=== PATIENT | female | born 1950 | race African-American/Black ===

== ENCOUNTER 2018-01-03 12:02 | Inpatient (IN) ==
[2018-01-03 12:29] LABS: Basophils % 0.3 %; Eosinophils # 0.1 K/mcL (0.0-0.6); Eosinophils % 1.7 %; Hematocrit 38.5 % (35.3-44.9); Hemoglobin 11.8 g/dL (11.5-15.4); Immature Granulocytes % 0.3 % (0-4); Lymphocytes # 0.9 K/mcL (0.6-4.6); Lymphocytes % 26.2 %; Mean Corpuscular HGB Conc 30.6 g/dL (31.6-35.5); Mean Corpuscular Hemoglobin 27.6 pg (28.0-33.3); Mean Corpuscular Volume 90.2 fL (83.0-100.0); Mean Platelet Volume 11.1 fL (9.4-12.4); Monocytes # 0.4 K/mcL (0.0-1.3); Monocytes % 10.2 %; Neutrophils # 2.1 K/mcL (1.6-8.9); Platelet Count 201 K/mcL (140-400); Red Blood Count 4.27 M/mcL (3.82-4.97); Red Cell Distribution Width 17.4 % (11.5-14.5); Segmented Neutrophils % 61.3 %
[2018-01-03 12:42] LABS: INR 1.1; Prothrombin Time 12.8 Seconds (9.4-12.1)
[2018-01-03 12:44] LABS: Activated Partial Thrombo Time 31.5 Seconds (26.0-36.0)
[2018-01-03 12:53] LABS: Troponin I < 0.03 ng/mL (< 0.04)
--- NOTE | 2018-01-03 13:02 | Emergency Department Note ---
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 She denies loss of consciousness or hitting her head. She states that she lives with her son. Over the last several weeks to months she has been having more frequent falls, she states that her legs feel very heavy and it is difficult for her to walk around. She also notes that she has felt increasing depression recently and has been unmotivated to take her medications including her 20 mg once per day of Lasix. Her son manages her insulin and checking her blood sugar because it is difficult for her to see the screen on the meter after she had emergency surgery in her right eye last year some time for acute angle-closure glaucoma. She also notes some increasing shortness of breath over the last several months , numbness in her feet, and some occasional diarrhea. 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 She denies fevers or chills, abdominal pain, nausea or vomiting, chest pain, dysuria, frequency. Patient states that she has not eaten anything today because she was trying to be seen by the doctor, EMS got a blood sugar of 168. Pain Scale: 0 - Related Data Home Medications Medication Instructions Recorded Confirmed Aspirin Enteric Coated [Aspirin EC] 81 mg PO DAILY 01/03/18 01/03/18 Atorvastatin [Lipitor] 40 mg PO HS 01/03/18 01/03/18 Brimonidine Tartrate/Timolol 1 drop OP DAILY 01/03/18 01/03/18 [Combigan 0.2%-0.5% Eye Drops] Dorzolamide [Trusopt] 1 drop OP TID 01/03/18 01/03/18 Ferrous Sulfate [Iron] 325 mg PO DAILY 01/03/18 01/03/18 Furosemide [Lasix] 20 mg PO DAILY 01/03/18 01/03/18 Gabapentin [Neurontin] 600 mg PO DAILY 01/03/18 01/03/18 Insulin ASPART [NovoLOG] 6 units SQ TIDWM 01/03/18 01/03/18 Insulin Glargine [Lantus] 18 units SQ HS 01/03/18 01/03/18 Losartan [Cozaar] 25 mg PO DAILY 01/03/18 01/03/18 Allergies Allergy/AdvReac Type Severity Reaction Status Date / Time No Known Allergies Allergy Verified 01/03/18 12:08 All systems ED: reviewed and negative except as stated. Review of Systems: As Per HPI Constitutional: Denies: fever, chills Eyes: Denies: eye pain, vision change ENT ED: Denies: ear pain, throat pain Cardiovascular: Reports: dyspnea on exertion. Denies: chest pain Respiratory: Reports: dyspnea Gastrointestinal: Reports: diarrhea (occasional). Denies: abdominal pain, nausea, vomiting, constipation Genitourinary: Denies: urgency, dysuria, frequency Musculoskeletal: Reports: back pain (chronic, lumbar) Neurological: Denies: headache, numbness Psychiatric: Reports: depression Endocrine: Denies: heat or cold intolerance Past Medical History - Past Medical History Medical history: Reports: CHF, diabetes Psychiatric history: Reports: depression - Social History Smoking Status: Never smoker Smokeless Tobacco Status: No Alcohol use: Reports: none Drug use: Reports: none Physical Exam - General Limitations: no limitations General appearance: alert, in no apparent distress - Head Head exam: atraumatic, normocephalic - ENT ENT exam: normal exam, normal oropharynx, mucous membranes moist - Neck Neck exam: Present: normal inspection, full ROM - Chest Chest inspection: Present: normal inspection, symmetric chest wall rise - Respiratory Respiratory exam: Present: normal lung sounds bilaterally. Absent: respiratory distress, wheezes - Cardiovascular Cardiovascular exam: Present: regular rate, normal rhythm - Abdominal Exam Abdominal exam: Present: soft, Non-Tender - Expanded Lower Extremity Exam Lower leg exam: Present: swelling (3-4+ pitting edema edith) - Psychiatric Psychiatric exam: Present: depressed, flat affect - Skin Skin exam: Present: warm, dry, intact Course Course Narrative: Patient has been having frequent falls over the last several weeks and also reports that she has a worsening depression which makes her not want to manage her diseases and it makes her not want to take her medications. She lives with her son who helps her manage her diabetes by checking her blood sugar and administering her insulin as she finds it difficult to read her meter. Although her son states that she can see her pill bottles and she is able to manage her own medications, it does not seem like she is doing. She states that it has been several weeks since she took her Lasix and while she reports that she is on something for depression it is not amongst the medications that she brought with her today and provided as example of what she takes. Patient will be given a dose of Lasix in this department, however it is unlikely that this will resolve her lower extremity edema she will likely need to be admitted for diuresis, and initiation of greater at-home care, and management of depression. CT head/brain will be used to r/o acute intracranial pathology, basic labs to include CBC, BMP, BNP, and CXR will be performed. Vital Signs Temperature 98.5 F 01/03/18 12:09 Pulse Rate 81 01/03/18 12:09 Respiratory Rate 16 01/03/18 12:09 Blood Pressure 177/92 01/03/18 12:09 O2 Sat by Pulse Oximetry 100 01/03/18 12:09 Temperature 98.5 F 01/03/18 12:09 Pulse Rate 79 01/03/18 13:31 Respiratory Rate 18 01/03/18 13:31 Blood Pressure 155/115 01/03/18 13:31 O2 Sat by Pulse Oximetry 99 01/03/18 13:31 Oxygen Delivery Oxygen Delivery Room Air Medical Decision Making - [facility] Narrative Medical decision making narrative: Patient's head CT was negative for any acute intracranial abnormality, chest x- ray showed cardiomegaly but otherwise no acute cardiopulmonary processes, her lab work was remarkable for an elevated BNP at 1265. EKG showed flattening of the T waves in V4 through V6 which is a change from previous EKG in 2004. Additionally patient is having trouble ambulating at home, and does not seem to be able to manage her medications well enough to be compliant with them. Patient will need to be admitted for further workup of exacerbation of CHF, and connection with home health aide. I spoke with family and the patient who expressed understanding and agreement with the plan, I gave them an opportunity for questions and all of their concerns were addressed. Spoke with the hospitalist Dr. Reed who accepted the patient. - Medical Records Medical records reviewed: Yes I reviewed the patient's medical records. - Lab Data Lab results reviewed: Yes I reviewed the patient's lab results. Result diagrams: 01/03/18 12:15 01/03/18 12:15 Lab Results 01/03/18 01/03/18 01/03/18 Range/Units 12:15 12:15 12:15 WBC 3.4 L (4.3-11.1) K/mcL RBC 4.27 (3.82-4.97) M/mcL Hgb 11.8 (11.5-15.4) g/dL Hct 38.5 (35.3-44.9) % MCV 90.2 (83.0-100.0) fL MCH 27.6 L (28.0-33.3) pg MCHC 30.6 L (31.6-35.5) g/dL RDW 17.4 H (11.5-14.5) % Plt Count 201 (140-400) K/mcL MPV 11.1 (9.4-12.4) fL Immature Gran % 0.3 (0-4) % Seg Neutrophils % 61.3 % Lymphocytes % 26.2 % Monocytes % 10.2 % Eosinophils % 1.7 % Basophils % 0.3 % Neutrophils # 2.1 (1.6-8.9) K/mcL Lymphocytes # 0.9 (0.6-4.6) K/mcL Monocytes # 0.4 (0.0-1.3) K/mcL Eosinophils # 0.1 (0.0-0.6) K/mcL Basophils # 0.0 (0.0-0.2) K/mcL PT 12.8 H (9.4-12.1) Seconds INR 1.1 APTT 31.5 (26.0-36.0) Seconds Sodium 142 (136-145) mEq/L Potassium 3.9 (3.5-5.1) mEq/L Chloride 107 (98-107) mEq/L Carbon Dioxide 23 (23-29) mEq/L BUN 26 H (8-23) mg/dL Creatinine 1.51 H (0.60-1.20) mg/dL Est GFR ( Amer) 41 L (> 60) Est GFR (Non-Af Amer) 34 L (> 60) BUN/Creatinine Ratio 17 (6-26) Glucose 170 H (70-105) mg/dL Calculated Osmolality 303 H (280-300) Calcium 9.6 (8.6-10.3) mg/dL Magnesium (1.6-2.6) mg/dL Troponin I (< 0.04) ng/mL B-Natriuretic Peptide (Less than 100) pg/mL TSH 4.289 (0.340-5.600) mcIU/mL Urine Color (Yellow) Urine Clarity (Clear) Urine pH (5.0-8.0) pH Units Ur Specific [facility] (1.010-1.025) Urine Protein (Neg-Trace) mg/dL Urine Glucose (UA) (Normal) mg/dL Urine Ketones (Negative) mg/dL Urine Blood (Negative) Urine Nitrite (Negative) Urine Bilirubin (Negative) Urine Urobilinogen (Normal) mg/dL Ur Leukocyte Esterase (Negative) Urine Microscopic RBC (0-3) per hpf Urine Microscopic WBC (0-3) per hpf Ur Squamous Epith Cells (None-Few) per lpf Urine Bacteria (None-Few) per hpf Hyaline Casts (None-Few) per lpf Ur Culture Indicated? (NO) 01/03/18 01/03/18 01/03/18 Range/Units 12:15 12:15 13:16 WBC (4.3-11.1) K/mcL RBC (3.82-4.97) M/mcL Hgb (11.5-15.4) g/dL Hct (35.3-44.9) % MCV (83.0-100.0) fL MCH (28.0-33.3) pg MCHC (31.6-35.5) g/dL RDW (11.5-14.5) % Plt Count (140-400) K/mcL MPV (9.4-12.4) fL Immature Gran % (0-4) % Seg Neutrophils % % Lymphocytes % % Monocytes % % Eosinophils % % Basophils % % Neutrophils # (1.6-8.9) K/mcL Lymphocytes # (0.6-4.6) K/mcL Monocytes # (0.0-1.3) K/mcL Eosinophils # (0.0-0.6) K/mcL Basophils # (0.0-0.2) K/mcL PT (9.4-12.1) Seconds INR APTT (26.0-36.0) Seconds Sodium (136-145) mEq/L Potassium (3.5-5.1) mEq/L Chloride (98-107) mEq/L Carbon Dioxide (23-29) mEq/L BUN (8-23) mg/dL Creatinine (0.60-1.20) mg/dL Est GFR ( Amer) (> 60) Est GFR (Non-Af Amer) (> 60) BUN/Creatinine Ratio (6-26) Glucose (70-105) mg/dL Calculated Osmolality (280-300) Calcium (8.6-10.3) mg/dL Magnesium 1.7 (1.6-2.6) mg/dL Troponin I < 0.03 (< 0.04) ng/mL B-Natriuretic Peptide 1265 H (Less than 100) pg/mL TSH (0.340-5.600) mcIU/mL Urine Color Yellow (Yellow) Urine Clarity Cloudy A (Clear) Urine pH 5.5 (5.0-8.0) pH Units Ur Specific [facility] 1.028 H (1.010-1.025) Urine Protein >=300 H (Neg-Trace) mg/dL Urine Glucose (UA) 100 H (Normal) mg/dL Urine Ketones Negative (Negative) mg/dL Urine Blood Small H (Negative) Urine Nitrite Negative (Negative) Urine Bilirubin Small H (Negative) Urine Urobilinogen Normal (Normal) mg/dL Ur Leukocyte Esterase Negative (Negative) Urine Microscopic RBC 5-15 H (0-3) per hpf Urine Microscopic WBC 5-15 H (0-3) per hpf Ur Squamous Epith Cells Many H (None-Few) per lpf Urine Bacteria Many H (None-Few) per hpf Hyaline Casts Few (None-Few) per lpf Ur Culture Indicated? NO (NO) - Radiology Data Radiology results reviewed: Yes I reviewed the patient's radiology results. Head CT 01/03/18 12:07 IMPRESSION: No acute intracranial abnormality. Sequela from remote right basal ganglia stroke. D/ / Jose Aponte / Jose Aponte Interpreting Provider: Jose Aponte Chest X-Ray 01/03/18 12:10 IMPRESSION: Questionable small bilateral pleural effusions. Marked cardiomegaly. D/ / Armani Blackmon / Armani Blackmon Interpreting Provider: Armani Blackmon - EKG Data EKG #1 EKG attestation: Yes I reviewed and interpreted this EKG. EKG results narrative: HR 80, rhythm sinus, axis normal. VT 157, QRS 83, QTC 475. Flattened t-waves in Leads V4-V6 not present in previous EKG from 08/2004. No evidence of ST elevation or depression. Attestation Statement - Attestation Attestation: I, Ross Handy DO, examined this patient [id number] and my medical decision-making was reviewed with Dr. Judy Cassidy, Resident Physician. I agree with the documented findings, disposition and treatment plan as described except to the extent set forth below. Please see my progress notes for details.
[2018-01-03] MEDS ORDERED: Furosemide 20 MG/2 ML VIAL IVP ONE (13:08)
[2018-01-03 13:12] LABS: Calcium 9.6 mg/dL (8.6-10.3); Potassium 3.9 mEq/L (3.5-5.1)
[2018-01-03 13:13] LABS: Magnesium 1.7 mg/dL (1.6-2.6)
[2018-01-03 13:37] LABS: Bilirubin,Urine Small (Negative); Blood,Urine Small (Negative); Clarity,Urine Cloudy (Clear); Color,Urine Yellow (Yellow); Glucose,Urine (UA) 100 mg/dL (Normal); Ketones,Urine Negative (Negative); Leukocyte Esterase,Urine Negative (Negative); Nitrite,Urine Negative (Negative); PH,Urine 5.5 pH Units (5.0-8.0); Protein,Urine >=300 mg/dL (Neg-Trace); Specific Gravity,Urine 1.028 (1.010-1.025); Urobilinogen,Urine Normal (Normal)
[2018-01-03 13:40] LABS: Bacteria,Urine Many per hpf (None-Few); Hyaline Casts,Urine Few per lpf (None-Few); Squamous Epithelial Cell,Urine Many per lpf (None-Few)
[2018-01-03 13:46] LABS: Thyroid Stimulating Hormone 4.289 mcIU/mL (0.340-5.600)
--- NOTE | 2018-01-03 14:09 | Emergency Department Note ---
Disposition Clinical Impression: Weakness, Shortness of breath, Fluid overload, Peripheral edema Disposition: Admitted As Inpatient Condition: Good Referrals: Renee De Los Santos [employer] [Primary Care Provider] - Forms: ED Satisfaction Letter, Work/School Release Time of Disposition: 16:19 General Adult HPI - General Chief complaint: ED General Medical Stated complaint: Legs giving out Time Seen by Provider: 01/03/18 12:03 Source: patient, family Mode of arrival: EMS Limitations: no limitations - History of Present Illness Pain Scale: 0 - Related Data Home Medications Medication Instructions Recorded Confirmed Aspirin Enteric Coated [Aspirin EC] 81 mg PO DAILY 01/03/18 01/03/18 Atorvastatin [Lipitor] 40 mg PO HS 01/03/18 01/03/18 Brimonidine Tartrate/Timolol 1 drop OP DAILY 01/03/18 01/03/18 [Combigan 0.2%-0.5% Eye Drops] Dorzolamide [Trusopt] 1 drop OP TID 01/03/18 01/03/18 Ferrous Sulfate [Iron] 325 mg PO DAILY 01/03/18 01/03/18 Furosemide [Lasix] 20 mg PO DAILY 01/03/18 01/03/18 Gabapentin [Neurontin] 600 mg PO DAILY 01/03/18 01/03/18 Insulin ASPART [NovoLOG] 6 units SQ TIDWM 01/03/18 01/03/18 Insulin Glargine [Lantus] 18 units SQ HS 01/03/18 01/03/18 Losartan [Cozaar] 25 mg PO DAILY 01/03/18 01/03/18 Allergies Allergy/AdvReac Type Severity Reaction Status Date / Time No Known Allergies Allergy Verified 01/03/18 12:08 Constitutional: Denies: fever, chills Eyes: Denies: eye pain, vision change ENT ED: Denies: ear pain, throat pain Cardiovascular: Reports: dyspnea on exertion. Denies: chest pain Respiratory: Reports: dyspnea Gastrointestinal: Reports: diarrhea (occasional). Denies: abdominal pain, nausea, vomiting, constipation Genitourinary: Denies: urgency, dysuria, frequency Musculoskeletal: Reports: back pain (chronic, lumbar) Neurological: Denies: headache, numbness Psychiatric: Reports: depression Endocrine: Denies: heat or cold intolerance Past Medical History - Past Medical History Medical history: Reports: CHF, diabetes Psychiatric history: Reports: depression - Social History Smoking Status: Never smoker Smokeless Tobacco Status: No Alcohol use: Reports: none Drug use: Reports: none Physical Exam - General Limitations: no limitations General appearance: alert, in no apparent distress Course Vital Signs Temperature 98.5 F 01/03/18 12:09 Pulse Rate 81 01/03/18 12:09 Respiratory Rate 16 01/03/18 12:09 Blood Pressure 177/92 01/03/18 12:09 O2 Sat by Pulse Oximetry 100 01/03/18 12:09 Temperature 98.5 F 01/03/18 12:09 Pulse Rate 79 01/03/18 13:31 Respiratory Rate 18 01/03/18 13:31 Blood Pressure 155/115 01/03/18 13:31 O2 Sat by Pulse Oximetry 99 01/03/18 13:31 Oxygen Delivery Oxygen Delivery Room Air Medical Decision Making - Lab Data Result diagrams: 01/03/18 12:15 01/03/18 12:15 Lab Results 01/03/18 01/03/18 01/03/18 Range/Units 12:15 12:15 12:15 WBC 3.4 L (4.3-11.1) K/mcL RBC 4.27 (3.82-4.97) M/mcL Hgb 11.8 (11.5-15.4) g/dL Hct 38.5 (35.3-44.9) % MCV 90.2 (83.0-100.0) fL MCH 27.6 L (28.0-33.3) pg MCHC 30.6 L (31.6-35.5) g/dL RDW 17.4 H (11.5-14.5) % Plt Count 201 (140-400) K/mcL MPV 11.1 (9.4-12.4) fL Immature Gran % 0.3 (0-4) % Seg Neutrophils % 61.3 % Lymphocytes % 26.2 % Monocytes % 10.2 % Eosinophils % 1.7 % Basophils % 0.3 % Neutrophils # 2.1 (1.6-8.9) K/mcL Lymphocytes # 0.9 (0.6-4.6) K/mcL Monocytes # 0.4 (0.0-1.3) K/mcL Eosinophils # 0.1 (0.0-0.6) K/mcL Basophils # 0.0 (0.0-0.2) K/mcL PT 12.8 H (9.4-12.1) Seconds INR 1.1 APTT 31.5 (26.0-36.0) Seconds Sodium 142 (136-145) mEq/L Potassium 3.9 (3.5-5.1) mEq/L Chloride 107 (98-107) mEq/L Carbon Dioxide 23 (23-29) mEq/L BUN 26 H (8-23) mg/dL Creatinine 1.51 H (0.60-1.20) mg/dL Est GFR ( Amer) 41 L (> 60) Est GFR (Non-Af Amer) 34 L (> 60) BUN/Creatinine Ratio 17 (6-26) Glucose 170 H (70-105) mg/dL Calculated Osmolality 303 H (280-300) Calcium 9.6 (8.6-10.3) mg/dL Magnesium (1.6-2.6) mg/dL Troponin I (< 0.04) ng/mL B-Natriuretic Peptide (Less than 100) pg/mL TSH 4.289 (0.340-5.600) mcIU/mL Urine Color (Yellow) Urine Clarity (Clear) Urine pH (5.0-8.0) pH Units Ur Specific [facility] (1.010-1.025) Urine Protein (Neg-Trace) mg/dL Urine Glucose (UA) (Normal) mg/dL Urine Ketones (Negative) mg/dL Urine Blood (Negative) Urine Nitrite (Negative) Urine Bilirubin (Negative) Urine Urobilinogen (Normal) mg/dL Ur Leukocyte Esterase (Negative) Urine Microscopic RBC (0-3) per hpf Urine Microscopic WBC (0-3) per hpf Ur Squamous Epith Cells (None-Few) per lpf Urine Bacteria (None-Few) per hpf Hyaline Casts (None-Few) per lpf Ur Culture Indicated? (NO) 01/03/18 01/03/18 01/03/18 Range/Units 12:15 12:15 13:16 WBC (4.3-11.1) K/mcL RBC (3.82-4.97) M/mcL Hgb (11.5-15.4) g/dL Hct (35.3-44.9) % MCV (83.0-100.0) fL MCH (28.0-33.3) pg MCHC (31.6-35.5) g/dL RDW (11.5-14.5) % Plt Count (140-400) K/mcL MPV (9.4-12.4) fL Immature Gran % (0-4) % Seg Neutrophils % % Lymphocytes % % Monocytes % % Eosinophils % % Basophils % % Neutrophils # (1.6-8.9) K/mcL Lymphocytes # (0.6-4.6) K/mcL Monocytes # (0.0-1.3) K/mcL Eosinophils # (0.0-0.6) K/mcL Basophils # (0.0-0.2) K/mcL PT (9.4-12.1) Seconds INR APTT (26.0-36.0) Seconds Sodium (136-145) mEq/L Potassium (3.5-5.1) mEq/L Chloride (98-107) mEq/L Carbon Dioxide (23-29) mEq/L BUN (8-23) mg/dL Creatinine (0.60-1.20) mg/dL Est GFR ( Amer) (> 60) Est GFR (Non-Af Amer) (> 60) BUN/Creatinine Ratio (6-26) Glucose (70-105) mg/dL Calculated Osmolality (280-300) Calcium (8.6-10.3) mg/dL Magnesium 1.7 (1.6-2.6) mg/dL Troponin I < 0.03 (< 0.04) ng/mL B-Natriuretic Peptide 1265 H (Less than 100) pg/mL TSH (0.340-5.600) mcIU/mL Urine Color Yellow (Yellow) Urine Clarity Cloudy A (Clear) Urine pH 5.5 (5.0-8.0) pH Units Ur Specific [facility] 1.028 H (1.010-1.025) Urine Protein >=300 H (Neg-Trace) mg/dL Urine Glucose (UA) 100 H (Normal) mg/dL Urine Ketones Negative (Negative) mg/dL Urine Blood Small H (Negative) Urine Nitrite Negative (Negative) Urine Bilirubin Small H (Negative) Urine Urobilinogen Normal (Normal) mg/dL Ur Leukocyte Esterase Negative (Negative) Urine Microscopic RBC 5-15 H (0-3) per hpf Urine Microscopic WBC 5-15 H (0-3) per hpf Ur Squamous Epith Cells Many H (None-Few) per lpf Urine Bacteria Many H (None-Few) per hpf Hyaline Casts Few (None-Few) per lpf Ur Culture Indicated? NO (NO) Attestation Statement - Attestation Attestation: I, Ross Handy DO, examined this patient [id number] and my medical decision-making was reviewed with Dr. Judy Cassidy, Resident Physician. I agree with the documented findings, disposition and treatment plan as described except to the extent set forth below. Please see my progress notes for details. 67-year-old female presents emergency room in the care of the family and transported by EMS for evaluation of a fall. Patient is attempting to get into or out of the vehicle here today when her legs gave out she fell straight to the ground landing on her buttock. She did not hit her head or lose consciousness. During the event she denied any chest pain shortness of breath headache vision changes nausea vomiting or diarrhea. Denies any recent fevers or chills. Denies any new medications. Denies any other injuries or falls previously to today's events. Patient has been describing worsening lower extremity swelling and weakness in her legs that she feels like makes it difficult for her to bend or flex her knees. She was to get up and stand she has difficulty getting up under her own power. She denies any numbness tingling or paresthesias. She is been having normal bowel and bladder control. She does have sensation that is noted on the perirectal area on evaluation and during her clothing of her stooling. Patient denies any surgical intervention or back or recent surgical manipulation. Vital signs are stable on presentation patient is alert she is oriented she is patient has sentences. Right eye has lost neurologic function secondary to glaucoma and that it. The nerve. The left eye is normal. Oropharynx is patent mucous membranes are moist trachea is midline no stridor no trismus. Lungs are clear heart is regular. Abdomen is soft nontender nondistended no guarding no rigidity no peritoneal symptoms. She does have pitting edema does extend up into the abdominal wall. Otherwise is not showing any acute signs of decompensation respiratory distress. Swelling extends itself across the waist into the lower cavities bilaterally. She does have a weeping wound on the right lower extremities. No visible signs of diabetic ulcers on her feet. Pulses appear to be present based on palpation but Doppler study will be completed bilaterally at the bedside by nursing staff. Patient is concerning for multiple issues including congestive heart failure, fluid overload, nutritional related issues. She also has a. Controlled diabetic. She does have a primary care provider but does not fall her medication regiment. She is noncompliant with all of her medical issues. Disposition will most likely be admission secondary to the presenting symptoms of shortness of breath weakness fluid overload and inability to take care of herself at home. We will continue to monitor his symptoms are controlled treatment course is established. CT imaging the head was added on considering the generalized weakness symptoms as well as a fall here today. She has no neck pains and no other imaging required at this time outside of chest x-ray. EKG CBC chemistry troponin and BNP urinalysis along with thyroid function. Disposition pending the evaluation. See detailed documentation of the physical exam, medical intervention, medical decision-making, and disposition in the resident physician's note. No critical care provider the patient's treatment course at this time. 1615 Patient has negative laboratory workup of this time except for significantly elevated BNP as well as a chest x-ray that got vascular congestion. This is consistent with the concern on presentation for fluid overload and Coreg congestion causing weakness. Patient does not have any echocardiogram to confirm congestive heart failure but we will monitor closely for those issues. Patient will be admitted for continuation of care. Hospitalist Dr. Reed reviewed the case and no other recommendations or concerns. Patient will be admitted for fluid overload and concern for undiagnosed congestive heart failure
[2018-01-03] MEDS ORDERED: Naloxone 0.4 MG/ML INJ IVP PRN (16:32)
[2018-01-03] MEDS ORDERED: D5% in Water 1,000 ML IVC PRN (16:40)
[2018-01-03] MEDS ORDERED: *HR* Dextrose 50 % in Water (Syg) 50 ML SYRINGE IVP PRN (16:40)
[2018-01-03] MEDS ORDERED: Dextrose Gel 15 GM/37.5 ML TUBE PO PRN ×2 (16:40)
--- NOTE | 2018-01-03 16:57 | Internal Med History&Physical ---
Date of Encounter: 01/03/18 Time of Encounter: 16:00 Internal Medicine - H&P: HPI Chief complaint: Fall, leg swelling Admitted From: Home Plans for Post Hospital Care: Home History of present illness: Ms. Luis is a 67 year old female sent to ER by EMS for fall. Past medical history is significant for diabetes, hypertension, right eye blind, breast cancer Patient has mechanical fall today, without loss of consciousness, without head hitting. Patient thought the fall is due to her bilateral leg weakness and swelling. Patient has bilateral leg swelling for about 1 year, feels bilateral leg heavy and weak. Patient needs rest even walking very short distance (from bed room to bathroom). And her legs are thick and heave b/o swelling. Patient also has belly wall swelling. Patient has sometimes shortness of breath and nausea. Denies chest pain. Denies urinary/fecal incontinence. Patient has a frequent fall because of leg weakness. In the emergency room, she was found cardiomegaly by chest x-ray. BNP 1200. Patient was suspected CHF and admitted for further management. Past Med Surg Social Fam HX - Past Medical History Medical history: CHF, diabetes Psychiatric history: depression - Past Surgical History Surgical History: breast surgery, hysterectomy - Social History Smoking Status: Never smoker Smokeless Tobacco Status: No Alcohol use: none Drug use: none - Family History Mother History Unknown: Yes Internal Medicine - H&P: Meds Aspirin Enteric Coated [Aspirin EC] 81 mg PO DAILY 01/03/18 [History] Atorvastatin [Lipitor] 40 mg PO HS 01/03/18 [History] Brimonidine Tartrate/Timolol [Combigan 0.2%-0.5% Eye Drops] 1 drop OP DAILY 02/10 [History] Dorzolamide [Trusopt] 1 drop OP TID 01/03/18 [History] Ferrous Sulfate [Iron] 325 mg PO DAILY 01/03/18 [History] Furosemide [Lasix] 20 mg PO DAILY 01/03/18 [History] Gabapentin [Neurontin] 600 mg PO DAILY 01/03/18 [History] Insulin ASPART [NovoLOG] 6 units SQ TIDWM 01/03/18 [History] Insulin Glargine [Lantus] 18 units SQ HS 01/03/18 [History] Losartan [Cozaar] 25 mg PO DAILY 01/03/18 [History] 3 Allergy/AdvReac Type Severity Reaction Status Date / Time No Known Allergies Allergy Verified 01/03/18 12:08 All Systems PM: A 10-system review of systems was performed and is negative for pertinent findings except as documented above in the HPI. - Constitutional Vitals: Temp Pulse Resp BP Pulse Ox 98.5 F 79 18 155/115 99 01/03/18 12:09 01/03/18 13:31 01/03/18 13:31 01/03/18 13:31 01/03/18 13:31 General appearance: Present: A&O X 3, no acute distress, answers questions appropriately Exam: in NAD - Head Head exam: Present: atraumatic, normocephalic - Eye Eye exam: Present: PERRL, conjuntiva pink, sclera anicteric Pupils: Present: PERRL - Neck Neck exam general surgery: Present: supple, trachea midline. Absent: lymphadenopathy - Respiratory Respiratory exam: Present: CTAB, rales (Fine crackles b/l on lung base). Absent : accessory muscle use, rhonchi, wheezes - Cardiovascular Cardiovascular exam: Present: RRR, +S1, +S2. Absent: diastolic murmur, gallop, rubs, systolic murmur - GI/Abdominal GI/Abdominal exam: Present: normal bowel sounds, soft, no peritoneal signs. Absent: distended, tenderness - Extremities Exam Extremities exam: Present: pedal edema (Moderate to severe b/l leg pitting edema ), warm, radial pulses palpable and symmetrical. Absent: calf tenderness, cyanotic - Neurological Exam Neurological exam: Present: CN II-XII intact, oriented X3, no focal deficits. Absent: pronater drift, facial droop, speech deficit - Skin Skin exam: Present: dry, intact Internal Med - H&P Results - Labs CBC & Chem 7: 01/03/18 12:15 01/03/18 12:15 - Assessment and plan (1) Diabetes mellitus Current Visit: Yes Status: Acute Assessment and plan: Continue basal and sliding scale insulin coverage. Check Hg A1C Qualifiers: Diabetes mellitus type: type 2 Diabetes mellitus long term care social worker insulin use: with residential use Diabetes mellitus complication status: with kidney complications Diabetes mellitus complication detail: with chronic kidney disease Chronic kidney disease stage: stage 3 (moderate) Qualified Code(s): E11.22 - Type 2 diabetes mellitus with diabetic chronic kidney disease; N18.3 - Chronic kidney disease, stage 3 (moderate); Z79.4 - correction (current) use of insulin (2) CKD (chronic kidney disease) Current Visit: Yes Status: Acute Assessment and plan: Cr is at about baseline. Qualifiers: Chronic kidney disease stage: stage 3 (moderate) Qualified Code(s): N18.3 - Chronic kidney disease, stage 3 (moderate) (3) HTN (hypertension) Current Visit: Yes Status: Acute Assessment and plan: Continue home medications Qualifiers: Hypertension type: essential hypertension Qualified Code(s): I10 - Essential (primary) hypertension (4) DVT prophylaxis Current Visit: Yes Status: Acute Assessment and plan: Heparin subcutaneously (5) Peripheral edema Current Visit: Yes Status: Acute Assessment and plan: Most likely due to CHF. Patient also has elevated BNP and chest x-ray shows cardiomegaly. - We will obtain echocardiogram - Place patient on Lasix IV 20 mg daily - Strict I and O - Fluid restriction diet (6) Weakness Current Visit: Yes Status: Acute Assessment and plan: Pt c/o b/l leg weak, probably due to leg swelling. Also need to rule out PVD, vitamin B12 deficiency of folic acid deficiency or adrenal insufficiency. - Check [place], vit B12, Folate, and AM cortisol level. - TSH wnl in ER (7) Fall Current Visit: Yes Status: Acute Assessment and plan: Mechanical fall due to leg weakness. Will consult PT OT for evaluation Qualifiers: Encounter type: initial encounter Qualified Code(s): W19.XXXA - Unspecified fall, initial encounter - Time Spent With Patient Total time spent is greater than 50% in coordination of care (as documented) at patient's floor/unit and/or counseling patient:
[2018-01-03] MEDS: *HR* Heparin 5,000 UNIT/ML VIAL SQ SCH (20:34)
[2018-01-03] MEDS: Insulin DETEMIR 100 UNIT/ML X5UNITS SQ SCH (20:34)
[2018-01-03] MEDS: Dorzolamide OPTH 10 ML BOTTLE BOTH EYES SCH (20:36)
[2018-01-03] MEDS: Insulin LISPRO 300 UNITS/3 ML VIAL SQ SCH (21:57)
[2018-01-04] MEDS ORDERED: traMADol 50 MG TABLET PO PRN (02:35)
[2018-01-04 04:41] LABS: Basophils % 0.7 %; Eosinophils # 0.1 K/mcL (0.0-0.6); Eosinophils % 3.1 %; Hematocrit 36.4 % (35.3-44.9); Hemoglobin 11.4 g/dL (11.5-15.4); Immature Granulocytes % 0.3 % (0-4); Lymphocytes # 0.9 K/mcL (0.6-4.6); Lymphocytes % 31.5 %; Mean Corpuscular HGB Conc 31.3 g/dL (31.6-35.5); Mean Corpuscular Hemoglobin 27.5 pg (28.0-33.3); Mean Corpuscular Volume 87.7 fL (83.0-100.0); Mean Platelet Volume 11.5 fL (9.4-12.4); Monocytes # 0.3 K/mcL (0.0-1.3); Monocytes % 10.8 %; Neutrophils # 1.6 K/mcL (1.6-8.9); Platelet Count 201 K/mcL (140-400); Red Blood Count 4.15 M/mcL (3.82-4.97); Red Cell Distribution Width 17.5 % (11.5-14.5); Segmented Neutrophils % 53.6 %
[2018-01-04 05:05] LABS: Calcium 9.5 mg/dL (8.6-10.3); Magnesium 1.8 mg/dL (1.6-2.6); Potassium 3.7 mEq/L (3.5-5.1)
[2018-01-04 05:22] LABS: Folate 7.2 ng/mL (3.0-16.0)
[2018-01-04 05:31] LABS: Vitamin B12 > 1500 pg/mL (250-1100)
[2018-01-04] MEDS: *HR* Heparin 5,000 UNIT/ML VIAL SQ SCH ×2 (05:36→17:27)
[2018-01-04] MEDS ORDERED: Perflutren Lipid Microsphere 1.3 ML in 0.9 % Sodium Chloride 8.7 ML IVP ONE (07:56)
[2018-01-04] MEDS ORDERED: Furosemide 20 MG/2 ML VIAL IVP SCH (09:00)
[2018-01-04 09:02] LABS: Estimated Average Glucose 166 mg/dl; Hemoglobin A1C 7.4 %
[2018-01-04] MEDS: Aspirin Enteric Coated 81 MG Tablet PO SCH (10:33)
[2018-01-04] MEDS: Gabapentin 300 MG CAPSULE PO SCH (10:33)
[2018-01-04] MEDS: Dorzolamide OPTH 10 ML BOTTLE BOTH EYES SCH ×3 (10:33→21:10)
[2018-01-04] MEDS: TIMOLOL OP SCH (10:34)
[2018-01-04] MEDS: BRIMONIDINE TARTRATE OP SCH (10:34)
[2018-01-04] MEDS: Insulin LISPRO 300 UNITS/3 ML VIAL SQ SCH ×4 (11:31→21:10)
--- NOTE | 2018-01-04 13:05 | Internal Med Progress Note ---
Hospitalist Progress Note - Encounter Date of Encounter: 01/04/18 Time of Encounter: 09:00 - Subjective Interval History: pt feels better. State has good urine output on lasix. Echo shows EF 25%. - Exam Vitals: Temp Pulse Resp BP Pulse Ox 97.4 F L 74 16 170/93 96 01/04/18 12:32 01/04/18 12:32 01/04/18 12:32 01/04/18 12:32 01/04/18 12:32 Exam: Pt is AAO x 3, in NAD HEENT: NC/AT, PERRL Lungs: CTA b/l Heart: S1S2, RRR Abd: Soft, NT, abd swelling Ext: B/L pitting edema Neuro: No focal deficit - Assessment and Plan (1) Diabetes mellitus Current Visit: Yes Status: Acute Assessment and Plan: Continue basal and sliding scale insulin coverage. Hg A1C 7.4 (2) CKD (chronic kidney disease) Current Visit: Yes Status: Acute Assessment and Plan: Cr is at about baseline. (3) HTN (hypertension) Current Visit: Yes Status: Acute Assessment and Plan: Continue home medications (4) DVT prophylaxis Current Visit: Yes Status: Acute Assessment and Plan: Heparin subcutaneously (5) Peripheral edema Current Visit: Yes Status: Acute Assessment and Plan: Echo shows systolic CHF. Patient also has elevated BNP and chest x-ray shows cardiomegaly. - Place patient on Lasix IV 40 mg daily - Strict I and O - Fluid restriction diet (6) Weakness Current Visit: Yes Status: Acute Assessment and Plan: Most like due to systolic CHF. Cont diuretics. (7) Fall Current Visit: Yes Status: Acute Assessment and Plan: Mechanical fall due to leg weakness. Will consult PT OT for evaluation (8) Systolic CHF Current Visit: Yes Status: Acute Assessment and Plan: Echo shows LVEF 25%. Consider systolic CHF. - Newly diagnosed, consult cardio. - Cont lasix iv. - Add BB, pt is on ARB. DVT Prophylaxis: Heparin SC - Time Spent with Patient Total time spent is greater than 50% in coordination of care (as documented) at patient's floor/unit and/or counseling patient: 25 - 35 minutes Plan of Care Discussed with: patient Internal Medicine: Result - Labs CBC & Chem 7: 01/04/18 03:15 01/04/18 03:15 Labs: Short CBC 01/04/18 Range/Units 03:15 WBC 3.0 L (4.3-11.1) K/mcL Hgb 11.4 L (11.5-15.4) g/dL Hct 36.4 (35.3-44.9) % Plt Count 201 (140-400) K/mcL Neutrophils # 1.6 (1.6-8.9) K/mcL BMP 01/04/18 03:15 Sodium 141 Potassium 3.7 Chloride 109 H Carbon Dioxide 22 L BUN 26 H Creatinine 1.51 H Glucose 142 H Calcium 9.5 - ABG Interpretation ABG results: PT/INR, D-dimer PT 12.8 Seconds (9.4-12.1) H 01/03/18 12:15 - Impressions Impressions Echocardiogram 01/04/18 07:00 Impressions: LVEF 25%. Severe global LV systolic dysfunction. LV diastolic dysfunction with elevated filling pressures. There is no LV thrombus. Definity echo contrast was used. Normal RV size with mild reduction in function. Mild mitral regurgitation. Mild-moderate tricuspid regurgitation. Mild pulmonic regurgitation. Moderate-severe pulmonary hypertension. There is a small to moderate pericardial effusion present along the inferior wall. There is no echocardiographic evidence of tamponade. Consult Discharge Plan - Plan Referrals: Renee De Los Santos, BILLING ANALYST [Primary Care Provider] - (1) Diabetes mellitus Qualifiers: Diabetes mellitus type: type 2 Diabetes mellitus alf insulin use: with terminal manager use Diabetes mellitus complication status: with kidney complications Diabetes mellitus complication detail: with chronic kidney disease Chronic kidney disease stage: stage 3 (moderate) Qualified Code(s): E11.22 - Type 2 diabetes mellitus with diabetic chronic kidney disease; N18.3 - Chronic kidney disease, stage 3 (moderate); Z79.4 - USP (current) use of insulin (2) CKD (chronic kidney disease) Qualifiers: Chronic kidney disease stage: stage 3 (moderate) Qualified Code(s): N18.3 - Chronic kidney disease, stage 3 (moderate) (3) HTN (hypertension) Qualifiers: Hypertension type: essential hypertension Qualified Code(s): I10 - Essential (primary) hypertension (7) Fall Qualifiers: Encounter type: initial encounter Qualified Code(s): W19.XXXA - Unspecified fall, initial encounter (8) Systolic CHF Qualifiers: Heart failure chronicity: chronic Qualified Code(s): I50.22 - Chronic systolic (congestive) heart failure
[2018-01-04] MEDS: Metoprolol XL (24 HR) Succ 25 MG TAB.ER.24H PO SCH (15:05)
--- NOTE | 2018-01-04 15:07 | Cardiology Consult Note ---
Date of Encounter: 01/04/18 Time of Encounter: 15:00 Assessment and Plan (1) Fall Current Visit: Yes Status: Acute Per cardiology: -ADmitted after fall at home. -Son reports multiple falls. Qualifiers: Encounter type: initial encounter Qualified Code(s): W19.XXXA - Unspecified fall, initial encounter (2) Systolic CHF Current Visit: Yes Status: Acute Per cardiology: -TTE with LVEF 25%, global hypokinesis, LV diastolic dysfunction with elevated filling pressures, normal RV size with mild reduction in function, mild MR, mild -mod TR, mild [place], moderate-severe PH, small-moderate pericardial effusion with no evidence of tamponade. -Chest x-ray with bilateral pleural effusions. -BNP 1265 -Volume overloaded on exam. -On IV lasix, currently net positive 700ml per I/os, however patient and son report improvement in symptoms. -Denies previous cardiac testing. -On BB, ARB, lasix. -Of note, patient has history of non-compliance with medical therapy previously and until recently, did not see any providers. -Agree with IV diuresis. -Consider ischemic evaluation once more euvolemic. -Strict i/os, fluid restriction, daily weights. -Recommend tranfer to higher level of care, 2N or 2NE. Qualifiers: Heart failure chronicity: acute Qualified Code(s): I50.21 - Acute systolic (congestive) heart failure Discussion w patient/family: The assessment and plan as outlined above was discussed with the patient and/or family members who expressed understanding and agreement. All questions were answered. Thank you for involving us in the care of your patient. Please call with any questions. Discussed and reviewed with . History of Present Illness Consult date: 01/04/18 Requesting physician: Tyrese Adan Consult reason: new systolic CHF Chief complaint: fall History of present illness: Ms. Luis is a 67 year old female with a relevant past medical history of DM, HTN, diabetic retinopathy, HLD, CKD, iron deficiency anemia who presented to [facility] with complaints of fall. Son is at bedside and states that he was helping patient to car, when her legs "gave out" and she fell. Son states patient has been falling frequently. Patient denies chest pain. States shortness of breath is about baseline. Reports worsening edema over the past couple of months. Past Med Surg Social Fam HX - Past Medical History Attestation: Yes The following information was validated with the patient. Source: patient, old records reviewed Medical history: CHF, coronary artery disease, diabetes Psychiatric history: depression - Past Surgical History Surgical History: breast surgery, hysterectomy - Social History Smoking Status: Never smoker Smokeless Tobacco Status: No Alcohol use: none Drug use: none - Family History Mother History Unknown: Yes Medications and Allergies Aspirin Enteric Coated [Aspirin EC] 81 mg PO DAILY 01/03/18 [History] Atorvastatin [Lipitor] 40 mg PO HS 01/03/18 [History] Brimonidine Tartrate/Timolol [Combigan 0.2%-0.5% Eye Drops] 1 drop OP DAILY 02/10 [History] Dorzolamide [Trusopt] 1 drop OP TID 01/03/18 [History] Ferrous Sulfate [Iron] 325 mg PO DAILY 01/03/18 [History] Furosemide [Lasix] 20 mg PO DAILY 01/03/18 [History] Gabapentin [Neurontin] 600 mg PO DAILY 01/03/18 [History] Insulin ASPART [NovoLOG] 6 units SQ TIDWM 01/03/18 [History] Insulin Glargine [Lantus] 18 units SQ HS 01/03/18 [History] Losartan [Cozaar] 25 mg PO DAILY 01/03/18 [History] 3 Allergy/AdvReac Type Severity Reaction Status Date / Time No Known Allergies Allergy Verified 01/03/18 12:08 All Systems Review: The remainder of the systems were reviewed and are negative - Constitutional Constitutional: frequent falls - Cardiovascular Cardiovascular: as per HPI, leg edema Physical Examination Vital Signs, Last 4 Hours Temp Pulse Resp BP Pulse Ox 01/04/18 12:32 97.4 F L 74 16 170/93 96 General: Conversant, No Apparent Distress HEENT: Atraumatic, Normocephaly, Mucus Membranes Moist Neck: No JVD, Normal carotid pulses Cardiac: Reg Rate and Rhythm, Normal S1 and S2, No Murmur Lungs: Normal Breath Sounds, No Wheeze, Rales, Rhonchi Neuro: Alert and responsive, No focal deficits noted Abdomen: Soft, Non-Tender Skin: No rashes noted on visualized skin Musculoskeletal: No Chest Wall Tenderness Extremities: No Clubbing, No Cyanosis, Normal Pulses, Other (2+ bilateral lower extremity pitting edema noted. ) Results 01/04/18 03:15 01/04/18 03:15 Lab Results Impressions Echocardiogram 01/04/18 07:00 Impressions: LVEF 25%. Severe global LV systolic dysfunction. LV diastolic dysfunction with elevated filling pressures. There is no LV thrombus. Definity echo contrast was used. Normal RV size with mild reduction in function. Mild mitral regurgitation. Mild-moderate tricuspid regurgitation. Mild pulmonic regurgitation. Moderate-severe pulmonary hypertension. There is a small to moderate pericardial effusion present along the inferior wall. There is no echocardiographic evidence of tamponade. Active Medications Acetaminophen (Tylenol) 650 mg PO Q6HR PRN PRN Reason: Mild Pain/Fever Stop: 07/05/18 16:33 Aspirin (Aspirin Ec) 81 mg PO DAILY LILIAN Stop: 07/06/18 09:01 Last Admin: 01/04/18 10:33 Dose: 81 mg Atorvastatin Calcium (Lipitor) 40 mg PO HS LILIAN Stop: 07/05/18 21:01 Last Admin: 01/03/18 20:34 Dose: 40 mg Dextrose/Water (Dextrose 50% (Syg)) 25 ml IVP AD PRN PRN Reason: Hypoglycemia Stop: 07/05/18 16:41 Dorzolamide HCl (Trusopt) 1 drop BOTH EYES TID LILIAN Stop: 07/05/18 21:01 Last Admin: 01/04/18 10:33 Dose: 1 drop Ferrous Sulfate (Ferrous Sulfate) 325 mg PO DAILY LILIAN Stop: 07/06/18 09:01 Last Admin: 01/04/18 10:33 Dose: 325 mg Furosemide (Lasix) 40 mg IVP DAILY LILIAN Stop: 07/07/18 09:01 Gabapentin (Neurontin) 600 mg PO DAILY LILIAN Stop: 07/06/18 09:01 Last Admin: 01/04/18 10:33 Dose: 600 mg Glucagon (Glucagen) 1 mg IM ONCE PRN PRN Reason: Hypoglycemia Stop: 07/05/18 16:41 Glucose (Gluctose) 15 gm PO ONCE PRN PRN Reason: Hypoglycemia Stop: 07/05/18 16:41 Glucose (Gluctose) 30 gm PO ONCE PRN PRN Reason: Hypoglycemia Stop: 07/05/18 16:41 Heparin Sodium (Porcine) (Heparin) 5,000 unit SQ Q12HR LILIAN Stop: 07/05/18 18:01 Last Admin: 01/04/18 05:36 Dose: 5,000 unit Hydralazine HCl (Hydralazine) 10 mg IVP Q6HR PRN PRN Reason: Hypertension Stop: 07/05/18 18:19 Last Admin: 01/03/18 20:34 Dose: 10 mg Dextrose (Dextrose 5%) 1,000 mls @ 100 mls/hr IVC .Q10H PRN PRN Reason: HYPOGLYCEMIA Stop: 07/05/18 16:41 Insulin Detemir (Levemir) 12 unit SQ HS LILIAN Stop: 07/05/18 21:01 Last Admin: 01/03/18 20:34 Dose: 12 unit Insulin Human Lispro (Humalog) 0 units SQ HS LILIAN PRN Reason: Protocol Stop: 07/05/18 21:01 Last Admin: 01/03/18 21:57 Dose: 3 units Insulin Human Lispro (Humalog) 0 units SQ TIDAC LILIAN PRN Reason: Protocol Stop: 07/06/18 07:31 Last Admin: 01/04/18 13:16 Dose: 2 units Losartan Potassium (Cozaar) 25 mg PO DAILY LILIAN PRN Reason: Protocol Stop: 07/06/18 09:01 Last Admin: 01/04/18 10:33 Dose: 25 mg Metoprolol Succinate (Toprol Xl) 12.5 mg PO DAILY [facility] Stop: 07/06/18 13:10 Naloxone HCl (Narcan) 0.4 mg IVP Q2MIN PRN PRN Reason: SEE COMMENTS Stop: 07/05/18 16:33 Pharmacy Profile Note (Patient Taking Own Medication) 0 each OP DAILY LILIAN Stop: 07/06/18 09:01 Last Admin: 01/04/18 10:34 Dose: 1 each Tramadol HCl (Ultram) 50 mg PO TID PRN PRN Reason: Pain Stop: 07/06/18 02:36 Last Admin: 01/04/18 02:48 Dose: 50 mg Laboratory Tests 05/26/16 04/25/17 01/03/18 13:35 10:52 12:15 Hgb Creatinine 1.72 H 1.40 H Troponin I < 0.03 B-Natriuretic Peptide 01/03/18 01/04/18 01/04/18 12:15 03:15 03:15 Hgb 11.4 L Creatinine 1.51 H Troponin I B-Natriuretic Peptide 1265 H - Imaging and Cardiology Chest Xray: report reviewed Echo: report reviewed - EKG Interpretation EKG results cardiology: personally reviewed (ECG with SR, HR 80. Non-specific T wave abnormalities noted.), other (Telemetry reviewed with average HR previous 12 hours noted to be 76, SR. PVCs and PACs noted.) Consult Discharge Plan - Plan Referrals: Renee De Los Santos, WINE MAKER [Primary Care Provider] -
[2018-01-04] MEDS: Insulin DETEMIR 100 UNIT/ML X5UNITS SQ SCH (21:09)
[2018-01-05] MEDS ORDERED: Benzonatate 100 MG CAPSULE PO PRN (00:18)
[2018-01-05 03:36] LABS: Basophils % 0.8 %; Eosinophils # 0.1 K/mcL (0.0-0.6); Hematocrit 36.7 % (35.3-44.9); Hemoglobin 11.4 g/dL (11.5-15.4); Immature Granulocytes % 0.4 % (0-4); Lymphocytes # 0.9 K/mcL (0.6-4.6); Lymphocytes % 34.2 %; Mean Corpuscular HGB Conc 31.1 g/dL (31.6-35.5); Mean Corpuscular Volume 90.2 fL (83.0-100.0); Monocytes # 0.3 K/mcL (0.0-1.3); Monocytes % 12.8 %; Neutrophils # 1.3 K/mcL (1.6-8.9); Platelet Count 198 K/mcL (140-400); Red Blood Count 4.07 M/mcL (3.82-4.97); Red Cell Distribution Width 17.5 % (11.5-14.5); Segmented Neutrophils % 48.8 %
[2018-01-05 03:57] LABS: Calcium 9.3 mg/dL (8.6-10.3); Potassium 3.8 mEq/L (3.5-5.1)
[2018-01-05] MEDS: *HR* Heparin 5,000 UNIT/ML VIAL SQ SCH ×2 (05:42→17:03)
[2018-01-05] MEDS: Gabapentin 300 MG CAPSULE PO SCH (08:39)
[2018-01-05] MEDS: Metoprolol XL (24 HR) Succ 25 MG TAB.ER.24H PO SCH (08:40)
[2018-01-05] MEDS: Aspirin Enteric Coated 81 MG Tablet PO SCH (08:40)
[2018-01-05] MEDS: Dorzolamide OPTH 10 ML BOTTLE BOTH EYES SCH ×3 (08:41→19:42)
[2018-01-05] MEDS: TIMOLOL OP SCH (08:43)
[2018-01-05] MEDS: BRIMONIDINE TARTRATE OP SCH (08:43)
[2018-01-05] MEDS: Insulin LISPRO 300 UNITS/3 ML VIAL SQ SCH ×4 (08:53→19:49)
[2018-01-05] MEDS ORDERED: Furosemide 40 MG/4 ML VIAL IVP SCH (09:00)
--- NOTE | 2018-01-05 10:35 | Electrocardiograph Report ---
[place] [address] Test Date: 2018-01-03 Pat Name: Samantha Luis Department: EXAM22 Room: 3B16 Gender: F Line Service Person: : 1950 Requested By: Paulo Leavitt Order Number: [id number] Reading MD: Evi Mukherjee Measurements Intervals [place] Rate: 80 P: 71 IN: 157 QRS: 32 QRSD: 83 T: 88 QT: 411 QTc: 475 Interpretive Statements Sinus rhythm Nonspecific T abnormalities, lateral leads Electronically Signed On 01-05-2018 10:34:10 EDT by Evi Mukherjee
--- NOTE | 2018-01-05 10:35 | Electrocardiograph Report ---
[address] [place] [address] Test Date: 2018-01-03 Pat Name: Samantha Luis Department: [id number] Room: 3B16 Gender: F Arc Trimmer: : 1950 Requested By: Wilder Reed Order Number: [id number] Reading MD: Evi Mukherjee Measurements Intervals [place] Rate: 80 P: 69 KS: 160 QRS: 32 QRSD: 89 T: 87 QT: 413 QTc: 477 Interpretive Statements Sinus rhythm PVC Nonspecific T abnormalities, lateral leads Electronically Signed On 01-05-2018 10:34:02 EDT by Evi Mukherjee
--- NOTE | 2018-01-05 13:38 | Internal Med Progress Note ---
Hospitalist Progress Note - Encounter Date of Encounter: 01/05/18 Time of Encounter: 09:00 - Subjective Interval History: pt feels better. Less leg swelling. State has good urine output on lasix. - Exam Vitals: Temp Pulse Resp BP Pulse Ox 96.3 F L 72 15 145/89 99 01/05/18 10:40 01/05/18 10:40 01/05/18 10:40 01/05/18 10:40 01/05/18 10:40 Exam: Pt is AAO x 3, in NAD HEENT: NC/AT, PERRL Lungs: CTA b/l Heart: S1S2, RRR Abd: Soft, NT, abd wall swelling Ext: B/L pitting edema Neuro: No focal deficit - Assessment and Plan (1) Diabetes mellitus Current Visit: Yes Status: Acute Assessment and Plan: Continue basal and sliding scale insulin coverage. Hg A1C 7.4 (2) CKD (chronic kidney disease) Current Visit: Yes Status: Acute Assessment and Plan: Cr is at about baseline. Closely monitoring as pt is started lasix. (3) HTN (hypertension) Current Visit: Yes Status: Acute Assessment and Plan: Continue home medications (4) DVT prophylaxis Current Visit: Yes Status: Acute Assessment and Plan: Heparin subcutaneously (5) Peripheral edema Current Visit: Yes Status: Acute Assessment and Plan: Echo shows systolic CHF. Patient also has elevated BNP and chest x-ray shows cardiomegaly. - Place patient on Lasix IV 40 mg daily - Strict I and O - Fluid restriction diet (6) Weakness Current Visit: Yes Status: Acute Assessment and Plan: Most like due to systolic CHF. Cont diuretics. (7) Fall Current Visit: Yes Status: Acute Assessment and Plan: Mechanical fall due to leg weakness. PT OT evaluation recommend ECF upon discharge (8) Systolic CHF Current Visit: Yes Status: Acute Assessment and Plan: Echo shows LVEF 25%. Consider systolic CHF. - Newly diagnosed, cardio consult appreciated. - Cont lasix iv. - Add BB, pt is on ARB. - I/O shows positive fluid balance which is not accurate as pt is not on Parsons catheter and output is not accurate. Pt refuse Parsons. Pt BW get down to 109Kg from 111 kg after diuretics use and report good urine output ("urinate a lot"). DVT Prophylaxis: Heparin SC - Time Spent with Patient Total time spent is greater than 50% in coordination of care (as documented) at patient's floor/unit and/or counseling patient: 25 - 35 minutes Plan of Care Discussed with: patient Internal Medicine: Result - Labs CBC & Chem 7: 01/05/18 03:01 01/05/18 03:01 Labs: Short CBC 01/05/18 Range/Units 03:01 WBC 2.7 L (4.3-11.1) K/mcL Hgb 11.4 L (11.5-15.4) g/dL Hct 36.7 (35.3-44.9) % Plt Count 198 (140-400) K/mcL Neutrophils # 1.3 L (1.6-8.9) K/mcL BMP 01/05/18 03:01 Sodium 140 Potassium 3.8 Chloride 106 Carbon Dioxide 28 BUN 26 H Creatinine 1.76 H Glucose 164 H Calcium 9.3 - ABG Interpretation ABG results: PT/INR, D-dimer PT 12.8 Seconds (9.4-12.1) H 01/03/18 12:15 Consult Discharge Plan - Plan Referrals: Renee De Los Santos, SECURITY SPECIALIST [Primary Care Provider] - (1) Diabetes mellitus Qualifiers: Diabetes mellitus type: type 2 Diabetes mellitus ocean transportation intermediary insulin use: with assisted use Diabetes mellitus complication status: with kidney complications Diabetes mellitus complication detail: with chronic kidney disease Chronic kidney disease stage: stage 3 (moderate) Qualified Code(s): E11.22 - Type 2 diabetes mellitus with diabetic chronic kidney disease; N18.3 - Chronic kidney disease, stage 3 (moderate); Z79.4 - superintendent container terminal (current) use of insulin (2) CKD (chronic kidney disease) Qualifiers: Chronic kidney disease stage: stage 3 (moderate) Qualified Code(s): N18.3 - Chronic kidney disease, stage 3 (moderate) (3) HTN (hypertension) Qualifiers: Hypertension type: essential hypertension Qualified Code(s): I10 - Essential (primary) hypertension (7) Fall Qualifiers: Encounter type: initial encounter Qualified Code(s): W19.XXXA - Unspecified fall, initial encounter (8) Systolic CHF Qualifiers: Heart failure chronicity: acute Qualified Code(s): I50.21 - Acute systolic ( congestive) heart failure
--- NOTE | 2018-01-05 14:07 | Cardiology Progress Note ---
Date of Encounter: 01/05/18 Time of Encounter: 14:04 Assessment and Plan (1) Systolic CHF Current Visit: Yes Status: Acute Clinically, heart failure has improved. Mild increase in creatinine noted with diuresis. Okay to stop Lasix. Maintain telemetry. Continue beta kurt therapy. We will hold ARB for now given elevated creatinine, the plan to resume prior to discharge. CHF precautions recommended. Continue to optimize through the weekend. The risks, benefits, and alternatives to cardiac catheterization were discussed. Patient is agreeable to proceed. Plan for early next week as we monitor creatinine for now. Thanks, Arnel Velasco DO, [facility] Qualifiers: Heart failure chronicity: acute Qualified Code(s): I50.21 - Acute systolic (congestive) heart failure Discussion w patient/family: The assessment and plan as outlined above was discussed with the patient and/or family members who expressed understanding and agreement. All questions were answered. Thank you for involving us in the care of your patient. Please call with any questions. Subjective Principal diagnosis: Cardiomyopathy Interval history: Overall, patient appears comfortable. She denies chest pain or discomfort. Mild increase in creatinine noted with diuresis. Edema has improved. Objective Vital Signs, Last 4 Hours Temp Pulse Resp BP Pulse Ox 01/05/18 10:40 96.3 F L 72 15 145/89 99 General: Conversant, No Apparent Distress HEENT: Atraumatic, Normocephaly, Mucus Membranes Moist Neck: No JVD, Normal carotid pulses Cardiac: Reg Rate and Rhythm, Normal S1 and S2, Other (Mild systolic murmur) Lungs: Normal Breath Sounds Neuro: Alert and responsive Abdomen: Soft Skin: No rashes noted on visualized skin Musculoskeletal: No Chest Wall Tenderness Extremities: No Clubbing, No Cyanosis, Other (Mild edema) Results 01/05/18 03:01 01/05/18 03:01 Lab Results 01/05/18 01/05/18 03:01 03:01 WBC 2.7 L Hgb 11.4 L Hct 36.7 Plt Count 198 Sodium 140 Potassium 3.8 Chloride 106 Carbon Dioxide 28 BUN 26 H Creatinine 1.76 H Glucose 164 H Calcium 9.3 - Imaging and Cardiology Echo: report reviewed Consult Discharge Plan - Plan Referrals: Renee De Los Santos, BACKUP ADMINISTRATOR [Primary Care Provider] -
[2018-01-05] MEDS: Insulin DETEMIR 100 UNIT/ML X5UNITS SQ SCH (19:49)
[2018-01-06] MEDS: *HR* Heparin 5,000 UNIT/ML VIAL SQ SCH ×2 (05:28→17:17)
[2018-01-06] MEDS: Dorzolamide OPTH 10 ML BOTTLE BOTH EYES SCH ×3 (08:01→20:09)
[2018-01-06] MEDS: Insulin LISPRO 300 UNITS/3 ML VIAL SQ SCH ×4 (08:02→20:31)
[2018-01-06] MEDS: Metoprolol XL (24 HR) Succ 25 MG TAB.ER.24H PO SCH (08:13)
[2018-01-06] MEDS: Gabapentin 300 MG CAPSULE PO SCH (08:13)
[2018-01-06] MEDS: Aspirin Enteric Coated 81 MG Tablet PO SCH (08:13)
[2018-01-06 08:14] LABS: Basophils % 0.3 %; Eosinophils # 0.1 K/mcL (0.0-0.6); Eosinophils % 2.5 %; Hematocrit 34.9 % (35.3-44.9); Hemoglobin 10.9 g/dL (11.5-15.4); Immature Granulocytes % 0.3 % (0-4); Lymphocytes # 1.3 K/mcL (0.6-4.6); Lymphocytes % 39.5 %; Mean Corpuscular HGB Conc 31.2 g/dL (31.6-35.5); Mean Corpuscular Hemoglobin 27.9 pg (28.0-33.3); Mean Corpuscular Volume 89.3 fL (83.0-100.0); Monocytes # 0.4 K/mcL (0.0-1.3); Monocytes % 11.3 %; Neutrophils # 1.5 K/mcL (1.6-8.9); Platelet Count 206 K/mcL (140-400); Red Blood Count 3.91 M/mcL (3.82-4.97); Red Cell Distribution Width 17.5 % (11.5-14.5); Segmented Neutrophils % 46.1 %
[2018-01-06] MEDS: TIMOLOL OP SCH (08:16)
[2018-01-06] MEDS: BRIMONIDINE TARTRATE OP SCH (08:16)
[2018-01-06 08:33] LABS: Calcium 9.1 mg/dL (8.6-10.3); Potassium 3.7 mEq/L (3.5-5.1)
--- NOTE | 2018-01-06 11:41 | Internal Med Progress Note ---
Hospitalist Progress Note - Encounter Date of Encounter: 01/06/18 Time of Encounter: 09:00 - Subjective Interval History: pt feels better. Less leg swelling. No SOB. - Exam Vitals: Temp Pulse Resp BP Pulse Ox 98.1 F 80 18 173/84 98 01/06/18 07:19 01/06/18 07:19 01/06/18 07:19 01/06/18 07:19 01/06/18 07:19 Exam: Pt is AAO x 3, in NAD HEENT: NC/AT, PERRL Lungs: CTA b/l Heart: S1S2, RRR Abd: Soft, NT, abd wall swelling Ext: B/L pitting edema Neuro: No focal deficit - Assessment and Plan (1) Diabetes mellitus Current Visit: Yes Status: Acute Assessment and Plan: Continue basal and sliding scale insulin coverage. Hg A1C 7.4 (2) CKD (chronic kidney disease) Current Visit: Yes Status: Acute Assessment and Plan: Cr is slightly elevated after lasix use. Hold lasix and losartan at this point, avoid nephrotoxic meds, closely monitor renal function. Cardio plan for C next week. (3) HTN (hypertension) Current Visit: Yes Status: Acute Assessment and Plan: Hold losartan b/o worsening renal function. Hydralazine PRN. Add amlodipine (4) DVT prophylaxis Current Visit: Yes Status: Acute Assessment and Plan: Heparin subcutaneously (5) Peripheral edema Current Visit: Yes Status: Acute Assessment and Plan: Echo shows systolic CHF. Patient also has elevated BNP and chest x-ray shows cardiomegaly. - Place patient on Lasix IV 40 mg daily (hold now) - Strict I and O - Fluid restriction diet (6) Weakness Current Visit: Yes Status: Acute Assessment and Plan: Most like due to systolic CHF. Cont diuretics. (7) Fall Current Visit: Yes Status: Acute Assessment and Plan: Mechanical fall due to leg weakness. PT OT evaluation recommend ECF upon discharge (8) Systolic CHF Current Visit: Yes Status: Acute Assessment and Plan: Echo shows LVEF 25%. Consider systolic CHF. - Newly diagnosed, cardio consult appreciated. - Hold lasix iv b/o worsening renal function. - Add BB, pt is on ARB (on hold now. - Cardio plan for [facility] in next week to r/o ischemic cardiomylopathy DVT Prophylaxis: Heparin SC - Time Spent with Patient Total time spent is greater than 50% in coordination of care (as documented) at patient's floor/unit and/or counseling patient: 25 - 35 minutes Plan of Care Discussed with: patient Internal Medicine: Result - Labs CBC & Chem 7: 01/06/18 07:49 01/06/18 07:49 Labs: Short CBC 01/06/18 Range/Units 07:49 WBC 3.2 L (4.3-11.1) K/mcL Hgb 10.9 L (11.5-15.4) g/dL Hct 34.9 L (35.3-44.9) % Plt Count 206 (140-400) K/mcL Neutrophils # 1.5 L (1.6-8.9) K/mcL BMP 01/06/18 07:49 Sodium 140 Potassium 3.7 Chloride 105 Carbon Dioxide 28 BUN 26 H Creatinine 1.90 H Glucose 186 H Calcium 9.1 - ABG Interpretation ABG results: PT/INR, D-dimer PT 12.8 Seconds (9.4-12.1) H 01/03/18 12:15 Consult Discharge Plan - Plan Referrals: Renee De Los Santos, NETWORK LIAISON [Primary Care Provider] - (1) Diabetes mellitus Qualifiers: Diabetes mellitus type: type 2 Diabetes mellitus 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 insulin use: with nursing home use Diabetes mellitus complication status: with kidney complications Diabetes mellitus complication detail: with chronic kidney disease Chronic kidney disease stage: stage 3 (moderate) Qualified Code(s): E11.22 - Type 2 diabetes mellitus with diabetic chronic kidney disease; N18.3 - Chronic kidney disease, stage 3 (moderate); Z79.4 - nursing home (current) use of insulin (2) CKD (chronic kidney disease) Qualifiers: Chronic kidney disease stage: stage 3 (moderate) Qualified Code(s): N18.3 - Chronic kidney disease, stage 3 (moderate) (3) HTN (hypertension) Qualifiers: Hypertension type: essential hypertension Qualified Code(s): I10 - Essential (primary) hypertension (7) Fall Qualifiers: Encounter type: initial encounter Qualified Code(s): W19.XXXA - Unspecified fall, initial encounter (8) Systolic CHF Qualifiers: Heart failure chronicity: acute Qualified Code(s): I50.21 - Acute systolic ( congestive) heart failure
[2018-01-06] MEDS: amLODIPine 5 MG TABLET PO SCH (12:47)
--- NOTE | 2018-01-06 13:44 | Cardiology Progress Note ---
Date of Encounter: 01/06/18 Time of Encounter: 13:41 Assessment and Plan (1) Systolic CHF Current Visit: Yes Status: Acute Newly diagnosed systolic heart failure, unclear if ischemic or nonischemic in nature. Volume status is improved compared to admission. Creatinine has worsened. Continue to monitor. We discussed the risks, benefits, and alternatives to a diagnostic left heart catheterization. Patient is agreeable and wishes to proceed. Continue to monitor creatinine and provide supportive care for now. Once creatinine is stable and at her baseline, we will consider moving forward. Patient does have multiple risk factors for CAD. Avoid nephrotoxic agents for now. Continue aspirin, statin, and beta kurt therapy. We will reevaluate tomorrow. All questions were answered. Qualifiers: Heart failure chronicity: acute Qualified Code(s): I50.21 - Acute systolic (congestive) heart failure Discussion w patient/family: The assessment and plan as outlined above was discussed with the patient and/or family members who expressed understanding and agreement. All questions were answered. Thank you for involving us in the care of your patient. Please call with any questions. Subjective Principal diagnosis: Cardiomyopathy Interval history: Overall appears comfortable today. Creatinine mildly increased compared to yesterday, 1.7 to 1.9. Denies chest pain or discomfort. No new issues overnight. Objective Vital Signs, Last 4 Hours Temp Pulse Resp BP Pulse Ox 01/06/18 11:52 97.5 F L 74 18 138/81 97 General: Conversant, No Apparent Distress HEENT: Atraumatic, Normocephaly, Mucus Membranes Moist Neck: No JVD, Normal carotid pulses Cardiac: Reg Rate and Rhythm, Normal S1 and S2, No Murmur Lungs: Normal Breath Sounds, No Wheeze, Rales, Rhonchi Neuro: Alert and responsive, No focal deficits noted Abdomen: Soft, Non-Tender Skin: No rashes noted on visualized skin Musculoskeletal: No Chest Wall Tenderness Extremities: No Clubbing, No Cyanosis, No Edema Results 01/06/18 07:49 01/06/18 07:49 Lab Results 01/06/18 01/06/18 07:49 07:49 WBC 3.2 L Hgb 10.9 L Hct 34.9 L Plt Count 206 Sodium 140 Potassium 3.7 Chloride 105 Carbon Dioxide 28 BUN 26 H Creatinine 1.90 H Glucose 186 H Calcium 9.1 - Imaging and Cardiology Echo: report reviewed Consult Discharge Plan - Plan Referrals: Renee De Los Santos, SKIN CARE THERAPIST [Primary Care Provider] -
[2018-01-06] MEDS: Insulin DETEMIR 100 UNIT/ML X5UNITS SQ SCH (20:09)
[2018-01-07 03:29] LABS: Calcium 8.9 mg/dL (8.6-10.3); Potassium 3.7 mEq/L (3.5-5.1)
[2018-01-07] MEDS: *HR* Heparin 5,000 UNIT/ML VIAL SQ SCH ×2 (05:44→17:19)
[2018-01-07] MEDS: Insulin LISPRO 300 UNITS/3 ML VIAL SQ SCH ×4 (07:41→20:34)
[2018-01-07] MEDS: Gabapentin 300 MG CAPSULE PO SCH (08:02)
[2018-01-07] MEDS: Metoprolol XL (24 HR) Succ 25 MG TAB.ER.24H PO SCH (08:02)
[2018-01-07] MEDS: amLODIPine 5 MG TABLET PO SCH (08:02)
[2018-01-07] MEDS: Aspirin Enteric Coated 81 MG Tablet PO SCH (08:02)
[2018-01-07] MEDS: TIMOLOL OP SCH (08:03)
[2018-01-07] MEDS: Dorzolamide OPTH 10 ML BOTTLE BOTH EYES SCH ×3 (08:03→20:36)
[2018-01-07] MEDS: BRIMONIDINE TARTRATE OP SCH (08:03)
--- NOTE | 2018-01-07 08:22 | Cardiology Progress Note ---
Date of Encounter: 01/07/18 Time of Encounter: 08:20 Assessment and Plan (1) Systolic CHF Current Visit: Yes Status: Acute Per Cardiology: BNP on arrival in the 1200s. Clinically appears somewhat improved. Newly diagnosed systolic heart failure, unclear if ischemic or nonischemic in nature. Net I&O +1610ml. multiple risk factors for CAD. Plan for left heart catheterization when stable. Unfortunately kidney function continues to worsen. We will evaluate left heart catheterization when kidney function improves. Troponin negative. Chest pain-free. No events noted on telemetry. Echo showed EF 25%, small to moderate pericardial effusion with no evidence of tamponade. On aspirin, statin, beta kurt. All questions answered. Qualifiers: Heart failure chronicity: acute Qualified Code(s): I50.21 - Acute systolic (congestive) heart failure (2) CKD (chronic kidney disease) Current Visit: Yes Status: Chronic Per Cardiology: Appears to have history of CKD stage IIIB with creatinine baseline about 1.4- 1.7. Currently 2.02 today. Recommend nephrology consult-- consult placed. Off ARB and Lasix currently. Qualifiers: Chronic kidney disease stage: stage 3 (moderate) Qualified Code(s): N18.3 - Chronic kidney disease, stage 3 (moderate) Discussion w patient/family: The assessment and plan as outlined above was discussed with the patient who expressed understanding and agreement. All questions were answered. Thank you for involving us in the care of your patient. Please call with any questions. Subjective Principal diagnosis: Cardiomyopathy Interval history: Patient denies any chest pain. Reports shortness of breath has improved during hospital stay. Reports edema has improved as well, however not back to baseline. Reports ongoing edema now for over the past one month-- some reported self discontinuation of Lasix at home due to difficulty getting up to go the bathroom. Reports some mild dizziness, denies any palpitations. Objective Vital Signs, Last 4 Hours Temp Pulse Resp BP Pulse Ox 01/07/18 06:31 97.8 F 73 18 142/85 97 General: Conversant, No Apparent Distress HEENT: Atraumatic, Normocephaly, Mucus Membranes Moist Neck: No JVD, Normal carotid pulses Cardiac: Reg Rate and Rhythm, Normal S1 and S2, No Murmur Lungs: Normal Breath Sounds, No Wheeze, Rales, Rhonchi, Other (Slightly diminished bases, mild conversational dyspnea noted) Neuro: Alert and responsive, No focal deficits noted Abdomen: Soft, Non-Tender Skin: No rashes noted on visualized skin Musculoskeletal: No Chest Wall Tenderness Extremities: No Clubbing, No Cyanosis, No Edema, Normal Pulses, Other (+1-2 pitting bilateral lower extremity edema) Results 01/06/18 07:49 01/07/18 02:25 Lab Results Laboratory Tests 01/03/18 01/03/18 01/03/18 12:15 12:15 12:15 INR 1.1 Creatinine 1.51 H Est GFR (Non-Af Amer) 34 L Troponin I < 0.03 B-Natriuretic Peptide TSH 4.289 01/03/18 01/07/18 12:15 02:25 INR Creatinine 2.02 H Est GFR (Non-Af Amer) 24 L Troponin I B-Natriuretic Peptide 1265 H TSH ITS Impressions Head CT 01/03/18 12:07 IMPRESSION: No acute intracranial abnormality. Sequela from remote right basal ganglia stroke. D/ / Jose Aponte / Jose Aponte Interpreting Provider: Jose Aponte Chest X-Ray 01/03/18 12:10 IMPRESSION: Questionable small bilateral pleural effusions. Marked cardiomegaly. D/ / Armani Blackmon / Armani Blackmon Interpreting Provider: Armani Blackmon Echocardiogram 01/04/18 07:00 Impressions: LVEF 25%. Severe global LV systolic dysfunction. LV diastolic dysfunction with elevated filling pressures. There is no LV thrombus. Definity echo contrast was used. Normal RV size with mild reduction in function. Mild mitral regurgitation. Mild-moderate tricuspid regurgitation. Mild pulmonic regurgitation. Moderate-severe pulmonary hypertension. There is a small to moderate pericardial effusion present along the inferior wall. There is no echocardiographic evidence of tamponade. Active Medications Acetaminophen (Tylenol) 650 mg PO Q6HR PRN PRN Reason: Mild Pain/Fever Stop: 07/05/18 16:33 Amlodipine Besylate (Norvasc) 5 mg PO DAILY LILIAN PRN Reason: Protocol Stop: 07/08/18 11:46 Last Admin: 01/07/18 08:02 Dose: 5 mg Aspirin (Aspirin Ec) 81 mg PO DAILY [facility] Stop: 07/06/18 09:01 Last Admin: 01/07/18 08:02 Dose: 81 mg Atorvastatin Calcium (Lipitor) 40 mg PO HS LILIAN Stop: 07/05/18 21:01 Last Admin: 01/06/18 20:09 Dose: 40 mg Benzonatate (Tessalon) 100 mg PO TID PRN PRN Reason: Cough Stop: 07/07/18 00:19 Last Admin: 01/05/18 00:52 Dose: 100 mg Dextrose/Water (Dextrose 50% (Syg)) 25 ml IVP AD PRN PRN Reason: Hypoglycemia Stop: 07/05/18 16:41 Dorzolamide HCl (Trusopt) 1 drop BOTH EYES TID LILIAN Stop: 07/05/18 21:01 Last Admin: 01/07/18 08:03 Dose: 1 drop Ferrous Sulfate (Ferrous Sulfate) 325 mg PO DAILY [facility] Stop: 07/06/18 09:01 Last Admin: 01/07/18 08:02 Dose: 325 mg Gabapentin (Neurontin) 600 mg PO DAILY [facility] Stop: 07/06/18 09:01 Last Admin: 01/07/18 08:02 Dose: 600 mg Glucagon (Glucagen) 1 mg IM ONCE PRN PRN Reason: Hypoglycemia Stop: 07/05/18 16:41 Glucose (Gluctose) 15 gm PO ONCE PRN PRN Reason: Hypoglycemia Stop: 07/05/18 16:41 Glucose (Gluctose) 30 gm PO ONCE PRN PRN Reason: Hypoglycemia Stop: 07/05/18 16:41 Heparin Sodium (Porcine) (Heparin) 5,000 unit SQ Q12HR LILIAN Stop: 07/05/18 18:01 Last Admin: 01/07/18 05:44 Dose: 5,000 unit Hydralazine HCl (Hydralazine) 10 mg IVP Q6HR PRN PRN Reason: Hypertension Stop: 07/05/18 18:19 Last Admin: 01/03/18 20:34 Dose: 10 mg Insulin Detemir (Levemir) 12 unit SQ HS LILIAN Stop: 07/05/18 21:01 Last Admin: 01/06/18 20:09 Dose: 12 unit Insulin Human Lispro (Humalog) 0 units SQ HS LILIAN PRN Reason: Protocol Stop: 07/05/18 21:01 Last Admin: 01/06/18 20:31 Dose: Not Given Insulin Human Lispro (Humalog) 0 units SQ TIDAC LILIAN PRN Reason: Protocol Stop: 07/06/18 07:31 Last Admin: 01/07/18 07:41 Dose: Not Given Metoprolol Succinate (Toprol Xl) 12.5 mg PO DAILY LILIAN Stop: 07/06/18 13:10 Last Admin: 01/07/18 08:02 Dose: 12.5 mg Naloxone HCl (Narcan) 0.4 mg IVP Q2MIN PRN PRN Reason: SEE COMMENTS Stop: 07/05/18 16:33 Pharmacy Profile Note (Patient Taking Own Medication) 0 each OP DAILY LILIAN Stop: 07/06/18 09:01 Last Admin: 01/07/18 08:03 Dose: 1 each - Imaging and Cardiology Chest Xray: report reviewed Echo: report reviewed Cardiac cath: pending - EKG Interpretation EKG results cardiology: other (Telemetry reviewed with average heart rate last 24 hours 72, sinus rhythm with rare PVCs, no significant events noted) Consult Discharge Plan - Plan Referrals: Renee De Los Santos, FIELD CROPS HARVEST MACHINE OPERATOR [Primary Care Provider] -
--- NOTE | 2018-01-07 13:24 | Nephrology Consult Note ---
Date of Encounter: 01/07/18 Time of Encounter: 13:14 Assessment and Plan (1) Acute kidney injury superimposed on CKD Current Visit: Yes Status: Acute Pt has never seen a collection analyst outpatient. Per EMR baseline appears to be 32-35. Avoid nephrotoxins and renal dose all medications. Strict I/O. Serum and urine studies ordered. Retroperitoneal US ordered for today. (2) Fluid overload Current Visit: Yes Status: Acute Strict I/O. 1.5 liter fluid restriction. Renal Diet. Qualifiers: Qualified Code(s): E87.79 - Other fluid overload (3) Diabetes mellitus Current Visit: Yes Status: Acute Per primary. Qualifiers: Diabetes mellitus type: type 2 Diabetes mellitus usp insulin use: with usp use Diabetes mellitus complication status: with kidney complications Diabetes mellitus complication detail: with chronic kidney disease Chronic kidney disease stage: stage 3 (moderate) Qualified Code(s): E11.22 - Type 2 diabetes mellitus with diabetic chronic kidney disease; N18.3 - Chronic kidney disease, stage 3 (moderate); Z79.4 - detention (current) use of insulin (4) HTN (hypertension) Current Visit: Yes Status: Acute Stable, BP is 146/85. Qualifiers: Hypertension type: essential hypertension Qualified Code(s): I10 - Essential (primary) hypertension History of Present Illness - Reason for Consult Consult date: 01/07/18 Acute Kidney Injury, Chronic Kidney Disease - Chief Complaint generalized weaknes - History of Present Illness Ms. Luis is a 67 year old AA female who presented to the ED for generalized weakness and s/p fall. She was attempting to get in her car and attributes the fall to the edema in her bilat lower extremities. She denies LOC/head trauma. She tells me that her edema in her bilat lower extremity swelling started about a month ago and has since gotten worse. She has never been told she has CKD, her baseline GFR appears to be 32-35. She has never seen a collection analyst. FH: 2 siblings on HD, 1 is now . Admits to using OTC Aleve 1 tab approximately twice a day 2-3 times a week, is also on Lasix 20 mg PO daily. Since she is not established with a collection analyst outpatient both the SEAN and CKD workup has been ordered. Pt denies hematuria, dysuria, frequency. Denies CP/ SOB. She lives at home with her son who helps to care for her. She denies smoking, etoh, or illicit drug use. Past Med Surg Social Fam HX - Past Medical History Medical history: CHF, coronary artery disease, diabetes Psychiatric history: depression - Past Surgical History Surgical History: breast surgery, hysterectomy - Social History Smoking Status: Never smoker Smokeless Tobacco Status: No Alcohol use: none Drug use: none - Family History Mother History Unknown: Yes Medications and Allergies Aspirin Enteric Coated [Aspirin EC] 81 mg PO DAILY 01/03/18 [History] Atorvastatin [Lipitor] 40 mg PO HS 01/03/18 [History] Brimonidine Tartrate/Timolol [Combigan 0.2%-0.5% Eye Drops] 1 drop OP DAILY 02/10 [History] Dorzolamide [Trusopt] 1 drop OP TID 01/03/18 [History] Ferrous Sulfate [Iron] 325 mg PO DAILY 01/03/18 [History] Furosemide [Lasix] 20 mg PO DAILY 01/03/18 [History] Gabapentin [Neurontin] 600 mg PO DAILY 01/03/18 [History] Insulin ASPART [NovoLOG] 6 units SQ TIDWM 01/03/18 [History] Insulin Glargine [Lantus] 18 units SQ HS 01/03/18 [History] Losartan [Cozaar] 25 mg PO DAILY 01/03/18 [History] 3 Allergy/AdvReac Type Severity Reaction Status Date / Time No Known Allergies Allergy Verified 01/03/18 12:08 Review of Systems All Systems review (narrative): The remainder of the systems are negative. Constitutional: no chills, no fatigue, no fever(s) Cardiovascular: edema, no chest pain, no chest pain at rest, no dyspnea, no lightheadedness Respiratory: no cough, no dyspnea Gastrointestinal: no abdominal pain, no change in bowel habits, no diarrhea, no nausea, no vomiting Exam - Vital Signs Vital signs: Initial Vital Signs Temp Pulse Resp BP Pulse Ox 98.5 F 81 16 177/92 100 01/03/18 12:09 01/03/18 12:09 01/03/18 12:09 01/03/18 12:09 01/03/18 12:09 Vital Signs - Last 8 Hours Temp Pulse Resp BP Pulse Ox 01/07/18 11:10 98.0 F 72 16 146/85 98 01/07/18 06:31 97.8 F 73 18 142/85 97 Intake and Output 01/06/18 01/07/18 01/07/18 23:59 07:59 15:59 Intake Total 240 / 240 0 / 0 60 / 60 Output Total 200 / 200 Balance 240 / 240 0 / 0 -140 / -140 Intake: Oral 240 / 240 0 / 0 60 / 60 Output: Urine 200 / 200 Other: Meal NPO Percent of Meal Consumed 0% # Bowel Movements 0 Weight 108.5 kg Blood Glucose* 183 101 107 Patient Weight 01/07/18 23:59 Weight 108.5 kg - General Appearance General appearance: well-developed, well-nourished EENT: ATNC, hearing intact, vision intact Neck: supple Respiratory: clear Cardiology: edema (+3 pitting edema noted to level of umbiculus.), normal S1, normal S2 Gastrointestinal: normoactive bowel sounds, no tenderness, no guarding Integumentary: no rash, warm and dry Neurologic: alert and oriented x3 Psychiatric: mood/affect appropriate, cooperative Results - Lab Results 01/06/18 07:49 01/07/18 12:05 Most recent lab results Calcium 8.9 mg/dL (8.6-10.3) 01/07/18 02:25 Magnesium 1.8 mg/dL (1.6-2.6) 01/04/18 03:15 Consult Discharge Plan - Plan Referrals: Renee De Los Santos, ASSOCIATE DIRECTOR FINANCIAL AID [Primary Care Provider] -
[2018-01-07] MEDS ORDERED: Furosemide 40 MG/4 ML VIAL IVP ONE (13:44)
--- NOTE | 2018-01-07 14:40 | Internal Med Progress Note ---
Hospitalist Progress Note - Encounter Date of Encounter: 01/07/18 Time of Encounter: 09:00 - Subjective Interval History: pt remains feeling fine. Less leg swelling. No SOB. - Exam Vitals: Temp Pulse Resp BP Pulse Ox 98.0 F 72 16 146/85 98 01/07/18 11:10 01/07/18 11:10 01/07/18 11:10 01/07/18 11:10 01/07/18 11:10 Exam: Pt is AAO x 3, in NAD HEENT: NC/AT, PERRL Lungs: CTA b/l Heart: S1S2, RRR Abd: Soft, NT, abd wall swelling Ext: B/L pitting edema Neuro: No focal deficit - Assessment and Plan (1) Diabetes mellitus Current Visit: Yes Status: Acute Assessment and Plan: Continue basal and sliding scale insulin coverage. Hg A1C 7.4 (2) CKD (chronic kidney disease) Current Visit: Yes Status: Chronic Assessment and Plan: Cr is slightly elevated after lasix use. Hold lasix and losartan at this point, avoid nephrotoxic meds, closely monitor renal function. Nephro consult appreciated. (3) HTN (hypertension) Current Visit: Yes Status: Acute Assessment and Plan: Hold losartan b/o worsening renal function. Hydralazine PRN. Add amlodipine (4) DVT prophylaxis Current Visit: Yes Status: Acute Assessment and Plan: Heparin subcutaneously (5) Peripheral edema Current Visit: Yes Status: Acute Assessment and Plan: Echo shows systolic CHF. Patient also has elevated BNP and chest x-ray shows cardiomegaly. - Place patient on Lasix IV 40 mg daily (hold now) - Strict I and O - Fluid restriction diet - Cardio consult appreciated. (6) Weakness Current Visit: Yes Status: Acute Assessment and Plan: Most like due to systolic CHF. Cont above management. (7) Fall Current Visit: Yes Status: Acute Assessment and Plan: Mechanical fall due to leg weakness. PT OT evaluation recommend ECF upon discharge (8) Systolic CHF Current Visit: Yes Status: Acute Assessment and Plan: Echo shows LVEF 25%. Consider systolic CHF. - Newly diagnosed, cardio consult appreciated. - Hold lasix iv b/o worsening renal function. - Add BB, pt is on ARB (on hold now). - Cardio plan for [facility] in next week to r/o ischemic cardiomylopathy DVT Prophylaxis: Heparin SC - Time Spent with Patient Total time spent is greater than 50% in coordination of care (as documented) at patient's floor/unit and/or counseling patient: 30 min 25 - 35 minutes Plan of Care Discussed with: patient Internal Medicine: Result - Labs CBC & Chem 7: 01/06/18 07:49 01/07/18 12:05 Labs: BMP 01/07/18 01/07/18 02:25 12:05 Sodium 140 Potassium 3.7 Chloride 106 Carbon Dioxide 28 BUN 29 H Creatinine 2.02 H 1.96 H Glucose 137 H Calcium 8.9 - ABG Interpretation ABG results: PT/INR, D-dimer PT 12.8 Seconds (9.4-12.1) H 01/03/18 12:15 Consult Discharge Plan - Plan Referrals: Renee DeL os Santos, [employer] [Primary Care Provider] - (1) Diabetes mellitus Qualifiers: Diabetes mellitus type: type 2 Diabetes mellitus 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 insulin use: with shelter use Diabetes mellitus complication status: with kidney complications Diabetes mellitus complication detail: with chronic kidney disease Chronic kidney disease stage: stage 3 (moderate) Qualified Code(s): E11.22 - Type 2 diabetes mellitus with diabetic chronic kidney disease; N18.3 - Chronic kidney disease, stage 3 (moderate); Z79.4 - penitentiary (current) use of insulin (2) CKD (chronic kidney disease) Qualifiers: Chronic kidney disease stage: stage 3 (moderate) Qualified Code(s): N18.3 - Chronic kidney disease, stage 3 (moderate) (3) HTN (hypertension) Qualifiers: Hypertension type: essential hypertension Qualified Code(s): I10 - Essential (primary) hypertension (7) Fall Qualifiers: Encounter type: initial encounter Qualified Code(s): W19.XXXA - Unspecified fall, initial encounter (8) Systolic CHF Qualifiers: Heart failure chronicity: acute Qualified Code(s): I50.21 - Acute systolic ( congestive) heart failure
[2018-01-07 16:42] LABS: Bilirubin,Urine Negative (Negative); Blood,Urine Negative (Negative); Clarity,Urine Clear (Clear); Color,Urine Yellow (Yellow); Glucose,Urine (UA) Normal (Normal); Ketones,Urine Negative (Negative); Leukocyte Esterase,Urine Negative (Negative); Nitrite,Urine Negative (Negative); Protein,Urine 30 mg/dL (Neg-Trace); Specific Gravity,Urine 1.013 (1.010-1.025); Urobilinogen,Urine Normal (Normal)
[2018-01-07 16:45] LABS: Bacteria,Urine Moderate per hpf (None-Few); Hyaline Casts,Urine None Seen per lpf (None-Few); RBC,Urine 0-3 per hpf (0-3); Squamous Epithelial Cell,Urine Many per lpf (None-Few)
[2018-01-07 17:25] LABS: Protein/Creatinine Ratio,Urine 0.56 mg/mg (0.00-0.20); Sodium, Urine 112.1 mEq/L
[2018-01-07] MEDS: Insulin DETEMIR 100 UNIT/ML X5UNITS SQ SCH (20:36)
[2018-01-08 04:08] LABS: Calcium 9.1 mg/dL (8.6-10.3); Uric Acid 9.4 mg/dL (2.3-7.6)
[2018-01-08 05:14] LABS: Rheumatoid Factor < 10 IU/mL (Less than 14)
[2018-01-08 05:17] LABS: Hepatitis B Surface Antigen Nonreactive (Nonreactive)
[2018-01-08] MEDS: *HR* Heparin 5,000 UNIT/ML VIAL SQ SCH ×2 (05:29→17:14)
[2018-01-08] MEDS: Insulin LISPRO 300 UNITS/3 ML VIAL SQ SCH ×4 (07:44→20:52)
[2018-01-08] MEDS: Metoprolol XL (24 HR) Succ 25 MG TAB.ER.24H PO SCH (09:02)
[2018-01-08] MEDS: amLODIPine 5 MG TABLET PO SCH (09:02)
[2018-01-08] MEDS: Aspirin Enteric Coated 81 MG Tablet PO SCH (09:02)
[2018-01-08] MEDS: Gabapentin 300 MG CAPSULE PO SCH (09:02)
[2018-01-08] MEDS: Dorzolamide OPTH 10 ML BOTTLE BOTH EYES SCH ×3 (09:03→20:53)
[2018-01-08] MEDS: TIMOLOL OP SCH (09:03)
[2018-01-08] MEDS: BRIMONIDINE TARTRATE OP SCH (09:03)
--- NOTE | 2018-01-08 09:03 | Cardiology Progress Note ---
Date of Encounter: 01/08/18 Time of Encounter: 09:00 Assessment and Plan (1) Systolic CHF Current Visit: Yes Status: Acute Per Cardiology: BNP on arrival in the 1200s. Clinically appears somewhat improved. Newly diagnosed systolic heart failure, unclear if ischemic or nonischemic in nature. Net I&O +1430ml. Multiple risk factors for CAD. Plan for left heart catheterization when stable-- possibly tomorrow if ok with Nephrology. Troponin negative. Chest pain-free. No events noted on telemetry. Echo showed EF 25%, small to moderate pericardial effusion with no evidence of tamponade. On aspirin, statin, beta kurt. All questions answered. Off lasix now. Qualifiers: Heart failure chronicity: acute Qualified Code(s): I50.21 - Acute systolic (congestive) heart failure (2) CKD (chronic kidney disease) Current Visit: Yes Status: Chronic Per Cardiology: Appears to have history of CKD stage IIIB with creatinine baseline about 1.4- 1.7. Currently 1.98. Nephrology following. Off ARB and Lasix currently. Plan for C tomorrow if kidney fxn improves and ok with Nephrology. Qualifiers: Chronic kidney disease stage: stage 3 (moderate) Qualified Code(s): N18.3 - Chronic kidney disease, stage 3 (moderate) Discussion w patient/family: The assessment and plan as outlined above was discussed with the patient who expressed understanding and agreement. All questions were answered. Thank you for involving us in the care of your patient. Please call with any questions. Subjective Principal diagnosis: Cardiomyopathy Interval history: Patient denies any chest pain. Reports shortness of breath has improved during hospital stay. Reports edema has improved as well, however not back to baseline. Reports ongoing edema now for over the past one month-- some reported self discontinuation of Lasix at home due to difficulty getting up to go the bathroom. Reports some mild dizziness, denies any palpitations. Objective Vital Signs, Last 4 Hours Temp Pulse Resp BP Pulse Ox 01/08/18 07:15 97.8 F 77 18 184/91 98 General: Conversant, No Apparent Distress HEENT: Atraumatic, Normocephaly, Mucus Membranes Moist Neck: No JVD, Normal carotid pulses Cardiac: Reg Rate and Rhythm, Normal S1 and S2, No Murmur Lungs: Normal Breath Sounds, No Wheeze, Rales, Rhonchi Neuro: Alert and responsive, No focal deficits noted Abdomen: Soft, Non-Tender Skin: No rashes noted on visualized skin Musculoskeletal: No Chest Wall Tenderness Extremities: No Clubbing, No Cyanosis, Normal Pulses, Other (+1-2 pitting bilateral LE edema) Results 01/06/18 07:49 01/08/18 03:31 Lab Results Laboratory Tests 01/08/18 03:31 Creatinine 1.98 H Est GFR ( Amer) 30 L Impressions Retroperitoneum Ultrasound 01/07/18 17:30 IMPRESSION: Normal sonographic appearance of the kidneys and urinary bladder. D/ / Bradley Tierney MD / Bradley Tierney MD Interpreting Provider: Bradley Tierney MD Intake & Output 01/05/18 01/06/18 01/07/18 01/08/18 23:59 23:59 23:59 23:59 Intake Total 720 / 720 600 / 600 970 / 970 Output Total 450 / 450 800 / 800 350 / 350 Balance 720 / 720 150 / 150 170 / 170 -350 / -350 Weight 109.1 kg 108.4 kg 108.5 kg 106.4 kg Active Medications Acetaminophen (Tylenol) 650 mg PO Q6HR PRN PRN Reason: Mild Pain/Fever Stop: 07/05/18 16:33 Amlodipine Besylate (Norvasc) 5 mg PO DAILY [facility] PRN Reason: Protocol Stop: 07/08/18 11:46 Last Admin: 01/07/18 08:02 Dose: 5 mg Aspirin (Aspirin Ec) 81 mg PO DAILY [facility] Stop: 07/06/18 09:01 Last Admin: 01/07/18 08:02 Dose: 81 mg Atorvastatin Calcium (Lipitor) 40 mg PO HS [facility] Stop: 07/05/18 21:01 Last Admin: 01/07/18 20:37 Dose: 40 mg Benzonatate (Tessalon) 100 mg PO TID PRN PRN Reason: Cough Stop: 07/07/18 00:19 Last Admin: 01/05/18 00:52 Dose: 100 mg Dextrose/Water (Dextrose 50% (Syg)) 25 ml IVP AD PRN PRN Reason: Hypoglycemia Stop: 07/05/18 16:41 Dorzolamide HCl (Trusopt) 1 drop BOTH EYES TID [facility] Stop: 07/05/18 21:01 Last Admin: 01/07/18 20:36 Dose: 1 drop Ferrous Sulfate (Ferrous Sulfate) 325 mg PO DAILY [facility] Stop: 07/06/18 09:01 Last Admin: 01/07/18 08:02 Dose: 325 mg Gabapentin (Neurontin) 600 mg PO DAILY [facility] Stop: 07/06/18 09:01 Last Admin: 01/07/18 08:02 Dose: 600 mg Glucagon (Glucagen) 1 mg IM ONCE PRN PRN Reason: Hypoglycemia Stop: 07/05/18 16:41 Glucose (Gluctose) 15 gm PO ONCE PRN PRN Reason: Hypoglycemia Stop: 07/05/18 16:41 Glucose (Gluctose) 30 gm PO ONCE PRN PRN Reason: Hypoglycemia Stop: 07/05/18 16:41 Heparin Sodium (Porcine) (Heparin) 5,000 unit SQ Q12HR [facility] Stop: 07/05/18 18:01 Last Admin: 01/08/18 05:29 Dose: 5,000 unit Hydralazine HCl (Hydralazine) 10 mg IVP Q6HR PRN PRN Reason: Hypertension Stop: 07/05/18 18:19 Last Admin: 01/03/18 20:34 Dose: 10 mg Insulin Detemir (Levemir) 12 unit SQ HS [facility] Stop: 07/05/18 21:01 Last Admin: 01/07/18 20:36 Dose: 12 unit Insulin Human Lispro (Humalog) 0 units SQ HS [facility] PRN Reason: Protocol Stop: 07/05/18 21:01 Last Admin: 01/07/18 20:34 Dose: Not Given Insulin Human Lispro (Humalog) 0 units SQ TIDAC [facility] PRN Reason: Protocol Stop: 07/06/18 07:31 Last Admin: 01/08/18 07:44 Dose: Not Given Metoprolol Succinate (Toprol Xl) 12.5 mg PO DAILY [facility] Stop: 07/06/18 13:10 Last Admin: 01/07/18 08:02 Dose: 12.5 mg Naloxone HCl (Narcan) 0.4 mg IVP Q2MIN PRN PRN Reason: SEE COMMENTS Stop: 07/05/18 16:33 Pharmacy Profile Note (Patient Taking Own Medication) 0 each OP DAILY [facility] Stop: 07/06/18 09:01 Last Admin: 01/07/18 08:03 Dose: 1 each - Imaging and Cardiology Cardiac cath: pending Consult Discharge Plan - Plan Referrals: Renee De Los Santos, MONTSE [Primary Care Provider] - 01/17/18 11:00 am
--- NOTE | 2018-01-08 09:40 | Internal Med Progress Note ---
Hospitalist Progress Note - Encounter Date of Encounter: 01/08/18 Time of Encounter: 09:35 - Subjective Interval History: No acute changes overnight, dyspnea persists but is improving. BLE pitting edema persists, abdominal swelling improving - Exam Vitals: Temp Pulse Resp BP Pulse Ox 97.8 F 77 18 184/91 98 01/08/18 07:15 01/08/18 07:15 01/08/18 07:15 01/08/18 07:15 01/08/18 07:15 Exam: Pt is AAO x 3, in NAD HEENT: NC/AT, PERRL Lungs: C/Diminished b/l AP&L Heart: S1S2, RRR Abd: Soft, NT, abd wall swelling Ext: B/L pitting edema 1+ Neuro: No focal deficit - Assessment and Plan (1) Weakness Current Visit: Yes Status: Acute Assessment and Plan: Persistent, Most like due to systolic CHF and dyspnea. Cont above management. (2) Peripheral edema Current Visit: Yes Status: Acute Assessment and Plan: Echo shows new systolic CHF. Patient also has elevated BNP and chest x-ray shows cardiomegaly. cardiology following in consultation;thank you; will need ischemic eval with [facility] when renal function improved 01/08-- abdominal girth decreased, BLE 1+ pitting persistent, Not dyspneic at rest. Clinically, stable, continue to monitor, continue strict I's and O's and fluid restriction. At this time we are holding Lasix due to an increase in serum creatinine, continue closely monitor renal function. Nephrology seeing in consultation, thank you a pressure recommendations. Continue holding ARB as well. (3) Diabetes mellitus Current Visit: Yes Status: Acute Assessment and Plan: History of diabetes Discussed diabetic diet, weight loss and lifestyle modifications Glucose stable this morning Continue basal and sliding scale insulin coverage. Hg A1C 7.4 (4) CKD (chronic kidney disease) Current Visit: Yes Status: Chronic Assessment and Plan: History of CKD 3B moderate Cr is slightly elevated after lasix use lasix and losartan, avoid nephrotoxins and closely monitor SCR (5) HTN (hypertension) Current Visit: Yes Status: Acute Assessment and Plan: History of HTN Hypertensive this morning, however has not received anti-HTN medications Give anti-HTN medications now and recheck BP Holding losartan b/o worsening renal function. Hydralazine PRN. Amlodipine has been added to patient's anti-HTN medication regimen (6) Fall Current Visit: Yes Status: Acute Assessment and Plan: Mechanical fall due to leg weakness and dyspnea in the setting of CHF. PT/OT evaluation recommend ECF upon discharge consult SS to assist with D/C planning (7) Systolic CHF Current Visit: Yes Status: Acute Assessment and Plan: Echo shows LVEF 25%. Consider systolic CHF. - Newly diagnosed, cardio consult appreciated. - Hold lasix iv b/o worsening renal function. - Add BB, pt is on ARB (on hold now). - Cardio plan for [facility] in next week to r/o ischemic cardiomylopathy 01/08-- as above (8) DVT prophylaxis Current Visit: Yes Status: Acute Assessment and Plan: continue Heparin subcutaneously - Time Spent with Patient Total time spent is greater than 50% in coordination of care (as documented) at patient's floor/unit and/or counseling patient: less than 15 minutes Plan of Care Discussed with: patient Internal Medicine: Result - Labs CBC & Chem 7: 01/06/18 07:49 01/08/18 03:31 Labs: BMP 01/07/18 01/08/18 12:05 03:31 Sodium 138 Potassium 4.0 Chloride 104 Carbon Dioxide 26 BUN 32 H Creatinine 1.96 H 1.98 H Glucose 191 H Calcium 9.1 Urine 01/07/18 Range/Units 16:12 Urine Color Yellow (Yellow) Urine Clarity Clear (Clear) Urine pH 6.0 (5.0-8.0) pH Units Ur Specific [place] 1.013 (1.010-1.025) Urine Protein 30 H (Neg-Trace) mg/dL Urine Glucose (UA) Normal (Normal) mg/dL - ABG Interpretation ABG results: PT/INR, D-dimer PT 12.8 Seconds (9.4-12.1) H 01/03/18 12:15 - Impressions Impressions Retroperitoneum Ultrasound 01/07/18 17:30 IMPRESSION: Normal sonographic appearance of the kidneys and urinary bladder. D/ / Bradley Tierney MD / Bradley Tierney MD Interpreting Provider: Bradley Tierney MD Consult Discharge Plan - Plan Referrals: Donini,Renee N, [employer] [Primary Care Provider] - 01/17/18 11:00 am (3) Diabetes mellitus Qualifiers: Diabetes mellitus type: type 2 Diabetes mellitus liquid yeast supervisor insulin use: with prison use Diabetes mellitus complication status: with kidney complications Diabetes mellitus complication detail: with chronic kidney disease Chronic kidney disease stage: stage 3 (moderate) Qualified Code(s): E11.22 - Type 2 diabetes mellitus with diabetic chronic kidney disease; N18.3 - Chronic kidney disease, stage 3 (moderate); Z79.4 - military technology specialist (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 (5) HTN (hypertension) Qualifiers: Hypertension type: essential hypertension Qualified Code(s): I10 - Essential (primary) hypertension (6) Fall Qualifiers: Encounter type: initial encounter Qualified Code(s): W19.XXXA - Unspecified fall, initial encounter (7) Systolic CHF Qualifiers: Heart failure chronicity: acute Qualified Code(s): I50.21 - Acute systolic ( congestive) heart failure
[2018-01-08] MEDS ORDERED: Furosemide 40 MG/4 ML VIAL IVP ONE (11:02)
[2018-01-08] MEDS: Acetaminophen 325 MG TABLET PO PRN (12:23)
--- NOTE | 2018-01-08 12:59 | Nephrology Progress Note ---
Date of Encounter: 01/08/18 Time of Encounter: 12:56 - Assessment and Plan (1) Acute kidney injury superimposed on CKD Current Visit: Yes Status: Acute Per EMR baseline appears to be 32-35. GFR today is 30. Ergocalciferol ordered. Avoid nephrotoxins and renal dose all medications. Strict I/O. Retroperitoneal US normal. Will need to f/u with Dr. Leavitt in 4-6 weeks after d/c. (2) Fluid overload Current Visit: Yes Status: Acute Strict I/O. 1.5 liter fluid restriction. Renal Diet. 40 IV lasix given x 1. Qualifiers: Qualified Code(s): E87.70 - Fluid overload, unspecified (3) Diabetes mellitus Current Visit: Yes Status: Acute Per primary. Qualifiers: Diabetes mellitus type: type 2 Diabetes mellitus fdc insulin use: with fdc use Diabetes mellitus complication status: with kidney complications Diabetes mellitus complication detail: with chronic kidney disease Chronic kidney disease stage: stage 3 (moderate) Qualified Code(s): E11.22 - Type 2 diabetes mellitus with diabetic chronic kidney disease; N18.3 - Chronic kidney disease, stage 3 (moderate); Z79.4 - group home (current) use of insulin (4) HTN (hypertension) Current Visit: Yes Status: Acute Stable, BP is 141/85. Qualifiers: Hypertension type: essential hypertension Qualified Code(s): I10 - Essential (primary) hypertension Subjective Principal diagnosis: Cardiomyopathy Interval history: Pt seen and examined, doing well. Denies CP or SOB. Objective - Vital Signs Vital signs: Vital Signs Temp Pulse Resp BP Pulse Ox 01/08/18 11:16 97.5 F L 76 18 141/81 95 01/08/18 07:15 97.8 F 77 18 184/91 98 01/08/18 03:54 98.3 F 76 18 139/82 96 01/07/18 23:04 97.5 F L 72 18 151/86 96 01/07/18 20:31 97.4 F L 70 18 126/81 96 01/07/18 16:07 96.5 F L 71 20 147/92 95 Intake and Output 01/07/18 01/08/18 01/08/18 23:59 07:59 15:59 Intake Total 550 / 550 360 / 360 Output Total 450 / 450 350 / 350 Balance 100 / 100 -350 / -350 360 / 360 Intake: Oral 550 / 550 360 / 360 Output: Urine 450 / 450 350 / 350 Other: Meal Water pitcher Breakfast Percent of Meal Consumed 80% Weight 106.4 kg Blood Glucose* 180 132 214 Patient Weight 01/08/18 23:59 Weight 106.4 kg - General Appearance General appearance: Present: well-developed, well-nourished EENT: Present: ATNC, hearing intact, vision intact Neck: Present: supple Respiratory: Present: clear Cardiology: Present: edema (+2 pitting edema noted to bilat lower extremities.) , normal S1, normal S2 Gastrointestinal: Present: normoactive bowel sounds, no tenderness, no guarding Integumentary: Present: no rash, warm and dry Neurologic: Present: alert and oriented x3 Psychiatric: Present: mood/affect appropriate, cooperative - Lab 01/06/18 07:49 01/08/18 03:31 Most recent lab results Calcium 9.1 mg/dL (8.6-10.3) 01/08/18 03:31 Magnesium 1.8 mg/dL (1.6-2.6) 01/04/18 03:15 Urine Creatinine 61 mg/dL 01/07/18 16:12 Urine Sodium 112.1 mEq/L 01/07/18 16:12 Urine Total Protein 34 mg/dL (1-14) H 01/07/18 16:12 Consult Discharge Plan - Plan Referrals: Renee De Los Santos, BASKETBALL COMMENTATOR [Primary Care Provider] - 01/17/18 11:00 am
[2018-01-08] MEDS: Insulin DETEMIR 100 UNIT/ML X5UNITS SQ SCH (20:53)
[2018-01-08] MEDS ORDERED: *HR* Heparin 5,000 UNIT/ML VIAL IVP ONE (23:20)
[2018-01-08] MEDS ORDERED: *HR* Heparin 5,000 UNIT/ML VIAL IVP PRN (23:20)
[2018-01-08] MEDS: Heparin 25,000 UNIT/500 ML D5W 25,000 UNIT/500 ML BAG IVC SCH (23:50)
[2018-01-09 00:41] LABS: Hematocrit 33.6 % (35.3-44.9); Hemoglobin 10.5 g/dL (11.5-15.4); Mean Corpuscular HGB Conc 31.3 g/dL (31.6-35.5); Mean Corpuscular Hemoglobin 27.9 pg (28.0-33.3); Mean Corpuscular Volume 89.4 fL (83.0-100.0); Platelet Count 200 K/mcL (140-400); Red Blood Count 3.76 M/mcL (3.82-4.97); Red Cell Distribution Width 17.6 % (11.5-14.5)
[2018-01-09 00:47] LABS: Heparin anti-factor XA UFH 0.3 IU/mL (0.30-0.70)
[2018-01-09 00:48] LABS: INR 1.1; Prothrombin Time 12.7 Seconds (9.4-12.1)
[2018-01-09 00:55] LABS: Calcium 9.3 mg/dL (8.6-10.3)
[2018-01-09 02:03] LABS: Hepatitis A Antibody IgM Nonreactive (Nonreactive); Hepatitis B Core IgM Nonreactive (Nonreactive); Hepatitis C Virus Antibody Nonreactive (Nonreactive)
[2018-01-09] MEDS: Acetaminophen 325 MG TABLET PO PRN (05:48)
[2018-01-09] MEDS: Insulin LISPRO 300 UNITS/3 ML VIAL SQ SCH ×4 (07:43→20:34)
[2018-01-09] MEDS: Gabapentin 300 MG CAPSULE PO SCH (08:11)
[2018-01-09] MEDS: Aspirin Enteric Coated 81 MG Tablet PO SCH (08:11)
[2018-01-09] MEDS: amLODIPine 5 MG TABLET PO SCH (08:12)
[2018-01-09] MEDS: Metoprolol XL (24 HR) Succ 25 MG TAB.ER.24H PO SCH (08:12)
[2018-01-09] MEDS: Dorzolamide OPTH 10 ML BOTTLE BOTH EYES SCH ×3 (08:12→20:56)
[2018-01-09] MEDS: BRIMONIDINE TARTRATE OP SCH (08:14)
[2018-01-09] MEDS: TIMOLOL OP SCH (08:14)
[2018-01-09] MEDS ORDERED: Sodium Bicarbonate 75 MEQ in 0.45 % Sodium Chloride 1,000 ML IVC SCH ×2 (09:00→13:00)
--- NOTE | 2018-01-09 09:28 | Internal Med Progress Note ---
Hospitalist Progress Note - Encounter Date of Encounter: 01/09/18 Time of Encounter: 09:25 - Subjective Interval History: No acute changes overnight, dyspnea persists but is improving. BLE pitting edema persists, abdominal swelling improving. LUE swelling without pain. New DVT LUE, on heparin gtt. Discussed POC with patient who is in agreement. - Exam Vitals: Temp Pulse Resp BP Pulse Ox 97.4 F L 72 16 151/83 95 01/09/18 07:40 01/09/18 07:40 01/09/18 07:40 01/09/18 07:40 01/09/18 07:40 Exam: Pt is AAO x 3, in NAD HEENT: NC/AT, PERRL Lungs: C/Diminished b/l AP&L Heart: S1S2, RRR Abd: Soft, NT, abd wall swelling Ext: B/L pitting edema 1+; LLE non pitting edema, diminished circulation cap refill >3 sec Neuro: No focal deficit - Assessment and Plan (1) Systolic CHF Current Visit: Yes Status: Acute Assessment and Plan: Echo shows LVEF 25%. Consider systolic CHF. - Newly diagnosed, cardio consult appreciated. - Hold lasix iv b/o worsening renal function. - Add BB, pt is on ARB (on hold now). - Cardio plan for LHC in next week to r/o ischemic cardiomylopathy 01/09- underwent LHC this afternoon to evaluate ischemic cause of reduced EF. Significant CAD found; LAD, diagonal, and RCA are graftable but per CTS patient is a poor candidate for surgery given comorbidities. Family does not wish to pursue at this time. Should they wish to proceed in the future it would be recommended it be completed an and [facility] [place]. Patient and Son agree. Continue with medical management. Cardiology continuing to follow. (2) Weakness Current Visit: Yes Status: Acute Assessment and Plan: Persistent, Most like due to systolic CHF and dyspnea. Cont above management. (3) Peripheral edema Current Visit: Yes Status: Acute Assessment and Plan: Echo shows new systolic CHF. Patient also has elevated BNP and chest x-ray shows cardiomegaly. cardiology following in consultation;thank you; will need ischemic eval with LHC when renal function improved 01/08-- abdominal girth decreased, BLE 1+ pitting persistent, Not dyspneic at rest. Clinically, stable, continue to monitor, continue strict I's and O's and fluid restriction. At this time we are holding Lasix due to an increase in serum creatinine, continue closely monitor renal function. Nephrology seeing in consultation, thank you a pressure recommendations. Continue holding ARB as well. 01/09-Peripheral edema persists, diuretics held with SEAN on CKD. Weight increased overnight, net positive 2230 fluid volume. Continue holding diuretics , had [facility] today. Per nephro, ok to resume diuretics in 48 hours post cath. Closely monitor volume status. (4) Diabetes mellitus Current Visit: Yes Status: Acute Assessment and Plan: History of diabetes Discussed diabetic diet, weight loss and lifestyle modifications Glucose stable Continue basal and sliding scale insulin coverage. Hg A1C 7.4 (5) CKD (chronic kidney disease) Current Visit: Yes Status: Chronic Assessment and Plan: History of CKD 3B moderate Cr is slightly elevated after lasix use; however may be new normal hold lasix and losartan, avoid nephrotoxins and closely monitor SCR may resume lasix in 48 hours post cath nephrology following; rec mucomyst and gentle IVF prior and post procedure f/u with Dr. Leavitt in 4-6 weeks at d/c (6) HTN (hypertension) Current Visit: Yes Status: Acute Assessment and Plan: History of HTN 01/09- BP stable continue anti-HTN meds (7) Fall Current Visit: Yes Status: Acute Assessment and Plan: Mechanical fall due to leg weakness and dyspnea in the setting of CHF. PT/OT evaluation recommend ECF upon discharge consult SS to assist with D/C planning continue PT/OT while inpatient (8) Deep vein thrombosis (DVT) of brachial vein of left upper extremity Current Visit: Yes Status: Acute Assessment and Plan: heparin gtt will need to bridge to warfarin coag panel pending LUE circulation intact but diminished return cap refill >3 sec (9) CAD (coronary artery disease) Current Visit: Yes Status: Acute Assessment and Plan: as above (10) DVT prophylaxis Current Visit: Yes Status: Acute Assessment and Plan: LUE positive for DVT continue heparin gtt - Time Spent with Patient Total time spent is greater than 50% in coordination of care (as documented) at patient's floor/unit and/or counseling patient: 25 - 35 minutes Plan of Care Discussed with: patient Internal Medicine: Result - Labs CBC & Chem 7: 01/09/18 00:18 01/09/18 00:18 Labs: Short CBC 01/09/18 Range/Units 00:18 WBC 2.9 L (4.3-11.1) K/mcL Hgb 10.5 L (11.5-15.4) g/dL Hct 33.6 L (35.3-44.9) % Plt Count 200 (140-400) K/mcL BMP 01/09/18 00:18 Sodium 142 Potassium 4.0 Chloride 105 Carbon Dioxide 27 BUN 34 H Creatinine 2.02 H Glucose 157 H Calcium 9.3 - ABG Interpretation ABG results: PT/INR, D-dimer PT 12.7 Seconds (9.4-12.1) H 01/09/18 00:18 Consult Discharge Plan - Plan Referrals: Renee De Los Santos LIVESTOCK YARD ATTENDANT [Primary Care Provider] - 01/17/18 11:00 am (1) Systolic CHF Qualifiers: Heart failure chronicity: acute Qualified Code(s): I50.21 - Acute systolic ( congestive) heart failure (4) Diabetes mellitus Qualifiers: Diabetes mellitus type: type 2 Diabetes mellitus fci insulin use: with termite technician use Diabetes mellitus complication status: with kidney complications Diabetes mellitus complication detail: with chronic kidney disease Chronic kidney disease stage: stage 3 (moderate) Qualified Code(s): E11.22 - Type 2 diabetes mellitus with diabetic chronic kidney disease; N18.3 - Chronic kidney disease, stage 3 (moderate); Z79.4 - residential (current) use of insulin (5) CKD (chronic kidney disease) Qualifiers: Chronic kidney disease stage: stage 3 (moderate) Qualified Code(s): N18.3 - Chronic kidney disease, stage 3 (moderate) (6) HTN (hypertension) Qualifiers: Hypertension type: essential hypertension Qualified Code(s): I10 - Essential (primary) hypertension (7) Fall Qualifiers: Encounter type: initial encounter Qualified Code(s): W19.XXXA - Unspecified fall, initial encounter (9) CAD (coronary artery disease) Qualifiers: Coronary Disease-Associated Artery/Lesion type: [place] artery [place] vs. transplanted heart: [place] heart Associated angina: angina presence unspecified Qualified Code(s): I25.10 - Atherosclerotic heart disease of [place] coronary artery without angina pectoris
[2018-01-09] MEDS: *HR* Acetylcysteine 20% 600 MG/3 ML ORAL SYRINGE PO SCH ×2 (10:32→20:55)
--- NOTE | 2018-01-09 12:42 | Event Note ---
Date of Encounter: 01/09/18 Time of Encounter: 12:39 - Cardiology Event Note LHC was recommended to evaluate new systolic dysfunction. Discussed A/CKD with nephrology. She was started on mucomyst. Kidney function will likely mot improve and this will be her baseline. LHC R/B/A including worsening kidney function reviewed with patient. She voices understanding and would like to proceed. Noted to have 2+ BLE edema. Appreciate nephrology recommendations. They would like to wait 48 hours after LHC and then increase lasix dose. Discussed low sodium diet. Per patient review of dietary intake there is also concern for malnutrition. Recommendations for heart healthy, low sodium, diet discussed.
--- NOTE | 2018-01-09 13:28 | Nephrology Progress Note ---
Date of Encounter: 01/09/18 Time of Encounter: 12:57 - Assessment and Plan (1) Acute kidney injury superimposed on CKD Current Visit: Yes Status: Acute Per EMR baseline appears to be 32-35. GFR today is 30. May proceed with [facility], this appears to be her baseline, will restart diuretics approximately 48 hours post cath. Gentle IV hydration and Mucomyst ordered. Encourage PO intake after procedure. Avoid nephrotoxins and renal dose all medications. Strict I/O. Will need to f/u with Dr. Leavitt in 4-6 weeks after d/c. (2) Fluid overload Current Visit: Yes Status: Acute Strict I/O. 1.5 liter fluid restriction. Renal/cardiac diet. Qualifiers: Qualified Code(s): E87.70 - Fluid overload, unspecified (3) Diabetes mellitus Current Visit: Yes Status: Acute Per primary. 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 Qualifiers: Hypertension type: essential hypertension Qualified Code(s): I10 - Essential (primary) hypertension (5) Systolic CHF Current Visit: Yes Status: Acute See above. Qualifiers: Heart failure chronicity: acute Qualified Code(s): I50.21 - Acute systolic (congestive) heart failure Subjective Principal diagnosis: Cardiomyopathy Interval history: Pt seen and examined, doing well. Denies CP and SOB has improved. Objective - Vital Signs Vital signs: Vital Signs Temp Pulse Resp BP Pulse Ox 01/09/18 11:42 97.4 F L 67 16 126/69 96 01/09/18 07:40 97.4 F L 72 16 151/83 95 01/09/18 03:16 98.3 F 61 16 128/80 98 01/08/18 23:27 97.5 F L 69 14 133/85 97 01/08/18 18:55 97.4 F L 67 16 117/74 94 01/08/18 15:33 97.5 F L 70 122/78 95 Intake and Output 01/08/18 01/09/18 01/09/18 23:59 07:59 15:59 Intake Total 0 / 0 200 / 200 Balance 0 / 0 200 / 200 Intake: IV Fluids 0 / 0 200 / 200 Heparin 25,000 UNIT/500 ML D5W 0 / 0 200 / 200 25,000 unit In 500 ml @ 9.4 UNIT/KG/HR 20.003 mls/hr IVC . Q24H LILIAN Rx#:[id number] Other: # Voids 1 1 Weight 109.6 kg Blood Glucose* 119 133 136 Patient Weight 01/09/18 23:59 Weight 109.6 kg - General Appearance General appearance: Present: well-developed, well-nourished, obese EENT: Present: ATNC, hearing intact, vision intact Neck: Present: supple Respiratory: Present: clear Cardiology: Present: edema (+2 pitting edema noted to bilat lower extremities.) , normal S1, normal S2 Gastrointestinal: Present: normoactive bowel sounds, no tenderness, no guarding Integumentary: Present: no rash, warm and dry Neurologic: Present: alert and oriented x3 Psychiatric: Present: mood/affect appropriate, cooperative - Lab 01/09/18 00:18 01/09/18 00:18 Most recent lab results Calcium 9.3 mg/dL (8.6-10.3) 01/09/18 00:18 Magnesium 1.8 mg/dL (1.6-2.6) 01/04/18 03:15 Urine Creatinine 61 mg/dL 01/07/18 16:12 Urine Sodium 112.1 mEq/L 01/07/18 16:12 Urine Total Protein 34 mg/dL (1-14) H 01/07/18 16:12 Consult Discharge Plan - Plan Referrals: Renee De Los Santos, MANAGER GROCERY [Primary Care Provider] - 01/17/18 11:00 am
[2018-01-09] MEDS ORDERED: *HR* Heparin 10,000 UNIT/10 ML VIAL ONE (13:53)
[2018-01-09] MEDS ORDERED: Heparin 1,000 UNITS/500 mL 0 ML ONE (13:53)
[2018-01-09] MEDS ORDERED: 0.9 % Sodium Chloride 1,000 ML ONE ×2 (13:54→14:01)
[2018-01-09] MEDS ORDERED: ISOVUE-370 200 ML INFUS..BTL IV ONE (13:54)
[2018-01-09] MEDS ORDERED: Nitroglycerin 1,000 MCG/10 ML VIAL IV ONE (13:54)
--- NOTE | 2018-01-09 14:01 | Pre-Sedation Evaluation ---
Pre-sedation evaluation - Pre-sedation checklist Date of procedure: 01/09/18 Procedure: lhc Recent Vitals: Last Vital Signs Temp 97.4 F L 01/09/18 11:42 Pulse 67 01/09/18 11:42 Resp 16 01/09/18 11:42 BP 126/69 01/09/18 11:42 Pulse Ox 96 01/09/18 11:42 Previous reaction to sedatives/anesthetics: No Dietary Status: NPO after Midnight Airway Assessment: Patient can open mouth completely, TMJ function normal ASA Classification *see protocol: CLASS III-Severe systemic disease Plan of Care: Pt appropriate candidate for procedure/moderate/conscious sedation Cardiac Registry (Cardio Only) - Functional Capacity Functional Capacity: >=4 METS with symptoms - Clincal Frailty Scale Clinical Frailty Scale: Vulnerable
[2018-01-09] MEDS ORDERED: *HR* Midazolam HCl 2 MG/2 ML VIAL ONE (14:39)
[2018-01-09] MEDS ORDERED: *HR* FentaNYL (PF) 100 MCG/2 ML VIAL ONE (14:39)
--- NOTE | 2018-01-09 15:27 | Invasive Diagnostic Lab Proc ---
Name: Samantha Luis Date of Study: 01/09/2018 Date: 1950 Ht: 68.9in Medical Record#: [id number] Age: 67 Wt: 240.30lb Gender: Female BSA: 2.23 Order #: [id number] BMI: 35.59 Physicians Procedure Physician: Kurt Paniagua MD, FACC Referring MD: Referring MD: Staff Name Position Time In Yogi Ordonez RN Nurse 02:42 PM Herbie Gary RT (R) Scrub 02:42 PM Romina David RT (R) Monitor 02:42 PM Jamaica Loredo RN Glass Blowing Instructor 02:43 PM Jamaica Loredo RN Glass Blowing Instructor 02:47 PM Indications Indication cardiomyopathy Procedures Performed Procedure L HRT ARTERY/VENTRICLE ANGIO Pre-Procedure Checklist Informed consent is complete signed and on chart. H&P is on chart. ID band is on and ID verified with patient. Patient NPO for procedure The procedure was described for the patient and questions were answered. Blood Pressure: 166/108 ECG is on chart. Rhythm: NSR Plan of Care Patient will tolerate the procedure without complications. Adequate level of comfort will be maintained. Hemodynamics will remain stable Patient will recover from procedure without complications. Respiratory function will be maintained. Cardiac rhythm will remain stable. Patient temperature will be maintained. Patient and/or family have verbalized understanding of the procedure. Patient Education Chief Complaint/Reason for Test: Cardiac Cath Developmental Category: Geriatric (65+ years) Developmentally Appropriate for Age: Yes Learning Barriers: None Education Needs: Procedure Education Method: Verbal Information Taught: Cardiac Cath Educational Evaluation: Able to repeat information Intravenous Access Time IV Size Location DC'd Fluid/Drip Rate Units RN 02:50 PM 20g 1 /" Patent On Arrival Rt Arm 0.9NaCl 25 ml/hr Yogi Ordonez RN Allergies No Known Allergies Vital Signs Time BP (mmHg) HR (bpm) O2 Sat. RR (bpm) LOC 02:43 PM 166 / 108 64 92 % 16 5 = Fully awake and oriented or at pre-proc level 02:45 PM 166 / 108 68 97 % 17 02:51 PM 179 / 85 65 88 % 15 02:55 PM 164 / 75 62 89 % 17 03:00 PM 156 / 65 59 90 % 34 03:05 PM 157 / 78 61 90 % 25 03:10 PM 159 / 76 61 91 % 14 03:15 PM 158 / 75 61 91 % 14 Procedural Medications Time Medication Dose Units Method Given By 02:43 PM Oxygen 2 L/min nasal cannula Jamaica Loredo RN 02:47 PM Versed 2 mg Intravenous Jamaica Loredo RN 02:47 PM Fentanyl 50 mcg Intravenous Jamaica Loredo RN 02:50 PM Lidocaine 2% 18 ml Subcutaneous Kurt Paniagua MD, FACC 02:51 PM Oxygen 4 L/min nasal cannula Jamaica Loredo RN Rina Score Preprocedure Postprocedure Activity 2- Moves 4 extremities sustained head lift Activity 2- Moves 4 extremities sustained head lift Circulation 2- SBP +/= 20 points of pre-anesthetic level Circulation 2- SBP +/= 20 points of pre-anesthetic level Consciousness 2- Awake and alert oriented x 3 Consciousness 2- Awake and alert oriented x 3 O2 Saturation 2- Able to maintain O2 satruation of 92% on room air O2 Saturation 2- Able to maintain O2 satruation of 92% on room air Respiratory 2- Able to deep breathe and cough well Respiratory 2- Able to deep breathe and cough well Total Score 10 Total Score 10 Contrast Agent: Isovue Diagnostic Contrast: 22 ml Total Contrast: 22 ml Fluoro Dose: 30 mGy Procedure Log Time Note Enter By 02:31 PM 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 Informed consent was obtained. scoates 02:42 PM Procedure start 14:42 scoates 02:43 PM Time: 14:43 Patient comfortable and pain free: Yes scoates 02:43 PM Time: 14:43LOC: 5 = Fully awake and oriented or at pre-proc level scoates 02:43 PM Time: 14:43 Oxygen on at 2 L/min per nasal cannula by Jamaica Loredo RN scoates 02:43 PM Jamaica Loredo RN Position: Glass Blowing Instructor Time in: 14:43 scoates 02:44 PM CathStat 02:44 PM Vitals capture started with the following parameters, Patient=Adult, Interval=5 min, Initial Qxmriukx=227 mmHg, Deflation Rate=3 mmHg, Cuff placed on Right Arm 02:45 PM HR=68 bpm, LWLE=089/108 mmhg, SpO2=97.0 %, Resp=17 B/min, EtCO2=31 mmHg 02:47 PM Time: 14:47 Versed 2 mg Intravenous Given by Jamaica Loredo RN [email or web address] 02:47 PM Time: 14:47 Fentanyl 50 mcg Intravenous Given by Jamaica Loredo RN [email or web address] 02:48 PM Recorded ECG: HR=69 Condition=Condition 1 02:48 PM Reference ECG taken 02:48 PM Pressure channel 1 zeroed. 02:50 PM Time out was performed according to hospital policy. Conscious sedation and anesthesia was achieved (see medication log with in this report above) [email or web address] 02:50 PM Pressure channel 1 zeroed. 02:51 PM HR=65 bpm, MSAB=726/85 mmhg, SpO2=88.0 %, Resp=15 B/min, EtCO2=31 mmHg, Comment=NSR 02:51 PM Time: 14:50 18 ml Lidocaine 2% to left groin Subcutaneous Given by Kurt Paniagua MD, [facility] [email or web address] 02:51 PM Time: 14:51 Oxygen on at 4 L/min per nasal cannula by Jamaica Loredo RN [email or web address] 02:53 PM Access obtained by percutaneous puncture. 5Fr 10cm [place] sheath placed in left Femoral artery. [id number] [email or web address] 02:54 PM 0.035 145cm Navilyst 3mmJ wire [id number] [email or web address] 02:54 PM 5Fr FL 4 catheter inserted over the wire [facility] [email or web address] 02:54 PM LCA angiography performed in multiple views. [email or web address] 02:55 PM Recorded Pressure: Ao, HR=63, Condition=Condition 1 (Aorta) Ao 125/73/95 02:55 PM HR=62 bpm, IPLE=688/75 mmhg, SpO2=89.0 %, Resp=17 B/min, EtCO2=32 mmHg, Comment=NSR 02:57 PM Catheter removed [email or web address] 02:57 PM 5Fr FR 4 [email or web address]57 PM Pressure channel 1 zeroed. 02:57 PM RCA angiography performed in multiple views. [email or web address] 02:58 PM Recorded Pressure: Ao, HR=62, Condition=Condition 1 (Aorta) Ao 105/60/80 02:58 PM Coronary Dominance: right [email or web address] 02:59 PM Catheter removed [email or web address] 02:59 PM 5Fr Pigtail catheter inserted over the wire [facility] [email or web address] 03:00 PM Catheter crossed the aortic valve and was selectively placed in the left ventricle. Pressures recorded on pullback for left heart catheterization. [email or web address] PM Pressures tsken no LV gram [email or web address] 03:00 PM HR=59 bpm, STBN=145/65 mmhg, SpO2=90.0 %, Resp=34 B/min, Comment=NSR 03:00 PM Recorded Pressure: LV, HR=60, Condition=Condition 1 (Left Ventricle) LV 120/16/22 03:00 PM Recorded Pressure: LV, Ao, HR=65, Condition=Condition 1 (Left Ventricle) LV 126/17/15, (Aorta) Ao 132/50/80 03:00 PM Catheter removed [email or web address] 03:01 PM Conversation between Interventionalist and CT Surgeon. [email or web address] 03:02 PM Procedure completed at 15:02 01/09/2018 [email or web address] 03:02 PM Did you address LISSETH flow and Dominance? Yes [email or web address] 03:02 PM What is the NYHA Class? Class 3 [email or web address] 03:02 PM Did you address LISSETH flow and Dominance? Yes [email or web address] 03:03 PM Sign out completed: Radiation Dose 264.01 mGy, 30.0 Gy/cm2 Fluoro Time: 1.3 Isovue 370 - 200ml contrast 22 ml given by Kurt Paniagua MD, [facility]. Complications: None. 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 Cardiac Rehab Consult needed: YesConfirmed administered medications: Yes [email or web address] 03:04 PM Isovue 370 - 200ml,1 Bottle(s) used. [email or web address] 03:04 PM Arterial sheath pulled using manual compression and V+ Pad for 15 minutes by Herbie Gary RT (R) [email or web address] 03:04 PM Estimated Blood Loss: minimal [email or web address] 03:05 PM Post ECG NSR [email or web address] 03:05 PM HR=61 bpm, YKVT=296/78 mmhg, SpO2=90.0 %, Resp=25 B/min, EtCO2=33 mmHg 03:05 PM Post Blood Pressure 157/78 [email or web address] 03:05 PM Information taught Cardiac Cath and V+ Pad [email or web address] 03:06 PM Education needs Procedure, Plan of Care, and Disease Process [email or web address] 03:06 PM Learning barriers :None [email or web address] 03:06 PM Education Methods Verbal [email or web address] 03:06 PM Education evaluation Able to repeat information [email or web address] 03:06 PM Family placed in Not available. [email or web address] 03:06 PM Complications: None [email or web address] 03:10 PM HR=61 bpm, GDDG=269/76 mmhg, SpO2=91.0 %, Resp=14 B/min, Comment=NSR 03:15 PM HR=61 bpm, AJSA=251/75 mmhg, SpO2=91.0 %, Resp=14 B/min, Comment=NSR 03:16 PM Report given to Trice CHAVEZ Pt taken to Room #16. 15:15 [email or web address] 03:19 PM Site status No bleeding/hematoma - Rt Groin as reported by Herbie Gary RT (R) at 15:19 [email or web address] 03:19 PM Opsite applied [email or web address] 03:19 PM Patient out of room: 15:19 [email or web address] Complications Complication None None Hemodynamics Pressures Site Systolic/A Wave Diastolic/V Wave Mean AO 125 73 95 AO 105 60 80 LV 120 16 22 LV 126 17 15 AO 132 50 80 Post Procedure Information Blood Pressure: 157/78 mmHg Rhythm: NSR Post procedural instructions were not given Surgery consult for CABG Site Checks Time Location Status Staff Sheath In? Note 03:19 PM Rt Groin No bleeding/hematoma Herbie Gary RT (R) Pulses Time Site Pre-Procedure Post-Procedure Note Bilateral DP 2+ 2+ Bilateral radial 2+ Updated by Romina David RT(R) on 01/09/2018 3:19:44 PM electronically signed on 01/09/2018 3:20:13 PM with status of Final
--- NOTE | 2018-01-09 16:16 | Cardiothoracic Consult Note ---
Date of Encounter: 01/09/18 Time of Encounter: 16:11 Assessment and Plan (1) Systolic CHF Current Visit: Yes Status: Acute The assessment and plan as outlined above was discussed with the patient and/or family members who expressed understanding and agreement. All questions were answered. The patient has significant coronary artery disease. The LAD, diagonal and right coronary arteries would be graftable. However, she is a poor candidate for open heart surgery. She has decreased ventricular function with an ejection fraction of 25%, moderate to severe pulmonary hypertension and mild to moderate tricuspid regurgitation. She has had multiple strokes in the past and has total body anasarca. I feel that she is a prohibitive risk for surgery and the son also does not want her to have open heart surgery. I feel medical management would be the best initial course. If open heart surgery were felt to be the best and only option, he would need to be done in [place] if the patient and her son agreed. Qualifiers: Heart failure chronicity: acute Qualified Code(s): I50.21 - Acute systolic (congestive) heart failure - History of Present Illness History of present illness: Ms. Luis is a 67 year old female The patient is a 67-year-old female who was admitted after falling when her legs gave out. The history was obtained from the chart and the patient's son who was in the room as the patient is still sleeping from her cardiac catheterization. She was admitted with total body anasarca. Her belly was swelling and she had peripheral edema. She had wheezing and shortness of breath with a BNP of 1200. Chest x-ray revealed marked cardiomegaly. CT scan of the head revealed an old basal ganglion stroke. Her son states that she has had multiple strokes in the past. Echocardiogram done on January 04 revealed an ejection fraction of 25%. There was mild to moderate tricuspid regurgitation. Moderate to severe pulmonary hypertension. Mild mitral regurgitation. Cardiac catheterization done today revealed a 90% LAD lesion. A 95% first diagonal lesion. The right coronary artery was 80% blocked. The circumflex was small, but not significantly blocked. She has chronic renal failure and chronic kidney disease stage III. Her creatinine today was 2.0 to with a GFR of 30 the son states that she has had no chest pain and no history of myocardial infarction. Past medical history is notable for diabetes on insulin and congestive heart failure. She also has hypertension and a history of breast cancer. Social history. She lives in [place] with her son. She is from her . She used to smoke smoke, but quit years ago. Rarely drinks alcohol. Review of systems is notable for blindness in the right eye and glaucoma in the left. Past Med Surg Social Fam HX - Past Medical History Medical history: CHF, coronary artery disease, diabetes Psychiatric history: depression - Past Surgical History Surgical History: breast surgery, hysterectomy - Social History Smoking Status: Never smoker Smokeless Tobacco Status: No Alcohol use: none Drug use: none - Family History Mother History Unknown: Yes Medications and Allergies Aspirin Enteric Coated [Aspirin EC] 81 mg PO DAILY 01/03/18 [History] Atorvastatin [Lipitor] 40 mg PO HS 01/03/18 [History] Brimonidine Tartrate/Timolol [Combigan 0.2%-0.5% Eye Drops] 1 drop OP DAILY 02/10 [History] Dorzolamide [Trusopt] 1 drop OP TID 01/03/18 [History] Ferrous Sulfate [Iron] 325 mg PO DAILY 01/03/18 [History] Furosemide [Lasix] 20 mg PO DAILY 01/03/18 [History] Gabapentin [Neurontin] 600 mg PO DAILY 01/03/18 [History] Insulin ASPART [NovoLOG] 6 units SQ TIDWM 01/03/18 [History] Insulin Glargine [Lantus] 18 units SQ HS 01/03/18 [History] Losartan [Cozaar] 25 mg PO DAILY 01/03/18 [History] 3 Allergy/AdvReac Type Severity Reaction Status Date / Time No Known Allergies Allergy Verified 01/03/18 12:08 All Systems Review: The remainder of the systems were reviewed and are negative Physical Examination Vital Signs, Last 4 Hours Temp Pulse Resp BP Pulse Ox 01/09/18 15:48 98.3 F 60 14 130/79 97 01/09/18 15:30 97.8 F 61 14 120/77 95 The patient is sleeping. She is blind in her right eye. She has decreased vision in her left eye. No oral lesions. Neck is supple. Trachea in the midline. No carotid bruits. Lungs have scattered rales and wheezes. Heart is in a regular rate and rhythm. Abdomen is benign. She is status post hysterectomy. No tenderness, rebound or guarding. Extremities have 3+ pitting edema. Neurological exam is difficult to assess as the patient is still sedated. Results 01/09/18 00:18 01/09/18 00:18 Lab Results, Last 24 hours 01/09/18 01/09/18 01/09/18:18 00:18 00:18 WBC 2.9 L Hgb 10.5 L Hct 33.6 L Plt Count 200 INR 1.1 Sodium 142 Potassium 4.0 Chloride 105 Carbon Dioxide 27 BUN 34 H Creatinine 2.02 H Glucose 157 H Calcium 9.3 Consult Discharge Plan - Plan Referrals: Renee De Los Santos, CERTIFIED PERSONAL CHEF [Primary Care Provider] - 01/17/18 11:00 am
[2018-01-09] MEDS: Insulin DETEMIR 100 UNIT/ML X5UNITS SQ SCH (20:54)
[2018-01-09] MEDS: Nystatin POWDER 30 GM BOTTLE TP SCH (21:23)
[2018-01-10] MEDS: Heparin 25,000 UNIT/500 ML D5W 25,000 UNIT/500 ML BAG IVC SCH (00:55)
[2018-01-10] MEDS: *HR* Acetylcysteine 20% 600 MG/3 ML ORAL SYRINGE PO SCH ×2 (07:45→21:48)
[2018-01-10] MEDS: Nystatin POWDER 30 GM BOTTLE TP SCH ×2 (07:45→21:51)
[2018-01-10] MEDS: amLODIPine 5 MG TABLET PO SCH (07:45)
[2018-01-10] MEDS: Metoprolol XL (24 HR) Succ 25 MG TAB.ER.24H PO SCH (07:45)
[2018-01-10] MEDS: Insulin LISPRO 300 UNITS/3 ML VIAL SQ SCH ×4 (07:45→21:49)
[2018-01-10] MEDS: Gabapentin 300 MG CAPSULE PO SCH (07:45)
[2018-01-10] MEDS: Aspirin Enteric Coated 81 MG Tablet PO SCH (07:45)
[2018-01-10] MEDS: Dorzolamide OPTH 10 ML BOTTLE BOTH EYES SCH ×3 (07:45→21:51)
[2018-01-10 10:38] LABS: Alpha 2 Globulin (PEP) 0.72 g/dL (0.48-1.05); Beta Globulin (PEP) 0.92 g/dL (0.48-1.10)
[2018-01-10 11:59] LABS: Urine Collection Duration RANDOM hr; Urine Collection Volume RANDOM mL
[2018-01-10] MEDS: TIMOLOL OP SCH (12:11)
[2018-01-10] MEDS: BRIMONIDINE TARTRATE OP SCH (12:11)
[2018-01-10 12:21] LABS: Calcium 8.9 mg/dL (8.6-10.3); Potassium 3.9 mEq/L (3.5-5.1)
--- NOTE | 2018-01-10 12:39 | Event Note ---
Date of Encounter: 01/10/18 Time of Encounter: 10:00 - Cardiology Event Note [employer] system down today, please see note on chart. Per discussions with CT surgery and nephrology planned to evaluate in the morning potential PCI attempt. Patient evaluating options.
[2018-01-10] MEDS ORDERED: amLODIPine 5 MG TABLET PO ONE (13:13)
[2018-01-10] MEDS ORDERED: Aspirin Enteric Coated 81 MG Tablet PO ONE (13:13)
[2018-01-10] MEDS ORDERED: *HR* Acetylcysteine 20% 600 MG/3 ML ORAL SYRINGE PO ONE (13:13)
[2018-01-10] MEDS ORDERED: Metoprolol XL (24 HR) Succ 25 MG TAB.ER.24H PO ONE (13:13)
[2018-01-10] MEDS ORDERED: Gabapentin 300 MG CAPSULE PO ONE (13:13)
[2018-01-10 15:12] LABS: Calcium 9.1 mg/dL (8.6-10.3); Potassium 3.9 mEq/L (3.5-5.1)
--- NOTE | 2018-01-10 16:04 | Internal Med Progress Note ---
Hospitalist Progress Note - Encounter Date of Encounter: 01/10/18 Time of Encounter: 15:57 - Subjective Interval History: No acute changes overnight, dyspnea persists but is improving. BLE pitting edema persists, abdominal swelling improving. LUE swelling improving, no pain noted. New DVT LUE, on heparin gtt. Discussed POC with patient who is in [facility] ement. - Exam Vitals: Temp Pulse Resp BP Pulse Ox 97.5 F L 75 16 149/85 96 01/10/18 15:40 01/10/18 15:40 01/10/18 15:40 01/10/18 15:40 01/10/18 15:40 Exam: Pt is AAO x 3, in NAD HEENT: NC/AT, PERRL Lungs: Clear/Diminished b/l AP&L Heart: S1,S2, RRR Abd: Soft, NT, abdominal swelling Ext: B/L pitting edema 1+; LLE non pitting edema improving, cap refill >3 sec which has improved Neuro: No focal deficit - Assessment and Plan (1) Systolic CHF Current Visit: Yes Status: Acute Assessment and Plan: Echo shows LVEF 25%. Consider systolic CHF. - Newly diagnosed, cardio consult appreciated. - Hold lasix iv b/o worsening renal function. - Add BB, pt is on ARB (on hold now). - Cardio plan for C in next week to r/o ischemic cardiomylopathy 01/09- underwent LHC this afternoon to evaluate ischemic cause of reduced EF. Significant CAD found; LAD, diagonal, and RCA are graftable but per CTS patient is a poor candidate for surgery given comorbidities. Family does not wish to pursue at this time. Should they wish to proceed in the future it would be recommended it be completed at an [facility] in [place]. Patient and Son agree. Continue with medical management and possible PCI in the am. D/W cardiology. (2) Weakness Current Visit: Yes Status: Acute Assessment and Plan: Persistent, Most like due to systolic CHF and dyspnea and functional decline Cont PT/OT (3) Peripheral edema Current Visit: Yes Status: Acute Assessment and Plan: Echo shows new systolic CHF. Patient also has elevated BNP and chest x-ray shows cardiomegaly. cardiology following in consultation;thank you; will need ischemic eval with LHC when renal function improved 01/08-- abdominal girth decreased, BLE 1+ pitting persistent, Not dyspneic at rest. Clinically, stable, continue to monitor, continue strict I's and O's and fluid restriction. At this time we are holding Lasix due to an increase in serum creatinine, continue closely monitor renal function. Nephrology seeing in consultation, thank you a pressure recommendations. Continue holding ARB as well. 01/09-Peripheral edema persists, diuretics held with SEAN on CKD. Weight increased overnight, net positive 2230 fluid volume. Continue holding diuretics, had LHC today. Per [facility] ok to resume diuretics in 48 hours post cath. Closely monitor volume status. Weight stable (4) Diabetes mellitus Current Visit: Yes Status: Acute Assessment and Plan: History of diabetes Discussed diabetic diet, weight loss and lifestyle modifications Glucose stable Continue basal and SSIC Hg A1C 7.4 (5) CKD (chronic kidney disease) Current Visit: Yes Status: Chronic Assessment and Plan: History of CKD 3B moderate Scr improving. 1.65, continue holding lasix hold losartan, avoid nephrotoxins and closely monitor SCR may resume lasix in 48 hours post cath nephrology following; rec mucomyst and gentle IVF prior and post procedure f/u with Dr. Leavitt in 4-6 weeks at d/c (6) HTN (hypertension) Current Visit: Yes Status: Acute Assessment and Plan: History of HTN 01/10- BP stable continue anti-HTN meds (7) Fall Current Visit: Yes Status: Acute Assessment and Plan: Mechanical fall due to leg weakness and dyspnea in the setting of CHF. PT/OT evaluation recommend ECF upon discharge consult SS to assist with D/C planning continue PT/OT while inpatient (8) Deep vein thrombosis (DVT) of brachial vein of left upper extremity Current Visit: Yes Status: Acute Assessment and Plan: heparin gtt will need to bridge to warfarin coag panel pending LUE circulation intact but diminished return cap refill >3 sec LLE swelling, leg firm at thigh, distal circulation palpable order B/L venous doppler (9) CAD (coronary artery disease) Current Visit: Yes Status: Acute Assessment and Plan: as above (10) DVT prophylaxis Current Visit: Yes Status: Acute Assessment and Plan: LUE positive for DVT continue heparin gtt - Time Spent with Patient Total time spent is greater than 50% in coordination of care (as documented) at patient's floor/unit and/or counseling patient: less than 15 minutes Plan of Care Discussed with: patient Internal Medicine: Result - Labs CBC & Chem 7: 01/09/18 00:18 01/10/18 10:28 Labs: BMP 01/10/18 01/10/18 04:17 10:28 Sodium 140 139 Potassium 3.9 3.9 Chloride 107 105 Carbon Dioxide 24 28 BUN 30 H 30 H Creatinine 1.60 H 1.65 H Glucose 154 H 149 H Calcium 8.9 9.1 - ABG Interpretation ABG results: PT/INR, D-dimer PT 12.7 Seconds (9.4-12.1) H 01/09/18 00:18 Consult Discharge Plan - Plan Referrals: Renee De Los Santos, ENGINEERING OFFICER [Primary Care Provider] - 01/17/18 11:00 am (1) Systolic CHF Qualifiers: Heart failure chronicity: acute Qualified Code(s): I50.21 - Acute systolic (congestive) heart failure (4) Diabetes mellitus Qualifiers: Diabetes mellitus type: type 2 Diabetes mellitus plush dresser insulin use: with plush dresser use Diabetes mellitus complication status: with kidney complications Diabetes mellitus complication detail: with chronic kidney disease Chronic kidney disease stage: stage 3 (moderate) Qualified Code(s): E11.22 - Type 2 diabetes mellitus with diabetic chronic kidney disease; N18.3 - Chronic kidney disease, stage 3 (moderate); Z79.4 - contingents 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 of insulin (5) CKD (chronic kidney disease) Qualifiers: Chronic kidney disease stage: stage 3 (moderate) Qualified Code(s): N18.3 - Chronic kidney disease, stage 3 (moderate) (6) HTN (hypertension) Qualifiers: Hypertension type: essential hypertension Qualified Code(s): I10 - Essential (primary) hypertension (7) Fall Qualifiers: Encounter type: initial encounter Qualified Code(s): W19.XXXA - Unspecified fall, initial encounter (9) CAD (coronary artery disease) Qualifiers: Coronary Disease-Associated Artery/Lesion type: [place] artery [place] vs. transplanted heart: [place] heart Associated angina: angina presence unspecified Qualified Code(s): I25.10 - Atherosclerotic heart disease of [place] coronary artery without angina pectoris
[2018-01-10] MEDS: Insulin DETEMIR 100 UNIT/ML X5UNITS SQ SCH (21:51)
[2018-01-11 03:48] LABS: Calcium 9.1 mg/dL (8.6-10.3); Potassium 3.8 mEq/L (3.5-5.1)
[2018-01-11] MEDS ORDERED: Sodium Bicarbonate 75 MEQ in 0.45 % Sodium Chloride 1,000 ML IVC SCH (07:00)
[2018-01-11] MEDS: Insulin LISPRO 300 UNITS/3 ML VIAL SQ SCH ×4 (07:23→21:39)
[2018-01-11] MEDS: Metoprolol XL (24 HR) Succ 25 MG TAB.ER.24H PO SCH (08:24)
[2018-01-11] MEDS: Aspirin Enteric Coated 81 MG Tablet PO SCH (08:24)
[2018-01-11] MEDS: Gabapentin 300 MG CAPSULE PO SCH (08:24)
[2018-01-11] MEDS: amLODIPine 5 MG TABLET PO SCH (08:25)
[2018-01-11] MEDS: *HR* Acetylcysteine 20% 600 MG/3 ML ORAL SYRINGE PO SCH (08:27)
[2018-01-11] MEDS: BRIMONIDINE TARTRATE OP SCH (08:28)
[2018-01-11] MEDS: TIMOLOL OP SCH (08:28)
[2018-01-11] MEDS: Nystatin POWDER 30 GM BOTTLE TP SCH ×2 (08:28→21:40)
[2018-01-11 08:32] LABS: Complement Component 3 124 mg/dL (88-201); IFE Reflexed NOT DONE
[2018-01-11 08:33] LABS: Complement Component 4 30 mg/dL (10-40)
[2018-01-11 08:34] LABS: ANA IgG by ELISA DETECTED (None Detected); Myeloperoxidase Ab 0 AU/mL (0-19); Serine Protease-3 Antibody 2 AU/mL (0-19)
[2018-01-11] MEDS: Dorzolamide OPTH 10 ML BOTTLE BOTH EYES SCH ×3 (08:34→21:40)
[2018-01-11 09:31] LABS: Basophils % 0.3 %; Eosinophils # 0.1 K/mcL (0.0-0.6); Eosinophils % 3.1 %; Hematocrit 36.2 % (35.3-44.9); Hemoglobin 11.4 g/dL (11.5-15.4); Immature Granulocytes % 0.3 % (0-4); Lymphocytes % 31.4 %; Mean Corpuscular HGB Conc 31.5 g/dL (31.6-35.5); Mean Corpuscular Hemoglobin 27.7 pg (28.0-33.3); Mean Corpuscular Volume 87.9 fL (83.0-100.0); Mean Platelet Volume 11.1 fL (9.4-12.4); Monocytes # 0.5 K/mcL (0.0-1.3); Monocytes % 14.2 %; Neutrophils # 1.6 K/mcL (1.6-8.9); Platelet Count 197 K/mcL (140-400); Red Blood Count 4.12 M/mcL (3.82-4.97); Red Cell Distribution Width 17.6 % (11.5-14.5); Segmented Neutrophils % 50.7 %
--- NOTE | 2018-01-11 10:17 | Nephrology Progress Note ---
Addendum entered and electronically signed by Nikko Leavitt MD 01/11/18 21:45: I examined this patient and discussed the medical decision-making with MONTSE Benz. I agree with the documented findings, disposition and treatment plan as described except to the extent set forth below . Original Note: Date of Encounter: 01/11/18 Time of Encounter: 10:11 - Assessment and Plan (1) Acute kidney injury superimposed on CKD Current Visit: Yes Status: Acute Per EMR baseline appears to be 32-35. GFR today is 34 May proceed with staged PCI's. Gentle IV hydration and Mucomyst ordered. Encourage PO intake after procedure. Avoid nephrotoxins and renal dose all medications. Strict I/O. Will need to f/u with Dr. Leavitt in 4-6 weeks after d/c. (2) Fluid overload Current Visit: Yes Status: Acute Strict I/O. 1.5 liter fluid restriction. Renal/cardiac diet. Qualifiers: Qualified Code(s): E87.70 - Fluid overload, unspecified (3) Diabetes mellitus Current Visit: Yes Status: Acute Per primary. Qualifiers: Diabetes mellitus type: type 2 Diabetes mellitus superintendent terminal insulin use: with senior living use Diabetes mellitus complication status: with kidney complications Diabetes mellitus complication detail: with chronic kidney disease Chronic kidney disease stage: stage 3 (moderate) Qualified Code(s): E11.22 - Type 2 diabetes mellitus with diabetic chronic kidney disease; N18.3 - Chronic kidney disease, stage 3 (moderate); Z79.4 - correction (current) use of insulin (4) HTN (hypertension) Current Visit: Yes Status: Acute Stable. Qualifiers: Hypertension type: essential hypertension Qualified Code(s): I10 - [place] l (primary) hypertension (5) Systolic CHF Current Visit: Yes Status: Acute See above. Qualifiers: Heart failure chronicity: acute Qualified Code(s): I50.21 - Acute systolic (congestive) heart failure Subjective Principal diagnosis: Cardiomyopathy Interval history: Pt seen and examined, doing well. Denies CP and SOB has improved. Objective - Vital Signs Vital signs: Vital Signs Temp Pulse Resp BP Pulse Ox 01/11/18 07:05 97.4 F L 72 18 131/74 98 01/11/18 03:11 98 F 72 17 131/71 95 01/10/18 23:32 97.5 F L 72 17 130/71 97 01/10/18 19:18 97.9 F 74 18 143/81 95 01/10/18 15:40 97.5 F L 75 16 149/85 96 Intake and Output 01/10/18 01/11/18 01/11/18 23:59 07:59 15:59 Intake Total 418 / 418 Output Total 200 / 200 Balance -200 / -200 418 / 418 Intake: IV Fluids 418 / 418 Heparin 25,000 UNIT/500 ML D5W 418 / 418 25,000 unit In 500 ml @ 9.4 UNIT/KG/HR 20.003 mls/hr IVC . Q24H LILIAN Rx#:[id number] Output: Urine 200 / 200 Other: Stool Size Large Stool Consistency loose liquid soft Stool Color Brown Green # Bowel Movements 1 Weight 108.765 kg 110 kg Blood Glucose* 212 108 Patient Weight 01/11/18 23:59 Weight 110 kg - General Appearance General appearance: Present: well-developed, well-nourished EENT: Present: ATNC, hearing intact, vision intact Neck: Present: supple Respiratory: Present: clear Cardiology: Present: edema (+2 pitting edema noted to bilat lower extremities.), normal S1, normal S2 Gastrointestinal: Present: normoactive bowel sounds, no tenderness, no guarding Integumentary: Present: no rash, warm and dry Neurologic: Present: alert and oriented x3 Psychiatric: Present: mood/affect appropriate, cooperative - Lab 01/11/18 08:59 01/11/18 02:42 Most recent lab results Calcium 9.1 mg/dL (8.6-10.3) 01/11/18 02:42 Magnesium 1.8 mg/dL (1.6-2.6) 01/04/18 03:15 Urine Creatinine 61 mg/dL 01/07/18 16:12 Urine Sodium 112.1 mEq/L 01/07/18 16:12 Urine Total Protein SEE NOTE mg/d (10-140) 01/07/18 16:12 Consult Discharge Plan - Plan Referrals: Renee De Los Santos, STRAIGHT SLICING MACHINE OPERATOR [Primary Care Provider] - 01/17/18 11:00 am
--- NOTE | 2018-01-11 12:39 | Cardiology Progress Note ---
Date of Encounter: 01/11/18 Time of Encounter: 11:45 Assessment and Plan (1) Fall Current Visit: Yes Status: Acute Per cardiology: -ADmitted after fall at home. -Son reports multiple falls. Qualifiers: Encounter type: initial encounter Qualified Code(s): W19.XXXA - Unspecified fall, initial encounter (2) Systolic CHF Current Visit: Yes Status: Acute Per Cardiology: -BNP on arrival in the 1200s. -Clinically appears somewhat improved. -Newly diagnosed systolic heart failure, unclear if ischemic or nonischemic in nature. -Net I&O +2000ml. -Troponin negative. -Echo showed EF 25%, small to moderate pericardial effusion with no evidence of tamponade. -On aspirin, statin, beta kurt. All questions answered. Off lasix now. -[facility] with significant CAD. -Continue BB. Not on jameel/arb due to renal function. -Will repeat TTE in 3 months in outpatient setting. -Consider addition of lasix pending repeat LHC and renal function. Mildly volume overloaded on exam. No signs of distress noted. Qualifiers: Heart failure chronicity: acute Qualified Code(s): I50.21 - Acute systolic (congestive) heart failure (3) CAD (coronary artery disease) Current Visit: Yes Status: Acute Per cardiology: -C with 90% mid LAD, 95% diagonal 1, 80% proximal RCA, 80% mid RCA. -Pateint was seen and evaluated by CT surgery who recommended evuation at tertiary center vs. staged PCI. -Discussed at length with pateint who wishes to proceed with high risk staged PCI. -Of note, creatinine slightly worse than yesterday 1.77 from 1.65. -On asa, statin, BB, heparin drip. -Discussed at length with , interventional cardiology, who reviewed [facility] films, labs and states that lesions would require a signifcant amount of dye to fix. would not recommend proceeding with staged PCI today due to slightly increased creatinine. -Discussed at length with patient, patient agreeable to remain inpatient. Plan for possible staged PCI on Sunday. -Continue heparin drip. -Cardiology will continue to monitor peripherally. Qualifiers: Coronary Disease-Associated Artery/Lesion type: [place] artery [place] vs. transplanted heart: [place] heart Associated angina: without angina Qualified Code(s): I25.10 - Atherosclerotic heart disease of [place] coronary artery without angina pectoris (4) Acute kidney injury superimposed on CKD Current Visit: Yes Status: Acute Per cardiology: -SEAN on CKD. -Nephrology following. -Appreciate nephrology recommendations and assistance. Discussion w patient/family: The assessment and plan as outlined above was discussed with the patient who expressed understanding and agreement. All questions were answered. Thank you for involving us in the care of your patient. Please call with any questions. Discussed and reviewed with Dr.John Tyler. Subjective Principal diagnosis: Cardiomyopathy Interval history: Patient denies chest pain. Denies shortness of breath. Objective Vital Signs, Last 4 Hours Temp Pulse Resp BP Pulse Ox 01/11/18 11:50 97.4 F L 73 16 141/97 95 General: Conversant, No Apparent Distress HEENT: Atraumatic, Normocephaly, Mucus Membranes Moist Neck: No JVD, Normal carotid pulses Cardiac: Reg Rate and Rhythm, Normal S1 and S2, No Murmur Lungs: Normal Breath Sounds, No Wheeze, Rales, Rhonchi Neuro: Alert and responsive, No focal deficits noted Abdomen: Soft, Non-Tender Skin: No rashes noted on visualized skin Musculoskeletal: No Chest Wall Tenderness Extremities: No Clubbing, No Cyanosis, Normal Pulses, Other (1+ bilateral lower extremity pitting edema. ) Results 01/11/18 08:59 01/11/18 02:42 Lab Results Active Medications Acetaminophen (Tylenol) 650 mg PO Q6HR PRN PRN Reason: Mild Pain/Fever Stop: 07/05/18 16:33 Last Admin: 01/09/18 05:48 Dose: 650 mg Acetylcysteine (Acetylcysteine 20%) 600 mg PO BID LILIAN Stop: 07/11/18 09:01 Last Admin: 01/11/18 08:27 Dose: Not Given Aspirin (Aspirin Ec) 81 mg PO DAILY LILIAN Stop: 07/06/18 09:01 Last Admin: 01/11/18 08:24 Dose: 81 mg Atorvastatin Calcium (Lipitor) 40 mg PO HS LILIAN Stop: 07/05/18 21:01 Last Admin: 01/10/18 21:52 Dose: 40 mg Benzonatate (Tessalon) 100 mg PO TID PRN PRN Reason: Cough Stop: 07/07/18 00:19 Last Admin: 01/05/18 00:52 Dose: 100 mg Dextrose/Water (Dextrose 50% (Syg)) 25 ml IVP AD PRN PRN Reason: Hypoglycemia Stop: 07/05/18 16:41 Dorzolamide HCl (Trusopt) 1 drop BOTH EYES TID LILIAN Stop: 07/05/18 21:01 Last Admin: 01/11/18 08:34 Dose: 1 drop Ergocalciferol (Drisdol (50,000 Unit)) 50,000 unit PO QWEEK LILIAN Stop: 07/10/18 12:31 Last Admin: 01/08/18 14:55 Dose: 50,000 unit Ferrous Sulfate (Ferrous Sulfate) 325 mg PO DAILY LILIAN Stop: 07/06/18 09:01 Last Admin: 01/11/18 08:24 Dose: 325 mg Gabapentin (Neurontin) 600 mg PO DAILY COUNT INCLUDES THE [facility] Stop: 07/06/18 09:01 Last Admin: 01/11/18 08:24 Dose: 600 mg Glucagon (Glucagen) 1 mg IM ONCE PRN PRN Reason: Hypoglycemia Stop: 07/05/18 16:41 Glucose (Gluctose) 15 gm PO ONCE PRN PRN Reason: Hypoglycemia Stop: 07/05/18 16:41 Glucose (Gluctose) 30 gm PO ONCE PRN PRN Reason: Hypoglycemia Stop: 07/05/18 16:41 Heparin Sodium (Porcine) (Heparin) 4,000 unit IVP Q6HR PRN PRN Reason: SEE COMMENTS Stop: 07/10/18 23:21 Heparin Sodium (Porcine) (Heparin) 2,000 unit IVP Q6H PRN PRN Reason: SEE COMMENTS Stop: 07/10/18 23:21 Hydralazine HCl (Hydralazine) 10 mg IVP Q6HR PRN PRN Reason: Hypertension Stop: 07/05/18 18:19 Last Admin: 01/03/18 20:34 Dose: 10 mg Heparin Sodium/Dextrose (Heparin 25,000 Unit/500 Ml D5w) 25,000 unit in 500 mls @ 20.003 mls/hr IVC .Q24H LILIAN; Protocol Stop: 07/10/18 23:31 Last Titration: 01/11/18 08:11 Dose: 6.29 unit/kg/hr, 13.4 mls/hr Sodium Bicarbonate 75 meq/ (Sodium Chloride) 1,075 mls @ 75 mls/hr IVC .[id number] COUNT INCLUDES THE [facility] Stop: 01/11/18 21:19 Last Admin: 01/11/18 08:36 Dose: 75 mls/hr Insulin Detemir (Levemir) 12 unit SQ HS COUNT INCLUDES THE [facility] Stop: 07/05/18 21:01 Last Admin: 01/10/18 21:51 Dose: 12 unit Insulin Human Lispro (Humalog) 0 units SQ HS COUNT INCLUDES THE [facility]; Protocol Stop: 07/05/18 21:01 Last Admin: 01/10/18 21:49 Dose: 2 units Insulin Human Lispro (Humalog) 0 units SQ TIDAC COUNT INCLUDES THE [facility]; Protocol Stop: 07/06/18 07:31 Last Admin: 01/11/18 11:55 Dose: Not Given Metoprolol Succinate (Toprol Xl) 12.5 mg PO DAILY COUNT INCLUDES THE [facility] Stop: 07/06/18 13:10 Last Admin: 01/11/18 08:24 Dose: 12.5 mg Naloxone HCl (Narcan) 0.4 mg IVP Q2MIN PRN PRN Reason: SEE COMMENTS Stop: 07/05/18 16:33 Nystatin (Nystop) 1 appl TP BID COUNT INCLUDES THE [facility] Stop: 07/11/18 21:01 Last Admin: 01/11/18 08:28 Dose: Not Given Pharmacy Profile Note (Patient Taking Own Medication) 0 each OP DAILY COUNT INCLUDES THE [facility] Stop: 07/06/18 09:01 Last Admin: 01/11/18 08:28 Dose: Not Given Laboratory Tests 01/09/18 01/09/18 01/10/18 00:18 00:18 04:17 WBC 2.9 L Hgb 10.5 L Potassium Creatinine 2.02 H 1.60 H 01/11/18 01/11/18 02:42 08:59 WBC 3.2 L Hgb 11.4 L Potassium 3.8 Creatinine 1.77 H - Imaging and Cardiology Chest Xray: report reviewed Echo: report reviewed Cardiac cath: report reviewed - EKG Interpretation EKG results cardiology: other (Telemetry reviewed with average HR previous 12 hours noted to be 71, SR. PACs and PVCs noted.) Consult Discharge Plan - Plan Referrals: Renee De Los Santos, GROCERY STORE ASSOCIATE [Primary Care Provider] - 01/17/18 11:00 am
[2018-01-11] MEDS: Heparin 25,000 UNIT/500 ML D5W 25,000 UNIT/500 ML BAG IVC SCH (14:39)
--- NOTE | 2018-01-11 15:17 | Internal Med Progress Note ---
Hospitalist Progress Note - Encounter Date of Encounter: 01/11/18 Time of Encounter: 15:15 - Subjective Interval History: No acute changes overnight - Exam Vitals: Temp Pulse Resp BP Pulse Ox 97.4 F L 73 16 150/88 97 01/11/18 11:50 01/11/18 15:08 01/11/18 11:50 01/11/18 15:08 01/11/18 15:08 Exam: Pt is AAO x 3, in NAD HEENT: NC/AT, PERRL Lungs: Clear/Diminished b/l AP&L Heart: S1,S2, RRR Abd: Soft, NT, abdominal swelling Ext: B/L pitting edema 1+; LUE non pitting edema improving, cap refill >3 sec which has improved Neuro: No focal deficit - Assessment and Plan (1) Systolic CHF Current Visit: Yes Status: Acute Assessment and Plan: Echo shows LVEF 25%. Consider systolic CHF. - Newly diagnosed, cardio consult appreciated. - Hold lasix iv b/o worsening renal function. - Add BB, pt is on ARB (on hold now). - Cardio plan for [facility] in next week to r/o ischemic cardiomylopathy 01/11--presented with fluid overload and CHF with LVEF 25%. LHC reveals significant CAD. She is a high risk candidate for CABG. Cardiology and cardiothoracic surgery discussed options including CABG, medical management with PCI. At this time she is wishing to proceed with PCI on Sunday for stent placement to LAD. Clinically, patient remained stable, weight stable. Continues to have a positive fluid balance of 3158. Continue closely monitor for S/SX of fluid overload. (2) Weakness Current Visit: Yes Status: Acute Assessment and Plan: Persistent, Most like due to systolic CHF and dyspnea and functional decline Cont PT/OT (3) Peripheral edema Current Visit: Yes Status: Acute Assessment and Plan: Echo shows new systolic CHF. Patient also has elevated BNP and chest x-ray shows cardiomegaly. cardiology following in consultation;thank you; will need ischemic eval with [facility] when renal function improved 01/08-- abdominal girth decreased, BLE 1+ pitting persistent, Not dyspneic at rest. Clinically, stable, continue to monitor, continue strict I's and O's and fluid restriction. At this time we are holding Lasix due to an increase in serum creatinine, continue closely monitor renal function. Nephrology seeing in consultation, thank you a pressure recommendations. Continue holding ARB as well. 01/09-Peripheral edema persists, diuretics held with SEAN on CKD. Weight increased overnight, net positive 2230 fluid volume. Continue holding diuretics, had LHC today. Per jewels contreras to resume diuretics in 48 hours post cath. Closely monitor volume status. Weight stable 01/10--Remains edematous. Positive volume status with + 3158 however, we stable and the patient is no distress at this time. We will continue to hold Lasix with setting of recent AKA on CKD. Renal function now back to baseline. Patient is to have a heart catheter on Sunday withholding Lasix to preserve renal function prior to catheter. She developed respiratory distress S/SX of fluid overload worsening condition consider diuresis. (4) Diabetes mellitus Current Visit: Yes Status: Acute Assessment and Plan: History of diabetes Discussed diabetic diet, weight loss and lifestyle modifications Glucose remains stable, Continue basal and SSIC Hg A1C 7.4 (5) CKD (chronic kidney disease) Current Visit: Yes Status: Chronic Assessment and Plan: History of CKD 3B moderate Scr improving at baseline 1.77 continue holding lasix, + fluid balance 3158 , weight stable, not in acute distress hold losartan, avoid nephrotoxins and closely monitor SCR may resume lasix in 48 hours post cath hold IVF and mucomyst; restart Sunday evening prior to LHC on Sunday f/u with Dr. Leavitt in 4-6 weeks at d/c (6) HTN (hypertension) Current Visit: Yes Status: Acute Assessment and Plan: History of HTN 01/11- BP stable continue anti-HTN meds (7) Fall Current Visit: Yes Status: Acute Assessment and Plan: Mechanical fall due to leg weakness and dyspnea in the setting of CHF. PT/OT evaluation, recommend ECF upon discharge consult SS to assist with D/C planning continue PT/OT while inpatient, continue gait and balance therapy (8) Deep vein thrombosis (DVT) of brachial vein of left upper extremity Current Visit: Yes Status: Acute Assessment and Plan: heparin gtt will need to bridge to warfarin coag panel pending LUE circulation intact but diminished return cap refill >3 sec Will need to warfarin or DOAC at d/c LLE swelling, leg firm at thigh, distal circulation palpable order B/L venous doppler; B/L venous Dopplers negative for DVT (9) CAD (coronary artery disease) Current Visit: Yes Status: Acute Assessment and Plan: as above (10) DVT prophylaxis Current Visit: Yes Status: Acute Assessment and Plan: LUE positive for DVT continue heparin gtt First episode of DVT Will need a 3 month outpatient therapy with either warfarin or DOAC - Time Spent with Patient Total time spent is greater than 50% in coordination of care (as documented) at patient's floor/unit and/or counseling patient: less than 15 minutes Plan of Care Discussed with: patient Internal Medicine: Result - Labs CBC & Chem 7: 01/11/18 08:59 01/11/18 02:42 Labs: Short CBC 01/11/18 Range/Units 08:59 WBC 3.2 L (4.3-11.1) K/mcL Hgb 11.4 L (11.5-15.4) g/dL Hct 36.2 (35.3-44.9) % Plt Count 197 (140-400) K/mcL Neutrophils # 1.6 (1.6-8.9) K/mcL BMP 01/11/18 02:42 Sodium 138 Potassium 3.8 Chloride 105 Carbon Dioxide 28 BUN 31 H Creatinine 1.77 H Glucose 157 H Calcium 9.1 - ABG Interpretation ABG results: PT/INR, D-dimer PT 12.7 Seconds (9.4-12.1) H 01/09/18 00:18 Consult Discharge Plan - Plan Referrals: Renee De Los Santos, LONG CHAIN BEAMER [Primary Care Provider] - 01/17/18 11:00 am (1) Systolic CHF Qualifiers: Heart failure chronicity: acute Qualified Code(s): I50.21 - Acute systolic (congestive) heart failure (4) Diabetes mellitus Qualifiers: Diabetes mellitus type: type 2 Diabetes mellitus [facility] insulin use: with long chain beamer use Diabetes mellitus complication status: with kidney complications Diabetes mellitus complication detail: with chronic kidney disease Chronic kidney disease stage: stage 3 (moderate) Qualified Code(s): E11.22 - Type 2 diabetes mellitus with diabetic chronic kidney disease; N18.3 - Chronic kidney disease, stage 3 (moderate); Z79.4 - long term acute care registered nurse (current) use of insulin (5) CKD (chronic kidney disease) Qualifiers: Chronic kidney disease stage: stage 3 (moderate) Qualified Code(s): N18.3 - Chronic kidney disease, stage 3 (moderate) (6) HTN (hypertension) Qualifiers: Hypertension type: essential hypertension Qualified Code(s): I10 - Essential (primary) hypertension (7) Fall Qualifiers: Encounter type: initial encounter Qualified Code(s): W19.XXXA - Unspecified fall, initial encounter (9) CAD (coronary artery disease) Qualifiers: Coronary Disease-Associated Artery/Lesion type: [place] artery [place] vs. transplanted heart: [place] heart Associated angina: without angina Qualified Code(s): I25.10 - Atherosclerotic heart disease of [place] coronary artery without angina pectoris
[2018-01-11] MEDS: *HR* Heparin 5,000 UNIT/ML VIAL IVP PRN (16:32)
[2018-01-11] MEDS: Insulin DETEMIR 100 UNIT/ML X5UNITS SQ SCH (21:40)
[2018-01-11] MEDS: Acetaminophen 325 MG TABLET PO PRN (21:59)
[2018-01-11 23:36] LABS: APTT (LE Anticoag) >150 sec (32-48); Diluted Russell Viper Venom 28 sec (33-44); LE APTT D Heparin Neutralized 54 sec (32-48); LE Coag APTT Mixing 46 sec (32-48); LE Coag Reptilase Time 19.4 sec (<=21.9); PT (LE-Anticoag) 16.4 sec (12.0-15.5); Thrombin Time >150.0 sec (14.7-19.5)
[2018-01-11 23:37] LABS: APTT (LE Anticoag) >150 sec (32-48); Diluted Russell Viper Venom 28 sec (33-44); LE APTT D Heparin Neutralized 53 sec (32-48); LE Coag APTT Mixing 46 sec (32-48); LE Coag Reptilase Time 18.3 sec (<=21.9); PT (LE-Anticoag) 16.2 sec (12.0-15.5); Thrombin Time >150.0 sec (14.7-19.5)
--- NOTE | 2018-01-12 07:39 | Nephrology Progress Note ---
Date of Encounter: 01/12/18 Time of Encounter: 07:38 - Assessment and Plan (1) Acute kidney injury superimposed on CKD Current Visit: Yes Status: Acute Per EMR baseline appears to be 32-35. May proceed with staged PCI's. Gentle IV hydration and Mucomyst ordered to minimize the risk of CHRISSY Encourage PO intake after procedure. Avoid nephrotoxins and renal dose all medications. Strict I/O. Will need to f/u with Dr. Leavitt in 4-6 weeks after d/c. (2) Fluid overload Current Visit: Yes Status: Acute Strict I/O. 1.5 liter fluid restriction. Renal/cardiac diet. Qualifiers: Qualified Code(s): E87.70 - Fluid overload, unspecified (3) Diabetes mellitus Current Visit: Yes Status: Acute Per primary. Qualifiers: Diabetes mellitus type: type 2 Diabetes mellitus [facility] insulin use: with termite exterminator use Diabetes mellitus complication status: with kidney complications Diabetes mellitus complication detail: with chronic kidney disease Chronic kidney disease stage: stage 3 (moderate) Qualified Code(s): E11.22 - Type 2 diabetes mellitus with diabetic chronic kidney disease; N18.3 - Chronic kidney disease, stage 3 (moderate); Z79.4 - detention (current) use of insulin (4) HTN (hypertension) Current Visit: Yes Status: Acute Stable. Qualifiers: Hypertension type: essential hypertension Qualified Code(s): I10 - Essential (primary) hypertension (5) Systolic CHF Current Visit: Yes Status: Acute See above. Qualifiers: Heart failure chronicity: acute Qualified Code(s): I50.21 - Acute systolic (congestive) heart failure Subjective Principal diagnosis: Cardiomyopathy Interval history: Patient seen. No new complaint. ROS stable. Objective - Vital Signs Vital signs: Vital Signs Temp Pulse Resp BP Pulse Ox 01/12/18 06:54 97.5 F L 68 16 128/81 98 01/12/18 04:33 97.3 F L 68 18 135/85 98 01/12/18 00:28 97.3 F L 70 18 148/79 96 01/11/18 21:49 97.4 F L 68 18 134/86 98 01/11/18 20:00 97.9 F 67 16 129/84 97 01/11/18 15:08 73 150/88 97 01/11/18 11:50 97.4 F L 73 16 141/97 95 Intake and Output 10/19/18 10/19/18 10/20/18 15:59 23:59 07:59 Intake Total 860 / 860 134 / 134 114 / 114 Output Total 200 / 200 Balance 860 / 860 -66 / -66 114 / 114 Intake: IV Fluids 500 / 500 134 / 134 114 / 114 Heparin 25,000 UNIT/500 ML D5W 500 / 500 134 / 134 114 / 114 25,000 unit In 500 ml @ 9.4 UNIT/KG/HR 20.003 mls/hr IVC . Q24H [facility] Rx#:[id number] Oral 360 / 360 0 / 0 0 / 0 Output: Urine 200 / 200 Other: Meal Lunch Percent of Meal Consumed 100% # Voids 0 0 Weight 112.2 kg Blood Glucose* 126 199 125 Patient Weight 01/12/18 23:59 Weight 112.2 kg - General Appearance General appearance: Present: well-developed, well-nourished EENT: Present: ATNC Neck: Present: supple Cardiology: Present: edema, regular rate Neurologic: Present: alert and oriented x3 Psychiatric: Present: mood/affect appropriate - Lab 01/12/18 07:58 01/12/18 07:58 Most recent lab results Calcium 9.1 mg/dL (8.6-10.3) 01/11/18 02:42 Magnesium 1.8 mg/dL (1.6-2.6) 01/04/18 03:15 Urine Creatinine 61 mg/dL 01/07/18 16:12 Urine Sodium 112.1 mEq/L 01/07/18 16:12 Urine Total Protein SEE NOTE mg/d (10-140) 01/07/18 16:12 Consult Discharge Plan - Plan Referrals: Renee De Los Santos, DOG SITTER [Primary Care Provider] - 01/17/18 11:00 am
[2018-01-12 08:30] LABS: Basophils % 0.7 %; Eosinophils # 0.1 K/mcL (0.0-0.6); Eosinophils % 3.9 %; Hematocrit 32.9 % (35.3-44.9); Hemoglobin 10.5 g/dL (11.5-15.4); Immature Granulocytes % 0.4 % (0-4); Lymphocytes # 1.4 K/mcL (0.6-4.6); Lymphocytes % 48.1 %; Mean Corpuscular HGB Conc 31.9 g/dL (31.6-35.5); Mean Corpuscular Hemoglobin 27.9 pg (28.0-33.3); Mean Corpuscular Volume 87.5 fL (83.0-100.0); Mean Platelet Volume 10.9 fL (9.4-12.4); Monocytes # 0.4 K/mcL (0.0-1.3); Monocytes % 15.5 %; Neutrophils # 0.9 K/mcL (1.6-8.9); Platelet Count 182 K/mcL (140-400); Red Blood Count 3.76 M/mcL (3.82-4.97); Red Cell Distribution Width 17.8 % (11.5-14.5); Segmented Neutrophils % 31.4 %
[2018-01-12 08:45] LABS: Albumin 3.4 g/dL (3.5-5.7); Calcium 9.4 mg/dL (8.6-10.3); Phosphorous 3.4 mg/dL (2.7-4.5)
[2018-01-12] MEDS: Insulin LISPRO 300 UNITS/3 ML VIAL SQ SCH ×4 (09:30→20:31)
[2018-01-12] MEDS: Aspirin Enteric Coated 81 MG Tablet PO SCH (09:32)
[2018-01-12] MEDS: Gabapentin 300 MG CAPSULE PO SCH (09:32)
[2018-01-12] MEDS: Nystatin POWDER 30 GM BOTTLE TP SCH ×2 (09:33→20:15)
[2018-01-12] MEDS: Metoprolol XL (24 HR) Succ 25 MG TAB.ER.24H PO SCH (09:33)
[2018-01-12] MEDS: Dorzolamide OPTH 10 ML BOTTLE BOTH EYES SCH ×3 (09:34→20:16)
--- NOTE | 2018-01-12 11:39 | Internal Med Progress Note ---
Hospitalist Progress Note - Encounter Date of Encounter: 01/12/18 Time of Encounter: 09:00 - Subjective Interval History: patient was seen and examined at bedside tolerating PO diet. denies fever, chills, N/v/D. reports that she enjoys working with physical therapists still has LE swelling but reports that it is improving - Exam Vitals: Temp Pulse Resp BP Pulse Ox 97.5 F L 68 16 128/81 98 01/12/18 06:54 01/12/18 06:54 01/12/18 06:54 01/12/18 06:54 01/12/18 06:54 Exam: General: Patient is alert, oriented, no acute distress, obese, speaks in full sentences Head: atraumatic, normocephalic, Eye: normal appearance, PERRL, no scleral icterus, no conjunctival injection ENT: mucous membranes moist, normal external ear exam Chest: normal inspection, symmetric chest rise Respiratory: Good respiratory effort. Bilateral breath sounds are clear without wheezing, crackles, or rhonchi. Cardiovascular: Regular rate and rhythm. s1 and s2 No clicks, rubs, gallops, or murmors. Abdomen: Bowel sounds present normoactive x-4 quadrants. Abdomen is soft, nondistended. no Epigastric tenderness. No guarding or rebound. No organomegaly noted, obese musculoskeletal: Spontaneously moving all extremities. 2+ edema of the LE up to knee, no calf tenderness, radial pulses 2 bilaterarily Skin: warm, dry, intact. Neuro: Alert and oriented x4. Sensation light touch intact. Cranial nerves 2- 12 is intact. Not aphasic, no focal deficit Psych: Patient's affect is normal - Assessment and Plan (1) Acute HFrEF (heart failure with reduced ejection fraction) Current Visit: Yes Status: Acute Assessment and Plan: secondary to ICM ( significant CAD on recent cath) Echo shows LVEF 25%. cardiology on board lasix and ITALO/ARB on hold due to ARF on CKD 3 for LHC and staged PCI on 01/14 fluid restriction <1.5L daily weights (2) CAD (coronary artery disease) Current Visit: Yes Status: Acute Assessment and Plan: LHC with 90% mid LAD, 95% diagonal 1, 80% proximal RCA, 80% mid RCA. Patient was seen and evaluated by CT surgery who recommended evaluation at tertiary center vs. staged PCI. paitnet decided to have staged PCI and medical management for C on 01/14 nephrology was consulted for ARF and recommendations appreciated will continue heparin drip, ASA, BB and statins (3) Acute renal failure superimposed on stage 3 chronic kidney disease Current Visit: Yes Status: Acute Assessment and Plan: History of CKD 3B moderate nephrology recommendations appreciated Scr improving at baseline 1.77 continue holding lasix fluid restriction <1.5L strict i/O hold losartan, avoid nephrotoxins and closely monitor SCR may resume lasix in 48 hours post cath hold IVF and mucomyst; restart Sunday evening prior to LHC on Sunday f/u with Dr. Leavitt in 4-6 weeks at d/c (4) Deep vein thrombosis (DVT) of brachial vein of left upper extremity Current Visit: Yes Status: Acute Assessment and Plan: heparin gtt will need to bridge to warfarin LUE circulation intact but diminished return cap refill >3 sec Will need to warfarin or DOAC at d/c LLE swelling, leg firm at thigh, distal circulation palpable B/L venous Dopplers negative for DVT (5) Fall Current Visit: Yes Status: Acute Assessment and Plan: Mechanical fall due to leg weakness and dyspnea in the setting of CHF. PT/OT evaluation, recommend ECF upon discharge consult SS to assist with D/C planning continue PT/OT while inpatient, continue gait and balance therapy (6) Diabetes mellitus Current Visit: Yes Status: Acute Assessment and Plan: History of diabetes Discussed diabetic diet, weight loss and lifestyle modifications Glucose remains stable, Continue basal and SSIC Hg A1C 7.4 (7) HTN (hypertension) Current Visit: Yes Status: Acute Assessment and Plan: medications as per above (8) DVT prophylaxis Current Visit: Yes Status: Acute Assessment and Plan: on heparin drip (9) Obese Current Visit: Yes Status: Acute Assessment and Plan: was counseled on diet and nutrition - Time Spent with Patient Total time spent is greater than 50% in coordination of care (as documented) at patient's floor/unit and/or counseling patient: Internal Medicine: Result - Labs CBC & Chem 7: 01/12/18 07:58 01/12/18 07:58 Labs: Short CBC 01/12/18 Range/Units 07:58 WBC 2.8 L (4.3-11.1) K/mcL Hgb 10.5 L (11.5-15.4) g/dL Hct 32.9 L (35.3-44.9) % Plt Count 182 (140-400) K/mcL Neutrophils # 0.9 L (1.6-8.9) K/mcL BMP 01/12/18 07:58 Sodium 137 Potassium 4.0 Chloride 105 Carbon Dioxide 25 BUN 27 H Creatinine 1.61 H Glucose 113 H Calcium 9.4 Liver Function 01/12/18 Range/Units 07:58 Albumin 3.4 L (3.5-5.7) g/dL - ABG Interpretation ABG results: PT/INR, D-dimer PT 12.7 Seconds (9.4-12.1) H 01/09/18 00:18 Consult Discharge Plan - Plan Referrals: Renee De Los Santos, FEEDER OPERATOR [Primary Care Provider] - 01/17/18 11:00 am _ (2) CAD (coronary artery disease) Qualifiers: Coronary Disease-Associated Artery/Lesion type: [place] artery [place] vs. transplanted heart: [place] heart Associated angina: without angina Qualified Code(s): I25.10 - Atherosclerotic heart disease of [place] coronary artery without angina pectoris (5) Fall Qualifiers: Encounter type: initial encounter Qualified Code(s): W19.XXXA - Unspecified fall, initial encounter (6) Diabetes mellitus Qualifiers: Diabetes mellitus type: type 2 Diabetes mellitus custodial insulin use: with custodial use Diabetes mellitus complication status: with kidney complications Diabetes mellitus complication detail: with chronic kidney disease Chronic kidney disease stage: stage 3 (moderate) Qualified Code(s): E11.22 - Type 2 diabetes mellitus with diabetic chronic kidney disease; N18.3 - Chronic kidney disease, stage 3 (moderate); Z79.4 - exterminator termite (current) use of insulin (7) HTN (hypertension) Qualifiers: Hypertension type: essential hypertension Qualified Code(s): I10 - Essential (primary) hypertension (9) Obese Qualifiers: Obesity type: due to excess calories Body mass index: BMI 36.0-36.9
[2018-01-12] MEDS: Acetaminophen 325 MG TABLET PO PRN (15:36)
[2018-01-12] MEDS: TIMOLOL OP SCH (20:16)
[2018-01-12] MEDS: BRIMONIDINE TARTRATE OP SCH (20:16)
[2018-01-12] MEDS: Insulin DETEMIR 100 UNIT/ML X5UNITS SQ SCH (20:17)
[2018-01-12] MEDS: Heparin 25,000 UNIT/500 ML D5W 25,000 UNIT/500 ML BAG IVC SCH (21:34)
[2018-01-12 22:40] LABS: FACV Specimen WHOLE BLOOD
[2018-01-13 04:54] LABS: Hematocrit 32.3 % (35.3-44.9); Hemoglobin 10.3 g/dL (11.5-15.4); Mean Corpuscular HGB Conc 31.9 g/dL (31.6-35.5); Mean Corpuscular Hemoglobin 28.1 pg (28.0-33.3); Mean Corpuscular Volume 88.3 fL (83.0-100.0); Mean Platelet Volume 10.9 fL (9.4-12.4); Platelet Count 191 K/mcL (140-400); Red Blood Count 3.66 M/mcL (3.82-4.97)
[2018-01-13 05:12] LABS: Albumin 3.4 g/dL (3.5-5.7); Calcium 9.5 mg/dL (8.6-10.3); Phosphorous 3.6 mg/dL (2.7-4.5); Potassium 4.1 mEq/L (3.5-5.1)
--- NOTE | 2018-01-13 07:51 | Nephrology Progress Note ---
Date of Encounter: 01/13/18 Time of Encounter: 07:49 - Assessment and Plan (1) Acute kidney injury superimposed on CKD Current Visit: Yes Status: Acute Per EMR baseline appears to be 32-35. May proceed with staged PCI's. Gentle IV hydration and Mucomyst ordered to minimize the risk of CHRISSY Encourage PO intake after procedure. Avoid nephrotoxins and renal dose all medications. Strict I/O. Will need to f/u with Dr. Leavitt in 4-6 weeks after d/c. (2) Fluid overload Current Visit: Yes Status: Acute Strict I/O. 1.5 liter fluid restriction. Renal/cardiac diet. Qualifiers: Qualified Code(s): E87.70 - Fluid overload, unspecified (3) Diabetes mellitus Current Visit: Yes Status: Acute Per primary. Qualifiers: Diabetes mellitus type: type 2 Diabetes mellitus [facility] insulin use: with entry level finance use Diabetes mellitus complication status: with kidney complications Diabetes mellitus complication detail: with chronic kidney disease Chronic kidney disease stage: stage 3 (moderate) Qualified Code(s): E11.22 - Type 2 diabetes mellitus with diabetic chronic kidney disease; N18.3 - Chronic kidney disease, stage 3 (moderate); Z79.4 - penitentiary (current) use of insulin (4) HTN (hypertension) Current Visit: Yes Status: Acute Stable. Qualifiers: Hypertension type: essential hypertension Qualified Code(s): I10 - Essential (primary) hypertension (5) Systolic CHF Current Visit: Yes Status: Acute See above. Awaiting cardiac cath. Qualifiers: Heart failure chronicity: acute Qualified Code(s): I50.21 - Acute systolic (congestive) heart failure Subjective Principal diagnosis: Cardiomyopathy Interval history: Patient seen. No new complaint. ROS stable. Objective - Vital Signs Vital signs: Vital Signs Temp Pulse Resp BP Pulse Ox 01/13/18 07:23 98.0 F 69 17 137/78 97 01/13/18 04:22 97.5 F L 69 16 137/85 97 01/12/18 21:18 98.7 F 71 15 133/72 96 01/12/18 16:25 97.3 F L 71 18 137/65 94 01/12/18 11:39 97.5 F L 73 16 144/74 97 Intake and Output 01/12/18 01/12/18 01/13/18 15:59 23:59 07:59 Intake Total 560 / 560 372 / 372 138 / 138 Output Total 75 / 75 200 / 200 Balance 485 / 485 172 / 172 138 / 138 Intake: IV Fluids 252 / 252 138 / 138 Heparin 25,000 UNIT/500 ML D5W 252 / 252 138 / 138 25,000 unit In 500 ml @ 9.4 UNIT/KG/HR 20.003 mls/hr IVC . Q24H [facility] Rx#:[id number] Oral 560 / 560 120 / 120 Output: Urine 75 / 75 200 / 200 Other: Meal Lunch Dinner Percent of Meal Consumed 100% 75% Weight 120.3 kg Blood Glucose* 130 148 143 Patient Weight 01/13/18 23:59 Weight 120.3 kg - General Appearance General appearance: Present: well-developed, well-nourished EENT: Present: ATNC Cardiology: Present: edema Integumentary: Present: warm and dry Neurologic: Present: alert and oriented x3 Psychiatric: Present: mood/affect appropriate - Lab 01/13/18 04:35 01/13/18 04:35 Most recent lab results Calcium 9.5 mg/dL (8.6-10.3) 01/13/18 04:35 Phosphorus 3.6 mg/dL (2.7-4.5) 01/13/18 04:35 Magnesium 1.8 mg/dL (1.6-2.6) 01/04/18 03:15 Urine Creatinine 61 mg/dL 01/07/18 16:12 Urine Sodium 112.1 mEq/L 01/07/18 16:12 Urine Total Protein SEE NOTE mg/d (10-140) 01/07/18 16:12 Consult Discharge Plan - Plan Referrals: Renee De Los Santos, METROLOGY TECHNICIAN [Primary Care Provider] - 01/17/18 11:00 am
[2018-01-13] MEDS: *HR* Acetylcysteine 20% 600 MG/3 ML ORAL SYRINGE PO SCH ×2 (07:56→21:17)
[2018-01-13] MEDS: Insulin LISPRO 300 UNITS/3 ML VIAL SQ SCH ×4 (07:57→21:18)
[2018-01-13] MEDS: Aspirin Enteric Coated 81 MG Tablet PO SCH (07:58)
[2018-01-13] MEDS: Gabapentin 300 MG CAPSULE PO SCH (07:58)
[2018-01-13] MEDS: Nystatin POWDER 30 GM BOTTLE TP SCH ×2 (07:58→21:16)
[2018-01-13] MEDS: Metoprolol XL (24 HR) Succ 25 MG TAB.ER.24H PO SCH (07:59)
[2018-01-13] MEDS: BRIMONIDINE TARTRATE OP SCH ×2 (07:59→21:17)
[2018-01-13] MEDS: TIMOLOL OP SCH ×2 (07:59→21:17)
[2018-01-13] MEDS: Dorzolamide OPTH 10 ML BOTTLE BOTH EYES SCH ×3 (07:59→21:16)
--- NOTE | 2018-01-13 10:05 | Internal Med Progress Note ---
Hospitalist Progress Note - Encounter Date of Encounter: 01/13/18 Time of Encounter: 10:04 - Subjective Interval History: patient was seen and examined at bedside tolerating PO diet. denies fever, chills, N/v/D. reports that she did not drink hardly anything as she did not want to wet the bed and have to give nursing staff the trouble of cleaning her. we discussed her concerns and all uestions answered. she was told that as per nephrology recs she can have up to 1.5 L of fluids a day. - Exam Vitals: Temp Pulse Resp BP Pulse Ox 98.0 F 69 17 137/78 97 01/13/18 07:23 01/13/18 07:23 01/13/18 07:23 01/13/18 07:23 01/13/18 07:23 Exam: General: Patient is alert, oriented, no acute distress, obese, speaks in full sentences Head: atraumatic, normocephalic, Eye: normal appearance, PERRL, no scleral icterus, no conjunctival injection ENT: mucous membranes moist, normal external ear exam Chest: normal inspection, symmetric chest rise Respiratory: Good respiratory effort. Bilateral breath sounds are clear without wheezing, crackles, or rhonchi. Cardiovascular: Regular rate and rhythm. s1 and s2 No clicks, rubs, gallops, or murmors. Abdomen: Bowel sounds present normoactive x-4 quadrants. Abdomen is soft, nondistended. no Epigastric tenderness. No guarding or rebound. No organomegaly noted, obese musculoskeletal: Spontaneously moving all extremities. 2+ edema of the LE up to knee, no calf tenderness, radial pulses 2 bilaterarily Skin: warm, dry, intact. Neuro: Alert and oriented x4. Sensation light touch intact. Cranial nerves 2- 12 is intact. Not aphasic, no focal deficit Psych: Patient's affect is normal - Assessment and Plan (1) Acute HFrEF (heart failure with reduced ejection fraction) Current Visit: Yes Status: Acute Assessment and Plan: secondary to ICM ( significant CAD on recent cath) Echo shows LVEF 25%. cardiology on board lasix and ITALO/ARB on hold due to ARF on CKD 3 for C and staged PCI on 01/14 fluid restriction <1.5L daily weights (2) CAD (coronary artery disease) Current Visit: Yes Status: Acute Assessment and Plan: [facility] with 90% mid LAD, 95% diagonal 1, 80% proximal RCA, 80% mid RCA. Patient was seen and evaluated by CT surgery who recommended evaluation at tertiary center vs. staged PCI. dilipnet decided to have staged PCI and medical management for [facility] on 01/14 nephrology was consulted for ARF and recommendations appreciated will continue heparin drip, ASA, BB and statins (3) Acute renal failure superimposed on stage 3 chronic kidney disease Current Visit: Yes Status: Acute Assessment and Plan: History of CKD 3B moderate nephrology recommendations appreciated Scr improving at baseline 1.77 continue holding lasix fluid restriction <1.5L strict i/O hold losartan, avoid nephrotoxins and closely monitor SCR may resume lasix in 48 hours post cath as per nephrology recs continue mucomyst; restart Sunday evening prior to C on Sunday genlt hydration as per nephrology recs f/u with Dr. Leavitt in 4-6 weeks at d/c (4) Deep vein thrombosis (DVT) of brachial vein of left upper extremity Current Visit: Yes Status: Acute Assessment and Plan: heparin gtt will need to bridge to warfarin LUE circulation intact but diminished return cap refill >3 sec will need OAC on DC LLE swelling, leg firm at thigh, distal circulation palpable B/L venous Dopplers negative for DVT (5) Fall Current Visit: Yes Status: Acute Assessment and Plan: Mechanical fall due to leg weakness and dyspnea in the setting of CHF. PT/OT evaluation, recommend ECF upon discharge consult SS to assist with D/C planning continue PT/OT while inpatient, continue gait and balance therapy (6) Diabetes mellitus Current Visit: Yes Status: Acute Assessment and Plan: History of diabetes Discussed diabetic diet, weight loss and lifestyle modifications Glucose remains stable, Continue basal and SSIC Hg A1C 7.4 (7) HTN (hypertension) Current Visit: Yes Status: Acute Assessment and Plan: medications as per above (8) DVT prophylaxis Current Visit: Yes Status: Acute Assessment and Plan: on heparin drip (9) Obese Current Visit: Yes Status: Acute Assessment and Plan: was counseled on diet and nutrition - Time Spent with Patient Total time spent is greater than 50% in coordination of care (as documented) at patient's floor/unit and/or counseling patient: Internal Medicine: Result - Labs CBC & Chem 7: 01/13/18 04:35 01/13/18 04:35 Labs: Short CBC 01/13/18 Range/Units 04:35 WBC 2.7 L (4.3-11.1) K/mcL Hgb 10.3 L (11.5-15.4) g/dL Hct 32.3 L (35.3-44.9) % Plt Count 191 (140-400) K/mcL BMP 01/13/18 04:35 Sodium 137 Potassium 4.1 Chloride 105 Carbon Dioxide 26 BUN 27 H Creatinine 1.77 H Glucose 171 H Calcium 9.5 Liver Function 01/13/18 Range/Units 04:35 Albumin 3.4 L (3.5-5.7) g/dL - ABG Interpretation ABG results: PT/INR, D-dimer PT 12.7 Seconds (9.4-12.1) H 01/09/18 00:18 Consult Discharge Plan - Plan Referrals: Renee De Los Santos, SYSTEMS SUPPORT SPECIALIST [Primary Care Provider] - 01/17/18 11:00 am (2) CAD (coronary artery disease) Qualifiers: Coronary Disease-Associated Artery/Lesion type: [place] artery [place] vs. transplanted heart: [place] heart Associated angina: without angina Qualified Code(s): I25.10 - Atherosclerotic heart disease of [place] coronary artery without angina pectoris (5) Fall Qualifiers: Encounter type: initial encounter Qualified Code(s): W19.XXXA - Unspecified fall, initial encounter (6) Diabetes mellitus Qualifiers: Diabetes mellitus type: type 2 Diabetes mellitus waterproofer helper insulin use: with residential use Diabetes mellitus complication status: with kidney complications Diabetes mellitus complication detail: with chronic kidney disease Chronic kidney disease stage: stage 3 (moderate) Qualified Code(s): E11.22 - Type 2 diabetes mellitus with diabetic chronic kidney disease; N18.3 - Chronic kidney disease, stage 3 (moderate); Z79.4 - wallet assembler (current) use of insulin (7) HTN (hypertension) Qualifiers: Hypertension type: essential hypertension Qualified Code(s): I10 - Essential (primary) hypertension (9) Obese Qualifiers: Obesity type: due to excess calories Body mass index: BMI 36.0-36.9
[2018-01-13] MEDS: Insulin DETEMIR 100 UNIT/ML X5UNITS SQ SCH (21:20)
[2018-01-13] MEDS: Heparin 25,000 UNIT/500 ML D5W 25,000 UNIT/500 ML BAG IVC SCH (22:32)
[2018-01-14 05:12] LABS: Hematocrit 32.2 % (35.3-44.9); Hemoglobin 10.1 g/dL (11.5-15.4); Mean Corpuscular HGB Conc 31.4 g/dL (31.6-35.5); Mean Corpuscular Hemoglobin 28.2 pg (28.0-33.3); Mean Corpuscular Volume 89.9 fL (83.0-100.0); Mean Platelet Volume 11.4 fL (9.4-12.4); Platelet Count 192 K/mcL (140-400); Red Blood Count 3.58 M/mcL (3.82-4.97); Red Cell Distribution Width 18.1 % (11.5-14.5)
[2018-01-14 05:30] LABS: Calcium 9.3 mg/dL (8.6-10.3)
[2018-01-14 07:37] LABS: Fac V Leiden R506Q Mut Result NEGATIVE
[2018-01-14] MEDS: Gabapentin 300 MG CAPSULE PO SCH (08:53)
[2018-01-14] MEDS: Aspirin Enteric Coated 81 MG Tablet PO SCH (08:53)
[2018-01-14] MEDS: Metoprolol XL (24 HR) Succ 25 MG TAB.ER.24H PO SCH (08:53)
[2018-01-14] MEDS: TIMOLOL OP SCH ×2 (09:03→21:15)
[2018-01-14] MEDS: BRIMONIDINE TARTRATE OP SCH ×2 (09:03→21:15)
[2018-01-14] MEDS: Dorzolamide OPTH 10 ML BOTTLE BOTH EYES SCH ×3 (09:05→21:14)
[2018-01-14] MEDS: Nystatin POWDER 30 GM BOTTLE TP SCH ×2 (09:05→21:12)
[2018-01-14] MEDS: Insulin LISPRO 300 UNITS/3 ML VIAL SQ SCH ×4 (09:34→21:15)
[2018-01-14] MEDS ORDERED: 0.9 % Sodium Chloride 1,000 ML IVC SCH (10:00)
--- NOTE | 2018-01-14 10:09 | Event Note ---
Date of Encounter: 01/14/18 Time of Encounter: 08:45 - Cardiology Event Note Plan for staged PCI today. Risks versus benefits of LHC with staged PCI explained to patient, who states understanding and agreeable to proceed. Patient educated on increased risk of contrast induced nephropathy due to CKD, states understanding. Nephrology note reviewed and states ok to proceed with staged PCI. Of note, patient has left upper extremity DVT, would need to be on triple therapy for at least one month. Patient denies bleeding/blood loss. Discussed and reviewed with and . Further recommendations pending LHC with staged PCI.
--- NOTE | 2018-01-14 10:50 | Nephrology Progress Note ---
Addendum entered and electronically signed by Jason Head DO 01/14/18 15:09: I have personally performed a face to face evaluation on this patient. I have reviewed and agree with the care plan. History and Exam by me shows: SEAN on CKD. Her volume status remains edematous, but her diuretics were held over the last few days in anticipation of her upcoming IV contrast exposure(s). Before discharge she will need diuretics resumed for her 2-3+ pitting pretibial edema bilaterally. Original Note: Date of Encounter: 01/14/18 Time of Encounter: 10:48 - Assessment and Plan (1) Acute kidney injury superimposed on CKD Current Visit: Yes Status: Acute Per EMR baseline appears to be 32-35. May proceed with staged PCI's. Gentle IV hydration and Mucomyst ordered to minimize the risk of CHRISSY Hold Lasix for now, will restart after LHC. Encourage PO intake after procedure. Avoid nephrotoxins and renal dose all medications. Strict I/O. Will need to f/u with Dr. Leavitt in 4-6 weeks after d/c. (2) Fluid overload Current Visit: Yes Status: Acute Strict I/O. 1.5 liter fluid restriction. Renal/cardiac diet. Qualifiers: Qualified Code(s): E87.70 - Fluid overload, unspecified (3) Diabetes mellitus Current Visit: Yes Status: Acute Per primary. Qualifiers: Diabetes mellitus type: type 2 Diabetes mellitus superintendent marine oil terminal insulin use: with superintendent marine oil terminal use Diabetes mellitus complication status: with kidney complications Diabetes mellitus complication detail: with chronic kidney disease Chronic kidney disease stage: stage 3 (moderate) Qualified Code(s): E11.22 - Type 2 diabetes mellitus with diabetic chronic kidney disease; N18.3 - Chronic kidney disease, stage 3 (moderate); Z79.4 - FDC (current) use of insulin (4) HTN (hypertension) Current Visit: Yes Status: Acute Stable. Qualifiers: Hypertension type: essential hypertension Qualified Code(s): I10 - Essential (primary) hypertension (5) Systolic CHF Current Visit: Yes Status: Acute See above. Awaiting cardiac cath. Qualifiers: Heart failure chronicity: acute Qualified Code(s): I50.21 - Acute systolic (congestive) heart failure Subjective Principal diagnosis: Cardiomyopathy Interval history: Pt seen and examined, doing well. Denies CP and SOB has improved. Is going for a [facility] later today. Objective - Vital Signs Vital signs: Vital Signs Temp Pulse Resp BP Pulse Ox 01/14/18 06:54 97.4 F L 73 16 149/77 97 01/14/18 03:12 97.3 F L 70 18 139/74 97 01/13/18 23:40 97.3 F L 68 18 128/70 96 01/13/18 18:51 97.6 F 74 18 138/78 96 01/13/18 17:15 71 19 152/81 97 01/13/18 11:31 69 17 149/77 96 Intake and Output 01/13/18 01/14/18 01/14/18 23:59 07:59 15:59 Intake Total 602 / 602 121 / 121 0 / 0 Output Total 0 / 0 250 / 250 0 / 0 Balance 602 / 602 -129 / -129 0 / 0 Intake: IV Fluids 362 / 362 121 / 121 Heparin 25,000 UNIT/500 ML D5W 362 / 362 121 / 121 25,000 unit In 500 ml @ 9.4 UNIT/KG/HR 20.003 mls/hr IVC . Q24H [facility] Rx#:[id number] Oral 240 / 240 0 / 0 0 / 0 Output: Urine 0 / 0 250 / 250 0 / 0 Other: Meal Dinner Percent of Meal Consumed 90% Stool Size Small Stool Consistency liquid Stool Characteristics Normal for Patient Stool Color Green Black # Urine Diapers 1 # Bowel Movements 1 # Bowel Movement Diapers 1 Weight 115.6 kg Blood Glucose* 209 108 Patient Weight 01/14/18 23:59 Weight 115.6 kg - General Appearance General appearance: Present: well-developed, well-nourished EENT: Present: ATNC, hearing intact, vision intact Neck: Present: supple Respiratory: Present: clear Cardiology: Present: edema (+3 pitting edema noted to bilat lower extremities.), normal S1, normal S2 Gastrointestinal: Present: normoactive bowel sounds, no tenderness, no guarding Integumentary: Present: no rash, warm and dry Neurologic: Present: alert and oriented x3 Psychiatric: Present: mood/affect appropriate, cooperative - Lab 01/14/18 04:41 01/14/18 04:41 Most recent lab results Calcium 9.3 mg/dL (8.6-10.3) 01/14/18 04:41 Phosphorus 3.6 mg/dL (2.7-4.5) 01/13/18 04:35 Magnesium 1.8 mg/dL (1.6-2.6) 01/04/18 03:15 Urine Creatinine 61 mg/dL 01/07/18 16:12 Urine Sodium 112.1 mEq/L 01/07/18 16:12 Urine Total Protein SEE NOTE mg/d (10-140) 01/07/18 16:12 Consult Discharge Plan - Plan Referrals: Renee De Los Santos, LIEN SEARCHER [Primary Care Provider] - 01/17/18 11:00 am
[2018-01-14] MEDS: *HR* Acetylcysteine 20% 600 MG/3 ML ORAL SYRINGE PO SCH ×2 (11:24→21:12)
[2018-01-14] MEDS ORDERED: *HR* Heparin 10,000 UNIT/10 ML VIAL ONE (15:06)
[2018-01-14] MEDS ORDERED: Heparin 1,000 UNITS/500 mL 500 ML ONE (15:06)
[2018-01-14] MEDS ORDERED: Verapamil 5 MG/2 ML VIAL ONE (15:06)
[2018-01-14] MEDS ORDERED: Nitroglycerin 1,000 MCG/10 ML VIAL IV ONE (15:07)
[2018-01-14] MEDS ORDERED: ISOVUE-370 200 ML INFUS..BTL IV ONE ×2 (15:07→15:11)
[2018-01-14] MEDS ORDERED: 0.9 % Sodium Chloride 1,000 ML ONE (15:07)
--- NOTE | 2018-01-14 15:46 | Internal Med Progress Note ---
Hospitalist Progress Note - Encounter Date of Encounter: 01/14/18 Time of Encounter: 15:44 - Subjective Interval History: Pt states he bilateral LE extremity edema extending to her thighs. Edema uncomfortable and painful to walk. She reports CP but denies SOB at this time. She is denies fever, chills, N/V or diarrhea. - Exam Vitals: Temp Pulse Resp BP Pulse Ox 97.5 F L 69 16 139/69 95 01/14/18 11:23 01/14/18 11:23 01/14/18 11:23 01/14/18 11:23 01/14/18 11:23 Exam: General: Patient is alert, oriented, no acute distress, obese, speaks in full sentences Head: atraumatic, normocephalic, Eye: normal appearance, PERRL, no scleral icterus, no conjunctival injection ENT: mucous membranes moist, normal external ear exam Chest: normal inspection, symmetric chest rise Respiratory: Good respiratory effort. Bilateral breath sounds are clear without wheezing, crackles, or rhonchi. Cardiovascular: Regular rate and rhythm. s1 and s2 No clicks, rubs, gallops, or murmors. Abdomen: Bowel sounds present normoactive x-4 quadrants. Abdomen is soft, nondistended. no Epigastric tenderness. No guarding or rebound. No organomegaly noted, obese musculoskeletal: Spontaneously moving all extremities. 2+ edema of the LE up to bilateral thighs, no calf tenderness, radial pulses 2 bilaterarily Skin: warm, dry, intact. Neuro: Alert and oriented x4. Sensation light touch intact. Cranial nerves 2- 12 is intact. Not aphasic, no focal deficit Psych: Patient's affect is normal - Assessment and Plan (1) CAD (coronary artery disease) Current Visit: Yes Status: Acute Assessment and Plan: LHC with 90% mid LAD, 95% diagonal 1, 80% proximal RCA, 80% mid RCA. Patient was seen and evaluated by CT surgery who recommended evaluation at tertiary center vs. staged PCI. paitnet decided to have staged PCI and medical management for LHC on 01/14. nephrology was consulted for ARF and recommendations appreciated will continue heparin drip, ASA, BB and statins (2) Diabetes mellitus Current Visit: Yes Status: Acute Assessment and Plan: History of diabetes Discussed diabetic diet, weight loss and lifestyle modifications Glucose remains stable, Continue basal and SSIC Hg A1C 7.4 (3) HTN (hypertension) Current Visit: Yes Status: Acute Assessment and Plan: Metoprolol and hydralazine prn (4) Fall Current Visit: Yes Status: Acute Assessment and Plan: Mechanical fall due to leg weakness and dyspnea in the setting of CHF. PT/OT evaluation, recommend ECF upon discharge consult SS to assist with D/C planning continue PT/OT while inpatient, continue gait and balance therapy (5) Deep vein thrombosis (DVT) of brachial vein of left upper extremity Current Visit: Yes Status: Acute (6) Acute renal failure superimposed on stage 3 chronic kidney disease Current Visit: Yes Status: Acute Assessment and Plan: History of CKD 3B moderate. Nephrology recommendations appreciated Scr improving at baseline 1.77 continue holding lasix. fluid restriction <1.5L. Strict i/O hold losartan, avoid nephrotoxins and closely monitor SCR may resume lasix in 48 hours post cath as per nephrology recs continue mucomyst; restarted Sunday evening prior to C on Sunday but Left heart cath rescheduled for Sunday so pt can have some fluid. gently hydration as per nephrology recs f/u with Dr. Leavitt in 4-6 weeks at d/c (7) Acute HFrEF (heart failure with reduced ejection fraction) Current Visit: Yes Status: Acute Assessment and Plan: secondary to ICM ( significant CAD on recent cath) Echo shows LVEF 25%. Cardiology on board Lasix and ITALO/ARB on hold due to ARF on CKD 3 for [facility] and staged PCI on 01/14 fluid restriction <1.5L. Daily weights (8) Obese Current Visit: Yes Status: Acute Assessment and Plan: was counseled on diet and nutrition DVT Prophylaxis: on heparin drip - Summary of Assessment and Plan Summary of Assessment and Plan: Ms. Luis is a 67 year old female sent to ER by EMS for fall. Past medical history is significant for diabetes, hypertension, right eye blind, breast cancer Patient has mechanical fall today, without loss of consciousness, without head hitting. Patient thought the fall is due to her bilateral leg weakness and swelling. Patient has bilateral leg swelling for about 1 year, feels bilateral leg heavy and weak. Patient needs rest even walking very short distance (from bed room to bathroom). And her legs are thick and heave b/o swelling. Patient also has belly wall swelling. Patient has sometimes shortness of breath and nausea. Denies chest pain. Denies urinary/fecal incontinence. Patient has a frequent fall because of leg weakness. In the emergency room, she was found cardiomegaly by chest x-ray. BNP 1200. Patient was suspected CHF and admitted for further management. - Time Spent with Patient Total time spent is greater than 50% in coordination of care (as documented) at patient's floor/unit and/or counseling patient: less than 15 minutes Plan of Care Discussed with: patient Internal Medicine: Result - Labs CBC & Chem 7: 01/14/18 04:41 01/14/18 04:41 Labs: Short CBC 01/14/18 Range/Units 04:41 WBC 3.2 L (4.3-11.1) K/mcL Hgb 10.1 L (11.5-15.4) g/dL Hct 32.2 L (35.3-44.9) % Plt Count 192 (140-400) K/mcL BMP 01/14/18 04:41 Sodium 135 L Potassium 4.0 Chloride 102 Carbon Dioxide 22 L BUN 27 H Creatinine 1.75 H Glucose 300 H Calcium 9.3 - ABG Interpretation ABG results: PT/INR, D-dimer PT 12.7 Seconds (9.4-12.1) H 01/09/18 00:18 Consult Discharge Plan - Plan Referrals: Renee De Los Santos, PATHOLOGIST ASSISTANT [Primary Care Provider] - 01/17/18 11:00 am (1) CAD (coronary artery disease) Qualifiers: Coronary Disease-Associated Artery/Lesion type: [place] artery [place] vs. transplanted heart: [place] heart Associated angina: without angina Qualified Code(s): I25.10 - Atherosclerotic heart disease of [place] coronary artery without angina pectoris (2) Diabetes mellitus Qualifiers: Diabetes mellitus type: type 2 Diabetes mellitus residential insulin use: with residential use Diabetes mellitus complication status: with kidney complications Diabetes mellitus complication detail: with chronic kidney disease Chronic kidney disease stage: stage 3 (moderate) Qualified Code(s): E11.22 - Type 2 diabetes mellitus with diabetic chronic kidney disease; N18.3 - Chronic kidney disease, stage 3 (moderate); Z79.4 - detention (current) use of insulin (3) HTN (hypertension) Qualifiers: Hypertension type: essential hypertension Qualified Code(s): I10 - Essential (primary) hypertension (4) Fall Qualifiers: Encounter type: initial encounter Qualified Code(s): W19.XXXA - Unspecified fall, initial encounter (8) Obese Qualifiers: Obesity type: due to excess calories Body mass index: BMI 36.0-36.9
[2018-01-14] MEDS: Insulin DETEMIR 100 UNIT/ML X5UNITS SQ SCH (21:11)
[2018-01-14] MEDS: Acetaminophen 325 MG TABLET PO PRN (21:34)
[2018-01-14] MEDS: 0.9 % Sodium Chloride 1,000 ML IVC SCH (23:42)
[2018-01-15] MEDS: *HR* Heparin 5,000 UNIT/ML VIAL IVP PRN (00:14)
[2018-01-15 06:59] LABS: Hematocrit 33.7 % (35.3-44.9); Hemoglobin 10.4 g/dL (11.5-15.4); Mean Corpuscular HGB Conc 30.9 g/dL (31.6-35.5); Mean Corpuscular Hemoglobin 27.7 pg (28.0-33.3); Mean Corpuscular Volume 89.6 fL (83.0-100.0); Mean Platelet Volume 11.3 fL (9.4-12.4); Platelet Count 197 K/mcL (140-400); Red Blood Count 3.76 M/mcL (3.82-4.97); Red Cell Distribution Width 18.3 % (11.5-14.5)
[2018-01-15 07:15] LABS: Calcium 9.6 mg/dL (8.6-10.3); Potassium 4.2 mEq/L (3.5-5.1)
[2018-01-15] MEDS: Metoprolol XL (24 HR) Succ 25 MG TAB.ER.24H PO SCH (08:20)
[2018-01-15] MEDS: Gabapentin 300 MG CAPSULE PO SCH (08:22)
[2018-01-15] MEDS: *HR* Acetylcysteine 20% 600 MG/3 ML ORAL SYRINGE PO SCH ×2 (08:22→22:53)
[2018-01-15] MEDS: BRIMONIDINE TARTRATE OP SCH (08:27)
[2018-01-15] MEDS: TIMOLOL OP SCH (08:27)
[2018-01-15] MEDS: Dorzolamide OPTH 10 ML BOTTLE BOTH EYES SCH ×3 (08:28→22:55)
--- NOTE | 2018-01-15 09:07 | Nephrology Progress Note ---
Addendum entered and electronically signed by Jason Head DO 01/21/18 12:59: I have personally performed a face to face evaluation on this patient. I have reviewed and agree with the care plan. History and Exam by me shows: Recent SEAN on CKD with plans for PCI and IV contrast exposure. She remains complex and with a high degree of MDM and E/M. Original Note: Date of Encounter: 01/15/18 Time of Encounter: 09:03 - Assessment and Plan (1) Acute kidney injury superimposed on CKD Current Visit: Yes Status: Acute Per EMR baseline appears to be 32-35. May proceed with staged PCI's. Gentle IV hydration and Mucomyst ordered to minimize the risk of CHRISSY Hold Lasix for now, will restart after LHC. Encourage PO intake after procedure. Avoid nephrotoxins and renal dose all medications. Strict I/O. Will need to f/u with Dr. Leavitt in 4-6 weeks after d/c. (2) Fluid overload Current Visit: Yes Status: Acute Strict I/O. 1.5 liter fluid restriction. Renal/cardiac diet. Qualifiers: Qualified Code(s): E87.70 - Fluid overload, unspecified (3) Diabetes mellitus Current Visit: Yes Status: Acute Per primary. 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 Qualifiers: Hypertension type: essential hypertension Qualified Code(s): I10 - Essential (primary) hypertension (5) Systolic CHF Current Visit: Yes Status: Acute See above. Awaiting cardiac cath. Qualifiers: Heart failure chronicity: acute Qualified Code(s): I50.21 - Acute systolic (congestive) heart failure Subjective Principal diagnosis: Cardiomyopathy Interval history: Pt seen and examined, doing well. Denies CP and SOB has improved. Is going for [facility] today. Objective - Vital Signs Vital signs: Vital Signs Temp Pulse Resp BP Pulse Ox 01/15/18 06:49 97.5 F L 70 18 141/79 97 01/15/18 05:26 97.8 F 68 14 144/78 97 01/14/18 20:45 97.5 F L 72 16 157/96 96 01/14/18 15:00 97.5 F L 68 15 142/74 95 01/14/18 11:23 97.5 F L 69 16 139/69 95 Intake and Output 01/14/18 01/15/18 01/15/18 23:59 07:59 15:59 Intake Total 60 / 60 107 / 107 Output Total 700 / 700 400 / 400 Balance -640 / -640 -293 / -293 Intake: IV Fluids 0 / 0 107 / 107 Heparin 25,000 UNIT/500 ML D5W 0 / 0 107 / 107 25,000 unit In 500 ml @ 9.4 UNIT/KG/HR 20.003 mls/hr IVC . Q24H [facility] Rx#:[id number] Oral 60 / 60 0 / 0 Output: Urine 700 / 700 400 / 400 Other: Weight 116.32 kg Blood Glucose* 204 155 Patient Weight 01/15/18 23:59 Weight 116.32 kg - General Appearance General appearance: Present: well-developed, well-nourished EENT: Present: ATNC, hearing intact, vision intact Neck: Present: supple Respiratory: Present: clear Cardiology: Present: edema (+2 pitting edema noted to bilat lower extremities.), normal S1, normal S2 Gastrointestinal: Present: normoactive bowel sounds, no tenderness, no guarding Integumentary: Present: no rash, warm and dry Neurologic: Present: alert and oriented x3 Psychiatric: Present: mood/affect appropriate, cooperative - Lab 01/15/18 06:18 01/15/18 06:18 Most recent lab results Calcium 9.6 mg/dL (8.6-10.3) 01/15/18 06:18 Phosphorus 3.6 mg/dL (2.7-4.5) 01/13/18 04:35 Magnesium 1.8 mg/dL (1.6-2.6) 01/04/18 03:15 Urine Creatinine 61 mg/dL 01/07/18 16:12 Urine Sodium 112.1 mEq/L 01/07/18 16:12 Urine Total Protein SEE NOTE mg/d (10-140) 01/07/18 16:12 Consult Discharge Plan - Plan Referrals: Renee De Los Santos, DIRECTOR FINANCIAL SYSTEMS [Primary Care Provider] - 01/17/18 11:00 am
--- NOTE | 2018-01-15 09:27 | Internal Med Progress Note ---
Hospitalist Progress Note - Encounter Date of Encounter: 01/15/18 Time of Encounter: 09:30 - Exam Vitals: Temp Pulse Resp BP Pulse Ox 97.5 F L 70 18 141/79 97 01/15/18 06:49 01/15/18 06:49 01/15/18 06:49 01/15/18 06:49 01/15/18 06:49 Exam: General: Patient is alert, oriented, no acute distress, obese, speaks in full sentences Head: atraumatic, normocephalic, Eye: normal appearance, PERRL, no scleral icterus, no conjunctival injection ENT: mucous membranes moist, normal external ear exam Chest: normal inspection, symmetric chest rise Respiratory: Good respiratory effort. Bilateral breath sounds are clear without wheezing, crackles, or rhonchi. Cardiovascular: Regular rate and rhythm. s1 and s2 No clicks, rubs, gallops, or murmurs. Abdomen: Bowel sounds present normoactive x-4 quadrants. Abdomen is soft, nondistended. no Epigastric tenderness. No guarding or rebound. No organomegaly noted, obese musculoskeletal: Spontaneously moving all extremities. 2+ edema of the LE up to bilateral thighs, no calf tenderness, radial pulses 2 bilaterally Skin: warm, dry, intact. Neuro: Alert and oriented x4. Sensation light touch intact. Cranial nerves 2- 12 is intact. Not aphasic, no focal deficit Psych: Patient's affect is normal - Assessment and Plan (1) CAD (coronary artery disease) Current Visit: Yes Status: Acute Assessment and Plan: LHC with 90% mid LAD, 95% diagonal 1, 80% proximal RCA, 80% mid RCA. Patient was seen and evaluated by CT surgery who recommended evaluation at tertiary center vs. [facility] and medical management for LHC on 01/14. nephrology was consulted for ARF and recommendations appreciated will continue heparin drip, ASA, BB and statins NPO from midnight and plan for cath today (2) Diabetes mellitus Current Visit: Yes Status: Acute Assessment and Plan: History of diabetes Discussed diabetic diet, weight loss and lifestyle modifications Glucose remains stable, Continue basal and SSIC Hg A1C 7.4 (3) HTN (hypertension) Current Visit: Yes Status: Acute Assessment and Plan: Metoprolol and hydralazine prn (4) Fall Current Visit: Yes Status: Acute Assessment and Plan: Mechanical fall due to leg weakness and dyspnea in the setting of CHF. PT/OT evaluation, recommend ECF upon discharge consult SS to assist with D/C planning continue PT/OT while inpatient, continue gait and balance therapy (5) Deep vein thrombosis (DVT) of brachial vein of left upper extremity Current Visit: Yes Status: Acute Assessment and Plan: heparin gtt will need to bridge to warfarin LUE circulation intact but diminished return cap refill >3 sec will need OAC on DC LLE swelling, leg firm at thigh, distal circulation palpable B/L venous Dopplers negative for DVT (6) Acute renal failure superimposed on stage 3 chronic kidney disease Current Visit: Yes Status: Acute Assessment and Plan: History of CKD 3B moderate. Nephrology recommendations appreciated Scr improving at baseline 1.77 continue holding lasix. fluid restriction <1.5L. Strict i/O hold losartan, avoid nephrotoxins and closely monitor SCR may resume lasix in 48 hours post cath as per nephrology recs continue mucomyst; restarted Sunday evening prior to C on Sunday but Left heart cath rescheduled for Sunday so pt can have some fluid. gently hydration as per nephrology recs f/u with Dr. Leavitt in 4-6 weeks at d/c (7) Acute HFrEF (heart failure with reduced ejection fraction) Current Visit: Yes Status: Acute Assessment and Plan: secondary to ICM ( significant CAD on recent cath) Echo shows LVEF 25%. Cardiology on board Lasix and ITALO/ARB on hold due to ARF on CKD 3 for [facility] and staged PCI on 01/14 fluid restriction <1.5L. Daily weights (8) Obese Current Visit: Yes Status: Acute Assessment and Plan: was counseled on diet and nutrition DVT Prophylaxis: On heparin drip - Time Spent with Patient Total time spent is greater than 50% in coordination of care (as documented) at patient's floor/unit and/or counseling patient: Internal Medicine: Result - Labs CBC & Chem 7: 01/15/18 06:18 01/15/18 06:18 Labs: Short CBC 01/15/18 Range/Units 06:18 WBC 3.0 L (4.3-11.1) K/mcL Hgb 10.4 L (11.5-15.4) g/dL Hct 33.7 L (35.3-44.9) % Plt Count 197 (140-400) K/mcL BMP 01/15/18 06:18 Sodium 138 Potassium 4.2 Chloride 108 H Carbon Dioxide 22 L BUN 27 H Creatinine 1.56 H Glucose 149 H Calcium 9.6 - ABG Interpretation ABG results: PT/INR, D-dimer PT 12.7 Seconds (9.4-12.1) H 01/09/18 00:18 Consult Discharge Plan - Plan Referrals: Renee De Los Santos, ROLLER [Primary Care Provider] - 01/17/18 11:00 am (1) CAD (coronary artery disease) Qualifiers: Coronary Disease-Associated Artery/Lesion type: [place] artery [place] vs. transplanted heart: [place] heart Associated angina: without angina Qualified Code(s): I25.10 - Atherosclerotic heart disease of [place] coronary artery with out angina pectoris (2) Diabetes mellitus Qualifiers: Diabetes mellitus type: type 2 Diabetes mellitus longterm insulin use: with longterm use Diabetes mellitus complication status: with kidney complications Diabetes mellitus complication detail: with chronic kidney disease Chronic kidney disease stage: stage 3 (moderate) Qualified Code(s): E11.22 - Type 2 diabetes mellitus with diabetic chronic kidney disease; N18.3 - Chronic kidney disease, stage 3 (moderate); Z79.4 - line assigner (current) use of insulin (3) HTN (hypertension) Qualifiers: Hypertension type: essential hypertension Qualified Code(s): I10 - Essential (primary) hypertension (4) Fall Qualifiers: Encounter type: initial encounter Qualified Code(s): W19.XXXA - Unspecified fall, initial encounter (8) Obese Qualifiers: Obesity type: due to excess calories Body mass index: BMI 36.0-36.9
[2018-01-15] MEDS ORDERED: *HR* Heparin 10,000 UNIT/10 ML VIAL ONE (11:54)
[2018-01-15] MEDS ORDERED: Nitroglycerin 1,000 MCG/10 ML VIAL IV ONE (11:54)
[2018-01-15] MEDS ORDERED: Heparin 1,000 UNITS/500 mL 500 ML ONE (11:54)
[2018-01-15] MEDS ORDERED: 0.9 % Sodium Chloride 1,000 ML ONE (11:54)
[2018-01-15] MEDS ORDERED: ISOVUE-370 200 ML INFUS..BTL ONE (11:54)
[2018-01-15] MEDS: Insulin LISPRO 300 UNITS/3 ML VIAL SQ SCH ×4 (13:13→22:53)
[2018-01-15] MEDS: Aspirin Enteric Coated 81 MG Tablet PO SCH (14:22)
--- NOTE | 2018-01-15 14:31 | Pre-Sedation Evaluation ---
Pre-sedation evaluation - Pre-sedation checklist Date of procedure: 01/14/18 Procedure: LHC PCI Recent Vitals: Last Vital Signs Temp 97.7 F 01/15/18 10:41 Pulse 66 01/15/18 10:41 Resp 18 01/15/18 10:41 BP 139/72 01/15/18 10:41 Pulse Ox 97 01/15/18 10:41 H&P (including ROS) documented in medical record: Yes Previous reaction to sedatives/anesthetics: No Dietary Status: NPO 6 hours prior to procedure Airway Assessment: Patient can open mouth completely, TMJ function normal, Micrognathia (under-bite, receding chin) absent, Neck with adequate range of motion Dentition: No loose teeth or bridges Possible difficult airway: No ASA Classification *see protocol: CLASS II-Mild systemic disease Plan of Care: Pt appropriate candidate for procedure/moderate/conscious sedation, Risks/benefits of procedure/sedation discussed w/ patient/family Cardiac Registry (Cardio Only) - Functional Capacity Functional Capacity: < 4 METS - Clincal Frailty Scale Clinical Frailty Scale: Vulnerable
[2018-01-15] MEDS: Heparin 25,000 UNIT/500 ML D5W 25,000 UNIT/500 ML BAG IVC SCH (14:40)
[2018-01-15] MEDS ORDERED: *HR* Bivalirudin 250 MG VIAL IVC ONE (15:02)
[2018-01-15] MEDS ORDERED: *HR* Midazolam HCl 2 MG/2 ML VIAL ONE (15:02)
[2018-01-15] MEDS ORDERED: *HR* FentaNYL (PF) 100 MCG/2 ML VIAL ONE (15:02)
[2018-01-15] MEDS ORDERED: *HR* Ticagrelor 90 MG TABLET ONE (15:37)
[2018-01-15] MEDS: Nystatin POWDER 30 GM BOTTLE TP SCH ×2 (15:50→22:57)
[2018-01-15] MEDS ORDERED: 0.9 % Sodium Chloride 1,000 ML IVC SCH (16:00)
[2018-01-15] MEDS ORDERED: *HR* Heparin 5,000 UNIT/ML VIAL IVP PRN ×2 (16:05→20:00)
--- NOTE | 2018-01-15 16:08 | Event Note ---
Date of Encounter: 01/15/18 Time of Encounter: 16:07 - Cardiology Event Note Patient is s/p PCI to LAD. Patient was on heparin drip for DVT of left upper extremity. Discussed and reviewed with , states ok to resume heparin drip in 4 hours, ordered. states ok to start oral anticoagulation derek orrow, per primary service.
--- NOTE | 2018-01-15 16:57 | Invasive Diagnostic Lab Proc ---
Name: Samantha Luis Date of Study: 01/15/2018 Date: 1950 Ht: 68.9in Medical Record#: [id number] Age: 67 Wt: 255.74lb Gender: Female BSA: 2.29 Order #: [id number] BMI: 37.88 Physicians Procedure Physician: Elba Tyler MD, [facility] Referring MD: Referring MD: Staff Name Position Time In EstelaJamaica palmer RN Monitor 02:57 PM Hallie Fofana RN Novelty Worker 02:57 PM [facility], Eryn RT (R) Scrub 02:57 PM Indications Indication Unstable Angina Procedures Performed Procedure PRQ CARD PABLO STENT W/ANGIO 1 VSL Pre-Procedure Checklist Informed consent is complete signed and on chart. H&P is on chart. ID band is on and ID verified with patient. Patient NPO for procedure The procedure was described for the patient and questions were answered. Blood Pressure: 139/72 ECG is on chart. Rhythm: NSR Plan of Care Patient will tolerate the procedure without complications. Adequate level of comfort will be maintained. Hemodynamics will remain stable Patient will recover from procedure without complications. Respiratory function will be maintained. Cardiac rhythm will remain stable. Patient temperature will be maintained. Patient and/or family have verbalized understanding of the procedure. Patient Education Chief Complaint/Reason for Test: PCI Developmental Category: Geriatric (65+ years) Developmentally Appropriate for Age: Yes Learning Barriers: None Education Needs: Procedure Education Method: Verbal Information Taught: Cardiac Cath Educational Evaluation: Able to repeat information Intravenous Access Time IV Size Location DC'd Fluid/Drip Rate Units RN 20g 1 /" Patent On Arrival 0.9NaCl Allergies No Known Allergies Vital Signs Time BP (mmHg) HR (bpm) O2 Sat. RR (bpm) LOC 02:58 PM / % 5 = Fully awake and oriented or at pre-proc level 02:58 PM / % 4 = Oriented but drowsy 03:13 PM / % 4 = Oriented but drowsy 03:01 PM 171 / 99 70 94 % 11 03:05 PM 170 / 100 69 98 % 19 03:10 PM 168 / 92 67 94 % 20 03:15 PM 164 / 92 65 92 % 34 03:20 PM 156 / 89 63 92 % 19 03:25 PM 146 / 81 62 94 % 18 03:30 PM 134 / 79 59 94 % 22 03:36 PM 165 / 86 63 93 % 16 03:40 PM 157 / 96 64 94 % 17 03:55 PM 136 / 75 64 90 % 17 4 = Oriented but drowsy 04:12 PM 139 / 77 63 97 % 16 4 = Oriented but drowsy 04:30 PM 137 / 78 62 97 % 16 4 = Oriented but drowsy 04:44 PM 147 / 91 63 96 % 16 4 = Oriented but drowsy Procedural Medications Time Medication Dose Units Method Given By 02:57 PM Oxygen 2 L/min nasal cannula Hallie Fofana RN 03:06 PM Versed 2 mg Intravenous Hallie Fofana RN 03:06 PM Fentanyl 50 mcg Intravenous Hallie Fofana RN 03:17 PM Lidocaine 2% 18 ml Subcutaneous Elba Tyler MD, FACC 03:23 PM Angiomax 0.75mg/kg bolus: 17 ml Intravenous Hallie Fofana RN 03:23 PM Angiomax 1.75mg/kg/hr: 40 ml/hr Intravenous Hallie Fofana RN 03:31 PM Nitroglycerin 200 mcg Intracoronary Elba Tyler MD, FACC 03:41 PM Brilinta 180 mg Orally Hallie Fofana RN ASA Classification: CLASS II- Mild systemic disease (i.e. well-controlled diabetes, hypertension, asthma, cigarette smoking) Rina Score Preprocedure Postprocedure Activity 2- Moves 4 extremities sustained head lift Activity 2- Moves 4 extremities sustained head lift Circulation 2- SBP +/= 20 points of pre-anesthetic level Circulation 2- SBP +/= 20 points of pre-anesthetic level Consciousness 2- Awake and alert oriented x 3 Consciousness 1- Responds to verbal stimuli drowsy O2 Saturation 2- Able to maintain O2 satruation of 92% on room air O2 Saturation 2- Able to maintain O2 satruation of 92% on room air Respiratory 2- Able to deep breathe and cough well Respiratory 2- Able to deep breathe and cough well Total Score 10 Total Score 9 Contrast Agent: Isovue Procedure Log Time Note Enter By 02:50 PM CathStat 02:57 PM Pt arrived to sanitation laborer 2 at 14:57 tsoummers 02:57 PM [place] Loredo RN Position: Monitor Time in: 14:57 tsmmers 02:57 PM Hallie Fofana RN Position: Novelty Worker Time in: 14:57 tsoumm 02:57 PM Sites, Eryn RT (R) Position: Scrub Time in: 14::57 PM Patient charges- Angio tray pack, Navilyst 3mm J, Pulse Oximetry and ACIST tubing and transducer : PM Physician arrived 14:: PM Meet and greet completed : PM Sign in performed according to hospital policy. Informed consent was obtained. PM Procedure start : PM Time: : Oxygen on at 2 L/min per nasal cannula by Hallie Fofana RN PM Hair removed from procedure site in procedure lab using clippers. Bilateral groin prepped with Chloraprep by Hallie Fofana RN, then patient was draped. Skin intact. PM Time: :58 Patient comfortable and pain free: Yes PM Time: LOC: 5 = Fully awake and oriented or at pre-proc level 02:59 PM Vitals capture started with the following parameters, Patient=Adult, Interval=5 min, Initial Avyffrhp=925 mmHg, Deflation Rate=5 mmHg, Cuff placed on Right Arm 03:01 PM HR=70 bpm, DXNN=519/99 mmhg, SpO2=94.0 %, Resp=11 B/min 03:02 PM Recorded ECG: HR=70 Condition=Condition 1 03:05 PM HR=69 bpm, SSIX=396/100 mmhg, SpO2=98.0 %, Resp=19 B/min, EtCO2=31 mmHg 03:06 PM Time: 15:06 Versed 2 mg Intravenous Given by Hallie Fofana RN vy 03:06 PM Time: 15:06 Fentanyl 50 0mcg Intravenous [facility] 03:10 PM HR=67 bpm, QSKW=679/92 mmhg, SpO2=94.0 %, Resp=20 B/min 03:11 PM Pressure channel 1 zeroed. 03:13 PM Time: 14:58LOC: 4 = Oriented but drowsy [facility] 03:13 PM Time: 14:58 Patient comfortable and pain free: Yes tsoummers 03:13 PM Time out was performed according to hospital policy. Conscious sedation and anesthesia was achieved (see medication log with in this report above) tsoummers 03:13 PM ASA Class CLASS II- Mild systemic disease (i.e. well-controlled diabetes, hypertension, asthma, cigarette smoking) tsoummers 03:14 PM Coronary Dominance: right tsoummers 03:14 PM Lesion found in Mid LAD. Pre Stenosis: 99 Pre LISSETH Flow: 3: Complete and Brisk Flow/Perfusion tsoummers 03:15 PM Mid/Distal Left Anterior Descending Coronary Artery and diagonal branches with 99% stenosis. If graft is supplying this area, 0 % stenosis tsoummers 03:15 PM HR=65 bpm, AQXE=575/92 mmhg, SpO2=92.0 %, Resp=34 B/min 03:17 PM Time: 15:17 18 ml Lidocaine 2% to right groin Subcutaneous Given by Elba Tyler MD, [facility] tsoummers 03:20 PM HR=63 bpm, AWZQ=136/89 mmhg, SpO2=92.0 %, Resp=19 B/min, EtCO2=32 mmHg 03:20 PM Access obtained by percutaneous puncture. 6Fr 10cm Terumo Sutton sheath placed in right Femoral artery. [id number] tsoummers 03:20 PM Inflation device was opened. tsoummers 03:21 PM 0.035 145cm Navilyst 3mmJ wire [id number] tsoummers 03:21 PM 6Fr XB LAD 3.5 [place] Bright-Tip guide catheter was used to cannulate the PCI vessel successfully. reused? No tsoummers 03:22 PM wire removed tsoumm 03:22 PM LCA angiography performed in multiple views. tsoummers 03:23 PM Time: 15:23 Angiomax 0.75mg/kg bolus: 17 ml Intravenous Given by Hallie Fofana RN Laurent pump tsoummers 03:23 PM Time: 15:23 Angiomax 1.75mg/kg/hr: 40 ml/hr Intravenous Given by Hallie Fofana RN Laurent pump tsoummers 03:24 PM .014 Prowater 180cm guide wire across target lesion- successful. reused? No tsoummers 03:24 PM Recorded Pressure: Ao, HR=62, Condition=Condition 1 (Aorta) Ao 141/71/100 03:25 PM 2.0 mm x 12 mm Emerge Monorail balloon across target lesion- successful. reused? No tsoummers 03:25 PM HR=62 bpm, IFOJ=293/81 mmhg, SpO2=94.0 %, Resp=18 B/min, EtCO2=32 mmHg 03:26 PM Balloon inflated @ 10 gael for 20 seconds tsoummers 03:27 PM Balloon catheter removed intact. tsoummers 03:28 PM 2.5mm x 16mm Synergy drug-eluting stent across target lesion- successful Lot #[id number] tsoummers 03:28 PM Time: 15:13 Patient comfortable and pain free: Yes tsoummers 03:28 PM Time: 15:13LOC: 4 = Oriented but drowsy tsoummers 03:30 PM Stent deployed @ 12 gael for 30 seconds tsoummers 03:30 PM HR=59 bpm, ONAO=449/79 mmhg, SpO2=94.0 %, Resp=22 B/min, EtCO2=32 mmHg 03:31 PM Stent delivery system removed intact. tsoummers 03:31 PM Time: 15:31 Nitroglycerin 200 mcg Intracoronary Given by Elba Tyler MD, [facility] tsoummers 03:32 PM Guide wire removed intact. tsoummers 03:32 PM Guide catheter removed intact. tsoumm 03:33 PM Bolus angiogram of right Femoral complete: 2 ml/sec for a total of 4 mls tsoummers 03:34 PM Procedure completed at 15:34 01/15/2018 tsoummers 03:34 PM Isovue 370 - 200ml,1 Bottle(s) used. tsoummers 03:34 PM Estimated Blood Loss: less than 20cc tsoummers 03:34 PM Post ECG NSR tsoummers 03:34 PM Post Blood Pressure 134/79 tsoummers 03:34 PM Information taught Cardiac Cath, PCI, and Mynx tsoummers 03:34 PM Education needs Procedure, Plan of Care, and Responsibilities of Patient in Care tsoummers 03:34 PM Learning barriers :None tsoummers 03:34 PM Education Methods Verbal tsoummers 03:34 PM Education evaluation Able to repeat information tsoummers 03:34 PM Delay to floor No tsoummers 03:35 PM Complications: None tsoummers 03:36 PM HR=63 bpm, TPPM=900/86 mmhg, SpO2=93.0 %, Resp=16 B/min 03:40 PM no family present tsoummers 03:40 PM Arterial sheath pulled, Mynx closure device used and was Successful [id number] S/N. tsoummers 03:40 PM HR=64 bpm, REGZ=523/96 mmhg, SpO2=94 %, Resp=17 B/min 03:42 PM Report given to hallie CHAVEZ Pt taken to Room #5. 15:42 room dirty tsoummers 03:42 PM pt will be taken to holding room 2 until room is clean tsoummers 03:43 PM Patient out of room: 15:42 tsoummers 03:43 PM Opsite applied tsoummers 03:43 PM Site status No bleeding/hematoma - Rt Groin as reported by Sites, Eryn RT (R) at 15:43 tsoummers 03:43 PM Patient out of room: 15:43 tsoummers 03:45 PM Vitals capture stopped. 03:55 PM Angiomax d/c'd per Hallie Fofana RN mprater 04:46 PM patient transported to per [place] Loredo RN and Javid Hernandez RN mprater Complications Complication None Hemodynamics Pressures Site Systolic/A Wave Diastolic/V Wave Mean AO 141 71 100 Post Procedure Information Blood Pressure: 134/79 mmHg Rhythm: NSR Post procedural instructions were given Closure Device Time Device Success/Fail 01/15/2018 3:40:00 PM MynxGrip Successful Site Checks Time Location Status Staff Sheath In? Note 03:43 PM Rt Groin No bleeding/hematoma Sites, Eryn RT (R) 03:54 PM Rt Groin No bleeding/ No Hematoma Hallie Fofana RN 04:12 PM Rt Groin No bleeding/ No Hematoma Madhuri Holland RN 04:30 PM Rt Groin No bleeding/ No Hematoma Madhuri Holland RN 04:44 PM Rt Groin No bleeding/ No Hematoma Madhuri Holland RN Pulses Time Site Pre-Procedure Post-Procedure Note Bilateral DP & PT 1+ Bilateral radial 2+ 01/15/2018 3:58:00 PM Rt PT Doppler 01/15/2018 3:58:00 PM Rt DP None unable to find, pt RLE edematous 01/15/2018 4:12:00 PM Rt PT Doppler 01/15/2018 4:12:00 PM Lt DP and pt Doppler 01/15/2018 4:12:00 PM Rt DP None Updated by Madhuri Holland RN on 01/15/2018 4:48:24 PM Madhuri Holland RN electronically signed on 01/15/2018 4:49:04 PM with status of Final
[2018-01-15] MEDS ORDERED: Heparin 25,000 UNIT/500 ML D5W 25,000 UNIT/500 ML BAG IVC SCH (20:00)
[2018-01-15] MEDS: Insulin DETEMIR 100 UNIT/ML X5UNITS SQ SCH (22:53)
[2018-01-16 02:11] LABS: Calcium 9.5 mg/dL (8.6-10.3)
--- NOTE | 2018-01-16 07:28 | Event Note ---
Date of Encounter: 01/16/18 Time of Encounter: 07:27 Nephrology Chart Review/Update With improved SCr, I will sign-off at this point. Please resume her home dosing of diuretics, and I recommend checking a BMP in about 72 hr s/p IV contrast. Recommend outpt nephro follow up with Dr. Leavitt who originally consulted on her in about 2-3 weeks. Please feel free to call or reconsult as needed. Thank you.
--- NOTE | 2018-01-16 07:45 | Internal Med Progress Note ---
Hospitalist Progress Note - Encounter Date of Encounter: 01/17/18 Time of Encounter: 07:40 - Exam Vitals: Temp Pulse Resp BP Pulse Ox 98.2 F 77 18 172/92 98 01/16/18 07:18 01/16/18 07:18 01/16/18 07:18 01/16/18 07:18 01/16/18 07:18 Exam: General: Patient is alert, oriented, no acute distress, obese, speaks in full sentences Head: atraumatic, normocephalic, Eye: normal appearance, PERRL, no scleral icterus, no conjunctival injection ENT: mucous membranes moist, normal external ear exam Chest: normal inspection, symmetric chest rise Respiratory: Good respiratory effort. Bilateral breath sounds are clear without wheezing, crackles, or rhonchi. Cardiovascular: Regular rate and rhythm. s1 and s2 No clicks, rubs, gallops, or murmurs. Abdomen: Bowel sounds present normoactive x-4 quadrants. Abdomen is soft, nondistended. no Epigastric tenderness. No guarding or rebound. No organomegaly noted, obese musculoskeletal: Spontaneously moving all extremities. 2+ edema of the LE up to bilateral thighs, no calf tenderness, radial pulses 2 bilaterally Skin: warm, dry, intact. Neuro: Alert and oriented x4. Sensation light touch intact. Cranial nerves 2- 12 is intact. Not aphasic, no focal deficit Psych: Patient's affect is normal - Assessment and Plan (1) CAD (coronary artery disease) Status: Acute Assessment and Plan: CAD with NSTEMI. [facility] with 90% mid LAD, 95% diagonal 1, 80% proximal RCA, 80% mid RCA. Patient was seen and evaluated by CT surgery who recommended evaluation at tertiary center vs. staged [facility] and medical management for LHC on 01/14. nephrology was consulted for ARF and recommendations appreciated will continue heparin drip, ASA, BB and statins 01/16. Patient had cardiac cath overnight with drug eluting stent placed in mid LAD> Will d/c heparin drip. Transitioning to eliquis per pharmacy recs as patient is unable to afford eliquis and says she will be non compliant with warfarin. plan to restart lasix 48hrs post procedure per renal recs (2) Diabetes mellitus Status: Acute Assessment and Plan: History of diabetes Discussed diabetic diet, weight loss and lifestyle modifications Glucose remains stable, Continue basal and SSIC Hg A1C 7.4 (3) HTN (hypertension) Status: Acute Assessment and Plan: Metoprolol and hydralazine prn (4) Fall Status: Acute Assessment and Plan: Mechanical fall due to leg weakness and dyspnea in the setting of CHF. PT/OT evaluation, recommend ECF upon discharge consult SS to assist with D/C planning continue PT/OT while inpatient, continue gait and balance therapy (5) Deep vein thrombosis (DVT) of brachial vein of left upper extremity Status: Acute Assessment and Plan: heparin gtt will need to bridge to warfarin LUE circulation intact but diminished return cap refill >3 sec will need OAC on DC LLE swelling, leg firm at thigh, distal circulation palpable B/L venous Dopplers negative for DVT (6) Acute renal failure superimposed on stage 3 chronic kidney disease Status: Acute Assessment and Plan: History of CKD 3B moderate. Nephrology recommendations appreciated Scr improving at baseline 1.77 continue holding lasix. fluid restriction <1.5L. Strict i/O hold losartan, avoid nephrotoxins and closely monitor SCR may resume lasix in 48 hours post cath as per nephrology recs continue mucomyst; restarted Sunday evening prior to LHC on Sunday but Left heart cath rescheduled for Sunday so pt can have some fluid. gently hydration as per nephrology recs f/u with Dr. Leavitt in 4-6 weeks at d/c (7) Acute HFrEF (heart failure with reduced ejection fraction) Status: Acute Assessment and Plan: secondary to ICM ( significant CAD on recent cath) Echo shows LVEF 25%. Cardiology on board Lasix and ITALO/ARB on hold due to ARF on CKD [address] [facility] and staged PCI on 01/14 fluid restriction <1.5L. Daily weights (8) Obese Status: Acute Assessment and Plan: was counseled on diet and nutrition - Time Spent with Patient Total time spent is greater than 50% in coordination of care (as documented) at patient's floor/unit and/or counseling patient: Internal Medicine: Result - Labs CBC & Chem 7: 01/16/18 08:52 01/16/18 01:35 Labs: BMP 01/16/18 01:35 Sodium 138 Potassium 4.0 Chloride 108 H Carbon Dioxide 22 L BUN 25 H Creatinine 1.43 H Glucose 140 H Calcium 9.5 - ABG Interpretation ABG results: PT/INR, D-dimer PT 12.7 Seconds (9.4-12.1) H 01/09/18 00:18 Consult Discharge Plan - Plan Instructions: Heart Failure (DC), Diabetes Mellitus Type 2 in Adults (DC), Peripheral Vascular Disorders (DC), Chronic Hypertension (DC), Fall Prevention (DC) Referrals: Renee De Los Santos CNP [Primary Care Provider] - 01/23/18 11:00 am Jessica Dietrich CNP [Advanced Practice Nurse] - (office will call patient at home with follow up appointment) Prescriptions: RX: Aspirin Enteric Coated [Aspirin EC] 81 mg PO DAILY 30 Days #30 tablet.dr RX: Clopidogrel [Plavix] 75 mg PO DAILY 30 Days #30 tablet RX: Furosemide [Lasix] 40 mg PO BID 30 Days #60 tab RX: Metoprolol XL (24 HR) Succ [Toprol Xl] 12.5 mg PO DAILY 30 Days #30 tab.er.24h Rivaroxaban [Xarelto] 15 mg PO DAILY 30 Days #30 tablet Rivaroxaban [Xarelto] 15 mg PO DAILY #30 tablet (1) CAD (coronary artery disease) Qualifiers: Coronary Disease-Associated Artery/Lesion type: [place] artery [place] vs. transplanted heart: [place] heart Associated angina: without angina Qualified Code(s): I25.10 - Atherosclerotic heart disease of [place] coronary artery without angina pectoris (2) Diabetes mellitus Qualifiers: Diabetes mellitus type: type 2 Diabetes mellitus emergency room clerk insulin use: with emergency room clerk use Diabetes mellitus complication status: with kidney complications Diabetes mellitus complication detail: with chronic kidney disease Chronic kidney disease stage: stage 3 (moderate) Qualified Code(s): E11.22 - Type 2 diabetes mellitus with diabetic chronic kidney disease; N18.3 - Chronic kidney disease, stage 3 (moderate); Z79.4 - group home (current) use of insulin (3) HTN (hypertension) Qualifiers: Hypertension type: essential hypertension Qualified Code(s): I10 - Essential (primary) hypertension (4) Fall Qualifiers: Encounter type: initial encounter Qualified Code(s): W19.XXXA - Unspecified fall, initial encounter (5) Deep vein thrombosis (DVT) of brachial vein of left upper extremity Qualifiers: Qualified Code(s): I82.622 - Acute embolism and thrombosis of deep veins of left upper extremity (6) Acute renal failure superimposed on stage 3 chronic kidney disease Qualifiers: Qualified Code(s): N17.9 - Acute kidney failure, unspecified; N18.3 - Chronic kidney disease, stage 3 (moderate) (8) Obese Qualifiers: Obesity type: due to excess calories Body mass index: BMI 36.0-36.9 Qual ified Code(s): E66.01 - Morbid (severe) obesity due to excess calories; Z68.36 - Body mass index (BMI) 36.0-36.9, adult
[2018-01-16] MEDS: 0.9 % Sodium Chloride 1,000 ML IVC SCH (07:50)
[2018-01-16 09:12] LABS: Basophils % 0.5 %; Eosinophils # 0.1 K/mcL (0.0-0.6); Eosinophils % 1.5 %; Hematocrit 33.9 % (35.3-44.9); Hemoglobin 10.7 g/dL (11.5-15.4); Immature Granulocytes % 0.5 % (0-4); Lymphocytes # 0.9 K/mcL (0.6-4.6); Lymphocytes % 22.8 %; Mean Corpuscular HGB Conc 31.6 g/dL (31.6-35.5); Mean Corpuscular Hemoglobin 27.9 pg (28.0-33.3); Mean Corpuscular Volume 88.5 fL (83.0-100.0); Mean Platelet Volume 11.3 fL (9.4-12.4); Monocytes # 0.4 K/mcL (0.0-1.3); Neutrophils # 2.6 K/mcL (1.6-8.9); Platelet Count 196 K/mcL (140-400); Red Blood Count 3.83 M/mcL (3.82-4.97); Red Cell Distribution Width 18.2 % (11.5-14.5); Segmented Neutrophils % 64.7 %
--- NOTE | 2018-01-16 09:35 | Discharge Summary ---
Orders not resulted at time of discharge: Pending orders 01/07/18 16:12 Immunofixation,Urine (BJP) Routine 01/15/18 15:53 ECG 12 lead ECG [ECG] Stat 01/16/18 06:00 ECG 12 lead ECG [ECG] AM 0600 01/17/18 04:00 Basic Metabolic Panel AM 0400 01/18/18 04:00 Basic Metabolic Panel AM 0400 01/19/18 04:00 Basic Metabolic Panel AM 0400 01/20/18 04:00 Basic Metabolic Panel AM 0400 01/21/18 04:00 Basic Metabolic Panel AM 0400 Date of Encounter: 01/16/18 Time of Encounter: 09:00 - Discharge Diagnosis (1) CAD (coronary artery disease) Priority: Primary Status: Acute Assessment and Plan: 67 year old female sent to ER by EMS for fall. Past medical history is significant for diabetes, hypertension, right eye blind, breast cancer. Patient had a mechanical fall, without loss of consciousness, without head hitting. Patient thought the fall was due to her bilateral leg weakness and swelling. Patient has bilateral leg swelling for about 1 year, feels bilateral leg heavy and weak. Patient needs rest even walking very short distance (from bed room to bathroom). And her legs are thick and heave b/o swelling. Patient also has belly wall swelling. Patient has sometimes shortness of breath and nausea. Denies chest pain. Denies urinary/fecal incontinence. She was noted to be fluid overloaded on admission and assessed with possible CHF and started on IV diuresis. She had a 2D echo done showing a cardiomyopathy with acute systolic CHF with EF of 25%. Due to her new cardiomyopathy, it was determined that she would need a cardiac cath to assess the etiolgy of cardiomyopathy; ischemic vs non ischemic. Renal was consulted due to impending contrast exposure in a patient with CAD and she had mucomyst and gentle IV hydration administered prior to her cardiac catheterizations. She had 1st LHC with 90% mid LAD, 95% diagonal 1, 80% proximal RCA, 80% mid RCA noted on 01/09. Cardiology determined she would need CABG vs PCI and recommended evaluation by CT surgery. Patient was seen and evaluated by CT surgery who recommended evaluation at tertiary center vs. staged PCI. Patient decided to have staged PCI and medical management for LHC on 01/14. Patient had cardiac cath overnight on 01/15 with drug eluting stent placed in mid LAD. Patient was also on a heparin drip for an upper extremity DVT, and this has been discontinued and she has been transitioned to po xarelto per pharmacy recs as patient is unable to afford eliquis, and says she will be non compliant with warfarin. Lasix will be started 48hrs post procedure per renal recs. She was seen by PT who recommended SNF but patient declined and wants to go home with home health. She will follow with cardiology outpatient. 35 minutes was spent discharging this patient Qualifiers: Coronary Disease-Associated Artery/Lesion type: [place] artery [place] vs. 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: with long-term use Diabetes mellitus complication status: with kidney complications Diabetes mellitus complication detail: with chronic kidney disease Chronic kidney disease stage: stage 3 (moderate) Qualified Code(s): E11.22 - Type 2 diabetes mellitus with diabetic chronic kidney disease; N18.3 - Chronic kidney disease, stage 3 (moderate); 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 of insulin (3) HTN (hypertension) Priority: Primary Status: Acute Qualifiers: Hypertension type: essential hypertension Qualified Code(s): I10 - Essential (primary) hypertension (4) Fall Priority: Primary Status: Acute Qualifiers: Encounter type: initial encounter Qualified Code(s): W19.XXXA - Unspecified fall, initial encounter (5) Deep vein thrombosis (DVT) of brachial vein of left upper extremity Priority: Primary Status: Acute Qualifiers: Qualified Code(s): I82.622 - Acute embolism and thrombosis of deep veins of left upper extremity (6) Acute renal failure superimposed on stage 3 chronic kidney disease Priority: Primary Status: Acute Qualifiers: Qualified Code(s): N17.9 - Acute kidney failure, unspecified; N18.3 - Chronic kidney disease, stage 3 (moderate) (7) Acute HFrEF (heart failure with reduced ejection fraction) Priority: Primary Status: Acute (8) Obese Priority: Primary Status: Acute Qualifiers: Obesity type: due to excess calories Body mass index: BMI 36.0-36.9 Qualified Code(s): E66.01 - Morbid (severe) obesity due to excess calories; Z68.36 - Body mass index (BMI) 36.0-36.9, adult Hospital course: Ms. Luis is a 67 year old female - Time Spent with Patient Total time spent providing and/or coordinating discharge services: - Discharge Medications Prescriptions: Aspirin Enteric Coated [Aspirin EC] 81 mg PO DAILY 30 Days #30 tablet. Clopidogrel [Plavix] 75 mg PO DAILY 30 Days #30 tablet Furosemide [Lasix] 40 mg PO BID 30 Days #60 tab Metoprolol XL (24 HR) Succ [Toprol Xl] 12.5 mg PO DAILY 30 Days #30 tab.er.24h Rivaroxaban [Xarelto] 15 mg PO DAILY 30 Days #30 tablet Rivaroxaban [Xarelto] 15 mg PO DAILY #30 tablet Home Medications: Atorvastatin [Lipitor] 40 mg PO HS 01/03/18 [History] Brimonidine Tartrate/Timolol [Combigan 0.2%-0.5% Eye Drops] 1 drop OP DAILY 01/03/18 [History] Dorzolamide [Trusopt] 1 drop OP TID 01/03/18 [History] Ferrous Sulfate [Iron] 325 mg PO DAILY 01/03/18 [History] Gabapentin [Neurontin] 600 mg PO DAILY 01/03/18 [History] Insulin ASPART [NovoLOG] 6 units SQ TIDWM 01/03/18 [History] Insulin Glargine [Lantus] 18 units SQ HS 01/03/18 [History] Losartan [Cozaar] 25 mg PO DAILY 01/03/18 [History] Aspirin Enteric Coated [Aspirin EC] 81 mg PO DAILY 30 Days #30 tablet. 01/16/18 [Rx] Clopidogrel [Plavix] 75 mg PO DAILY 30 Days #30 tablet 01/16/18 [Rx] Furosemide [Lasix] 40 mg PO BID 30 Days #60 tab 01/16/18 [Rx] Metoprolol XL (24 HR) Succ [Toprol Xl] 12.5 mg PO DAILY 30 Days #30 tab.er.24h 01/16/18 [Rx] Rivaroxaban [Xarelto] 15 mg PO DAILY #30 tablet 01/16/18 [Rx] Rivaroxaban [Xarelto] 15 mg PO DAILY 30 Days #30 tablet 01/16/18 [Rx] Allergies/Adverse Reactions: Allergy/AdvReac Type Severity Reaction Status Date / Time No Known Allergies Allergy Verified 01/03/18 12:08 Date of admission: 01/03/18 16:32 Primary care physician: Renee De Los Santos CNP Consults: 01/03/18 16:57 Consult to Occupational Therapy [CONS] Routine Comment: Evaluate, develop and implement POC Reason for Consult: Fall Does patient have active BEDREST order?: No Is patient medically & hemodynamically stable?: Yes Consult to Physical Therapy [CONS] Routine Comment: Evaluate, develop and implement POC Reason for Consult: Fall Does patient have active BEDREST order?: No Is patient medically & hemodynamically stable?: Yes 01/03/18 17:27 Consult to [employer] [CONS] Routine Reason for SW Consult: Blind in R eye, need for assistance with ADLs, open to HH, currently has son living with her 01/04/18 07:23 Consult to Nurse Navigator [CONS] Routine Comment: CHF 01/04/18 12:59 Consult to Cardiology [CONS] Routine Comment: Consulting Provider: Cardiology Lilly Reason for Consult: New systolic CHF Call Completed: No 01/07/18 10:26 Consult to Nephrology [CONS] Routine Consulting Provider: Kidney Lilly/JOSE L/TONIA/EASTON Reason for Consult: Apparent history of CK D stage IIIB, currently stage IV, pending left heart catheterization, off ARB and Lasix-- Dr. Leavitt now Time Notified: 10:27 Call Completed: Yes 01/15/18 15:53 Consult to Cardiac Rehabilitation-Phase1 [CONS] Routine Comment: Reason for Consult: post op PCI Call Completed: Yes - Constitutional Vitals: Temp Pulse Resp BP Pulse Ox 98.2 F 77 18 172/92 98 01/16/18 07:18 01/16/18 07:18 01/16/18 07:18 01/16/18 07:18 01/16/18 07:18 General appearance: Present: A&O X 3, no acute distress, answers questions appropriately Exam: General: Patient is alert, oriented, no acute distress, obese, speaks in full sentences Head: atraumatic, normocephalic, Eye: normal appearance, PERRL, no scleral icterus, no conjunctival injection ENT: mucous membranes moist, normal external ear exam Chest: normal inspection, symmetric chest rise Respiratory: Good respiratory effort. Bilateral breath sounds are clear without wheezing, crackles, or rhonchi. Cardiovascular: Regular rate and rhythm. s1 and s2 No clicks, rubs, gallops, or murmurs. Abdomen: Bowel sounds present normoactive x-4 quadrants. Abdomen is soft, nondistended. no Epigastric tenderness. No guarding or rebound. No organomegaly noted, obese musculoskeletal: Spontaneously moving all extremities. 2+ edema of the LE up to bilateral thighs, no calf tenderness, radial pulses 2 bilaterally Skin: warm, dry, intact. Neuro: Alert and oriented x4. Sensation light touch intact. Cranial nerves 2- 12 is intact. Not aphasic, no focal deficit Psych: Patient's affect is normal - Patient Status Disposition: Home, Self-Care Condition: Good - Discharge Instructions Instructions: Heart Failure (DC), Diabetes Mellitus Type 2 in Adults (DC), Peripheral Vascular Disorders (DC), Chronic Hypertension (DC), Fall Prevention (DC) Follow Up With: Renee De Los Santos CNP [Primary Care Provider] - 01/23/18 11:00 am Jessica Dietrich CNP [Advanced Practice Nurse] - (office will call patient at home with follow up appointment)
--- NOTE | 2018-01-16 09:39 | Physician Discharge Referral ---
Home Health/Hosp Referral Info Transfer to: Home Health - Diagnosis (1) CAD (coronary artery disease) Priority: Primary Status: Acute (2) Diabetes mellitus Priority: Primary Status: Acute (3) HTN (hypertension) Priority: Primary Status: Acute (4) Fall Priority: Primary Status: Acute (5) Deep vein thrombosis (DVT) of brachial vein of left upper extremity Priority: Primary Status: Acute (6) Acute renal failure superimposed on stage 3 chronic kidney disease Priority: Primary Status: Acute (7) Acute HFrEF (heart failure with reduced ejection fraction) Priority: Primary Status: Acute (8) Obese Priority: Primary Status: Acute - Respiratory Orders Smoking Cessation: Smoking cessation has been advised. For more information, call the [employer] Tobacco Quit Line at 9-854-RYZY-NOW. - Diet/Nutrition Diet/Nutrition Orders: Cardiac - Activity Activity Orders: Ambulate, Walker - Services Needed Following services are medically necessary services: Nursing, Home Health Aide, Physical Therapy - Transfer Medications Prescriptions: Aspirin Enteric Coated [Aspirin EC] 81 mg PO DAILY 30 Days #30 tablet. Clopidogrel [Plavix] 75 mg PO DAILY 30 Days #30 tablet Furosemide [Lasix] 40 mg PO BID 30 Days #60 tab Metoprolol XL (24 HR) Succ [Toprol Xl] 12.5 mg PO DAILY 30 Days #30 tab.er.24h Rivaroxaban [Xarelto] 15 mg PO DAILY 30 Days #30 tablet Home Medications: Atorvastatin [Lipitor] 40 mg PO HS 01/03/18 [History] Brimonidine Tartrate/Timolol [Combigan 0.2%-0.5% Eye Drops] 1 drop OP DAILY 01/03/18 [History] Dorzolamide [Trusopt] 1 drop OP TID 01/03/18 [History] Ferrous Sulfate [Iron] 325 mg PO DAILY 01/03/18 [History] Gabapentin [Neurontin] 600 mg PO DAILY 01/03/18 [History] Insulin ASPART [NovoLOG] 6 units SQ TIDWM 01/03/18 [History] Insulin Glargine [Lantus] 18 units SQ HS 01/03/18 [History] Losartan [Cozaar] 25 mg PO DAILY 01/03/18 [History] Aspirin Enteric Coated [Aspirin EC] 81 mg PO DAILY 30 Days #30 tablet. 01/16/18 [Rx] Clopidogrel [Plavix] 75 mg PO DAILY 30 Days #30 tablet 01/16/18 [Rx] Furosemide [Lasix] 40 mg PO BID 30 Days #60 tab 01/16/18 [Rx] Metoprolol XL (24 HR) Succ [Toprol Xl] 12.5 mg PO DAILY 30 Days #30 tab.er.24h 01/16/18 [Rx] Rivaroxaban [Xarelto] 15 mg PO DAILY 30 Days #30 tablet 01/16/18 [Rx] Allergies/Adverse Reactions: Allergy/AdvReac Type Severity Reaction Status Date / Time No Known Allergies Allergy Verified 01/03/18 12:08 Certification: Further, I certify that my clinical findings support that this patient is homebound (i.e. absences from home require considerable and taxing effort and are for medical reasons or sabianist services or infrequently or short duration when for other reasons) because: Homebound Reason: Patient requires assistance of a person or device to safely leave home Attestation: My signature below is to certify that this patient is under my care and that I, or nurse practitioner, or a physician's assistant professor of theater working with me, has a [id number] encounter with this patient.
[2018-01-16] MEDS: Insulin LISPRO 300 UNITS/3 ML VIAL SQ SCH ×2 (09:49→12:01)
[2018-01-16] MEDS: Metoprolol XL (24 HR) Succ 25 MG TAB.ER.24H PO SCH (09:51)
[2018-01-16] MEDS: Gabapentin 300 MG CAPSULE PO SCH (09:51)
[2018-01-16] MEDS: Aspirin Enteric Coated 81 MG Tablet PO SCH (09:51)
[2018-01-16] MEDS: *HR* Acetylcysteine 20% 600 MG/3 ML ORAL SYRINGE PO SCH (09:52)
[2018-01-16] MEDS: Nystatin POWDER 30 GM BOTTLE TP SCH (09:53)
[2018-01-16] MEDS: Dorzolamide OPTH 10 ML BOTTLE BOTH EYES SCH (10:00)
--- NOTE | 2018-01-16 10:19 | Cardiology Progress Note ---
Date of Encounter: 01/16/18 Time of Encounter: 08:30 Assessment and Plan (1) Fall Current Visit: Yes Status: Acute Per cardiology: -ADmitted after fall at home. -Son reports multiple falls. Qualifiers: Encounter type: initial encounter Qualified Code(s): W19.XXXA - Unspecified fall, initial encounter (2) Systolic CHF Current Visit: Yes Status: Acute Per Cardiology: -BNP on arrival in the 1200s. -Clinically appears somewhat improved. -Newly diagnosed systolic heart failure, ischemic. -Net I&O +, however BNP improved, states symptoms much improved. -Troponin negative. -Echo showed EF 25%, small to moderate pericardial effusion with no evidence of tamponade. -On aspirin, statin, beta kurt. All questions answered. Off lasix now. -[facility] with significant CAD. -Continue BB. Not on jameel/arb due to renal function. -Will add po lasix. -Will repeat TTE in 3 months in outpatient setting. Qualifiers: Heart failure chronicity: acute Qualified Code(s): I50.21 - Acute systolic (congestive) heart failure (3) CAD (coronary artery disease) Current Visit: Yes Status: Acute Per cardiology: -C with 90% mid LAD, 95% diagonal 1, 80% proximal RCA, 80% mid RCA. -Pateint was seen and evaluated by CT surgery who recommended evuation at tertiary center vs. staged PCI. -s/p staged PCI yesterday with PCI to LAD. -On asa, statin, BB, plavix. -Pateint educated on dual anti-platelet therapy uninterrupted for at least one year, states understanding. -Consider staged PCI to RCA as outpatient. -Right groin site management education reviewed with patient, states understanding. -Cardiology will sign off and will follow in outpatient setting, follow up set. Qualifiers: Coronary Disease-Associated Artery/Lesion type: eek artery [place] vs. transplanted heart: eek heart Associated angina: without angina Qualified Code(s): I25.10 - Atherosclerotic heart disease of eek coronary artery without angina pectoris (4) Acute kidney injury superimposed on CKD Current Visit: Yes Status: Acute Per cardiology: -SEAN on CKD. -Nephrology following. -Appreciate nephrology recommendations and assistance. Discussion w patient/family: The assessment and plan as outlined above was discussed with the patient who expressed understanding and agreement. All questions were answered. Thank you for involving us in the care of your patient. Please call with any questions. Discussed and reviewed with . Subjective Principal diagnosis: Cardiomyopathy Interval history: Patient denies chest pain. S/p PCI yesterday to LAD. Objective Vital Signs, Last 4 Hours Temp Pulse Resp BP Pulse Ox 01/16/18 10:09 79 01/16/18 07:18 98.2 F 77 18 172/92 98 General: Conversant, No Apparent Distress HEENT: Atraumatic, Normocephaly, Mucus Membranes Moist Neck: No JVD, Normal carotid pulses Cardiac: Reg Rate and Rhythm, Normal S1 and S2, No Murmur Lungs: Normal Breath Sounds, No Wheeze, Rales, Rhonchi Neuro: Alert and responsive, No focal deficits noted Abdomen: Soft, Non-Tender Skin: No rashes noted on visualized skin Musculoskeletal: No Chest Wall Tenderness, Other (Right groin access site without hematoma or ecchymosis. ) Extremities: No Clubbing, No Cyanosis, Normal Pulses, Other (Moderate bilateral pedal edema noted, non-pitting. ) Results 01/16/18 08:52 01/16/18 01:35 Lab Results Active Medications Acetaminophen (Tylenol) 650 mg PO Q6HR PRN PRN Reason: Mild Pain/Fever Stop: 07/05/18 16:33 Last Admin: 01/14/18 21:34 Dose: 650 mg Acetylcysteine (Acetylcysteine 20%) 600 mg PO BID [facility], [facility] Stop: 07/15/18 09:01 Last Admin: 01/16/18 09:52 Dose: 600 mg Aspirin (Aspirin Ec) 81 mg PO DAILY [facility], [facility]1983 Stop: 07/06/18 09:01 Last Admin: 01/16/18 09:51 Dose: 81 mg Atorvastatin Calcium (Lipitor) 40 mg PO HS [facility], [facility]1983 Stop: 07/05/18 21:01 Last Admin: 01/15/18 22:54 Dose: 40 mg Benzonatate (Tessalon) 100 mg PO TID PRN PRN Reason: Cough Stop: 07/07/18 00:19 Last Admin: 01/05/18 00:52 Dose: 100 mg Brimonidine Tartrate (Alphagan) 1 drop BOTH EYES BID [facility], [facility]; Protocol Stop: 07/17/18 09:46 Last Admin: 01/16/18 09:57 Dose: 1 drop Clopidogrel Bisulfate (Plavix) 75 mg PO DAILY [facility], [facility]1983 Stop: 07/18/18 09:01 Last Admin: 01/16/18 09:52 Dose: 75 mg Dextrose/Water (Dextrose 50% (Syg)) 25 ml IVP AD PRN PRN Reason: Hypoglycemia Stop: 07/05/18 16:41 Dorzolamide HCl (Trusopt) 1 drop BOTH EYES TID [facility], [facility]1983 Stop: 07/05/18 21:01 Last Admin: 01/16/18 10:00 Dose: 1 drop Enoxaparin Sodium (Lovenox) 110 mg 1 mg/kg (110 mg) SQ Q12HR [facility], [facility]; Protocol Stop: 07/18/18 18:01 Ergocalciferol (Drisdol (50,000 Unit)) 50,000 unit PO QWEEK [facility], [facility] Stop: 07/10/18 12:31 Last Admin: 01/15/18 17:54 Dose: Not Given Ferrous Sulfate (Ferrous Sulfate) 325 mg PO DAILY [facility]1983 Stop: 07/06/18 09:01 Last Admin: 01/16/18 09:51 Dose: 325 mg Gabapentin (Neurontin) 600 mg PO DAILY [facility]1983 Stop: 07/06/18 09:01 Last Admin: 01/16/18 09:51 Dose: 600 mg Glucagon (Glucagen) 1 mg IM ONCE PRN PRN Reason: Hypoglycemia Stop: 07/05/18 16:41 Glucose (Gluctose) 15 gm PO ONCE PRN PRN Reason: Hypoglycemia Stop: 07/05/18 16:41 Glucose (Gluctose) 30 gm PO ONCE PRN PRN Reason: Hypoglycemia Stop: 07/05/18 16:41 Hydralazine HCl (Hydralazine) 10 mg IVP Q6HR PRN PRN Reason: Hypertension Stop: 07/05/18 18:19 Last Admin: 01/03/18 20:34 Dose: 10 mg Sodium Chloride (0.9 % Sodium Chloride) 1,000 mls @ 50 mls/hr IVC .Q20H [facility], [facility] Stop: 07/16/18 23:31 Last Admin: 01/16/18 07:50 Dose: 50 mls/hr Insulin Detemir (Levemir) 12 unit SQ HS [facility], [facility]1983 Stop: 07/05/18 21:01 Last Admin: 01/15/18 22:53 Dose: 12 unit Insulin Human Lispro (Humalog) 0 units SQ HS [facility], [facility]; Protocol Stop: 07/05/18 21:01 Last Admin: 01/15/18 22:53 Dose: Not Given Insulin Human Lispro (Humalog) 0 units SQ TIDAC [facility], [facility]; Protocol Stop: 07/06/18 07:31 Last Admin: 01/16/18 09:49 Dose: 2 units Metoprolol Succinate (Toprol Xl) 12.5 mg PO DAILY [facility]1983 Stop: 07/06/18 13:10 Last Admin: 01/16/18 09:51 Dose: 12.5 mg Naloxone HCl (Narcan) 0.4 mg IVP Q2MIN PRN PRN Reason: SEE COMMENTS Stop: 07/05/18 16:33 Nystatin (Nystop) 1 appl TP BID [facility] Stop: 07/11/18 21:01 Last Admin: 01/16/18 09:53 Dose: 1 appl Timolol Maleate (Timolol Maleate 0.5%) 1 drop BOTH EYES BID [facility], [facility]; Protocol Stop: 07/17/18 09:46 Last Admin: 01/16/18 10:01 Dose: Not Given Laboratory Tests 01/15/18 01/16/18 01/16/18 06:18 01:35 08:52 Hgb 10.7 L Creatinine 1.56 H 1.43 H - Imaging and Cardiology Chest Xray: report reviewed Echo: report reviewed Cardiac cath: report reviewed - EKG Interpretation EKG results cardiology: other (Telemetry reviewed with average HR previous 12 hours noted to be 71, SR. PVCs and PACs noted.) Consult Discharge Plan - Plan Referrals: Renee De Los Santos, TELETRAY OPERATOR [Primary Care Provider] - 01/17/18 11:00 am Prescriptions: Aspirin Enteric Coated [Aspirin EC] 81 mg PO DAILY 30 Days #30 tablet. Clopidogrel [Plavix] 75 mg PO DAILY 30 Days #30 tablet Furosemide [Lasix] 40 mg PO BID 30 Days #60 tab Metoprolol XL (24 HR) Succ [Toprol Xl] 12.5 mg PO DAILY 30 Days #30 tab.er.24h Rivaroxaban [Xarelto] 15 mg PO DAILY 30 Days #30 tablet Rivaroxaban [Xarelto] 15 mg PO DAILY #30 tablet
[2018-01-16] MEDS ORDERED: Furosemide 40 MG TABLET PO SCH (10:30)
[2018-01-16 11:38] VITALS: BP 147/73
[2018-01-16] MEDS ORDERED: *HR* Rivaroxaban 15 MG TABLET PO SCH (17:00)
[2018-01-16] MEDS ORDERED: *HR* Enoxaparin 120 MG/0.8 ML SYRINGE SQ SCH (18:00)
== END 2018-01-16 13:14 | disposition home or self-care (01) | DRG 246 ==
LOC: EMEROOARM 12:02 → 3BNU 12:02 → SUATTDRO 16:32 → 3BNU 17:00 → 2NENU 01-11 09:14 → 2NNU 01-15 15:40
PROVIDERS: ADMIT Internal Medicine; ATTEND Student in an Organized Health Care Education/Training Program

== ENCOUNTER 2018-10-17 11:39 | Inpatient (IN) ==
[2018-10-17 12:43] LABS: Basophils % 0.6 %; Eosinophils % 1.2 %; Hematocrit 36.8 % (35.3-44.9); Hemoglobin 11.6 g/dL (11.5-15.4); Immature Granulocytes % 0.6 % (0-4); Lymphocytes # 0.9 K/mcL (0.6-4.6); Lymphocytes % 25.5 %; Mean Corpuscular HGB Conc 31.5 g/dL (31.6-35.5); Mean Corpuscular Hemoglobin 29.1 pg (28.0-33.3); Mean Corpuscular Volume 92.5 fL (83.0-100.0); Mean Platelet Volume 9.8 fL (9.4-12.4); Monocytes # 0.3 K/mcL (0.0-1.3); Monocytes % 9.1 %; Neutrophils # 2.2 K/mcL (1.6-8.9); Platelet Count 213 K/mcL (140-400); Red Blood Count 3.98 M/mcL (3.82-4.97); Red Cell Distribution Width 15.3 % (11.5-14.5); White Blood Count 3.4 K/mcL (4.3-11.1)
[2018-10-17 13:02] LABS: Calcium 9.8 mg/dL (8.6-10.3); Potassium 4.1 mEq/L (3.5-5.1)
[2018-10-17 13:22] LABS: INR 1.1; Prothrombin Time 12.6 Seconds (9.4-12.1)
[2018-10-17 13:25] LABS: Activated Partial Thrombo Time 34.4 Seconds (26.0-36.0)
--- NOTE | 2018-10-17 13:38 | Emergency Department Note ---
Disposition Clinical Impression: Leg ulcer Qualifiers: Laterality: right Non-pressure ulcer stage: unspecified non-pressure ulcer stage Qualified Code(s): L97.919 - Non-pressure chronic ulcer of unspecified part of right lower leg with unspecified severity Disposition: Admitted As Inpatient Condition: Good Time of Disposition: 15:59 Extremity Problem HPI - General Chief complaint: ED Extremity Problem,Nontraumatic Stated complaint: Right leg Ulcer needs admit for surgery Time Seen by Provider: 10/17/18 12:04 Source: family Mode of arrival: private vehicle Limitations: no limitations Nursing Notes Reviewed: Yes Vital Signs Reviewed: Yes - History of Present Illness HPI Narrative: Patient is a 67-year-old female with a past medical history of diabetes and right lower extremity wound that she has had for several weeks that is now being seen by wound care. Patient was seen by wound care today they attempted to debride her wound but she was not able to tolerate the procedure so they sent her to the emergency department for admission to undergo debridement in the OR. Patient has no concerns at this time, although she is very concerned that they are going to amputate her leg. According to son at bedside patient is not very compliant with medical appointments, and had to be tricked into coming here today. Pain Scale: 0 - Related Data Home Medications Medication Instructions Recorded Confirmed Brimonidine Tartrate/Timolol 1 drop BOTH EYES TID 01/03/18 10/17/18 [Combigan 0.2%-0.5% Eye Drops] Dorzolamide [Trusopt] 1 drop LEFT EYE TID 01/03/18 10/17/18 Ferrous Sulfate [Iron] 325 mg PO DAILY 01/03/18 10/17/18 Gabapentin [Neurontin] 600 mg PO HS 01/03/18 10/17/18 Insulin ASPART [NovoLOG] 6 - 10 units SQ TIDWM 01/03/18 10/17/18 Insulin Glargine [Lantus] 18 units SQ HS 01/03/18 10/17/18 Aspirin [Lo-Dose Aspirin EC] 81 mg PO DAILY 07/07/18 10/17/18 Clopidogrel [Plavix] 75 mg PO DAILY 07/07/18 10/17/18 Allergies Allergy/AdvReac Type Severity Reaction Status Date / Time No Known Allergies Allergy Verified 07/07/18 19:25 Review of Systems: In addition to that documented in the HPI above, the additional ROS was obtained: Constitutional: Denies fevers or chills Eyes: Denies vision changes ENMT: Denies sore throat CV: Denies chest pain Resp: Denies SOB GI: Denies vomiting or diarrhea : Denies painful urination MSK: Denies recent trauma Skin: Denies new rashes Neuro: Denies new numbness or tingling or weakness Past Medical History - Past Medical History Attestation: Yes The following information was validated with the patient. Medical history: Reports: CHF, coronary artery disease, dementia, diabetes, renal disease, other Surgical history: Reports: breast surgery, hysterectomy Psychiatric history: Reports: depression - Social History Smoking Status: Never smoker Smokeless Tobacco Status: No Alcohol use: Reports: none Drug use: Reports: none Physical Exam General: A&O x 2 - person and place, but not time. No acute distress. Well developed, well nourished. Head: atraumatic, normocephalic. ENT: No conjunctival injection, no scleral icterus. PERRLA. EOMI. Oropharynx non- erythematous. mucous membranes moist. Neuro: No focal deficits, no speech deficit, no facial droop, mentating well. BUE/BLE Str 5/5. Pulm: Lungs CTAB A/P. No wheezes, rales, ronchi. Cardio: RRR no m/r/g. Chest not tender to palpation. Abd: Soft, non-distended. Normoactive bowel sounds. Non-tender to palpation. No guarding. Non rigid. Extremities: Radial pulses 2+ edith, RLE has 5cm x 3.5cm wound on lateral aspect with yellow drainage present. Skin: warm, dry, intact. No rashes. Psych: Appropriate mood and affect. Answers questions appropriately. Cooperative with exam. - General Limitations: no limitations General appearance: in no apparent distress Course Vital Signs Temperature 97.9 F 10/17/18 11:54 Pulse Rate 85 10/17/18 11:54 Respiratory Rate 18 10/17/18 11:54 Blood Pressure 176/97 10/17/18 11:54 O2 Sat by Pulse Oximetry 98 10/17/18 11:54 Temperature 97.9 F 10/17/18 11:54 Pulse Rate 85 10/17/18 11:54 Respiratory Rate 18 10/17/18 11:54 Blood Pressure 176/97 10/17/18 11:54 O2 Sat by Pulse Oximetry 98 10/17/18 11:54 Oxygen Delivery Oxygen Delivery Room Air Extremity Problem, Nontraumati - MDM Narrative Medical decision making narrative: 67-year-old female that presents with a right lower extremity wound that presen ts from wound care for admission for that she can have her wound taken care of in the OR. We will obtain recent laboratory evaluation and preop labs to include CBC, BMP, coagulation factors, type and screen. EKG. Will admit the patient to hospitalist service. 1500 hrs. still have not heard back from the hospitalist. Paging them again. Patient was admitted to the hospitalist Dr. Choudhary who agreed to accept the patient to her service. Patient's lab work was within normal limits. EKG did not show any signs concerning for ischemia or arrhythmia. Her hemoglobin was stable. Results of the workup including any imaging and/or labwork was shared with the patient at bedside. Patient was given an opportunity to ask questions at bedside and all of their concerns were addressed. Patient verbalized understanding and agreement with plan of care. Pt remained stable while in the department. - Medical Records Medical records reviewed: Yes I reviewed the patient's medical records. - Lab Data Lab results reviewed: Yes I reviewed the patient's lab results. Result diagrams: 10/17/18 12:26 10/17/18 12:26 Lab Results 10/17/18 10/17/18 10/17/18 Range/Units 12:26 12:26 12:26 WBC 3.4 L (4.3-11.1) K/mcL RBC 3.98 (3.82-4.97) M/mcL Hgb 11.6 (11.5-15.4) g/dL Hct 36.8 (35.3-44.9) % MCV 92.5 (83.0-100.0) fL MCH 29.1 (28.0-33.3) pg MCHC 31.5 L (31.6-35.5) g/dL RDW 15.3 H (11.5-14.5) % Plt Count 213 (140-400) K/mcL MPV 9.8 (9.4-12.4) fL Immature Gran % 0.6 (0-4) % Seg Neutrophils % 63.0 % Lymphocytes % 25.5 % Monocytes % 9.1 % Eosinophils % 1.2 % Basophils % 0.6 % Neutrophils # 2.2 (1.6-8.9) K/mcL Lymphocytes # 0.9 (0.6-4.6) K/mcL Monocytes # 0.3 (0.0-1.3) K/mcL Eosinophils # 0.0 (0.0-0.6) K/mcL Basophils # 0.0 (0.0-0.2) K/mcL PT 12.6 H (9.4-12.1) Seconds INR 1.1 APTT 34.4 (26.0-36.0) Seconds Sodium 138 (136-145) mEq/L Potassium 4.1 (3.5-5.1) mEq/L Chloride 103 (98-107) mEq/L Carbon Dioxide 26 (23-29) mEq/L BUN 30 H (8-23) mg/dL Creatinine 1.68 H (0.60-1.20) mg/dL Est GFR ( Amer) 37 L (> 60) Est GFR (Non-Af Amer) 30 L (> 60) BUN/Creatinine Ratio 18 (6-26) Glucose 236 H (70-105) mg/dL Calculated Osmolality 300 (280-300) Calcium 9.8 (8.6-10.3) mg/dL Blood Type Antibody Screen 10/17/18 Range/Units 12:26 WBC (4.3-11.1) K/mcL RBC (3.82-4.97) M/mcL Hgb (11.5-15.4) g/dL Hct (35.3-44.9) % MCV (83.0-100.0) fL MCH (28.0-33.3) pg MCHC (31.6-35.5) g/dL RDW (11.5-14.5) % Plt Count (140-400) K/mcL MPV (9.4-12.4) fL Immature Gran % (0-4) % Seg Neutrophils % % Lymphocytes % % Monocytes % % Eosinophils % % Basophils % % Neutrophils # (1.6-8.9) K/mcL Lymphocytes # (0.6-4.6) K/mcL Monocytes # (0.0-1.3) K/mcL Eosinophils # (0.0-0.6) K/mcL Basophils # (0.0-0.2) K/mcL PT (9.4-12.1) Seconds INR APTT (26.0-36.0) Seconds Sodium (136-145) mEq/L Potassium (3.5-5.1) mEq/L Chloride (98-107) mEq/L Carbon Dioxide (23-29) mEq/L BUN (8-23) mg/dL Creatinine (0.60-1.20) mg/dL Est GFR ( Amer) (> 60) Est GFR (Non-Af Amer) (> 60) BUN/Creatinine Ratio (6-26) Glucose (70-105) mg/dL Calculated Osmolality (280-300) Calcium (8.6-10.3) mg/dL Blood Type O POSITIVE Antibody Screen NEGATIVE - EKG Data EKG attestation: Yes I reviewed and interpreted this EKG. EKG results narrative: HR 84, rhythm sinus, axis normal. Intervals within normal limits. No ST elevation or depression. No Previous EKG available for comparison. Attestation Statement - Attestation Attestation: This documentation is done with the assistance of Dragon dictation. Despite efforts made to ensure accuracy, there may be inaccuracies in market research assistant or spelling and typographical errors. I examined this patient and my medical decision-making was reviewed with the Resident Physician. I agree with the documented findings, disposition and treatment plan as described except to the extent set forth below. Patient was seen and evaluated by Dr. Gresham, I agree with their evaluation and management plan, I supervised care the patient's stay. Patient sent over from wound care center due to ulceration of her leg from diabetes that needs to bright it. They sent her over for admission. Patient is a very poor historian. Her leg is wrapped from wound care. We will go and get labs on her then Mr. hospitalist we will also speak with wound care to make sure the neck and his surgery today as the patient's requesting food.
--- NOTE | 2018-10-17 13:53 | Electrocardiograph Report ---
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
[2018-10-18] MEDS ORDERED: Naloxone 0.4 MG/ML INJ IVP PRN (03:22)
--- NOTE | 2018-10-18 03:36 | Internal Med History&Physical ---
Date of Encounter: 10/18/18 Time of Encounter: 02:30 Internal Medicine - H&P: HPI Chief complaint: Right Leg Wound Admitted From: Home Plans for Post Hospital Care: Home History of present illness: Ms. 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 Is currently fully alert and oriented but has history of intermittent confusion and is somewhat of a poor historian so some of history obtained from chart review as their is no family currently at bedside. Has been following with wound care outpatient and they reportedly attempted to debride her wound in clinic and she was unable to tolerate so was sent to the ER for admission for debridement in the OR. Was seen in ER 10/10/18 for wound as son reported seeing possible parasites in it. She underwent a CT without contrast at that time which showed large soft tissue defect without radiographic evidence for osteomyelitis. At that time she was discharged home on Keflex with follow up scheduled in wound care clinic. Wound has been present since atleast June 2018 according to chart review. Patient denies knowing how the wound started, states it just appeared one day. ER reported EKG as sinus rhythm with no ST elevations or depressions. Patient currently denies any complaints at this time. Denies any headache, fever, numbness, tingling, chest pain, shortness of breath, abdominal pain, bowel or bladder changes. Patient states she lives with her son who helps take care of her. Patient reports checking blood sugar regularly at home which has been averaging in the 200's. She is unable to tell me what providers she routinely follows up with. Past Med Surg Social Fam HX - Past Medical History Medical history: CHF, coronary artery disease, dementia, diabetes, hyperlipidemia, hypertension, renal disease, other Additional medical history: Blind Right eye Psychiatric history: depression - Past Surgical History Surgical History: breast surgery, hysterectomy - Social History Smoking Status: Never smoker Smokeless Tobacco Status: No Alcohol use: none Drug use: none Internal Medicine - H&P: Meds Brimonidine Tartrate/Timolol [Combigan 0.2%-0.5% Eye Drops] 1 drop BOTH EYES TID 01/03/18 [History] Dorzolamide [Trusopt] 1 drop LEFT EYE TID 01/03/18 [History] Ferrous Sulfate [Iron] 325 mg PO DAILY 01/03/18 [History] Gabapentin [Neurontin] 600 mg PO HS 01/03/18 [History] Insulin ASPART [NovoLOG] 6 - 10 units SQ TIDWM 01/03/18 [History] Insulin Glargine [Lantus] 18 units SQ HS 01/03/18 [History] Aspirin [Lo-Dose Aspirin EC] 81 mg PO DAILY 07/07/18 [History] Clopidogrel [Plavix] 75 mg PO DAILY 07/07/18 [History] Allergy/AdvReac Type Severity Reaction Status Date / Time No Known Allergies Allergy Verified 07/07/18 19:25 All Systems PM: A 10-system review of systems was performed and is negative for pertinent findings except as documented above in the HPI. - Constitutional Vitals: Temp Pulse Resp BP Pulse Ox 98.0 F 82 17 145/79 98 10/17/18 23:28 10/17/18 23:28 10/17/18 23:28 10/17/18 23:28 10/17/18 23:28 Exam: General: Alert and oriented to person place and time currently but poor historian and has history of intermittent confusion. Skin:Chronic wound noted to right lower extremity with yellow drainage. Distal PMS intact. Cardiovascular:Normal S1 & S2, no rubs, murmurs or gallops. No JVD. Pulse regular. Lungs:Normal breath sounds, no wheezes or crackles. Abdomen:Soft, non-tender, no rigidity. Extremities:No deformity, tenderness, no joint swelling, or clubbing. Non pi tting edema noted to bilateral lower extremities. Neurological:Normal cognition and motor skills. Pulses:Carotid and radial pulses normal +2. Rest of the physical exam is non contributory. Internal Med - H&P Results - Labs CBC & Chem 7: 10/17/18 12:26 10/17/18 12:26 Labs: Short CBC 10/17/18 Range/Units 12:26 WBC 3.4 L (4.3-11.1) K/mcL Hgb 11.6 (11.5-15.4) g/dL Hct 36.8 (35.3-44.9) % Plt Count 213 (140-400) K/mcL Neutrophils # 2.2 (1.6-8.9) K/mcL BMP 10/17/18 12:26 Sodium 138 Potassium 4.1 Chloride 103 Carbon Dioxide 26 BUN 30 H Creatinine 1.68 H Glucose 236 H Calcium 9.8 - Assessment and Plan (1) Leg wound, right Current Visit: Yes Status: Acute Assessment and plan: Advised by wound care clinic to come to ER for admission as unable to tolerate debridement in clinic and will have performed in OR. Was seen in ER for same 10/10/18 and discharged home on Keflex with follow up scheduled with wound care clinic. Had noncontrast CT of extremity completed during ER visit 10/10/18 that showed large soft tissue defect without radiographic evidence for osteomyelitis. Wound care consult ordered as advised by surgery. Blood and wound cultures ordered. NPO until seen by wound care team. Qualifiers: Encounter type: sequela Qualified Code(s): S81.801S - Unspecified open wound, right lower leg, sequela (2) Chronic kidney disease Current Visit: Yes Status: Chronic Assessment and plan: Kidney function appears at baseline. Avoid nephrotoxins when possible. Repeat labs ordered. Qualifiers: Chronic kidney disease stage: unspecified stage Qualified Code(s): N18.9 - Chronic kidney disease, unspecified (3) Leukopenia Current Visit: Yes Status: Chronic Assessment and plan: Chronic, appears at baseline. Repeat labs ordered. Qualifiers: Leukopenia type: unspecified Qualified Code(s): D72.819 - Decreased white blood cell count, unspecified (4) Diabetes mellitus Current Visit: Yes Status: Chronic Assessment and plan: Hold home diabetic medications. Accuchecks q6 hours. Sliding scale insulin ordered. Qualifiers: Diabetes mellitus type: type 2 Qualified Code(s): E11.9 - Type 2 diabetes mellitus without complications - Time Spent With Patient Total time spent is greater than 50% in coordination of care (as documented) at patient's floor/unit and/or counseling patient:
[2018-10-18] MEDS ORDERED: Dextrose Gel 15 GM/37.5 ML TUBE PO PRN ×2 (04:11)
[2018-10-18] MEDS ORDERED: *HR* Dextrose 50 % in Water (Syg) 50 ML SYRINGE IVP PRN (04:11)
[2018-10-18] MEDS ORDERED: D5% in Water 1,000 ML IVC PRN (04:11)
[2018-10-18 05:46] LABS: Basophils % 0.4 %; Eosinophils % 0.9 %; Hematocrit 34.1 % (35.3-44.9); Hemoglobin 10.8 g/dL (11.5-15.4); Immature Granulocytes % 0.7 % (0-4); Lymphocytes # 0.8 K/mcL (0.6-4.6); Mean Corpuscular HGB Conc 31.7 g/dL (31.6-35.5); Mean Corpuscular Volume 94.7 fL (83.0-100.0); Monocytes # 0.4 K/mcL (0.0-1.3); Monocytes % 9.6 %; Neutrophils # 3.2 K/mcL (1.6-8.9); Platelet Count 201 K/mcL (140-400); Red Cell Distribution Width 15.3 % (11.5-14.5); Segmented Neutrophils % 71.4 %; White Blood Count 4.5 K/mcL (4.3-11.1)
[2018-10-18 06:01] LABS: Calcium 9.3 mg/dL (8.6-10.3); Potassium 4.3 mEq/L (3.5-5.1)
[2018-10-18] MEDS: Insulin LISPRO 300 UNITS/3 ML VIAL SQ SCH ×4 (06:53→21:30)
--- NOTE | 2018-10-18 09:47 | Internal Med Progress Note ---
Hospitalist Progress Note - Encounter Date of Encounter: 10/18/18 Time of Encounter: 09:44 - Subjective Interval History: Patient lying comfortably in bed upon entering room. Patient is aware of. She is, who she is, and what year it is, but is somewhat confused. Patient had to repeatedly ask who I was walking in the room and had been the same for the nurse earlier that day and was unaware of how long she had been in the hospital. Patient states she does continue to have some right leg pain. Patient denies nausea, vomiting, diarrhea, abdominal pain, chest pain, shortness of breath, fever, or chills. - Exam Vitals: Temp Pulse Resp BP Pulse Ox 98.4 F 82 18 159/78 97 10/18/18 06:45 10/18/18 06:45 10/18/18 06:45 10/18/18 06:45 10/18/18 06:45 Exam: Gen: Vitals noted. No acute distress. HENT: Atraumatic, normocephalic, oral mucosa moist Cardiac: RRR, no murmur, +S1/S2 Pulmonary: CTA bilaterally, no wheezes, rales or rhonchi, equal chest expansion Abdomen: soft, normal bowel sounds. nontender Extremities: No evidence of lower extremity swelling. Full range of motion of all extremities. Skin: 5-6 cm round wound present on the right anterior lower leg with pink granulation tissue topped with moist yellow coating. Neuro: No focal deficits. Moves all extremities. Psych: Appropriate mood and behavior. - Assessment and Plan (1) Leg wound, right Current Visit: Yes Status: Acute Assessment and Plan: Advised by wound care clinic to come to ER for admission as unable to tolerate debridement in clinic and will have performed in OR. Had noncontrast CT of extremity completed during ER visit 10/10/18 that showed large soft tissue defect without radiographic evidence for osteomyelitis. ESR of 21 and CRP 14 Tibia/Fibula XR showing no findings worrisome of osteomyelitis. -Wound does not appear acutely infected without signs of systemic infection, will hold abx -Wound care consulted, will follow pt after surgical debridement -Podiatry consulted, who will plan for surgery following vascular testing -CARLTON and TCPO2 -Blood and wound cultures ordered. (2) Diabetes mellitus Current Visit: Yes Status: Chronic Assessment and Plan: Most recent Blood Glucose of 319 on low dose SSI -Will increase to Medium dose SSI and at 10 units of detemir HS -Monitor for improvement -A1C ordered (3) CKD (chronic kidney disease) stage 4, GFR 15-29 ml/min Current Visit: No Status: Chronic Assessment and Plan: Momd Teacher of 2.02 appears to be patients baseline from previous visits -Avoid nephrotoxins when possible. -Continue to monitor for acute changes. (4) Systolic CHF Current Visit: No Status: Chronic Assessment and Plan: Echo with EF of 25% in 07/14 Pt with no complaints at this time of SOB. Has some 1+ bilateral pitting edema -Will lightly diuresis to improve chances of wound healing (5) Presence of stent in coronary artery in patient with coronary artery disease Current Visit: Yes Status: Acute Assessment and Plan: Pt on plavix and aspirin therapy at home -Given heparin today will hold tomorrow DVT Prophylaxis: Heparin subQ - Summary of Assessment and Plan Summary of Assessment and Plan: 67-year-old female with past medical history significant for CHF with EF of 25%, CAD with stents, CKD stage III, and diabetes. Patient presented after being seen at the wound care clinic for a nonhealing right lower leg ulcer. Patient was supposed to have a debridement done of the area, but was unable to tolerate due to pain. Patient has been admitted for podiatry to see to determine need for surgical intervention. - Time Spent with Patient Total time spent is greater than 50% in coordination of care (as documented) at patient's floor/unit and/or counseling patient: Internal Medicine: Result - Labs CBC & Chem 7: 10/18/18 04:49 10/18/18 04:49 Labs: Short CBC 10/17/18 10/18/18 Range/Units 12:26 04:49 WBC 3.4 L 4.5 (4.3-11.1) K/mcL Hgb 11.6 10.8 L (11.5-15.4) g/dL Hct 36.8 34.1 L (35.3-44.9) % Plt Count 213 201 (140-400) K/mcL Neutrophils # 2.2 3.2 (1.6-8.9) K/mcL BMP 10/17/18 10/18/18 12:26 04:49 Sodium 138 137 Potassium 4.1 4.3 Chloride 103 101 Carbon Dioxide 26 24 BUN 30 H 35 H Creatinine 1.68 H 2.02 H Glucose 236 H 345 H Calcium 9.8 9.3 - ABG Interpretation ABG results: PT/INR, D-dimer PT 12.6 Seconds (9.4-12.1) H 10/17/18 12:26 Consult Discharge Plan - Plan Referrals: Lillian Mccann, JUNIOR AUTOMATION ENGINEER [Primary Care Provider] - (1) Leg wound, right Qualifiers: Encounter type: sequela Qualified Code(s): S81.801S - Unspecified open wound, right lower leg, sequela (2) Diabetes mellitus Qualifiers: Diabetes mellitus type: type 2 Qualified Code(s): E11.9 - Type 2 diabetes mellitus without complications (4) Systolic CHF Qualifiers: Heart failure chronicity: acute Qualified Code(s): I50.21 - Acute systolic (congestive) heart failure
[2018-10-18] MEDS: Acetaminophen 325 MG TABLET PO PRN (10:24)
[2018-10-18] MEDS ORDERED: Insulin LISPRO 300 UNITS/3 ML VIAL SQ SCH (13:31)
--- NOTE | 2018-10-18 14:11 | Podiatry Consult Note ---
Date of Encounter: 10/18/18 Time of Encounter: 14:09 Assessment and Plan (1) Ulcer of right leg Current visit: Yes Status: Chronic Assessment: Ulcer with slough noted to wound bed of right lower extremity Faint pulses Malodorous Pain with palpation CFT < 3 seconds WBC 4.5, ESR 21, CRP 14, afebrile Wound culture pending, blood culture pending Plan: XR ordered of RLE CARLTON and TCPO2 ordered A1C ordered Local wound care ordered, nursing to change No plan for surgery today, diabetic diet ordered Will plan for surgical debridement once vascular testing completed, if abnormal vascular studies may consider vascular surgery consultation Discussed with surgeon, will plan for OR Sunday evening NPO after MN on Sunday Qualifiers: Non-pressure ulcer stage: with fat layer exposed Qualified Code(s): L97.912 - Non-pressure chronic ulcer of unspecified part of right lower leg with fat layer exposed History of Present Illness HPI: Ms. Luis is a 67 year old female who presented to the ER last evening from wound care center. Patient is known to the podiatry group and follows with Dr. Tomas in wound care center. PMH of CAD with stents, CHF, HTN, HLD, DM II, and blind in right eye. Briefly, patient has been following in wound care center for chronic right lower extremity ulceration. Patient is unable to tolerate debridement. Patient previously had maggots in right lower extremity wound. Patient has foul odor coming from wound. Patient was consulted to podiatry group for surgical debridement of right lower extremity ulceration. Patient re ports she is confused although patient is able to say her name and birthday, where she is, and the year. She reports she cannot give a good history regarding right lower extremity ulceration stating that she is confused and there are too many doctors and nurses that she sees and she cannot keep quoc rything straight. Patient states her son knows her information, although son is not bedside. Patient denies any fevers, chills, nausea, vomiting, or diarrhea. Denies any chest pain, calf pain, or shortness of breath. Reports pain to right lower extremity wound upon palpation of wound. Discussed with patient need for surgical intervention, patient agreeable. Instructed patient will notify her of time and plan for surgery. No other questions or concerns at this time. Past Med Surg Social Fam HX - Past Medical History Medical history: CHF, coronary artery disease, dementia, diabetes, hyperlipidemia, hypertension, renal disease, other Additional medical history: Blind Right eye Psychiatric history: depression - Past Surgical History Surgical History: breast surgery, hysterectomy - Social History Smoking Status: Never smoker Smokeless Tobacco Status: No Alcohol use: none Drug use: none Medications and Allergies Brimonidine Tartrate/Timolol [Combigan 0.2%-0.5% Eye Drops] 1 drop BOTH EYES TID 01/03/18 [History] Dorzolamide [Trusopt] 1 drop LEFT EYE TID 01/03/18 [History] Ferrous Sulfate [Iron] 325 mg PO DAILY 01/03/18 [History] Gabapentin [Neurontin] 600 mg PO HS 01/03/18 [History] Insulin ASPART [NovoLOG] 6 - 10 units SQ TIDWM 01/03/18 [History] Insulin Glargine [Lantus] 18 units SQ HS 01/03/18 [History] Aspirin [Lo-Dose Aspirin EC] 81 mg PO DAILY 07/07/18 [History] Clopidogrel [Plavix] 75 mg PO DAILY 07/07/18 [History] Allergy/AdvReac Type Severity Reaction Status Date / Time No Known Allergies Allergy Verified 07/07/18 19:25 ROS unobtainable: due to mental status All Systems Reviewed: The remainder of the systems were reviewed and are negative - Constitutional Constitutional: no fever(s) - Cardiovascular Cardiovascular: leg edema, leg ulcers, pedal edema, no chest pain - Respiratory Respiratory: no dyspnea - Musculoskeletal Musculoskeletal: no numbness Physical Exam - Constitutional Vitals: Temp Pulse Resp BP Pulse Ox 97.6 F 80 18 162/90 99 10/18/18 11:28 10/18/18 11:28 10/18/18 11:28 10/18/18 11:28 10/18/18 11:28 Exam: Constitiutional: Alert and oriented x 3. Well nourished. No acute distress noted Vascular: Faint DP/PT bilaterally, CFT <3 sec to all digits, warm to warm from tibia to toes bilaterally, no calf pain with squeeze BLE, 2/4 edema BLE Neurologic: Sensation to touch, normal plantar response, Normal position sense dorsiflexion/plantar flexion Dermatologic: Ulceration noted to right lower extremity with slough noted to wound bed, malodorous, no erythema noted to periwound, 2/4 edema noted BLE, no lymphangitis noted Musculoskeletal: 3/5 muscle strength and normal tone bilaterally. Results - Labs Result Diagrams: 10/18/18 04:49 10/18/18 04:49 Labs: Abnormal lab results WBC 3.4 K/mcL (4.3-11.1) L 10/17/18 12:26 RBC 3.60 M/mcL (3.82-4.97) L 10/18/18 04:49 Hgb 10.8 g/dL (11.5-15.4) L 10/18/18 04:49 Hct 34.1 % (35.3-44.9) L 10/18/18 04:49 MCHC 31.5 g/dL (31.6-35.5) L 10/17/18 12:26 RDW 15.3 % (11.5-14.5) H 10/18/18 04:49 ESR 21 mm/hr (0-15) H 10/18/18 09:47 PT 12.6 Seconds (9.4-12.1) H 10/17/18 12:26 BUN 35 mg/dL (8-23) H 10/18/18 04:49 Creatinine 2.02 mg/dL (0.60-1.20) H 10/18/18 04:49 Est GFR ( Amer) 30 (> 60) L 10/18/18 04:49 Est GFR (Non-Af Amer) 24 (> 60) L 10/18/18 04:49 Glucose 345 mg/dL (70-105) H 10/18/18 04:49 POC Glucose 319 mg/dL (70-99) H 10/18/18 05:50 Calculated Osmolality 306 (280-300) H 10/18/18 04:49 C-Reactive Protein 14 mg/L (Less than 10) H 10/18/18 09:47 H & H 10/18/18 Range/Units 04:49 Hgb 10.8 L (11.5-15.4) g/dL Hct 34.1 L (35.3-44.9) % All other labs normal. Consult Discharge Plan - Plan Referrals: Lillian Mccann, PRODUCTION QUALITY ANALYST [Primary Care Provider] -
[2018-10-18] MEDS ORDERED: *HR* Heparin 5,000 UNIT/ML VIAL SQ ONE (14:54)
[2018-10-18] MEDS: Dorzolamide OPTH 10 ML BOTTLE LEFT EYE SCH ×2 (15:52→21:32)
[2018-10-18] MEDS: Gentamicin Oint 15 GM TUBE TP SCH ×2 (15:55→23:13)
[2018-10-18] MEDS: Furosemide 40 MG/4 ML VIAL IVP SCH (17:03)
[2018-10-18] MEDS ORDERED: Insulin DETEMIR 100 UNIT/ML X5UNITS SQ SCH (21:00)
[2018-10-18] MEDS: Gabapentin 300 MG CAPSULE PO SCH (21:28)
[2018-10-18] MEDS: *HR* Heparin 5,000 UNIT/ML VIAL SQ SCH (21:29)
[2018-10-18] MEDS: COMBIGAN OP SCH (21:31)
[2018-10-18] MEDS: OPTH OP SCH (21:31)
[2018-10-19] MEDS: *HR* Heparin 5,000 UNIT/ML VIAL SQ SCH ×3 (05:02→21:10)
[2018-10-19] MEDS: Furosemide 40 MG/4 ML VIAL IVP SCH (08:49)
[2018-10-19] MEDS: Aspirin Enteric Coated 81 MG Tablet PO SCH (08:49)
[2018-10-19] MEDS: Insulin LISPRO 300 UNITS/3 ML VIAL SQ SCH ×4 (08:49→21:59)
[2018-10-19] MEDS: Metoprolol XL (24 HR) Succ 25 MG TAB.ER.24H PO SCH (08:50)
[2018-10-19] MEDS: OPTH OP SCH ×3 (08:52→21:57)
[2018-10-19] MEDS: Dorzolamide OPTH 10 ML BOTTLE LEFT EYE SCH ×3 (08:52→21:56)
[2018-10-19] MEDS: COMBIGAN OP SCH ×3 (08:52→21:57)
[2018-10-19] MEDS ORDERED: Piperacillin/Tazobactam 3.375 GM in 0.9 % Sodium Chloride Mini Bag 100 ML IVPB SCH (09:14)
[2018-10-19 09:39] LABS: Calcium 9.1 mg/dL (8.6-10.3); Potassium 4.1 mEq/L (3.5-5.1)
[2018-10-19] MEDS: Gentamicin Oint 15 GM TUBE TP SCH ×2 (11:38→21:55)
--- NOTE | 2018-10-19 12:03 | Internal Med Progress Note ---
Hospitalist Progress Note - Encounter Date of Encounter: 10/19/18 Time of Encounter: 11:59 - Subjective Interval History: Ms. Luis was seen at bedside chair this morning. Remained afebrile and normotensive overnight. She was sitting up comfortably and eating her breakfast. Not reporting any complaints this morning. Denied fever, chills, nausea, kirsten sis. - Exam Vitals: Temp Pulse Resp BP Pulse Ox 97.3 F L 66 16 146/84 100 10/19/18 11:17 10/19/18 11:17 10/19/18 11:17 10/19/18 11:17 10/19/18 11:17 Exam: Gen: Vitals noted. No acute distress. Appears comfortable. Eyes: anicteric sclerae, moist conjunctivae; no lid-lag HENT: Atraumatic; oropharynx clear with moist mucous membranes Neck: Trachea midline; supple, no thyromegaly or lymphadenopathy Cardiac: RRR, no murmur, +S1/S2. No JVD noted. Pulmonary: CTA bilaterally, no wheezes, rales or rhonchi, equal chest expansion Abdomen: soft, nontender, no guarding. No masses or hepatosplenomegaly MSK: ROM intact, no joint swelling noted Extremities: trace edema, nontender calf Skin: 6 cm open wound on right anterolateral aspect of lower leg with pink granulation tissue Neuro: moves all extremities, no focal deficits. Psych: Appropriate mood and behavior. Alert and oriented to person and place. Affect normal. - Assessment and Plan (1) Leg wound, right Current Visit: Yes Status: Acute Assessment and Plan: Advised by wound care clinic on 10/17/18 to come to ER for admission as unable to tolerate debridement in clinic and will have performed in OR. Had noncontrast CT of extremity completed during ER visit 10/10/18 that showed large soft tissue defect without radiographic evidence for osteomyelitis. ESR of 21 and CRP 14 Tibia/Fibula XR shows soft tissue ulcer and right lateral mid calf, osteomyelitis is not seen -Wound does not appear acutely infected without signs of systemic infection, will hold abx -Wound care consulted, will follow pt after surgical debridement -Plan for surgery on Sunday by podiatry -CARLTON right dorsalis pedis 0.62 and posterior tibial 0.59. Left dorsalis pedis is 0.89 and posterior tibial 0.82 -TCPO2 pending -Blood cultures pending -Wound cultures shows gram-negative rods, speciation pending. -Continue dressing change (2) Diabetes mellitus Current Visit: Yes Status: Chronic Assessment and Plan: Most recent Blood Glucose of 207 On insulin at home -Medium dose SSI and 15 units of detemir HS -Diabetic diet -Continue [id number] glucose monitoring (3) CKD (chronic kidney disease) Current Visit: Yes Status: Chronic Assessment and Plan: Public Health Advisor of 1.84 from 2.02, appears to be patient's baseline -Avoid nephrotoxins when possible. -Continue to monitor for acute changes. (4) Systolic CHF Current Visit: No Status: Chronic Assessment and Plan: Not in acute exacerbation. Echo with EF of 25% in 07/14 Pt with no complaints at this time of SOB. Has some 1+ bilateral pitting edema -We will continue 20 mg IV Lasix -Fluid restriction of 2 L (5) CAD (coronary artery disease) Current Visit: Yes Status: Chronic Assessment and Plan: Most recent stent on 01/15/18 -Continue dual antiplatelet therapy -Continue home metoprolol -We will add 40 mg atorvastatin DVT Prophylaxis: Heparin subQ - Time Spent with Patient Total time spent is greater than 50% in coordination of care (as documented) at patient's floor/unit and/or counseling patient: Internal Medicine: Result - Labs CBC & Chem 7: 10/18/18 04:49 10/19/18 08:05 Labs: BMP 10/19/18 08:05 Sodium 139 Potassium 4.1 Chloride 105 Carbon Dioxide 27 BUN 32 H Creatinine 1.84 H Glucose 216 H Calcium 9.1 - ABG Interpretation ABG results: PT/INR, D-dimer PT 12.6 Seconds (9.4-12.1) H 10/17/18 12:26 - Impressions Impressions Tibia/Fibula X-Ray 10/18/18 14:16 IMPRESSION: Large soft tissue ulcer laterally in the mid calf. No radiopaque foreign body or finding worrisome for osteomyelitis. D/ / Juan Osuna MD / Juan Osuna MD Interpreting Provider: Juan Osuna MD Consult Discharge Plan - Plan Referrals: Lillian Mccann CLOTH STOCK SORTER [Primary Care Provider] - (1) Leg wound, right Qualifiers: Encounter type: sequela Qualified Code(s): S81.801S - Unspecified open wound, right lower leg, sequela (2) Diabetes mellitus Qualifiers: Diabetes mellitus type: type 2 Diabetes mellitus buttermaker helper insulin use: with buttermaker helper use Diabetes mellitus complication status: with kidney complications Diabetes mellitus complication detail: with chronic kidney disease Chronic kidney disease stage: stage 3 (moderate) Qualified Code(s): E11.22 - Type 2 diabetes mellitus with diabetic chronic kidney disease; N18.3 - Chronic kidney disease, stage 3 (moderate); Z79.4 - keno terminal operator (current) use of insulin (3) CKD (chronic kidney disease) Qualifiers: Chronic kidney disease stage: stage 3 (moderate) Qualified Code(s): N18.3 - Chronic kidney disease, stage 3 (moderate) (4) Systolic CHF Qualifiers: Heart failure chronicity: acute Qualified Code(s): I50.21 - Acute systolic (congestive) heart failure (5) CAD (coronary artery disease) Qualifiers: Coronary Disease-Associated Artery/Lesion type: [place] artery [place] vs. transplanted heart: [place] heart Associated angina: without angina Qualified Code(s): I25.10 - Atherosclerotic heart disease of [place] coronary artery without angina pectoris
[2018-10-19] MEDS: Gabapentin 300 MG CAPSULE PO SCH (21:49)
[2018-10-19] MEDS: Insulin DETEMIR 100 UNIT/ML X5UNITS SQ SCH (21:55)
[2018-10-20] MEDS: *HR* Heparin 5,000 UNIT/ML VIAL SQ SCH ×3 (06:28→21:24)
[2018-10-20] MEDS: Aspirin Enteric Coated 81 MG Tablet PO SCH (08:43)
[2018-10-20] MEDS: Metoprolol XL (24 HR) Succ 25 MG TAB.ER.24H PO SCH (08:43)
[2018-10-20] MEDS: Furosemide 40 MG/4 ML VIAL IVP SCH (08:43)
[2018-10-20] MEDS: COMBIGAN OP SCH ×3 (08:44→21:24)
[2018-10-20] MEDS: OPTH OP SCH ×3 (08:44→21:24)
[2018-10-20] MEDS: Dorzolamide OPTH 10 ML BOTTLE LEFT EYE SCH ×3 (08:44→21:24)
[2018-10-20] MEDS: Insulin LISPRO 300 UNITS/3 ML VIAL SQ SCH ×4 (08:44→21:23)
[2018-10-20] MEDS: Gentamicin Oint 15 GM TUBE TP SCH ×2 (11:45→21:23)
--- NOTE | 2018-10-20 13:15 | Internal Med Progress Note ---
Hospitalist Progress Note - Encounter Date of Encounter: 10/20/18 Time of Encounter: 12:53 - Subjective Interval History: Mr. Luis was seen at bedside this morning. She was sitting in bed comfortably and eating her food. Her dementia appears baseline due to her questioning, could not recall who I was. She denied any fever, chills, shortness of breath or chest pain. - Exam Vitals: Temp Pulse Resp BP Pulse Ox 97.4 F L 69 15 137/71 99 10/20/18 11:58 10/20/18 11:58 10/20/18 11:58 10/20/18 11:58 10/20/18 11:58 Exam: Gen: Vitals noted. No acute distress. Appears comfortable. Eyes: anicteric sclerae, moist conjunctivae; no lid-lag HENT: Atraumatic; oropharynx clear with moist mucous membranes Cardiac: RRR, no murmur, +S1/S2. No JVD noted. Pulmonary: CTA bilaterally, no wheezes, rales or rhonchi, equal chest expansion Abdomen: soft, nontender, no guarding. No masses or hepatosplenomegaly Extremities: trace edema, nontender calf, range of motion intact Skin: 6 cm open wound on right anterolateral aspect of lower leg with pink gran ulation tissue, some erythema spreading along side the leg wound, no fluctuance or tenderness Neuro: moves all extremities, no focal deficits. Psych: Appropriate mood and behavior. Alert and oriented to person and place. Affect normal. - Assessment and Plan (1) Leg wound, right Current Visit: Yes Status: Acute Assessment and Plan: Advised by wound care clinic on 10/17/18 to come to ER for admission as unable to tolerate debridement in clinic and will have performed in OR. Had noncontrast CT of extremity completed during ER visit 10/10/18 that showed large soft tissue defect without radiographic evidence for osteomyelitis. ESR of 21 and CRP 14 Tibia/Fibula XR 10/18/18 shows soft tissue ulcer and right lateral mid calf, osteomyelitis is not seen -Wound does not appear acutely infected without signs of systemic infection, will hold abx -Wound care consulted, will follow pt after surgical debridement -Plan for surgery on Sunday by podiatry -CARLTON right dorsalis pedis 0.62 and posterior tibial 0.59. Left dorsalis pedis is 0.89 and posterior tibial 0.82 -TCPO2 of bilateral legs suggests oxygen level sufficient for healing -Blood cultures pending -Wound cultures shows three types of gram-negative rods, speciation pending. -Continue dressing change -Nothing by mouth after midnight (2) Diabetes mellitus Current Visit: Yes Status: Chronic Assessment and Plan: Most recent Blood Glucose of 133 On insulin at home -Medium dose SSI and 15 units of detemir HS -Diabetic diet -Continue dyaua-af-ypxa glucose monitoring (3) CKD (chronic kidney disease) Current Visit: Yes Status: Chronic Assessment and Plan: Creatinine has remained baseline since admission -Continues to produce urine -BMP in the morning (4) Systolic CHF Current Visit: No Status: Chronic Assessment and Plan: Not in acute exacerbation. Echo with EF of 25% in 07/14 Patient with no complaints at this time of SOB. Has some trace pitting edema bilateral extremities -We will continue 20 mg IV Lasix -Fluid restriction of 2 L (5) CAD (coronary artery disease) Current Visit: Yes Status: Chronic Assessment and Plan: Most recent stent on 01/15/18 -Continue dual antiplatelet therapy -Continue home metoprolol -Continue 40 mg atorvastatin DVT Prophylaxis: Heparin subQ - Time Spent with Patient Total time spent is greater than 50% in coordination of care (as documented) at patient's floor/unit and/or counseling patient: Internal Medicine: Result - Labs CBC & Chem 7: 10/18/18 04:49 10/19/18 08:05 - ABG Interpretation ABG results: PT/INR, D-dimer PT 12.6 Seconds (9.4-12.1) H 10/17/18 12:26 Consult Discharge Plan - Plan Referrals: Lillian Mccann, COWLMAN [Primary Care Provider] - (1) Leg wound, right Qualifiers: Encounter type: sequela Qualified Code(s): S81.801S - Unspecified open wound, right lower leg, sequela (2) Diabetes mellitus Qualifiers: Diabetes mellitus type: type 2 Diabetes mellitus terminal make up operator insulin use: with retirement use Diabetes mellitus complication status: with kidney complications Diabetes mellitus complication detail: with chronic kidney disease Chronic kidney disease stage: stage 3 (moderate) Qualified Code(s): E11.22 - Type 2 diabetes mellitus with diabetic chronic kidney disease; N18.3 - Chronic kidney disease, stage 3 (moderate); Z79.4 - termite helper (current) use of insulin (3) CKD (chronic kidney disease) Qualifiers: Chronic kidney disease stage: stage 3 (moderate) Qualified Code(s): N18.3 - Chronic kidney disease, stage 3 (moderate) (4) Systolic CHF Qualifiers: Heart failure chronicity: acute Qualified Code(s): I50.21 - Acute systolic (congestive) heart failure (5) CAD (coronary artery disease) Qualifiers: Coronary Disease-Associated Artery/Lesion type: [place] artery [place] vs. transplanted heart: [place] heart Associated angina: without angina Qualified Code(s): I25.10 - Atherosclerotic heart disease of [place] coronary artery without angina pectoris
[2018-10-20] MEDS: Insulin DETEMIR 100 UNIT/ML X5UNITS SQ SCH (21:21)
[2018-10-20] MEDS: Gabapentin 300 MG CAPSULE PO SCH (21:21)
[2018-10-21] MEDS: *HR* Heparin 5,000 UNIT/ML VIAL SQ SCH ×3 (05:37→21:55)
[2018-10-21 08:33] LABS: Hematocrit 36.5 % (35.3-44.9); Hemoglobin 11.1 g/dL (11.5-15.4); Mean Corpuscular HGB Conc 30.4 g/dL (31.6-35.5); Mean Corpuscular Hemoglobin 28.6 pg (28.0-33.3); Mean Corpuscular Volume 94.1 fL (83.0-100.0); Mean Platelet Volume 10.4 fL (9.4-12.4); Platelet Count 207 K/mcL (140-400); Red Blood Count 3.88 M/mcL (3.82-4.97); Red Cell Distribution Width 15.4 % (11.5-14.5); White Blood Count 3.3 K/mcL (4.3-11.1)
[2018-10-21] MEDS: Insulin LISPRO 300 UNITS/3 ML VIAL SQ SCH ×4 (08:36→21:58)
[2018-10-21] MEDS: Furosemide 40 MG/4 ML VIAL IVP SCH (08:48)
[2018-10-21] MEDS: Metoprolol XL (24 HR) Succ 25 MG TAB.ER.24H PO SCH (08:48)
[2018-10-21] MEDS: Aspirin Enteric Coated 81 MG Tablet PO SCH (08:48)
[2018-10-21] MEDS: Dorzolamide OPTH 10 ML BOTTLE LEFT EYE SCH ×3 (08:49→21:46)
[2018-10-21] MEDS: OPTH OP SCH ×3 (08:50→21:56)
[2018-10-21] MEDS: COMBIGAN OP SCH ×3 (08:50→21:56)
[2018-10-21 08:52] LABS: Calcium 9.5 mg/dL (8.6-10.3); Magnesium 2.2 mg/dL (1.6-2.6); Potassium 4.5 mEq/L (3.5-5.1)
[2018-10-21] MEDS: Gentamicin Oint 15 GM TUBE TP SCH (11:18)
--- NOTE | 2018-10-21 12:56 | Internal Med Progress Note ---
Hospitalist Progress Note - Encounter Date of Encounter: 10/21/18 Time of Encounter: 12:54 - Subjective Interval History: Pt w poor short term memory; I have same conversation with her each day. She denies acute needs or problems, and always asks if she's going to lose her leg. Agreeable to surgery. No fevers, and wound is not having significant discharge or pain. No CP, SOB, or N/V/D. - Exam Vitals: Temp Pulse Resp BP Pulse Ox 98.0 F 64 14 159/81 99 10/21/18 11:10 10/21/18 11:10 10/21/18 11:10 10/21/18 11:10 10/21/18 11:10 Exam: General: NAD, good eye contact, well appearing Thoracic: Normal breath sounds b/l, no wheezing or crackles Cardio: Normal S1 and S2, regular rate and rhythm, no murmurs Abdomen: Soft, nontender, nondistended. Extremities: Warm, well perfused. DP pulses 1+ b/l. Mild edema bilaterally. Skin: No rashes or bruises. Several-cm open wound R anterolateral distal leg with granulation tissue, scant discharge Neuro: Awake, oriented to person and place. Speech fluent - Summary of Assessment and Plan Summary of Assessment and Plan: Samantha Luis is a 67 F w hx dementia, HFrEF 25%, CAD s/p stents, CKD3b, IDDM2, who presented from wound care clinic for a nonhealing right distal leg ulcer who was unable to tolerate outpatient debridement and thus admitted for inpatient surgical management. R leg wound: does not appear actively infected, although does have faint odor and is more tender on distal edge - Podiatry consult, planning for debridement but pending VascSurg eval first PAD: diminished CARLTON RLE - VascSurg consulted, tentative plan for angiogram/plasty this evening if can get consent HFrEF 25%: trace edema, continue lasix 20 iv daily DM2: insulin dependent, controlled, continue basal + SSI CKD4: noted, dose adjust meds as needed CAD: continue home statin, DAPT, metoprolol PPx: sqh Activity: ambulate FEN: ADA, no MIVF Lines: PIV Consults: Podiatry, VascSurg Code: Full Dispo: patient requires inpatient eval and management at this time. Anticipate 2-3 days. Will be homegoing Internal Medicine: Result - Labs CBC & Chem 7: 10/21/18 07:57 10/21/18 07:57 Labs: Short CBC 10/21/18 Range/Units 07:57 WBC 3.3 L (4.3-11.1) K/mcL Hgb 11.1 L (11.5-15.4) g/dL Hct 36.5 (35.3-44.9) % Plt Count 207 (140-400) K/mcL BMP 10/21/18 07:57 Sodium 138 Potassium 4.5 Chloride 103 Carbon Dioxide 28 BUN 45 H Creatinine 2.08 H Glucose 173 H Calcium 9.5 - ABG Interpretation ABG results: PT/INR, D-dimer PT 12.6 Seconds (9.4-12.1) H 10/17/18 12:26 Consult Discharge Plan - Plan Referrals: Lillian Mccann, CYBER SPECIAL AGENT [Primary Care Provider] -
[2018-10-21] MEDS ORDERED: Isovue-300 200 mL Infus..BTL ONE (13:15)
[2018-10-21] MEDS ORDERED: 0.9 % Sodium Chloride 2,000 ML ONE (13:15)
[2018-10-21] MEDS ORDERED: *HR* Heparin 10,000 UNIT/10 ML VIAL ONE (13:15)
[2018-10-21] MEDS ORDERED: Heparin 1,000 UNITS/500 mL 500 ML ONE (13:15)
--- NOTE | 2018-10-21 13:33 | Vascular/Endovasc Consult Note ---
Date of Encounter: 10/21/18 Time of Encounter: 12:00 Assessment and Plan (1) PAD (peripheral artery disease) Current Visit: Yes Status: Chronic Patient has known bilateral lower extremity PAD as documented by previous noninvasive testing in December 2017. Patient now has at least a 3 month history of nonhealing right leg wound. I reviewed with the patient and also with the patient's son via telephone the issues present and how the occlusive disease is contributing to her wound stasis. After answering all questions agreed to proceed. The son provided me with telephonic consent to proceed with the angiogram and possible endovascular intervention for the right lower extremity for today. (2) Leg ulcer Current Visit: Yes Status: Chronic Patient has right leg wound for approximately 3-4 months that is nonhealing. Qualifiers: Laterality: right Non-pressure ulcer stage: unspecified non-pressure ulcer stage Qualified Code(s): L97.919 - Non-pressure chronic ulcer of unspecified part of right lower leg with unspecified severity (3) Diabetes mellitus Current Visit: Yes Status: Chronic Qualifiers: Diabetes mellitus type: type 2 Diabetes mellitus long goods drier insulin use: with long goods drier use Diabetes mellitus complication status: with kidney complications Diabetes mellitus complication detail: with chronic kidney dis ease Chronic kidney disease stage: stage 3 (moderate) Qualified Code(s): E11.22 - Type 2 diabetes mellitus with diabetic chronic kidney disease; N18.3 - Chronic kidney disease, stage 3 (moderate); Z79.4 - snf (current) use of insulin - History of Present Illness Consult date: 10/21/18 Consult reason: Nonhealing right leg wound/PAD Chief complaint: Right leg wound History of present illness: Ms. Luis is a 67 year old female Who was admitted over the weekend for wound management. This patient has had a nonhealing ulcer on the right calf for at least 3 months. The patient has been followed in wound clinic. An attempt was to be made to debride the wound but this was found to be too uncomfortable for the patient. This then led to the patient being admitted for further treatment. She was initially scheduled for de bridement today but then concerns were raised about her vascular status in the vascular surgery is asked to see the patient. The patient does very little walking at home. We could not obtain a history of claudication from her. She does not describe ischemic rest pain or nocturnal rest pain. She also is suffering from dementia which has been slowly progressive over the past 2-3 years. I then called her son to discuss her medical history who confirms that she does very little walking and that the wound indeed has been present for a number of months. Noninvasive testing was performed over the weekend which shows an ankle-brachial index of 0.62 on the right and 0.89 on the left. In December 2017 she had a study done as well which demonstrated similar values. Past Med Surg Social Fam HX - Past Medical History Medical history: CHF, coronary artery disease, dementia, diabetes, hyperlipidemia, hypertension, renal disease, other Additional medical history: Blind Right eye Psychiatric history: depression - Past Surgical History Surgical History: breast surgery, hysterectomy - Social History Smoking Status: Never smoker Smokeless Tobacco Status: No Alcohol use: none Drug use: none Medications and Allergies Brimonidine Tartrate/Timolol [Combigan 0.2%-0.5% Eye Drops] 1 drop BOTH EYES TID 01/03/18 [History] Dorzolamide [Trusopt] 1 drop LEFT EYE TID 01/03/18 [History] Ferrous Sulfate [Iron] 325 mg PO DAILY 01/03/18 [History] Gabapentin [Neurontin] 600 mg PO HS 01/03/18 [History] Insulin ASPART [NovoLOG] 6 - 10 units SQ TIDWM 01/03/18 [History] Insulin Glargine [Lantus] 18 units SQ HS 01/03/18 [History] Aspirin [Lo-Dose Aspirin EC] 81 mg PO DAILY 07/07/18 [History] Clopidogrel [Plavix] 75 mg PO DAILY 07/07/18 [History] Furosemide [Lasix] 40 mg PO DAILY 10/18/18 [History] Metoprolol Succinate [Toprol Xl] 12.5 mg PO DAILY 10/18/18 [History] Allergy/AdvReac Type Severity Reaction Status Date / Time No Known Allergies Allergy Verified 10/18/18 17:02 All Systems Review: The remainder of the systems were reviewed and are negative Exam Vital Signs, Last 4 Hours Temp Pulse Resp BP Pulse Ox 10/21/18 11:10 98.0 F 64 14 159/81 99 General: Present: Conversant, No Apparent Distress, Well developed, Well nourished HEENT: Present: Atraumatic, Normocephaly, Trachea midline Neck: Absent: JVD, Left Carotid bruit, Right Carotid bruit, Midline deformity, Tracheal deviation Cardiac: Present: Reg Rate and Rhythm, Normal S1 and S2, No Murmur Lungs: Present: Normal Breath Sounds, No Wheeze, Rales, Rhonchi Neuro: Present: Alert and responsive, No focal deficits noted, Cranial nerves grossly intact, Other (Self admitted memory deficits and confusion) Abdomen: Present: Soft, Non-tender, Other (No abdominal bruits). Absent: Masses Vascular: Present: Pulse, absent Skin: Present: Wound/ulcer(s) (The patient has a circular ulcer on the mid anterior aspect of the right calf. This measures approximately 4.5 x 4.5 cm. Granulation tissue is present in the base. There is increased his coloration and indentation of the skin surrounding this area.) Consult Discharge Plan - Plan Referrals: Lillian Mccann, MONTSE [Primary Care Provider] -
--- NOTE | 2018-10-21 14:10 | Pre-Sedation Evaluation ---
Pre-sedation evaluation - Pre-sedation checklist Procedure: [facility] PCI Recent Vitals: Last Vital Signs Temp 98.0 F 10/21/18 11:10 Pulse 64 10/21/18 11:10 Resp 14 10/21/18 11:10 BP 159/81 10/21/18 11:10 Pulse Ox 99 10/21/18 11:10 H&P (including ROS) documented in medical record: Yes Previous reaction to sedatives/anesthetics: No Dietary Status: NPO 6 hours prior to procedure Dentition: No loose teeth or bridges ASA Classification *see protocol: CLASS III-Severe systemic disease Plan of Care: Pt appropriate candidate for procedure/moderate/conscious sedation, Risks/benefits of procedure/sedation discussed w/ patient/family
[2018-10-21] MEDS ORDERED: *HR* FentaNYL (PF) 100 MCG/2 ML VIAL ONE ×2 (14:17→18:11)
[2018-10-21] MEDS ORDERED: *HR* Midazolam HCl 2 MG/2 ML VIAL ONE (14:17)
[2018-10-21] MEDS ORDERED: Vancomycin 1,000 MG, 0.9 % Sodium Chloride 1,000 ML IR ONE (16:00)
--- NOTE | 2018-10-21 16:35 | Procedure Note ---
Date of procedure: 10/21/18 Pre-op diagnosis: PAD/nonhealing right lower extremity ulcer Procedure: Abdominal aortogram Aortogram with bilateral lower extremity runoff Proximal right superficial femoral artery balloon angioplasty with a 5 x 20 mm standard balloon Distal right superficial femoral artery occlusion treated with 3 x 100 mm standard balloon and 5 x 150 mm drug-coated balloon Proximal right posterior tibial artery balloon angioplasty with 2 x 40 mm standard balloon Anesthesia: MAC Surgeon: Deepak Fagan Was there an electrician's assistant present: No Estimated blood loss (cc): 0 Specimen: 0 Condition: stable Disposition: floor
[2018-10-21] MEDS ORDERED: Ondansetron 4 MG/2 ML VIAL IVP PRN (16:36)
--- NOTE | 2018-10-21 16:55 | Invasive Diagnostic Lab Proc ---
Name: Samantha Luis Date of Study: 10/21/2018 Date: 1950 Ht: 173.0 in Medical Record#: [id number] Age: 67 Wt: 88 lb Gender: Female BSA: 2.02 Order #: [id number] BMI: 29.4 Physicians Performing MD: Deepak Fagan MD, FACS Referring MD: Referring MD: Staff Name Position Time In ShemarJesus RN Monitor [place] HealthYogi RN Lacquer Sprayer Sites, Eryn RT (R) Scrub xdcvcx xcvx Indications Non-healing Ulcer Procedures Performed FEM/POPL REVAS W/TLA AORTOGRAPHY, ABDOMINAL S&I AORTOGRAPHY EXT Bilat S&I TIB/PER REVASC W/TLA Add'l Complete exam Pre-Procedure Checklist Informed consent is complete signed and on chart. H&P is on chart. ID band is on and ID verified with patient. Patient NPO for procedure The procedure was described for the patient and questions were answered. Blood Pressure: 159/81 ECG is on chart. Rhythm: NSR Plan of Care Patient will tolerate the procedure without complications. Adequate level of comfort will be maintained. Hemodynamics will remain stable Patient will recover from procedure without complications. Respiratory function will be maintained. Cardiac rhythm will remain stable. Patient temperature will be maintained. Patient and/or family have verbalized understanding of the procedure. Patient Education Intravenous Access Time IV Size Location DC'd Fluid/Drip Rate Units RN Started with 20g 1 1/4" Lt Antecubital 0.9NaCl 20 ml/hr Allergies No Known Allergies Vital Signs Time BP Systolic BP Diastolic HR O2 Sats ASA 159 81 64 99 01:57 PM 01:57 PM 02:12 PM 02:27 PM 02:42 PM 02:57 PM 03:12 PM 03:27 PM 03:43 PM 03:58 PM 04:13 PM 02:12 PM 169 91 66 100 02:16 PM 168 91 64 97 02:21 PM 170 91 64 100 02:26 PM 166 95 63 98 02:31 PM 171 99 62 100 02:36 PM 163 98 61 99 02:41 PM 167 97 61 100 02:46 PM 164 91 61 100 02:51 PM 170 95 60 99 02:56 PM 160 93 59 98 03:01 PM 161 89 59 97 03:06 PM 161 88 59 97 04:01 PM 153 85 57 98 04:06 PM 160 90 57 99 04:11 PM 168 87 58 98 04:16 PM 171 99 59 98 04:21 PM 172 97 60 100 04:26 PM 175 94 60 100 04:31 PM 166 97 61 98 03:11 PM 159 95 59 96 03:16 PM 163 90 59 99 03:21 PM 162 97 60 98 03:26 PM 163 97 60 99 03:31 PM 159 95 60 100 03:36 PM 168 98 60 97 03:41 PM 171 96 60 98 03:46 PM 163 98 59 97 03:51 PM 157 89 57 96 03:56 PM 153 89 58 96 Procedure Medications Time Medication Dose Units Method Route 02:08 PM Oxygen 2 L/min nasal cannula 02:19 PM Versed 1 mg Intravenous 02:19 PM Fentanyl 25 mcg Intravenous 02:22 PM Lidocaine 2% 10 ml Subcutaneous 02:27 PM Lidocaine 2% 10 ml Subcutaneous 02:49 PM Fentanyl 25 mcg Intravenous 03:24 PM Heparin 5000 units Intravenous 03:40 PM Fentanyl 25 mcg Intravenous 03:43 PM Versed 0.5 mg Intravenous 04:29 PM Plavix 150 mg Orally ASA Classification: CLASS III- Severe systemic disease (i.e. prior AMI, diabetes with vascular complications, morbid obesity) Rina Score Preprocedure Postprocedure Activity 2- Moves 4 extremities sustained head lift Activity 2- Moves 4 extremities sustained head lift Circulation 2- SBP +/= 20 points of pre-anesthetic level Circulation 2- SBP +/= 20 points of pre-anesthetic level Consciousness 2- Awake and alert oriented x 3 Consciousness 2- Awake and alert oriented x 3 O2 Saturation 2- Able to maintain O2 satruation of 92% on room air O2 Saturation 2- Able to maintain O2 satruation of 92% on room air Respiratory 2- Able to deep breathe and cough well Respiratory 2- Able to deep breathe and cough well Total Score 10 Total Score 10 Contrast: Isovue 300- 150ml Contrast Amount: 95 ml Fluoro Dose: 452 mGy Procedure Log Time Note Entered By 01:44 PM Pt arrived to powerhouse laborer 1 at 13:44 opardamian 01:55 PM Physician paged/called 13:53 opardamian 01:55 PM Rosalba responded and notified patient is ready 13:55 opasussy 01:56 PM Jesus Staton RN Position: Monitor Time in: 13:56 jenae 01:56 PM Yogi Ordonez RN Position: Lacquer Sprayer Time in: 13:56 oparker 01:56 PM Juarez, Eryn RT (R) Position: Scrub Time in: 13:56 oparker 01:57 PM Time: 13:57 Is patient comfortable and pain free?: Yes oparker :57 PM Time: 13:57LOC: 5 = Fully awake and oriented or at pre-proc level oparker 02:05 PM Physician arrived 14:05 oparker 02:05 PM Meet and greet completed oparker 02:06 PM Sign in performed according to hospital policy. oparker 02:06 PM ASA Class CLASS III- Severe systemic disease (i.e. prior AMI, diabetes with vascular complications, morbid obesity) oparker 02:08 PM Procedure start 14:08 oparker 02:08 PM 14:08 Oxygen at 2 L/min per nasal cannula by Yogi Ordonez RN oparker 02:09 PM Patient charges- Angio tray pack, Pulse Oximetry and ACIST tubing and transducer oparker 02:12 PM Time: 13:57LOC: 5 = Fully awake and oriented or at pre-proc level oparker 02:12 PM Time: 13:57 Is patient comfortable and pain free?: Yes oparker 02:15 PM Hair removed from procedure site in holding area using clippers. Bilateral groin prepped with Chloraprep by Francis Boggs RN, then patient was draped. Skin intact. oparker 02:19 PM 14:19 Versed 1 mg Intravenous Given by Yogi Ordonez RN oparker 02:19 PM 14:19 Fentanyl 25 mcg Intravenous Given by Yogi Ordonez RN opardamian 02:22 PM Time out perfomed oparker 02:23 PM 14:22 10 ml Lidocaine 2% to left groin Subcutaneous Given By Deepak Fagan MD, FACS oparker 02:27 PM Time: 14:12LOC: 4 = Oriented but drowsy oparker 02:27 PM Time: 14:12 Is patient comfortable and pain free?: Yes oparker 02:27 PM 14:27 10 ml Lidocaine 2% to left groin Subcutaneous Given By Deepak Fagan MD, FACS oparker 02:27 PM Smart Needle utilized for vascular access at this time oparker 02:32 PM Access obtained in the left femoral artery by percutaneous puncture. 5 Fr. 10 cm Terumo Garner sheath placed in left femoral artery oparker 02:32 PM 0.035 145cm J-wire wire utilized to assist with catheter placement oparker 02:32 PM 5Fr Short pigtail catheter inserted over the wire oparker 02:35 PM Abdominal aorta angiography performed in AP contrast injected 10/25 mls. oparker 02:38 PM Abdominal angiogram with runoff completed: 5 ml/sec for a total of 50 mls oparker 02:42 PM Time: 14:27 Is patient comfortable and pain free?: Yes oparker 02:42 PM Time: 14:27LOC: 4 = Oriented but drowsy oparker 02:46 PM Catheter removed oparker 02:47 PM Sheath exchanged for a 5 Fr 45 cm Flexor Check-Benjamin Performer sheath inserted into left femoral artery oparker 02:48 PM Wire removed oparker 02:48 PM 0.035 260cm [place]-angled wire utilized to assist with catheter placement oparker 02:49 PM 5Fr 100cm Glidecath Angled-Taper guide catheter advanced oparker 02:49 PM 14:49 Fentanyl 25 mcg Intravenous Given by Yogi Ordonez RN oparker 02:57 PM Time: 14:42LOC: 4 = Oriented but drowsy oparker 02:57 PM Time: 14:42 Is patient comfortable and pain free?: Yes oparker 02:58 PM Distal Right superficial femoral angiography performed in AP contrast injected 4 mls. oparker 02:59 PM Wire removed oparker 03:00 PM 0.014 Victory 14, 30 gram 300cm guidewire advanced. oparker 03:04 PM Guide wire removed intact oparker 03:04 PM [place] angled wire resinseted. oparker 03:07 PM Guide wire removed intact oparker 03:08 PM 0.014 Victory 14, 30 gram 300cm guidewire advanced. oparker 03:11 PM 4Fr 150cm [place] guide catheter advanced oparker 03:11 PM Guide wire removed intact oparker 03:12 PM 0.014 Lobo FLX 300cm guidewire advanced. oparker 03:12 PM Time: 14:57 Is patient comfortable and pain free?: Yes oparker 03:12 PM Time: 14:57LOC: 4 = Oriented but drowsy oparker 03:24 PM 15:24 Heparin 5000 units Intravenous by Yogi Ordonez RN opardamian 03:25 PM Guide wire removed intact oparker 03:27 PM 0.014 Fielder XT 300cm 300cm guidewire advanced. oparker 03:27 PM Time: 15:12 Is patient comfortable and pain free?: Yes oparker 03:27 PM Time: 15:12LOC: 4 = Oriented but drowsy oparker 03:28 PM Guide catheter removed intact oparker 03:29 PM 3 mm x 100 mm [place] balloon catheter placed into right femoral oparker 03:31 PM Balloon inflated @ 14 gael for 60 seconds oparker 03:36 PM Balloon inflated @ 14 gael for 60 seconds oparker 03:39 PM Balloon removed intact oparker 03:40 PM 5 mm x 150 mm BARD placed into right femoral [id number] oparker 03:40 PM 15:40 Fentanyl 25 mcg Intravenous Given by Yogi Ordonez RN opardamian 03:43 PM Balloon inflated @ 11 gael for 180 seconds oparker 03:43 PM Time: 15:27 Is patient comfortable and pain free?: Yes oparker 03:43 PM Time: 15:27LOC: 4 = Oriented but drowsy oparker 03:43 PM 15:43 Versed 0.5 mg Intravenous Given by Yogi Ordonez RN opardamian 03:47 PM Balloon removed intact oparker 03:47 PM 3mls contrast injected. oparker 03:52 PM 5Fr 100cm Glidecath Angled-Taper guide catheter advanced oparker 03:53 PM Guide wire removed intact oparker 03:54 PM 4 ml contrast hand injected oparker 03:55 PM Lobo FLX reinserted oparker 03:58 PM Time: 15:43LOC: 4 = Oriented but drowsy oparker 03:58 PM Time: 15:43 Is patient comfortable and pain free?: Yes oparker 03:58 PM Guide catheter removed intact oparker 03:59 PM 4 ml contrast hand inject oparker 04:02 PM Right posterior tibial angiography performed in AP contrast injected 4 mls. oparker 04:02 PM 2 mm x 40 mm [place] balloon catheter placed into right posterior tibial oparker 04:03 PM Balloon inflated @ 14 gael for 60 seconds oparker 04:05 PM 3 ml contrast hand injected oparker 04:07 PM Balloon removed intact oparker 04:09 PM proximal Right superficial femoral angiography performed in AP contrast injected 4 mls. oparker 04:13 PM Time: 15:58 Is patient comfortable and pain free?: yes oparker 04:13 PM Time: 15:58LOC: 4 = Oriented but drowsy oparker 04:14 PM 5 mm x 20 mm Syrup Filterer balloon catheter placed into right femoral oparker 04:21 PM Balloon inflated @ 14 gael for 60 seconds oparker 04:22 PM 4 ml of contrast hand injected oparker 04:23 PM Balloon removed intact oparker 04:23 PM Procedure completed at 16:23 oparker 04:25 PM Sign Out completed: Radiation Dose 452.17 mGy Fluoro Time: 18.7 minutes. Isovue 300- 150ml contrast 95 ml given by Deepak Fagan MD, FACS. Complications: None. Confirmed administered medications:Yes Sedation minutes 124 oparker 04:25 PM Isovue 300- 150ml,2 bottle(s) used. oparker 04:25 PM Estimated Blood Loss: less than 50cc oparker 04:25 PM Post Blood Pressure: 172/97 oparker 04:25 PM Post EKG: NSR oparker 04:26 PM Information taught: Peripheral angiogram and CURRICULUM SPECIALIST oparker 04:26 PM Education needs: Procedure, Plan of Care, and Disease Process oparker 04:26 PM Learning barriers: Dementia oparker 04:27 PM Education evaluation: Able to repeat information oparker 04:27 PM Patient pain level 0/10 oparker 04:28 PM Time: 16:13LOC: 5 = Fully awake and oriented or at pre-proc level oparker 04:28 PM Time: 16:13 Is patient comfortable and pain free?: Yes oparker 04:29 PM ACT 227 oparker 04:29 PM Time: 16:29 Plavix 150 mg Orally Given by Yogi Ordonez RN oparker 04:31 PM Prox Right SFA 75% lesion oparker 04:32 PM Distal Right SFA 100% lesion oparker 04:33 PM R anterior tibial 100% lesion oparker 04:33 PM Prox R posterior tibial 75% lesion oparker 04:33 PM L proximal SFA 75% lesion oparker 04:33 PM Left Distal SFA 75% lesion oparker 04:34 PM Opsite applied oparker 04:34 PM Site status No bleeding/hematoma - Lt Groin as reported by Sites, Eryn RT (R) at 16:34 oparker 04:36 PM Patient out of room 16:36 oparker 01:38 PM PVIStat 02:11 PM Vitals capture started with the following parameters, Patient=Adult, Interval=5 min, Initial Eetmrqyx=883 mmHg, Deflation Rate=5 mmHg, Cuff placed on Left Arm 02:12 PM HR=66 bpm, XVKK=344/91 mmhg, AwE7=229.0 %, Resp=6 B/min, Comment=NSR 02:12 PM Recorded ECG: HR=66 Condition=Condition 1 02:16 PM HR=64 bpm, FXBU=753/91 mmhg, SpO2=97.0 %, Resp=16 B/min, Comment=NSR 02:21 PM HR=64 bpm, IRYX=728/91 mmhg, HiP7=637.0 %, Resp=13 B/min, Comment=NSR 02:26 PM HR=63 bpm, HEBP=903/95 mmhg, SpO2=98.0 %, Resp=17 B/min, Comment=NSR 02:31 PM HR=62 bpm, TXGX=937/99 mmhg, SoW7=993.0 %, Resp=17 B/min, Comment=NSR 02:36 PM HR=61 bpm, IRVC=716/98 mmhg, SpO2=99.0 %, Resp=20 B/min, Comment=NSR 02:41 PM HR=61 bpm, ICTV=441/97 mmhg, PyX8=868.0 %, Resp=13 B/min, Comment=NSR 02:46 PM HR=61 bpm, HNNO=944/91 mmhg, RpD5=686.0 %, Resp=15 B/min, Comment=NSR 02:51 PM HR=60 bpm, MROB=262/95 mmhg, SpO2=99.0 % 02:56 PM HR=59 bpm, NIDE=394/93 mmhg, SpO2=98.0 %, Resp=7 B/min, Comment=NSR 03:01 PM HR=59 bpm, YSJP=557/89 mmhg, SpO2=97.0 %, Resp=22 B/min, Comment=NSR 03:06 PM HR=59 bpm, INKY=546/88 mmhg, SpO2=97.0 %, Resp=11 B/min, Comment=NSR 03:11 PM HR=59 bpm, PCZQ=798/95 mmhg, SpO2=96.0 %, Resp=11 B/min, Comment=NSR 03:16 PM HR=59 bpm, FBRV=307/90 mmhg, SpO2=99.0 %, Resp=12 B/min, Comment=NSR 03:21 PM HR=60 bpm, SIAW=031/97 mmhg, SpO2=98.0 %, Resp=16 B/min, Comment=NSR 04:11 PM HR=58 bpm, RXYO=874/87 mmhg, SpO2=98.0 %, Resp=8 B/min, Comment=NSR 04:16 PM HR=59 bpm, UFSZ=279/99 mmhg, SpO2=98.0 %, Resp=11 B/min, Comment=NSR 04:21 PM HR=60 bpm, YBDM=593/97 mmhg, OdF4=885.0 %, Resp=14 B/min, Comment=NSR 04:26 PM HR=60 bpm, SUZR=338/94 mmhg, WyN1=307.0 %, Resp=9 B/min, Comment=NSR 04:31 PM HR=61 bpm, MYZO=524/97 mmhg, SpO2=98.0 %, Resp=14 B/min, Comment=NSR 03:26 PM HR=60 bpm, WHQG=506/97 mmhg, SpO2=99.0 %, Resp=14 B/min, Comment=NSR 03:31 PM HR=60 bpm, SLEP=349/95 mmhg, FsY3=877.0 %, Resp=11 B/min, Comment=NSR 03:36 PM HR=60 bpm, BBHM=671/98 mmhg, SpO2=97.0 %, Resp=13 B/min, Comment=NSR 03:41 PM HR=60 bpm, XHLQ=984/96 mmhg, SpO2=98.0 %, Comment=NSR 03:45 PM Recorded ECG: HR=61 Condition=Condition 1 03:46 PM HR=59 bpm, QMYC=876/98 mmhg, SpO2=97.0 %, Resp=20 B/min, Comment=NSR 03:51 PM HR=57 bpm, GGJG=352/89 mmhg, SpO2=96.0 %, Resp=15 B/min, Comment=NSR 03:56 PM HR=58 bpm, PKDR=098/89 mmhg, SpO2=96.0 %, Resp=9 B/min, Comment=NSR 04:01 PM HR=57 bpm, RZKR=708/85 mmhg, SpO2=98.0 %, Resp=14 B/min, Comment=NSR 04:06 PM HR=57 bpm, QNYX=359/90 mmhg, SpO2=99.0 %, Resp=23 B/min, Comment=NSR 04:37 PM Report given to Maricel CHAVEZ. [facility] , [facility] Post Procedure Information Blood Pressure: 172/97 mmHg Rhythm: NSR Post procedure instructions given Site Checks Time Location Status Staff Sheath In? Note 4:34:00 PM Lt Groin No bleeding/hematoma Sites, Eryn RT (R) Pulses Time Site Pre Procedure Post Procedure Note Bilateral DP Doppler Bilateral PT Doppler Updated by Jesus Staton RN on 10/21/2018 4:45:29 PM electronically signed on 10/21/2018 4:46:13 PM with status of Final
[2018-10-21] MEDS ORDERED: *HR* FentaNYL (PF) 100 MCG/2 ML VIAL IVP STA (18:07)
[2018-10-21] MEDS ORDERED: *HR* LORazepam 2 MG/ML VIAL IVP ONE (20:05)
[2018-10-21] MEDS: *HR* LORazepam 2 MG/ML VIAL ONE ×2 (20:15→21:41)
[2018-10-21] MEDS ORDERED: *HR* Atropine Sulfate 1 MG/10 ML SYRINGE ONE (20:20)
[2018-10-21 21:07] LABS: Basophils % 0.5 %; Hematocrit 35.9 % (35.3-44.9); Hemoglobin 11.3 g/dL (11.5-15.4); Lymphocytes # 0.7 K/mcL (0.6-4.6); Lymphocytes % 17.7 %; Mean Corpuscular HGB Conc 31.5 g/dL (31.6-35.5); Mean Corpuscular Hemoglobin 29.2 pg (28.0-33.3); Mean Corpuscular Volume 92.8 fL (83.0-100.0); Mean Platelet Volume 10.3 fL (9.4-12.4); Monocytes # 0.2 K/mcL (0.0-1.3); Monocytes % 4.9 %; Neutrophils # 2.9 K/mcL (1.6-8.9); Platelet Count 188 K/mcL (140-400); Red Blood Count 3.87 M/mcL (3.82-4.97); Red Cell Distribution Width 15.2 % (11.5-14.5); Segmented Neutrophils % 74.9 %; White Blood Count 3.9 K/mcL (4.3-11.1)
[2018-10-21 21:17] LABS: Albumin 3.7 g/dL (3.5-5.7); Albumin/Globulin Ratio 1.2 (1.1-2.2); Bilirubin,Total 0.9 mg/dL (0.3-1.0); Calcium 9.4 mg/dL (8.6-10.3); Potassium 4.4 mEq/L (3.5-5.1); Total Protein 6.7 g/dL (6.4-8.9)
--- NOTE | 2018-10-21 21:21 | Event Note ---
Date of Encounter: 10/21/18 Time of Encounter: 20:22 Rapid response was called at 2021 as patient was having significant bleeding from catheter site from earlier vascular procedure today. Nurse was holding manual pressure upon arrival by myself and Dr Chester. Vitals stable, stat labs, and type and screen ordered. Bleeding was able to be contained with manual pressure from nurse. Repeat hemoglobin stable. Dr Fagan ribbon tier vascular and who performed procedure earlier today was called and notified. Bleeding had contained once we spoke to Dr Fagan who advised to monitor closely and to notify of any additional bleeding. Will continue bedside sitter, nurse to notify of any changes.
[2018-10-21] MEDS: Gabapentin 300 MG CAPSULE PO SCH (21:56)
[2018-10-21] MEDS: Insulin DETEMIR 100 UNIT/ML X5UNITS SQ SCH (21:57)
[2018-10-21 22:11] LABS: Prothrombin Time 11.8 Seconds (9.4-12.1)
[2018-10-22] MEDS: Gentamicin Oint 15 GM TUBE TP SCH ×3 (01:38→23:22)
[2018-10-22] MEDS: *HR* Heparin 5,000 UNIT/ML VIAL SQ SCH ×3 (05:09→21:46)
[2018-10-22 06:25] LABS: Hematocrit 30.4 % (35.3-44.9); Hemoglobin 9.7 g/dL (11.5-15.4); Mean Corpuscular HGB Conc 31.9 g/dL (31.6-35.5); Mean Corpuscular Volume 94.1 fL (83.0-100.0); Mean Platelet Volume 10.4 fL (9.4-12.4); Platelet Count 164 K/mcL (140-400); Red Blood Count 3.23 M/mcL (3.82-4.97); Red Cell Distribution Width 14.9 % (11.5-14.5); White Blood Count 3.8 K/mcL (4.3-11.1)
[2018-10-22 06:45] LABS: Calcium 9.1 mg/dL (8.6-10.3); Potassium 4.1 mEq/L (3.5-5.1)
--- NOTE | 2018-10-22 07:59 | Vascular/Endovas Progress Note ---
Date of Encounter: 10/22/18 Time of Encounter: 07:57 - Assessment and plan (1) PAD (peripheral artery disease) Current Visit: Yes Status: Chronic Status post angiogram with right lower extremity superficial femoral and posterior tibial artery balloon angioplasties. Patient had bleeding around the left groin 5-[place] sheath which was controlled by the nursing staff with manual pressure. There is no sign of hematoma now. The patient has remained hemo dynamically stable. From a vascular surgery standpoint the patient may proceed with debridement of the right leg per podiatry service. (2) Leg ulcer Current Visit: Yes Status: Chronic Patient has right leg wound for approximately 3-4 months that is nonhealing. 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 She is very somnolent and does not arouse easily. Events from last night were reviewed both with the hospitalist and nursing staff. Patient had bleeding around her left groin 5-[place] sheath. The patient was very restless and did not comply with bed rest orders and keeping her leg straight despite nursing attempts to control this activity. The sheath was removed and the bleeding was controlled with manual pressure. She has remained hemodynamically stable. Vital Signs, Last 4 Hours Temp Pulse Resp BP 10/22/18 07:25 98.1 F 53 16 119/58 - Physical Examination General: Present: Other (Somnolent) HEENT: Present: Atraumatic Vascular: Present: Other (Left groin site is soft. There is no mass. There is normal pulsatile mass. The patient's feet are warm with normal capillary refill. Doppler signals are present 2 at the ankle bilaterally. The perfusion to the right lower extremity is significantly improved following the angioplasties performed yesterday afternoon.) Results 10/22/18 05:37 10/22/18 05:37 Lab Results, Last 24 hours 10/21/18 10/21/18 10/21/18 07:57 07:57 20:37 WBC 3.3 L 3.9 L Hgb 11.1 L 11.3 L Hct 36.5 35.9 Plt Count 207 188 INR Sodium 138 Potassium 4.5 Chloride 103 Carbon Dioxide 28 BUN 45 H Creatinine 2.08 H Glucose 173 H Calcium 9.5 Magnesium 2.2 Total Bilirubin AST ALT Alkaline Phosphatase 10/21/18 10/21/18 10/22/18 20:37 20:38 05:37 WBC 3.8 L Hgb 9.7 L D Hct 30.4 L Plt Count 164 INR 1.0 Sodium 137 Potassium 4.4 Chloride 105 Carbon Dioxide 24 BUN 41 H Creatinine 1.58 H Glucose 201 H Calcium 9.4 Magnesium Total Bilirubin 0.9 AST 16 ALT 20 Alkaline Phosphatase 87 10/22/18 05:37 WBC Hgb Hct Plt Count INR Sodium 139 Potassium 4.1 Chloride 105 Carbon Dioxide 24 BUN 40 H Creatinine 1.50 H Glucose 205 H Calcium 9.1 Magnesium 2.0 Total Bilirubin AST ALT Alkaline Phosphatase Consult Discharge Plan - Plan Referrals: Lillian Mccann CNP [Primary Care Provider] -
[2018-10-22] MEDS: Furosemide 40 MG/4 ML VIAL IVP SCH (08:02)
[2018-10-22] MEDS: Aspirin Enteric Coated 81 MG Tablet PO SCH (08:02)
[2018-10-22] MEDS: OPTH OP SCH ×3 (08:04→21:39)
[2018-10-22] MEDS: Insulin LISPRO 300 UNITS/3 ML VIAL SQ SCH ×4 (08:04→21:50)
[2018-10-22] MEDS: COMBIGAN OP SCH ×3 (08:04→21:39)
[2018-10-22] MEDS: Metoprolol XL (24 HR) Succ 25 MG TAB.ER.24H PO SCH (08:05)
[2018-10-22] MEDS: Dorzolamide OPTH 10 ML BOTTLE LEFT EYE SCH ×3 (08:05→21:44)
--- NOTE | 2018-10-22 08:54 | Internal Med Progress Note ---
Hospitalist Progress Note - Encounter Date of Encounter: 10/22/18 Time of Encounter: 08:54 - Subjective Interval History: Pt today denies acute complaints. Does state that she recognizes me today, which is a first. Yesterday, taken by Keshav for angioplasty and subsequently developed large hematoma followed by significant bleeding from site, which quoc ntually stopped with lots of pressure. Hb this AM dropped a few points but vitals stable. - Exam Vitals: Temp Pulse Resp BP Pulse Ox 98.1 F 53 16 119/58 95 10/22/18 07:25 10/22/18 07:25 10/22/18 07:25 10/22/18 07:10/21/18 19:42 Exam: General: NAD, good eye contact, well appearing Thoracic: Normal breath sounds b/l, no wheezing or crackles Cardio: Normal S1 and S2, regular rate and rhythm, no murmurs Abdomen: Soft, nontender, nondistended. Extremities: Warm, well perfused. DP pulses 1+ b/l. Mild edema bilaterally. Dressing L groin. Skin: No rashes or bruises. Several-cm open wound R anterolateral distal leg with granulation tissue, scant discharge Neuro: Awake, oriented to person and place. Speech fluent - Summary of Assessment and Plan Summary of Assessment and Plan: Samantha Luis is a 67 F w hx dementia, HFrEF 25%, CAD s/p stents, CKD3b, IDDM2, who presented from wound care clinic for a nonhealing right distal leg ulcer who was unable to tolerate outpatient debridement and thus admitted 10/18 for inpatient surgical management. Surgical management deferred for vascular eval which revealed R leg wound: does not appear actively infected, but does have faint odor and is slightly tender on distal edge - Podiatry consult, planning for OR debridement tomorrow - NPO@[place] PAD: diminished [place] RLE for which Keshav took 10/21 for angiogram and balloon angioplasty of three stenotic areas of RLE vasculature - Keshav following, appreciate co-management Acute blood loss anemia: following angiography, pt confused and moving around causing hematoma and then albino bleeding at cath site, Hb dropped ~1.5 pts - maintain T&C, continue to trend Hb HFrEF 25%: trace edema, convert back to home lasix 20 po daily DM2: insulin dependent, controlled, continue basal + SSI CKD3b: noted, dose adjust meds as needed CAD: continue home statin, DAPT, metoprolol PPx: sqh Activity: ambulate FEN: ADA then NPO@[place], no MIVF Lines: PIV Consults: Podiatry, VascSurg Code: Full Dispo: patient requires inpatient eval and management at this time. Anticipate 2 days. Will be homegoing Internal Medicine: Result - Labs CBC & Chem 7: 10/22/18 05:37 10/22/18 05:37 Labs: Short CBC 10/21/18 10/22/18 Range/Units 20:37 05:37 WBC 3.9 L 3.8 L (4.3-11.1) K/mcL Hgb 11.3 L 9.7 L D (11.5-15.4) g/dL Hct 35.9 30.4 L (35.3-44.9) % Plt Count 188 164 (140-400) K/mcL Neutrophils # 2.9 (1.6-8.9) K/mcL BMP 10/21/18 10/22/18 20:37 05:37 Sodium 137 139 Potassium 4.4 4.1 Chloride 105 105 Carbon Dioxide 24 24 BUN 41 H 40 H Creatinine 1.58 H 1.50 H Glucose 201 H 205 H Calcium 9.4 9.1 Liver Function 10/21/18 Range/Units 20:37 Total Bilirubin 0.9 (0.3-1.0) mg/dL AST 16 (13-39) Units/L ALT 20 (7-52) Units/L Alkaline Phosphatase 87 (34-104) Units/L Albumin 3.7 (3.5-5.7) g/dL - ABG Interpretation ABG results: PT/INR, D-dimer PT 11.8 Seconds (9.4-12.1) 10/21/18 20:38 Consult Discharge Plan - Plan Referrals: Lillian Mccann CNP [Primary Care Provider] - 10/29/18 10:35 am () Deepak Fagan MD [Partnered Physician] - 11/06/18 9:40 am
--- NOTE | 2018-10-22 10:59 | Podiatry Progress Note ---
Date of Encounter: 10/22/18 Time of Encounter: 10:30 - Assessment and Plan (1) Ulcer of right leg Current Visit: Yes Status: Chronic ASSESSMENT: Chronic ulceration of RLE. Right tibial region. PLAN: Patient s/p Proximal right superficial femoral artery balloon angioplasty with a 5 x 20 mm standard balloon Distal right superficial femoral artery occlusion treated with 3 x 100 mm standard balloon and 5 x 150 mm drug-coated balloon Proximal right posterior tibial artery balloon angioplasty with 2 x 40 mm standard balloon per Rylan Optimized for wound intervention Will plan for preparation of right leg wound or graft application and application of graft tomorrow with . Discussed in depth with patient and son via telephone. Discussed procedure and risks vs benefits. No guarantees were made. After discussion of procedure and risks son consents for surgical intervention. He is the acting POA of patient. Nurse also obtained telephone consent and papers were signed. Patient will be NPO after midnight. Qualifiers: Non-pressure ulcer stage: with fat layer exposed Qualified Code(s): L97.912 - Non-pressure chronic ulcer of unspecified part of right lower leg with fat layer exposed Subjective Interval history: /Patient resting comfortably in bed. s.p angiogram with intervention on 10/21/18 with intervention. Patient denies any pain. Denies any known fevers or chills. Oriented to person place and time however forgetful and pleasantly confused. Objective - Vital Signs Vital Signs: Vital Signs Temp Pulse Pulse Resp BP Pulse Ox 10/22/18 07:25 98.1 F 53 16 119/58 10/22/18 01:00 56 125/73 10/22/18 00:00 61 139/64 10/21/18 23:00 66 153/74 10/21/18 22:30 68 139/65 10/21/18 21:55 72 134/85 10/21/18 21:40 73 153/77 10/21/18 21:25 72 154/79 10/21/18 21:10 70 153/69 10/21/18 21:05 71 151/70 10/21/18 21:00 72 154/74 10/21/18 20:55 70 151/76 10/21/18 20:45 72 158/74 10/21/18 20:40 72 151/81 10/21/18 20:35 72 153/79 10/21/18 20:30 69 160/79 10/21/18 19:42 70 18 161/83 95 10/21/18 19:15 67 10/21/18 19:00 69 69 18 169/90 100 10/21/18 18:45 69 69 18 166/108 100 10/21/18 18:30 68 66 18 175/95 10/21/18 18:23 66 66 20 165/79 10/21/18 18:02 65 65 164/90 10/21/18 17:49 65 65 18 167/97 10/21/18 17:30 65 65 172/86 10/21/18 17:15 63 63 18 168/93 10/21/18 17:00 98.0 F 61 16 147/119 10/21/18 16:57 62 62 166/90 10/21/18 11:10 98.0 F 64 14 159/81 99 Intake and Output 10/21/18 10/22/18 10/22/18 23:59 07:59 15:59 Intake Total 0 / 0 240 / 240 Output Total 600 / 950 800 / 800 Balance -600 / -950 -560 / -560 Intake: Oral 0 / 0 240 / 240 Output: Urine 800 / 800 Straight Cath 600 / 600 Other: Meal NPO Breakfast Percent of Meal Consumed 0% 100% Blood Glucose* 164 176 - Exam Exam: CONStiTUTIONAL: Awake alert and oriented, forgetful. VASCULAR: Warm toes to tibia. Cap refill 3-4 seconds. Faint palpable pulses DP/PT NEUROLOGICAL: diminished sensation to light and moderate touch Dressing left intact to RLE. - Lab Result Diagrams: 10/22/18 05:37 10/22/18 05:37 Labs: Abnormal lab results WBC 3.8 K/mcL (4.3-11.1) L 10/22/18 05:37 RBC 3.23 M/mcL (3.82-4.97) L 10/22/18 05:37 Hgb 9.7 g/dL (11.5-15.4) L D 10/22/18 05:37 Hct 30.4 % (35.3-44.9) L 10/22/18 05:37 MCHC 31.5 g/dL (31.6-35.5) L 10/21/18 20:37 RDW 14.9 % (11.5-14.5) H 10/22/18 05:37 ESR 21 mm/hr (0-15) H 10/18/18 09:47 PT 12.6 Seconds (9.4-12.1) H 10/17/18 12:26 BUN 40 mg/dL (8-23) H 10/22/18 05:37 Creatinine 1.50 mg/dL (0.60-1.20) H 10/22/18 05:37 Est GFR ( Amer) 42 (> 60) L 10/22/18 05:37 Est GFR (Non-Af Amer) 34 (> 60) L 10/22/18 05:37 BUN/Creatinine Ratio 27 (6-26) H 10/22/18 05:37 Glucose 205 mg/dL (70-105) H 10/22/18 05:37 POC Glucose 164 mg/dL (70-99) H 10/21/18 16:57 Calculated Osmolality 304 (280-300) H 10/22/18 05:37 C-Reactive Protein 14 mg/L (Less than 10) H 10/18/18 09:47 Microbiology, Last 48 Hours 10/18/18 02:25 Wound Culture - Final Right Leg Morganella [email or web address] morganii Klebsiella oxytoca Citrobacter koseri Consult Discharge Plan - Plan Referrals: Lillian Mccann CNP [Primary Care Provider] - 10/29/18 10:35 am () Deepak Fagan MD [Partnered Physician] - 11/06/18 9:40 am
--- NOTE | 2018-10-22 17:24 | Anesthesia Evaluation PreOp ---
Date of Encounter: 10/22/18 Time of Encounter: 17:21 - Past History Planned Operation: Right Foot Preparation Cardiac History: CHF, Cardiac Stent (12/2017 PCI to mLAD PABLO x 1 with residual long 70% stenosis in the proximal mid RCA) Pulmonary History: Denies Any Significant HX LIVESTOCK COUNTER History: Other (Dementia - forgetful, son signed anesthesia and surgical consent) Other Medical History: Renal (Stage 4, CRD), Diabetes Type II, Other (Blind R- eye) Anesthesia History: No Prior Anesthetic Complications, Past Anesthesia ( breast surgery, hysterectomy) : No Alcohol Use: none Drug use: none Medications and Allergies Brimonidine Tartrate/Timolol [Combigan 0.2%-0.5% Eye Drops] 1 drop BOTH EYES TID 01/03/18 [History] Dorzolamide [Trusopt] 1 drop LEFT EYE TID 01/03/18 [History] Ferrous Sulfate [Iron] 325 mg PO DAILY 01/03/18 [History] Gabapentin [Neurontin] 600 mg PO HS 01/03/18 [History] Insulin ASPART [NovoLOG] 6 - 10 units SQ TIDWM 01/03/18 [History] Insulin Glargine [Lantus] 18 units SQ HS 01/03/18 [History] Aspirin [Lo-Dose Aspirin EC] 81 mg PO DAILY 07/07/18 [History] Clopidogrel [Plavix] 75 mg PO DAILY 07/07/18 [History] Furosemide [Lasix] 40 mg PO DAILY 10/18/18 [History] Metoprolol Succinate [Toprol Xl] 12.5 mg PO DAILY 10/18/18 [History] Allergy/AdvReac Type Severity Reaction Status Date / Time No Known Allergies Allergy Verified 10/18/18 17:02 - Meds/Allergy Pre-op Review Medications Reviewed: Yes Allergies Reviewed: Yes Beta Blockers on Current Med List: Yes If Beta Blockers taken, Date/Time (Last Dose taken): not given 10/22/18 low HR Anesthesia Results - Labs 10/22/18 05:37 10/22/18 05:37 - Imaging EKG: report reviewed (Sinus rhythm Borderline intraventricular conduction delay Baseline wander in lead(s) V3 V4 V5 Electronically Signed On 10-17-2018 13:51:49 EDT by Mahin Vernon) Additional studies: Limited Echocardiogram Name: Samantha Luis Date of Study: 07/14/2018 EV/EV limited echocardiogram Impressions: LVEF 25%. Mild concentric left ventricular hypertrophy. Severe global left ventricular systolic dysfunction. There is a small to moderate pericardial effusion present. There is no echocardiographic evidence of tamponade. Limited study for LV function. Name: Samantha Luis Date of Study: 01/15/2018 Procedures Performed: Stent w/ PTCA Single Major Vessel Indications: Unstable Angina Stable Known CAD Impressions: Patient had successful PTCA/Drug-Eluting Stent placement in the mid LAD. Recommendations: DAPT Optimal medical therapy of patient's disease. Aggressive risk factor modification. History/Risk Factors: Diabetes Hypertension CHF Estimated Blood Loss: less than 20cc Complications: None Procedural Medications Time Medication Dose Units Method Given By 02:57 PM Oxygen 2 L/min nasal cannula Hallie Fofana RN 03:06 PM Versed 2 mg Intravenous Hallie Fofana RN 03:06 PM Fentanyl 50 mcg Intravenous Hallie Fofana RN 03:17 PM Lidocaine 2% 18 ml Subcutaneous Elba Tyler MD, FACC 03:23 PM Angiomax 0.75mg/kg bolus: 17 ml Intravenous aHllie Fofana RN 03:23 PM Angiomax 1.75mg/kg/hr: 40 ml/hr Intravenous Hallie Fofana RN 03:31 PM Nitroglycerin 200 mcg Intracoronary Elba Tyler MD, FACC 03:41 PM Brilinta 180 mg Orally Hallie Fofana RN Closure Device: MynxGrip Hemodynamics: Pressures Site Systolic/ A Wave Diastolic/ V Wave End Diastolic/ Mean HR AO 141 71 100 62 Coronary Dominance: Right Lesion Findings/Interventions * Left Anterior Descending There is a 16 mm long, 99% stenosis in the Mid LAD. The lesion has a LISSETH flow of 3. An intervention was performed on the Mid LAD with a final stenosis of 0%. There were no lesion complications. The final LISSETH flow was 3. Interventional Device(s) Vessel Segment Type Name Diameter (mm) Length (mm) Mid LAD Balloon Emerge Monorail 2 12 Mid LAD Drug Eluting Stent Synergy 2.5 16 Procedure Patient had successful PTCA/Drug-Eluting Stent placement in the mid LAD. Access obtained in the right Femoral artery by percutaneous puncture Anesthesia Exam Vital Signs/O2 Sat, Most Current Temp Pulse Resp BP Pulse Ox 92.3 F L 64 16 144/79 100 10/22/18 16:00 10/22/18 16:00 10/22/18 16:00 10/22/18 16:00 10/22/18 16:00 - HEENT Pupil (Motor): Pupils equal, EOMI Mallampati: III Teeth: Missing Denture Type: Upper: Complete Oral Opening: Greater than 3 - LIVESTOCK COUNTER LOC: Confused LIVESTOCK COUNTER Motor: Normal RUE, Normal LUE, Normal RLE, Normal LLE, Normal Face LIVESTOCK COUNTER Sensory: Normal: RUE, LUE, RLE, LLE, Face - Cardiac Rhythm: Regular Murmur: None JVD: No Carotid Bruit: No - Pulmonary Breath Sounds: bilateral Clear Respiratory Effort: Symmetrical Anesthesia Assess/Plan ASA Score: 4 Anesthetic Plan: Regional Nerve Block, MAC Autologous Blood: Yes Monitoring Plan: Standard Monitors Recovery Plan: Other
[2018-10-22] MEDS: Gabapentin 300 MG CAPSULE PO SCH (21:40)
[2018-10-22] MEDS: Insulin DETEMIR 100 UNIT/ML X5UNITS SQ SCH (21:42)
[2018-10-23] MEDS: Acetaminophen 325 MG TABLET PO PRN (03:54)
[2018-10-23] MEDS ORDERED: Vancomycin 1,000 MG, 0.9 % Sodium Chloride 1,000 ML IR ONE (06:00)
[2018-10-23] MEDS: *HR* Heparin 5,000 UNIT/ML VIAL SQ SCH ×2 (06:35→16:25)
[2018-10-23] MEDS ORDERED: Furosemide 20 MG TABLET PO SCH (09:00)
--- NOTE | 2018-10-23 09:20 | Vascular/Endovas Progress Note ---
Date of Encounter: 10/23/18 Time of Encounter: 08:35 - Assessment and plan (1) PAD (peripheral artery disease) Current Visit: Yes Status: Chronic Status post angiogram with right lower extremity superficial femoral and posterior tibial artery balloon angioplasties. Patient is hemodynamically stable. Patient is for debridement of right leg wound. Vascular surgery service will sign off case for now. Please reconsult when necessary. (2) Leg ulcer Current Visit: Yes Status: Chronic Patient has right leg wound for approximately 3-4 months that is nonhealing. 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 She is comfortable. She is not agitated. She is resting quietly. Vital Signs, Last 4 Hours Temp Pulse Resp BP Pulse Ox 10/23/18 07:05 94.4 F L 59 17 119/69 95 - Physical Examination General: Present: Well developed, Well nourished Neuro: Present: Other (Patient is mildly confused.) Vascular: Present: Color/Temperature (Right lower extremity is warm and pink. There is mild edema present. The color and temperature improve sense angioplasty.), Other (Left groin puncture site is clean and dry. Dressing was removed. There is no hematoma. There are no masses present.) Results 10/22/18 05:37 10/22/18 05:37 Consult Discharge Plan - Plan Referrals: Lillian Mccann CNP [Primary Care Provider] - 10/29/18 10:35 am () Deepak Fagan MD [Partnered Physician] - 11/06/18 9:40 am
--- NOTE | 2018-10-23 09:36 | Internal Med Progress Note ---
Hospitalist Progress Note - Encounter Date of Encounter: 10/23/18 Time of Encounter: 10:00 - Subjective Interval History: No acute events overnight - Exam Vitals: Temp Pulse Resp BP Pulse Ox 94.4 F L 59 17 119/69 95 10/23/18 07:05 10/23/18 07:05 10/23/18 07:05 10/23/18 07:05 10/23/18 07:05 Exam: General: NAD, good eye contact, well appearing Thoracic: Normal breath sounds b/l, no wheezing or crackles Cardio: Normal S1 and S2, regular rate and rhythm, no murmurs Abdomen: Soft, nontender, nondistended. Extremities: Warm, well perfused. DP pulses 1+ b/l. Mild edema bilaterally. Dressing L groin. Skin: No rashes or bruises. Several-cm open wound R anterolateral distal leg with granulation tissue, scant discharge Neuro: Awake, oriented to person and place. Speech fluent - Assessment and Plan (1) Leg wound, right Current Visit: Yes Status: Acute Assessment and Plan: Advised by wound care clinic to come to ER for admission as unable to tolerate debridement in clinic and will have performed in OR. Seen by podiatry and plan for debridement today (2) PAD (peripheral artery disease) Current Visit: Yes Status: Chronic Assessment and Plan: Status post angiogram with right lower extremity superficial femoral and posterior tibial artery balloon angioplasties. Tolerated procedures well (3) Diabetes mellitus Current Visit: Yes Status: Chronic Assessment and Plan: Continue insulin and monitor fingersticks (4) CKD (chronic kidney disease) Current Visit: Yes Status: Chronic Assessment and Plan: CKD stage 3. Stable. Avoid nephrotoxins DVT Prophylaxis: Heparin sc - Time Spent with Patient Total time spent is greater than 50% in coordination of care (as documented) at patient's floor/unit and/or counseling patient: Internal Medicine: Result - Labs CBC & Chem 7: 10/22/18 05:37 10/22/18 05:37 - ABG Interpretation ABG results: PT/INR, D-dimer PT 11.8 Seconds (9.4-12.1) 10/21/18 20:38 Consult Discharge Plan - Plan Referrals: Lillian Mccann CNP [Primary Care Provider] - 10/29/18 10:35 am () Deepak Fagan MD [Partnered Physician] - 11/06/18 9:40 am (1) Leg wound, right Qualifiers: Encounter type: sequela Qualified Code(s): S81.801S - Unspecified open wound, right lower leg, sequela (3) Diabetes mellitus Qualifiers: Diabetes mellitus type: type 2 Diabetes mellitus senior living insulin use: with airport skilled maintenance supervisor use Diabetes mellitus complication status: with kidney complications Diabetes mellitus complication detail: with chronic kidney disease Chronic kidney disease stage: stage 3 (moderate) Qualified Code(s): E11.22 - Type 2 diabetes mellitus with diabetic chronic kidney disease; N18.3 - Chronic kidney disease, stage 3 (moderate); Z79.4 - hull line crew member (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
[2018-10-23] MEDS: Metoprolol XL (24 HR) Succ 25 MG TAB.ER.24H PO SCH (10:00)
[2018-10-23] MEDS: Aspirin Enteric Coated 81 MG Tablet PO SCH (10:00)
[2018-10-23] MEDS: Insulin LISPRO 300 UNITS/3 ML VIAL SQ SCH ×3 (10:01→21:26)
[2018-10-23] MEDS: Dorzolamide OPTH 10 ML BOTTLE LEFT EYE SCH ×3 (10:04→21:28)
[2018-10-23] MEDS: COMBIGAN OP SCH ×2 (10:05→16:25)
[2018-10-23] MEDS: OPTH OP SCH ×2 (10:05→16:25)
[2018-10-23] MEDS: Gentamicin Oint 15 GM TUBE TP SCH (10:06)
[2018-10-23] MEDS ORDERED: CeFAZolin Syr 2,000MG/20 ML 2,000 MG/20 ML SYRINGE IVPB ONE ×2 (13:47→16:06)
[2018-10-23] MEDS ORDERED: Vancomycin 1,000 MG VIAL ONE (13:51)
[2018-10-23] MEDS ORDERED: Bupivacaine/EPI 1:200k 0.25%PF 10 ML VIAL INFILT ONE (13:51)
--- NOTE | 2018-10-23 14:24 | Operative Note ---
Date of procedure: 10/23/18 Pre-op diagnosis: right leg wound 5cmx4.1cmx0.3cm Post-op diagnosis: same Procedure: preparation of right leg wound for graft application of PuraPly graft right leg Implants: PuraPly [id number] Complications: none Anesthesia: GETA Local Anesthetics: 1% Lidocaine HCL SubQ (cc) Surgeon: Reinaldo Tomas Was there an loan officer assistant present: No Estimated blood loss (cc): 3 Specimen: none Condition: stable Disposition: PACU Procedure in Detail: Indications: 67 year old female s/p revascularization of the right LE with Dr. Fagan being brought to the operating room for the above procedures after having the nature of the procedures, risks versus benefits potential complications consequences of surgery and her condition discussed at length. No guarantees were made as to the outcome of any procedure. It was explained that she is at risk for limb loss. All questions have been answered informed consent had been obtained. Patient was taken from the preoperative holding area and operating room and kept in the supine position on her bed. The right lower extremity was scrubbed prepped and draped in the usual sterile fashion and the following procedure began Preparation of wound bed for graft and application of graft. Attention was directed to the patient's right leg where a #15 blade, curet and misonex was used to surgically prepare the wound sharply for application of the graft. Any and all nonviable or devitalized tissue was excised. Once down to the appropriate level of healthy tissue and adequate hemostasis was present, a 5 x 5 cm PuraPly graft was applied to the right lower extremity wound and secured with Steri-Strips. Postoperative dressing included Adaptic, 4 x 4 gauze and Kerlix. Patient tolerated the anesthesia and the procedure well escorted the recovery room with vital signs stable and vascular status intact to the right leg and adequate hemostasis present. The patient tolerated the anesthesia and the procedure well escorted to recovery room with vital signs stable and adequate hemostasis to the right leg. Patient will return to the floor.
[2018-10-23] MEDS ORDERED: EPINEPHrine 1 MG/ML VIAL ONE (14:44)
[2018-10-23] MEDS ORDERED: *HR* Midazolam HCl 2 MG/2 ML VIAL ONE (14:44)
[2018-10-23] MEDS ORDERED: Ondansetron 4 MG/2 ML VIAL IVP PRN (16:06)
[2018-10-23] MEDS ORDERED: Acetaminophen 325 MG TABLET PO PRN (16:06)
[2018-10-23] MEDS ORDERED: *HR* Dextrose 50 % in Water (Syg) 50 ML SYRINGE IVP PRN (16:06)
[2018-10-23] MEDS ORDERED: Dextrose Gel 15 GM/37.5 ML TUBE PO PRN ×2 (16:06)
[2018-10-23] MEDS ORDERED: Naloxone 0.4 MG/ML INJ IVP PRN (16:06)
[2018-10-23] MEDS ORDERED: D5% in Water 1,000 ML IVC PRN (16:06)
--- NOTE | 2018-10-23 16:09 | Anesthesia Evaluation Post Op ---
Date of Encounter: 10/23/18 Time of Encounter: 15:36 - Discharge PostOp Status: Transfer Patient to floor (Patient's vital signs have been reviewed. Patient is stable postoperatively and has adequately recovered from anesthesia. Patient is determined to have stable airway patency and respiratory function including respiratory rate and oxygen saturation. Patient has a stable heart rate, blood pressure and adequate hydration. Patients mental status is acceptable. Patients temperature is appropriate. Pain and nausea are adequately controlled)
[2018-10-23] MEDS ORDERED: Insulin LISPRO 300 UNITS/3 ML VIAL SQ SCH ×2 (18:00)
[2018-10-23] MEDS ORDERED: Gentamicin Oint 15 GM TUBE TP SCH (21:00)
[2018-10-23] MEDS: Gabapentin 300 MG CAPSULE PO SCH (21:24)
[2018-10-23] MEDS: Insulin DETEMIR 100 UNIT/ML X5UNITS SQ SCH (21:34)
[2018-10-23] MEDS: Patient Taking Own Medication 1 EACH OP SCH (21:35)
[2018-10-24] MEDS: *HR* Heparin 5,000 UNIT/ML VIAL SQ SCH ×4 (01:57→21:30)
[2018-10-24] MEDS ORDERED: levoFLOXacin 750 MG TABLET PO SCH (09:00)
--- NOTE | 2018-10-24 09:41 | Internal Med Progress Note ---
Hospitalist Progress Note - Encounter Date of Encounter: 10/24/18 Time of Encounter: 09:00 - Subjective Interval History: s/p debridement of right leg ulcer in last 24hrs - Exam Vitals: Temp Pulse Resp BP Pulse Ox 97.4 F L 61 16 112/67 100 10/24/18 07:35 10/24/18 07:35 10/24/18 07:35 10/24/18 07:35 10/24/18 07:35 Exam: General: NAD, good eye contact, well appearing Thoracic: Normal breath sounds b/l, no wheezing or crackles Cardio: Normal S1 and S2, regular rate and rhythm, no murmurs Abdomen: Soft, nontender, nondistended. Extremities: Warm, well perfused. DP pulses 1+ b/l. Mild edema bilaterally. Dressing L groin. Skin: No rashes or bruises. Several-cm open wound R anterolateral distal leg with granulation tissue, scant discharge Neuro: Awake, oriented to person and place. Speech fluent - Assessment and Plan (1) Leg wound, right Current Visit: Yes Status: Acute Assessment and Plan: Advised by wound care clinic to come to ER for admission as unable to tolerate debridement in clinic and will have performed in OR. Seen by podiatry and is s/p debridement and will need wound vac and ECF placement. Social work on board Wound cultures growing citrobacter, klebsiella and morganella. Continue topical gentamicin, will start on po levaquin (2) PAD (peripheral artery disease) Current Visit: Yes Status: Chronic Assessment and Plan: Status post angiogram with right lower extremity superficial femoral and posterior tibial artery balloon angioplasties. Tolerated procedures well (3) Diabetes mellitus Current Visit: Yes Status: Chronic Assessment and Plan: Continue insulin and monitor fingersticks (4) CKD (chronic kidney disease) Current Visit: Yes Status: Chronic Assessment and Plan: CKD stage 3. Stable. Avoid nephrotoxins DVT Prophylaxis: Heparin sc - Time Spent with Patient Total time spent is greater than 50% in coordination of care (as documented) at patient's floor/unit and/or counseling patient: Internal Medicine: Result - Labs CBC & Chem 7: 10/22/18 05:37 10/22/18 05:37 - ABG Interpretation ABG results: PT/INR, D-dimer PT 11.8 Seconds (9.4-12.1) 10/21/18 20:38 Consult Discharge Plan - Plan Referrals: Lillian Mccann CNP [Primary Care Provider] - 10/29/18 10:35 am () Deepak Fagan MD [Partnered Physician] - 11/06/18 9:40 am (1) Leg wound, right Qualifiers: Encounter type: sequela Qualified Code(s): S81.801S - Unspecified open wound, right lower leg, sequela (3) Diabetes mellitus Qualifiers: Diabetes mellitus type: type 2 Diabetes mellitus 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
[2018-10-24] MEDS: Aspirin Enteric Coated 81 MG Tablet PO SCH (10:04)
[2018-10-24] MEDS: Metoprolol XL (24 HR) Succ 25 MG TAB.ER.24H PO SCH (10:04)
[2018-10-24] MEDS: Furosemide 20 MG TABLET PO SCH (10:04)
[2018-10-24] MEDS: Insulin LISPRO 300 UNITS/3 ML VIAL SQ SCH ×4 (10:12→21:30)
[2018-10-24] MEDS: Dorzolamide OPTH 10 ML BOTTLE LEFT EYE SCH ×3 (10:13→21:31)
[2018-10-24] MEDS: Patient Taking Own Medication 1 EACH OP SCH ×3 (12:14→21:31)
--- NOTE | 2018-10-24 13:23 | Podiatry Progress Note ---
Date of Encounter: 10/24/18 Time of Encounter: 12:00 - Assessment and Plan (1) Ulcer of right leg Current Visit: Yes Status: Chronic ASSESSMENT: Chronic ulceration of RLE. Right tibial region. POD #1 s/p preparation of right leg wound for graft application of PuraPly graft right leg PLAN: Assessed patient at bedside and wound dressing removed At this time will apply wound vac to optimize healing and promote granulation tissue formation Discussed application with patient Adaptic left in place for protection of graft Skin proximal to wound draped with tegaderm for protection. Small black simplace sponge used to wound and tracked proximally. Sealed in place. Applied 125mmHg suction. Good seal noted without leak 4x4 placed surrounding tube secured with kerlix. Will need TTSAT changes Patient to have PT/OT evaluation today and will likely need ECF placement Also recommend addition of oral antibiotic therapy for 14 days. Patient has morganella morg, klebsiella, and citrobacter koseri growing in wound Wound recommend bactrim DS, levaquin of ciprofloxacin based on coverage- will leave to digression of internal medicine based on other co-morbid conditions May be discharged when medically stable.. Will likely need ECF placement SW consult for discharge planning Will need wound vac on discharge- Will need follow up appointment with in wound care center 1 week after discharge. Qualifiers: Non-pressure ulcer stage: with fat layer exposed Qualified Code(s): L97.912 - Non-pressure chronic ulcer of unspecified part of right lower leg with fat layer exposed Subjective Interval history: Patient is POD #1 s/p preparation of right leg wound for graft application of PuraPly graft right leg per Resting comfortably in bed. Denies any pain. Dressing to RLE CDI. No strikethrough drainage. Baseline confusion. Asked about why she is here, if she is going to lose her leg and what day it is. Reoriented to all questions. Denies any chills, n/v or calf pain. Objective - Vital Signs Vital Signs: Vital Signs Temp Pulse Resp BP Pulse Ox 10/24/18 11:03 97.5 F L 69 16 134/79 99 10/24/18 07:35 97.4 F L 61 16 112/67 100 10/24/18 03:22 95.9 F L 55 15 100/60 97 10/24/18 01:27 95.1 F L 52 15 114/67 99 10/23/18 19:46 97.3 F L 63 15 133/71 99 10/23/18 17:50 63 110/65 98 10/23/18 16:09 94.6 F L 62 14 128/74 98 10/23/18 15:33 97.4 F L 60 16 121/63 97 10/23/18 15:23 56 12 116/52 93 10/23/18 15:13 57 13 121/55 93 10/23/18 15:03 96.9 F L 57 12 121/59 100 Intake and Output 10/23/18 10/24/18 10/24/18 23:59 07:59 15:59 Intake Total 480 / 480 240 / 240 Output Total 0 / 3 0 / 0 Balance 480 / 477 240 / 240 Intake: Oral 480 / 480 240 / 240 Output: Urine 0 / 0 0 / 0 Other: Meal Dinner Percent of Meal Consumed 100% Weight 86.8 kg Blood Glucose* 303 77 224 Patient Weight 10/24/18 23:59 Weight 86.8 kg - Exam Exam: CONSTITUTIONAL: Awake alert and disoriented VASCULAR: Faint DP/PT , warm toes to tibia, cap refill <3 seconds, 1+ pitting edema. No calf pain with manual squeeze NEUROLOGICAL ; intact sensation to moderate touch. Loss of some protective sensation s/p preparation of right leg wound for graft application of PuraPly graft right leg Surgical wound noted to lateral right leg overed in adaptic. No drainage. No surrounding edema, erythema or warmth. Appears as expected without complication - Lab Result Diagrams: 10/22/18 05:37 10/22/18 05:37 Labs: Abnormal lab results WBC 3.8 K/mcL (4.3-11.1) L 10/22/18 05:37 RBC 3.23 M/mcL (3.82-4.97) L 10/22/18 05:37 Hgb 9.7 g/dL (11.5-15.4) L D 10/22/18 05:37 Hct 30.4 % (35.3-44.9) L 10/22/18 05:37 MCHC 31.5 g/dL (31.6-35.5) L 10/21/18 20:37 RDW 14.9 % (11.5-14.5) H 10/22/18 05:37 ESR 21 mm/hr (0-15) H 10/18/18 09:47 PT 12.6 Seconds (9.4-12.1) H 10/17/18 12:26 BUN 40 mg/dL (8-23) H 10/22/18 05:37 Creatinine 1.50 mg/dL (0.60-1.20) H 10/22/18 05:37 Est GFR ( Amer) 42 (> 60) L 10/22/18 05:37 Est GFR (Non-Af Amer) 34 (> 60) L 10/22/18 05:37 BUN/Creatinine Ratio 27 (6-26) H 10/22/18 05:37 Glucose 205 mg/dL (70-105) H 10/22/18 05:37 POC Glucose 224 mg/dL (70-99) H 10/24/18 11:04 Calculated Osmolality 304 (280-300) H 10/22/18 05:37 C-Reactive Protein 14 mg/L (Less than 10) H 10/18/18 09:47 Microbiology, Last 48 Hours 10/18/18 04:49 Blood Culture - Final Peripheral Venipuncture No growth. Final report. 10/18/18 04:49 Blood Culture - Final Peripheral Venipuncture No growth. Final report. Consult Discharge Plan - Plan Referrals: Lillian Mccann CNP [Primary Care Provider] - 10/29/18 10:35 am () Deepak Fagan MD [Partnered Physician] - 11/06/18 9:40 am
[2018-10-24 16:39] LABS: Basophils % 0.8 %; Eosinophils # 0.1 K/mcL (0.0-0.6); Eosinophils % 1.3 %; Hemoglobin 9.6 g/dL (11.5-15.4); Immature Granulocytes % 0.5 % (0-4); Lymphocytes # 1.1 K/mcL (0.6-4.6); Lymphocytes % 26.6 %; Mean Corpuscular Volume 93.7 fL (83.0-100.0); Mean Platelet Volume 10.8 fL (9.4-12.4); Monocytes # 0.4 K/mcL (0.0-1.3); Monocytes % 8.9 %; Neutrophils # 2.5 K/mcL (1.6-8.9); Platelet Count 189 K/mcL (140-400); Red Blood Count 3.31 M/mcL (3.82-4.97); Red Cell Distribution Width 15.8 % (11.5-14.5); Segmented Neutrophils % 61.9 %
[2018-10-24 16:57] LABS: Calcium 9.3 mg/dL (8.6-10.3); Potassium 3.8 mEq/L (3.5-5.1)
[2018-10-24] MEDS: levoFLOXacin 750 MG TABLET PO SCH (17:29)
[2018-10-24] MEDS: Insulin DETEMIR 100 UNIT/ML X5UNITS SQ SCH (21:29)
[2018-10-24] MEDS: Gabapentin 300 MG CAPSULE PO SCH (21:30)
[2018-10-25 02:33] LABS: Basophils % 0.3 %; Eosinophils # 0.1 K/mcL (0.0-0.6); Eosinophils % 2.1 %; Hematocrit 27.6 % (35.3-44.9); Hemoglobin 8.6 g/dL (11.5-15.4); Immature Granulocytes % 1.2 % (0-4); Lymphocytes # 0.9 K/mcL (0.6-4.6); Lymphocytes % 28.5 %; Mean Corpuscular HGB Conc 31.2 g/dL (31.6-35.5); Mean Corpuscular Hemoglobin 29.2 pg (28.0-33.3); Mean Corpuscular Volume 93.6 fL (83.0-100.0); Monocytes # 0.4 K/mcL (0.0-1.3); Monocytes % 13.5 %; Neutrophils # 1.8 K/mcL (1.6-8.9); Platelet Count 172 K/mcL (140-400); Red Blood Count 2.95 M/mcL (3.82-4.97); Red Cell Distribution Width 15.7 % (11.5-14.5); Segmented Neutrophils % 54.4 %; White Blood Count 3.3 K/mcL (4.3-11.1)
[2018-10-25 02:50] LABS: Calcium 8.9 mg/dL (8.6-10.3); Magnesium 2.2 mg/dL (1.6-2.6); Phosphorous 3.6 mg/dL (2.7-4.5); Potassium 4.1 mEq/L (3.5-5.1)
[2018-10-25] MEDS: *HR* Heparin 5,000 UNIT/ML VIAL SQ SCH ×3 (06:34→20:44)
--- NOTE | 2018-10-25 08:42 | Internal Med Progress Note ---
Hospitalist Progress Note - Encounter Date of Encounter: 10/25/18 Time of Encounter: 08:30 - Subjective Interval History: No acute events overnight - Exam Vitals: Temp Pulse Resp BP Pulse Ox 97.5 F L 75 18 144/74 99 10/25/18 07:53 10/25/18 07:53 10/25/18 07:53 10/25/18 07:53 10/25/18 07:53 Exam: General: NAD, good eye contact, well appearing Thoracic: Normal breath sounds b/l, no wheezing or crackles Cardio: Normal S1 and S2, regular rate and rhythm, no murmurs Abdomen: Soft, nontender, nondistended. Extremities: Warm, well perfused. DP pulses 1+ b/l. Mild edema bilaterally. Dressing L groin. Skin: No rashes or bruises. Several-cm open wound R anterolateral distal leg with granulation tissue, scant discharge Neuro: Awake, oriented to person and place. Speech fluent - Assessment and Plan (1) Leg wound, right Current Visit: Yes Status: Acute Assessment and Plan: Advised by wound care clinic to come to ER for admission as unable to tolerate debridement in clinic and will have performed in OR. Seen by podiatry and is s/p debridement and will need wound vac and ECF placement. Social work on board Wound cultures growing citrobacter, klebsiella and morganella. Continue on po levaquin. Awaiting ECF placement (2) PAD (peripheral artery disease) Current Visit: Yes Status: Chronic Assessment and Plan: Status post angiogram with right lower extremity superficial femoral and posterior tibial artery balloon angioplasties. Tolerated procedures well (3) Diabetes mellitus Current Visit: Yes Status: Chronic Assessment and Plan: Continue insulin and monitor fingersticks (4) CKD (chronic kidney disease) Current Visit: Yes Status: Chronic Assessment and Plan: CKD stage 3. Stable. Avoid nephrotoxins DVT Prophylaxis: Heparin sc - Time Spent with Patient Total time spent is greater than 50% in coordination of care (as documented) at patient's floor/unit and/or counseling patient: Internal Medicine: Result - Labs CBC & Chem 7: 10/25/18 01:32 10/25/18 01:32 Labs: Short CBC 10/24/18 10/25/18 Range/Units 15:49 01:32 WBC 4.0 L 3.3 L (4.3-11.1) K/mcL Hgb 9.6 L 8.6 L (11.5-15.4) g/dL Hct 31.0 L 27.6 L (35.3-44.9) % Plt Count 189 172 (140-400) K/mcL Neutrophils # 2.5 1.8 (1.6-8.9) K/mcL BMP 10/24/18 10/25/18 15:49 01:32 Sodium 138 139 Potassium 3.8 4.1 Chloride 105 106 Carbon Dioxide 27 26 BUN 48 H 55 H Creatinine 2.18 H 2.18 H Glucose 165 H 180 H Calcium 9.3 8.9 - ABG Interpretation ABG results: PT/INR, D-dimer PT 11.8 Seconds (9.4-12.1) 10/21/18 20:38 Consult Discharge Plan - Plan Referrals: Lillian Mccann CNP [Primary Care Provider] - 10/29/18 10:35 am () Deepak Fagan MD [Partnered Physician] - 11/06/18 9:40 am (1) Leg wound, right Qualifiers: Encounter type: sequela Qualified Code(s): S81.801S - Unspecified open wound, right lower leg, sequela (3) Diabetes mellitus Qualifiers: Diabetes mellitus type: type 2 Diabetes mellitus intermission coordinator insulin use: with intermediate use Diabetes mellitus complication status: with kidney complications Diabetes mellitus complication detail: with chronic kidney disease Chronic kidney disease stage: stage 3 (moderate) Qualified Code(s): E11.22 - Type 2 diabetes mellitus with diabetic chronic kidney disease; N18.3 - Chronic kidney disease, stage 3 (moderate); Z79.4 - middle or intermediate school principal (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
[2018-10-25] MEDS: Metoprolol XL (24 HR) Succ 25 MG TAB.ER.24H PO SCH (08:56)
[2018-10-25] MEDS: Aspirin Enteric Coated 81 MG Tablet PO SCH (08:56)
[2018-10-25] MEDS: Furosemide 20 MG TABLET PO SCH (08:57)
[2018-10-25] MEDS: Insulin LISPRO 300 UNITS/3 ML VIAL SQ SCH ×4 (08:58→21:06)
[2018-10-25] MEDS: Dorzolamide OPTH 10 ML BOTTLE LEFT EYE SCH ×3 (11:14→22:41)
[2018-10-25] MEDS: Patient Taking Own Medication 1 EACH OP SCH ×3 (11:14→21:09)
[2018-10-25] MEDS: Insulin DETEMIR 100 UNIT/ML X5UNITS SQ SCH (20:43)
[2018-10-25] MEDS: Gabapentin 300 MG CAPSULE PO SCH (20:43)
[2018-10-26] MEDS: *HR* Heparin 5,000 UNIT/ML VIAL SQ SCH ×3 (05:45→20:56)
[2018-10-26] MEDS: Furosemide 20 MG TABLET PO SCH (07:51)
[2018-10-26] MEDS: Aspirin Enteric Coated 81 MG Tablet PO SCH (07:51)
[2018-10-26] MEDS: Metoprolol XL (24 HR) Succ 25 MG TAB.ER.24H PO SCH (07:51)
[2018-10-26] MEDS: Dorzolamide OPTH 10 ML BOTTLE LEFT EYE SCH ×3 (07:53→20:56)
[2018-10-26] MEDS: Patient Taking Own Medication 1 EACH OP SCH ×3 (07:53→20:57)
[2018-10-26] MEDS: Insulin LISPRO 300 UNITS/3 ML VIAL SQ SCH ×4 (07:54→20:55)
--- NOTE | 2018-10-26 09:08 | Internal Med Progress Note ---
Hospitalist Progress Note - Encounter Date of Encounter: 10/26/18 Time of Encounter: 09:00 - Subjective Interval History: No acute events overnight - Exam Vitals: Temp Pulse Resp BP Pulse Ox 97.5 F L 73 16 146/72 98 10/26/18 06:51 10/26/18 06:51 10/26/18 06:51 10/26/18 06:51 10/26/18 06:51 Exam: General: NAD, good eye contact, well appearing Thoracic: Normal breath sounds b/l, no wheezing or crackles Cardio: Normal S1 and S2, regular rate and rhythm, no murmurs Abdomen: Soft, nontender, nondistended. Extremities: Warm, well perfused. DP pulses 1+ b/l. Mild edema bilaterally. Dressing L groin. Skin: No rashes or bruises. Several-cm open wound R anterolateral distal leg with granulation tissue, scant discharge Neuro: Awake, oriented to person and place. Speech fluent - Assessment and Plan (1) Leg wound, right Current Visit: Yes Status: Acute Assessment and Plan: Advised by wound care clinic to come to ER for admission as unable to tolerate debridement in clinic and will have performed in OR. Seen by podiatry and is s/p debridement and will need wound vac and ECF placement. Social work on board Wound cultures growing citrobacter, klebsiella and morganella. Continue on po levaquin. Awaiting home wound vac setup for discharge. Patient has declined ECF (2) PAD (peripheral artery disease) Current Visit: Yes Status: Chronic Assessment and Plan: Status post angiogram with right lower extremity superficial femoral and posterior tibial artery balloon angioplasties. Tolerated procedures well (3) Diabetes mellitus Current Visit: Yes Status: Chronic Assessment and Plan: Continue insulin and monitor fingersticks (4) CKD (chronic kidney disease) Current Visit: Yes Status: Chronic Assessment and Plan: CKD stage 3. Stable. Avoid nephrotoxins - Time Spent with Patient Total time spent is greater than 50% in coordination of care (as documented) at patient's floor/unit and/or counseling patient: Internal Medicine: Result - Labs CBC & Chem 7: 10/26/18 10:39 10/26/18 10:39 - ABG Interpretation ABG results: PT/INR, D-dimer PT 11.8 Seconds (9.4-12.1) 10/21/18 20:38 Consult Discharge Plan - Plan Referrals: Lillian Mccann CNP [Primary Care Provider] - 10/29/18 10:35 am () Deepak Fagan MD [Partnered Physician] - 11/06/18 9:40 am (1) Leg wound, right Qualifiers: Encounter type: sequela Qualified Code(s): S81.801S - Unspecified open wound, right lower leg, sequela (3) Diabetes mellitus Qualifiers: Diabetes mellitus type: type 2 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
[2018-10-26 10:51] LABS: Basophils % 0.4 %; Eosinophils # 0.1 K/mcL (0.0-0.6); Eosinophils % 1.4 %; Hematocrit 28.9 % (35.3-44.9); Hemoglobin 9.1 g/dL (11.5-15.4); Immature Granulocytes % 1.2 % (0-4); Lymphocytes % 20.1 %; Mean Corpuscular HGB Conc 31.5 g/dL (31.6-35.5); Mean Corpuscular Hemoglobin 29.7 pg (28.0-33.3); Mean Corpuscular Volume 94.4 fL (83.0-100.0); Mean Platelet Volume 10.5 fL (9.4-12.4); Monocytes # 0.5 K/mcL (0.0-1.3); Monocytes % 10.5 %; Neutrophils # 3.4 K/mcL (1.6-8.9); Platelet Count 183 K/mcL (140-400); Red Blood Count 3.06 M/mcL (3.82-4.97); Red Cell Distribution Width 16.2 % (11.5-14.5); Segmented Neutrophils % 66.4 %
[2018-10-26 11:03] LABS: White Blood Count 5.1 K/mcL (4.3-11.1)
[2018-10-26 11:10] LABS: Calcium 9.1 mg/dL (8.6-10.3); Magnesium 2.1 mg/dL (1.6-2.6); Phosphorous 3.3 mg/dL (2.7-4.5); Potassium 4.6 mEq/L (3.5-5.1)
[2018-10-26] MEDS: levoFLOXacin 750 MG TABLET PO SCH (17:16)
[2018-10-26] MEDS: Insulin DETEMIR 100 UNIT/ML X5UNITS SQ SCH (20:55)
[2018-10-26] MEDS: Gabapentin 300 MG CAPSULE PO SCH (20:56)
[2018-10-27] MEDS: *HR* Heparin 5,000 UNIT/ML VIAL SQ SCH ×3 (06:19→21:11)
--- NOTE | 2018-10-27 08:02 | Internal Med Progress Note ---
Hospitalist Progress Note - Encounter Date of Encounter: 10/27/18 Time of Encounter: 08:00 - Subjective Interval History: No acute events overnight - Exam Vitals: Temp Pulse Resp BP Pulse Ox 97.4 F L 70 14 151/77 98 10/27/18 02:34 10/27/18 02:34 10/27/18 02:34 10/27/18 02:34 10/27/18 02:34 Exam: General: NAD, good eye contact, well appearing Thoracic: Normal breath sounds b/l, no wheezing or crackles Cardio: Normal S1 and S2, regular rate and rhythm, no murmurs Abdomen: Soft, nontender, nondistended. Extremities: Warm, well perfused. DP pulses 1+ b/l. Mild edema bilaterally. Dressing L groin. Skin: No rashes or bruises. Several-cm open wound R anterolateral distal leg with granulation tissue, scant discharge Neuro: Awake, oriented to person and place. Speech fluent - Assessment and Plan (1) Leg wound, right Current Visit: Yes Status: Acute Assessment and Plan: Advised by wound care clinic to come to ER for admission as unable to tolerate debridement in clinic and will have performed in OR. Seen by podiatry and is s/p debridement and will need wound vac and ECF placement. Social work on board Wound cultures growing citrobacter, klebsiella and morganella. Continue on po levaquin. Awaiting home wound vac setup for discharge. Patient has declined ECF (2) PAD (peripheral artery disease) Current Visit: Yes Status: Chronic Assessment and Plan: Status post angiogram with right lower extremity superficial femoral and posterior tibial artery balloon angioplasties. Tolerated procedures well (3) Diabetes mellitus Current Visit: Yes Status: Chronic Assessment and Plan: Continue insulin and monitor fingersticks (4) CKD (chronic kidney disease) Current Visit: Yes Status: Chronic Assessment and Plan: CKD stage 3. Stable. Avoid nephrotoxins DVT Prophylaxis: Heparin sc - Time Spent with Patient Total time spent is greater than 50% in coordination of care (as documented) at patient's floor/unit and/or counseling patient: Internal Medicine: Result - Labs CBC & Chem 7: 10/27/18 11:36 10/27/18 11:36 Labs: Short CBC 10/26/18 Range/Units 10:39 WBC 5.1 D (4.3-11.1) K/mcL Hgb 9.1 L (11.5-15.4) g/dL Hct 28.9 L (35.3-44.9) % Plt Count 183 (140-400) K/mcL Neutrophils # 3.4 (1.6-8.9) K/mcL BMP 10/26/18 10:39 Sodium 138 Potassium 4.6 Chloride 107 Carbon Dioxide 23 BUN 67 H Creatinine 2.27 H Glucose 215 H Calcium 9.1 - ABG Interpretation ABG results: PT/INR, D-dimer PT 11.8 Seconds (9.4-12.1) 10/21/18 20:38 Consult Discharge Plan - Plan Referrals: Lillian Mccann CNP [Primary Care Provider] - 10/29/18 10:35 am () Deepak Fagan MD [Partnered Physician] - 11/06/18 9:40 am (1) Leg wound, right Qualifiers: Encounter type: sequela Qualified Code(s): S81.801S - Unspecified open wound, right lower leg, sequela (3) Diabetes mellitus Qualifiers: Diabetes mellitus type: type 2 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
[2018-10-27] MEDS: Furosemide 20 MG TABLET PO SCH (09:33)
[2018-10-27] MEDS: Aspirin Enteric Coated 81 MG Tablet PO SCH (09:33)
[2018-10-27] MEDS: Metoprolol XL (24 HR) Succ 25 MG TAB.ER.24H PO SCH (09:33)
[2018-10-27] MEDS: Patient Taking Own Medication 1 EACH OP SCH ×3 (09:34→22:01)
[2018-10-27] MEDS: Insulin LISPRO 300 UNITS/3 ML VIAL SQ SCH ×4 (09:34→21:10)
[2018-10-27] MEDS: Dorzolamide OPTH 10 ML BOTTLE LEFT EYE SCH ×3 (09:35→21:13)
[2018-10-27 11:54] LABS: Eosinophils # 0.1 K/mcL (0.0-0.6); Hematocrit 27.5 % (35.3-44.9); Hemoglobin 8.7 g/dL (11.5-15.4); Mean Corpuscular HGB Conc 31.6 g/dL (31.6-35.5); Mean Corpuscular Hemoglobin 29.9 pg (28.0-33.3); Mean Corpuscular Volume 94.5 fL (83.0-100.0); Mean Platelet Volume 10.3 fL (9.4-12.4); Platelet Count 184 K/mcL (140-400); Red Blood Count 2.91 M/mcL (3.82-4.97); Red Cell Distribution Width 16.3 % (11.5-14.5); White Blood Count 4.2 K/mcL (4.3-11.1)
[2018-10-27 12:10] LABS: Monocytes # 0.2 K/mcL (0.0-1.3); Neutrophils # 2.9 K/mcL (1.6-8.9)
[2018-10-27 12:11] LABS: Platelet Estimate Normal (Normal)
[2018-10-27 12:15] LABS: Calcium 9.4 mg/dL (8.6-10.3); Magnesium 1.9 mg/dL (1.6-2.6); Phosphorous 3.5 mg/dL (2.7-4.5); Potassium 4.2 mEq/L (3.5-5.1)
[2018-10-27] MEDS: Gabapentin 300 MG CAPSULE PO SCH (21:09)
[2018-10-27] MEDS: Insulin DETEMIR 100 UNIT/ML X5UNITS SQ SCH (21:10)
[2018-10-28 05:28] LABS: Basophils % 0.2 %; Eosinophils # 0.1 K/mcL (0.0-0.6); Eosinophils % 1.4 %; Hematocrit 30.3 % (35.3-44.9); Hemoglobin 9.5 g/dL (11.5-15.4); Immature Granulocytes % 1.4 % (0-4); Lymphocytes # 0.9 K/mcL (0.6-4.6); Mean Corpuscular HGB Conc 31.4 g/dL (31.6-35.5); Mean Corpuscular Hemoglobin 30.1 pg (28.0-33.3); Mean Corpuscular Volume 95.9 fL (83.0-100.0); Mean Platelet Volume 10.8 fL (9.4-12.4); Monocytes # 0.4 K/mcL (0.0-1.3); Monocytes % 8.7 %; Neutrophils # 3.5 K/mcL (1.6-8.9); Platelet Count 202 K/mcL (140-400); Red Blood Count 3.16 M/mcL (3.82-4.97); Red Cell Distribution Width 16.3 % (11.5-14.5); Segmented Neutrophils % 70.3 %; White Blood Count 4.9 K/mcL (4.3-11.1)
[2018-10-28 05:54] LABS: Magnesium 2.1 mg/dL (1.6-2.6); Phosphorous 4.4 mg/dL (2.7-4.5)
[2018-10-28 05:55] LABS: Potassium 4.5 mEq/L (3.5-5.1)
[2018-10-28] MEDS: *HR* Heparin 5,000 UNIT/ML VIAL SQ SCH ×3 (05:57→22:19)
[2018-10-28] MEDS: Insulin LISPRO 300 UNITS/3 ML VIAL SQ SCH ×4 (09:20→22:22)
[2018-10-28] MEDS: Metoprolol XL (24 HR) Succ 25 MG TAB.ER.24H PO SCH (09:22)
[2018-10-28] MEDS: Aspirin Enteric Coated 81 MG Tablet PO SCH (09:22)
[2018-10-28] MEDS: Furosemide 20 MG TABLET PO SCH (09:22)
[2018-10-28] MEDS: Dorzolamide OPTH 10 ML BOTTLE LEFT EYE SCH ×3 (09:22→22:19)
[2018-10-28] MEDS: Patient Taking Own Medication 1 EACH OP SCH ×3 (09:23→22:21)
--- NOTE | 2018-10-28 10:59 | Podiatry Progress Note ---
Date of Encounter: 10/28/18 Time of Encounter: 10:56 - Assessment and Plan (1) Ulcer of right leg Current Visit: Yes Status: Chronic Assessment: S/P preparation of right leg wound for graft and application of PuraPly graft right leg with Dr. Tomas on 10/23/[address] Serosangionus drainage noted to canister WBC 4.9, afebrile Wound cultures returned morganella morganii, klebsiella, and citrobactor Plan: Discussed with patient and son, they would like patient to go to [facility] instead of home for care- professor of social work to set up Wound vac changed [facility] changes Recommend bactrim DS, levaquin or ciprofloxacin based on coverage- will leave to digression of internal medicine based on other co-morbid conditions Follow up in wound care center upon d/c in [address] Tomas Removed wound vac without complication. Cleansed with 0.9 NS. Prepped skin with skin prep. Covered graft with adaptic. Placed tegaderm drape in window pane fashion. Placed black granulafoam to wound bed. Covered with tegaderm drape. Placed to suction at -125 mmHG. Good seal noted. Secured with drain sponge, kerlix, and medipore tape Qualifiers: Non-pressure ulcer stage: with fat layer exposed Qualified Code(s): L97.912 - Non-pressure chronic ulcer of unspecified part of right lower leg with fat layer exposed Subjective Interval history: Patient awake in bed. Son at bedside. Reports wanting to go to rehabilitation facility for wound VAC management instead of using home care services. Patient;s son states that he works and is unable to be home with mother most of the time. Patient denies any fevers, chills, nausea, vomiting, or diarrhea. Denies any calf pain, chest pain, or shortness of breath. No other questions or concerns at this time. Objective - Vital Signs Vital Signs: Vital Signs Temp Pulse Resp BP Pulse Ox 10/28/18 10:15 97.5 F L 61 17 122/77 97 10/28/18 08:00 97.5 F L 66 17 147/83 97 10/28/18 05:41 97.9 F 67 14 148/84 99 10/28/18 00:28 97.4 F L 10/27/18 20:55 97.5 F L 64 14 135/76 97 10/27/18 15:36 94.5 F L 62 16 130/75 100 10/27/18 12:29 97.4 F L 60 16 125/73 98 Intake and Output 10/27/18 10/28/18 10/28/18 23:59 07:59 15:59 Intake Total 900 / 1520 Output Total 0 / 0 Balance 900 / 1515 0 / 0 Intake: Oral 900 / 1520 Output: Urine 0 / 0 Other: Meal Dinner Percent of Meal Consumed 100% # Voids 1 1 Blood Glucose* 193 193 - Exam Exam: Constitiutional: Alert and oriented x 3. Well nourished. No acute distress noted Vascular: faint DP/PT bilaterally, CFT <3 sec to all digits RLE, warm to warm from tibia to toes RLE, no calf pain with squeeze RLE Neurologic:Sensation to touch, normal plantar response Dermatologic: Ulcer noted to right lower extremity, wound bed with granulation tissue, minimal erythema noted to surrounding tissue Musculoskeletal: 3/5 muscle strength and normal tone RLE. - Lab Result Diagrams: 10/28/18 04:24 10/28/18 04:24 Labs: Abnormal lab results WBC 4.2 K/mcL (4.3-11.1) L 10/27/18 11:36 RBC 3.16 M/mcL (3.82-4.97) L 10/28/18 04:24 Hgb 9.5 g/dL (11.5-15.4) L 10/28/18 04:24 Hct 30.3 % (35.3-44.9) L 10/28/18 04:24 MCHC 31.4 g/dL (31.6-35.5) L 10/28/18 04:24 RDW 16.3 % (11.5-14.5) H 10/28/18 04:24 ESR 21 mm/hr (0-15) H 10/18/18 09:47 PT 12.6 Seconds (9.4-12.1) H 10/17/18 12:26 Carbon Dioxide 21 mEq/L (23-29) L 10/28/18 04:24 BUN 73 mg/dL (8-23) H 10/28/18 04:24 Creatinine 2.15 mg/dL (0.60-1.20) H 10/28/18 04:24 Est GFR ( Amer) 28 (> 60) L 10/28/18 04:24 Est GFR (Non-Af Amer) 23 (> 60) L 10/28/18 04:24 BUN/Creatinine Ratio 34 (6-26) H 10/28/18 04:24 Glucose 216 mg/dL (70-105) H 10/28/18 04:24 POC Glucose 193 mg/dL (70-99) H 10/27/18 21:00 Calculated Osmolality 316 (280-300) H 10/28/18 04:24 C-Reactive Protein 14 mg/L (Less than 10) H 10/18/18 09:47 Consult Discharge Plan - Plan Referrals: Lillian Mccann CNP [Primary Care Provider] - 10/29/18 10:35 am () Deepak Fagan MD [Partnered Physician] - 11/06/18 9:40 am
[2018-10-28] MEDS: levoFLOXacin 750 MG TABLET PO SCH (15:15)
--- NOTE | 2018-10-28 15:52 | Internal Med Progress Note ---
Hospitalist Progress Note - Encounter Date of Encounter: 10/28/18 Time of Encounter: 10:00 - Subjective Interval History: No acute events overnight - Exam Vitals: Temp Pulse Resp BP Pulse Ox 97.7 F 80 17 125/73 94 10/28/18 14:17 10/28/18 14:17 10/28/18 14:17 10/28/18 14:17 10/28/18 14:17 Exam: General: NAD, good eye contact, well appearing Thoracic: Normal breath sounds b/l, no wheezing or crackles Cardio: Normal S1 and S2, regular rate and rhythm, no murmurs Abdomen: Soft, nontender, nondistended. Extremities: Warm, well perfused. DP pulses 1+ b/l. Mild edema bilaterally. Dressing L groin. Skin: No rashes or bruises. Several-cm open wound R anterolateral distal leg with granulation tissue, scant discharge Neuro: Awake, oriented to person and place. Speech fluent - Assessment and Plan (1) Leg wound, right Current Visit: Yes Status: Acute Assessment and Plan: Advised by wound care clinic to come to ER for admission as unable to tolerate debridement in clinic and will have performed in OR. Seen by podiatry and is s/p debridement and will need wound vac and ECF placement. Social work on board Wound cultures growing citrobacter, klebsiella and morganella. Continue on po levaquin. Patient has now changed her mind again and decided she wants ECF. electrical worker working on placement (2) PAD (peripheral artery disease) Current Visit: Yes Status: Chronic Assessment and Plan: Status post angiogram with right lower extremity superficial femoral and posterior tibial artery balloon angioplasties. Tolerated procedures well (3) Diabetes mellitus Current Visit: Yes Status: Chronic Assessment and Plan: Continue insulin and monitor fingersticks (4) CKD (chronic kidney disease) Current Visit: Yes Status: Chronic Assessment and Plan: CKD stage 3. Stable. Avoid nephrotoxins DVT Prophylaxis: Heparin sc - Time Spent with Patient Total time spent is greater than 50% in coordination of care (as documented) at patient's floor/unit and/or counseling patient: Internal Medicine: Result - Labs CBC & Chem 7: 10/28/18 04:24 10/28/18 04:24 Labs: Short CBC 10/28/18 Range/Units 04:24 WBC 4.9 (4.3-11.1) K/mcL Hgb 9.5 L (11.5-15.4) g/dL Hct 30.3 L (35.3-44.9) % Plt Count 202 (140-400) K/mcL Neutrophils # 3.5 (1.6-8.9) K/mcL BMP 10/28/18 04:24 Sodium 139 Potassium 4.5 Chloride 107 Carbon Dioxide 21 L BUN 73 H Creatinine 2.15 H Glucose 216 H Calcium 10.0 - ABG Interpretation ABG results: PT/INR, D-dimer PT 11.8 Seconds (9.4-12.1) 10/21/18 20:38 Consult Discharge Plan - Plan Referrals: Lillian Mccann CNP [Primary Care Provider] - 10/29/18 10:35 am () Deepak Fagan MD [Partnered Physician] - 11/06/18 9:40 am (1) Leg wound, right Qualifiers: Encounter type: sequela Qualified Code(s): S81.801S - Unspecified open wound, right lower leg, sequela (3) Diabetes mellitus Qualifiers: Diabetes mellitus type: type 2 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
[2018-10-28] MEDS: Gabapentin 300 MG CAPSULE PO SCH (22:18)
[2018-10-28] MEDS: Insulin DETEMIR 100 UNIT/ML X5UNITS SQ SCH (22:19)
[2018-10-29] MEDS: *HR* Heparin 5,000 UNIT/ML VIAL SQ SCH ×3 (05:39→22:21)
[2018-10-29 06:26] LABS: Basophils % 0.6 %; Eosinophils # 0.1 K/mcL (0.0-0.6); Eosinophils % 2.7 %; Hematocrit 30.2 % (35.3-44.9); Hemoglobin 9.3 g/dL (11.5-15.4); Immature Granulocytes % 2.4 % (0-4); Lymphocytes # 0.8 K/mcL (0.6-4.6); Lymphocytes % 25.2 %; Mean Corpuscular HGB Conc 30.8 g/dL (31.6-35.5); Mean Corpuscular Hemoglobin 29.6 pg (28.0-33.3); Mean Corpuscular Volume 96.2 fL (83.0-100.0); Mean Platelet Volume 11.4 fL (9.4-12.4); Monocytes # 0.3 K/mcL (0.0-1.3); Monocytes % 8.8 %; Platelet Count 198 K/mcL (140-400); Red Blood Count 3.14 M/mcL (3.82-4.97); Red Cell Distribution Width 16.7 % (11.5-14.5); Segmented Neutrophils % 60.3 %; White Blood Count 3.3 K/mcL (4.3-11.1)
[2018-10-29 06:47] LABS: Calcium 9.7 mg/dL (8.6-10.3); Potassium 4.3 mEq/L (3.5-5.1)
[2018-10-29 06:48] LABS: Magnesium 2.1 mg/dL (1.6-2.6); Phosphorous 5.1 mg/dL (2.7-4.5)
[2018-10-29] MEDS: Aspirin Enteric Coated 81 MG Tablet PO SCH (08:11)
[2018-10-29] MEDS: Furosemide 20 MG TABLET PO SCH (08:12)
[2018-10-29] MEDS: Metoprolol XL (24 HR) Succ 25 MG TAB.ER.24H PO SCH (08:12)
[2018-10-29] MEDS: Insulin LISPRO 300 UNITS/3 ML VIAL SQ SCH ×4 (08:12→22:22)
[2018-10-29] MEDS: Dorzolamide OPTH 10 ML BOTTLE LEFT EYE SCH ×3 (08:15→22:31)
[2018-10-29] MEDS: Patient Taking Own Medication 1 EACH OP SCH ×3 (08:15→22:31)
--- NOTE | 2018-10-29 09:38 | Internal Med Progress Note ---
Hospitalist Progress Note - Encounter Date of Encounter: 10/29/18 Time of Encounter: 09:00 - Subjective Interval History: No acute events overnight - Exam Vitals: Temp Pulse Resp BP Pulse Ox 97.2 F L 59 15 134/74 100 10/29/18 06:25 10/29/18 06:25 10/29/18 06:25 10/29/18 06:25 10/29/18 06:25 Exam: General: NAD, good eye contact, well appearing Thoracic: Normal breath sounds b/l, no wheezing or crackles Cardio: Normal S1 and S2, regular rate and rhythm, no murmurs Abdomen: Soft, nontender, nondistended. Extremities: Warm, well perfused. DP pulses 1+ b/l. Mild edema bilaterally. Dressing L groin. Skin: No rashes or bruises. Several-cm open wound R anterolateral distal leg with granulation tissue, scant discharge Neuro: Awake, oriented to person and place. Speech fluent - Assessment and Plan (1) Leg wound, right Current Visit: Yes Status: Acute Assessment and Plan: Advised by wound care clinic to come to ER for admission as unable to tolerate d ebridement in clinic and will have performed in OR. Seen by podiatry and is s/p debridement and will need wound vac and ECF placement. Social work on board Wound cultures growing citrobacter, klebsiella and morganella. Continue on po levaquin. Patient has now changed her mind again and decided she wants ECF. conversion worker working on placement (2) PAD (peripheral artery disease) Current Visit: Yes Status: Chronic Assessment and Plan: Status post angiogram with right lower extremity superficial femoral and posterior tibial artery balloon angioplasties. Tolerated procedures well (3) Diabetes mellitus Current Visit: Yes Status: Chronic Assessment and Plan: Continue insulin and monitor fingersticks (4) CKD (chronic kidney disease) Current Visit: Yes Status: Chronic Assessment and Plan: CKD stage 3. Stable. Avoid nephrotoxins DVT Prophylaxis: Heparin sc - Time Spent with Patient Total time spent is greater than 50% in coordination of care (as documented) at patient's floor/unit and/or counseling patient: Internal Medicine: Result - Labs CBC & Chem 7: 10/29/18 05:31 10/29/18 05:31 Labs: Short CBC 10/29/18 Range/Units 05:31 WBC 3.3 L (4.3-11.1) K/mcL Hgb 9.3 L (11.5-15.4) g/dL Hct 30.2 L (35.3-44.9) % Plt Count 198 (140-400) K/mcL Neutrophils # 2.0 (1.6-8.9) K/mcL BMP 10/29/18 05:31 Sodium 137 Potassium 4.3 Chloride 107 Carbon Dioxide 23 BUN 74 H Creatinine 2.03 H Glucose 222 H Calcium 9.7 - ABG Interpretation ABG results: PT/INR, D-dimer PT 11.8 Seconds (9.4-12.1) 10/21/18 20:38 Consult Discharge Plan - Plan Referrals: Lillian Mccann CNP [Primary Care Provider] - 10/29/18 10:35 am () Deepak Fagan MD [Partnered Physician] - 11/06/18 9:40 am (1) Leg wound, right Qualifiers: Encounter type: sequela Qualified Code(s): S81.801S - Unspecified open wound, right lower leg, sequela (3) Diabetes mellitus Qualifiers: Diabetes mellitus type: type 2 Diabetes mellitus 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
--- NOTE | 2018-10-29 14:18 | Discharge Summary ---
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 Is currently fully alert and oriented but has history of intermittent confusion and is somewhat of a poor historian so some of history obtained from chart review as their is no family currently at bedside. Has been following with wound care outpatient and they reportedly attempted to debride her wound in clinic and she was unable to tolerate so was sent to the ER for admission for debridement in the OR. Was seen in ER 10/10/18 for wound as son reported seeing possible parasites in it. She underwent a CT without contrast at that time which showed large soft tissue defect without radiographic evidence for osteomyelitis She was assessed with infected right leg wound. She was advised by wound care clinic to come to ER for admission as unable to tolerate debridement in clinic and will have performed in OR. She was seen by podiatry and is s/p debridement and will need wound vac and ECF placement. Wound cultures grew citrobacter, klebsiella and morganella so patient will complete a course of po levaquin. She is currently awaiting ECF placement. She was also seen by vascular surgery for peripheral artery disease and is Status post angiogram with right lower extremity superficial femoral and posterior tibial artery balloon angioplasties. Tolerated procedures well. 35 minutes was spent discharging this patient Qualifiers: Encounter type: sequela Qualified Code(s): S81.801S - Unspecified open wound, right lower leg, sequela (2) PAD (peripheral artery disease) Priority: Primary Status: Chronic Assessment and Plan: Status post angiogram with right lower extremity superficial femoral and posterior tibial artery balloon angioplasties. Tolerated procedures well (3) Diabetes mellitus Priority: Primary Status: Chronic Qualifiers: Diabetes mellitus type: type 2 Diabetes mellitus shelter insulin use: with shelter use Diabetes mellitus complication status: with kidney complications Diabetes mellitus complication detail: with chronic kidney disease Chronic kidney disease stage: stage 3 (moderate) Qualified Code(s): E11.22 - Type 2 diabetes mellitus with diabetic chronic kidney disease; N18.3 - Chronic kidney disease, stage 3 (moderate); Z79.4 - [facility] (current) use of insulin (4) CKD (chronic kidney disease) Priority: Primary Status: Chronic Qualifiers: Chronic kidney disease stage: stage 3 (moderate) Qualified Code(s): N18.3 - Chronic kidney disease, stage 3 (moderate) Hospital course: Ms. Luis is a 67 year old female - Time Spent with Patient Total time spent providing and/or coordinating discharge services: - Discharge Medications Prescriptions: New levoFLOXacin [Levaquin] 750 mg PO Q48H 8 Days #4 tablet Atorvastatin [Lipitor] 40 mg PO HS #60 tablet Continued Ferrous Sulfate [Iron] 325 mg PO DAILY Insulin Glargine [Lantus] 18 units SQ HS Insulin ASPART [NovoLOG] 6 - 10 units SQ TIDWM Gabapentin [Neurontin] 600 mg PO HS Dorzolamide [Trusopt] 1 drop LEFT EYE TID Brimonidine Tartrate/Timolol [Combigan 0.2%-0.5% Eye Drops] 1 drop BOTH EYES TID Aspirin [Lo-Dose Aspirin EC] 81 mg PO DAILY Clopidogrel [Plavix] 75 mg PO DAILY Furosemide [Lasix] 40 mg PO DAILY Metoprolol Succinate [Toprol Xl] 12.5 mg PO DAILY Home Medications: Brimonidine Tartrate/Timolol [Combigan 0.2%-0.5% Eye Drops] 1 drop BOTH EYES TID 01/03/18 [History] Dorzolamide [Trusopt] 1 drop LEFT EYE TID 01/03/18 [History] Ferrous Sulfate [Iron] 325 mg PO DAILY 01/03/18 [History] Gabapentin [Neurontin] 600 mg PO HS 01/03/18 [History] Insulin ASPART [NovoLOG] 6 - 10 units SQ TIDWM 01/03/18 [History] Insulin Glargine [Lantus] 18 units SQ HS 01/03/18 [History] Aspirin [Lo-Dose Aspirin EC] 81 mg PO DAILY 07/07/18 [History] Clopidogrel [Plavix] 75 mg PO DAILY 07/07/18 [History] Furosemide [Lasix] 40 mg PO DAILY 10/18/18 [History] Metoprolol Succinate [Toprol Xl] 12.5 mg PO DAILY 10/18/18 [History] Atorvastatin [Lipitor] 40 mg PO HS #60 tablet 10/29/18 [Rx] levoFLOXacin [Levaquin] 750 mg PO Q48H 8 Days #4 tablet 10/29/18 [Rx] Allergies/Adverse Reactions: Allergy/AdvReac Type Severity Reaction Status Date / Time No Known Allergies Allergy Verified 10/18/18 17:02 Date of admission: 10/19/18 19:33 Primary care physician: Lillian Mccann CNP Consults: 10/17/18 17:17 Consult to Technical Training Coordinator [CONS] Routine Reason for SW Consult: discharge plannning 10/18/18 04:09 Consult to Wound Care [CONS] Routine Reason for Consult: Patient advised by wound care clinic to come to ER for admission for debridement in OR as unable to tolerate in clinic. Spoke to environmental protection officer acute care surgery Dr Noam Poe who advised to place wound care consult order. Call Completed: Yes 10/18/18 09:04 Consult to Podiatry [CONS] Routine Consulting Provider: [facility] Reason for Consult: R calf wound, needs inpatient debridement (sent from outpt wound clinic) Call Completed: Yes 10/21/18 08:41 Consult to Vascular Surgery [CONS] Routine Consulting Provider: Vascular Surgery Lilly Reason for Consult: Abnormal CARLTON with wound, pending surgery. Needs vascular evaluation Call Completed: Yes 10/24/18 10:49 Consult to Occupational Therapy [CONS] Routine Comment: Evaluate, develop and implement POC Reason for Consult: BMAT 3; deconditioning; staff reports 2 assist Does patient have active BEDREST order?: No Is patient medically & hemodynamically stable?: Yes Consult to Physical Therapy [CONS] Routine Comment: Evaluate, develop and implement POC Reason for Consult: BMAT 3; deconditioning; staff reports 2 assist Does patient have active BEDREST order?: No Is patient medically & hemodynamically stable?: Yes Patient assessed for mobility or mobilized this visit?: No - Constitutional Vitals: Temp Pulse Resp BP Pulse Ox 97.2 F L 59 15 134/74 100 10/29/18 06:25 10/29/18 06:25 10/29/18 06:25 10/29/18 06:25 10/29/18 06:25 Exam: General: NAD, good eye contact, well appearing Thoracic: Normal breath sounds b/l, no wheezing or crackles Cardio: Normal S1 and S2, regular rate and rhythm, no murmurs Abdomen: Soft, nontender, nondistended. Extremities: Warm, well perfused. DP pulses 1+ b/l. Mild edema bilaterally. Dressing L groin. Skin: No rashes or bruises. Several-cm open wound R anterolateral distal leg with granulation tissue, scant discharge Neuro: Awake, oriented to person and place. Speech fluent - Patient Status Disposition: Transfer SNF Condition: Good - Discharge Instructions Follow Up With: Lillian Mccann CNP [Primary Care Provider] - 10/29/18 10:35 am () Deepak Fagan MD [Partnered Physician] - 11/06/18 9:40 am
[2018-10-29] MEDS: Gabapentin 300 MG CAPSULE PO SCH (22:22)
[2018-10-29] MEDS: Insulin DETEMIR 100 UNIT/ML X5UNITS SQ SCH (22:26)
[2018-10-30] MEDS: *HR* Heparin 5,000 UNIT/ML VIAL SQ SCH (05:27)
[2018-10-30 07:49] LABS: White Blood Count 3.1 K/mcL (4.3-11.1)
[2018-10-30 07:50] LABS: Basophils % 0.7 %; Eosinophils # 0.1 K/mcL (0.0-0.6); Eosinophils % 2.6 %; Hematocrit 29.2 % (35.3-44.9); Hemoglobin 9.2 g/dL (11.5-15.4); Lymphocytes # 0.9 K/mcL (0.6-4.6); Lymphocytes % 27.7 %; Mean Corpuscular HGB Conc 31.5 g/dL (31.6-35.5); Mean Corpuscular Hemoglobin 30.5 pg (28.0-33.3); Mean Corpuscular Volume 96.7 fL (83.0-100.0); Mean Platelet Volume 10.6 fL (9.4-12.4); Monocytes # 0.4 K/mcL (0.0-1.3); Monocytes % 11.4 %; Neutrophils # 1.7 K/mcL (1.6-8.9); Platelet Count 182 K/mcL (140-400); Red Blood Count 3.02 M/mcL (3.82-4.97); Red Cell Distribution Width 16.4 % (11.5-14.5); Segmented Neutrophils % 55.6 %
[2018-10-30 07:59] LABS: Calcium 9.7 mg/dL (8.6-10.3); Magnesium 2.1 mg/dL (1.6-2.6); Phosphorous 4.8 mg/dL (2.7-4.5); Potassium 4.2 mEq/L (3.5-5.1)
[2018-10-30] MEDS: Aspirin Enteric Coated 81 MG Tablet PO SCH (07:59)
[2018-10-30] MEDS: Insulin LISPRO 300 UNITS/3 ML VIAL SQ SCH ×2 (07:59→11:32)
[2018-10-30] MEDS: Furosemide 20 MG TABLET PO SCH (07:59)
[2018-10-30] MEDS: Metoprolol XL (24 HR) Succ 25 MG TAB.ER.24H PO SCH (07:59)
[2018-10-30] MEDS: Dorzolamide OPTH 10 ML BOTTLE LEFT EYE SCH (08:00)
[2018-10-30] MEDS: Patient Taking Own Medication 1 EACH OP SCH (08:00)
[2018-10-30 11:03] VITALS: BP 136/74
--- NOTE | 2018-10-30 14:30 | Podiatry Progress Note ---
Date of Encounter: 10/30/18 Time of Encounter: 14:27 - Assessment and Plan (1) Ulcer of right leg Current Visit: Yes Status: Chronic Assessment: S/P preparation of right leg wound for graft and application of PuraPly graft right leg with Dr. Tomas on 10/23/[address] Serosangionus drainage noted to canister WBC 3.1, afebrile Wound cultures returned morganella morganii, klebsiella, and citrobactor Blood cultures negative Plan: Discussed with Dr. Benz, facility will not have wound vac until tomorrow, spoke with Dr. Tomas, OK for patient to d/c with wet to dry dressing and place wound vac tomorrow. Change vac TTHS Recommend bactrim DS, levaquin or ciprofloxacin based on coverage- will leave to digression of internal medicine based on other co-morbid conditions Follow up in wound care center upon d/c in [address] Tomas, please make appointment prior to discharge Removed wound vac without complications. Graft in place. Placed adaptic over graft site. Wet to dry dressing placed. Covered with kerlix and medipore tape. Qualifiers: Non-pressure ulcer stage: with fat layer exposed Qualified Code(s): L97.912 - Non-pressure chronic ulcer of unspecified part of right lower leg with fat layer exposed Subjective Principal diagnosis: right lower extremity ulcer Interval history: Patient awake in chair. Pleasantly confused. Patient denies any fevers, chills, nausea, vomiting, or diarrhea. Denies any calf pain, chest pain, or shortness of breath. No other questions or concerns at this time. Objective - Vital Signs Vital Signs: Vital Signs Temp Pulse Resp BP Pulse Ox 10/30/18 10:54 97.4 F L 65 16 136/74 95 10/30/18 06:50 97.4 F L 65 16 147/71 96 10/30/18 05:11 97.4 F L 66 15 144/67 98 10/29/18 19:23 57 15 141/82 100 10/29/18 14:33 97.3 F L 53 16 138/69 99 Intake and Output 10/29/18 10/30/18 10/30/18 23:59 07:59 15:59 Intake Total 0 / 0 Output Total 300 / 350 0 / 150 150 / 150 Balance -300 / -110 0 / -150 -150 / -150 Intake: Oral 0 / 0 Output: Urine 300 / 300 0 / 150 150 / 150 Wound Drainage 0 / 0 Right Lower Leg 0 / 0 Right Payne 0 / 0 Other: # Voids 2 2 Weight 86.6 kg Blood Glucose* 137 115 170 Patient Weight 10/30/18 23:59 Weight 86.6 kg - Exam Exam: Constitiutional: Confused. Well nourished. No acute distress noted Vascular: faint DP/PT bilaterally, CFT <3 sec to all digits RLE, warm to warm from tibia to toes RLE, no calf pain with squeeze RLE Neurologic:Sensation to touch, normal plantar response Dermatologic: Ulcer noted to right lower extremity, wound bed with granulation tissue 25%, minimal erythema noted to surrounding tissue Musculoskeletal: 3/5 muscle strength and normal tone RLE. - Lab Result Diagrams: 10/30/18 06:43 10/30/18 06:43 Labs: Abnormal lab results WBC 3.1 K/mcL (4.3-11.1) L 10/30/18 06:43 RBC 3.02 M/mcL (3.82-4.97) L 10/30/18 06:43 Hgb 9.2 g/dL (11.5-15.4) L 10/30/18 06:43 Hct 29.2 % (35.3-44.9) L 10/30/18 06:43 MCHC 31.5 g/dL (31.6-35.5) L 10/30/18 06:43 RDW 16.4 % (11.5-14.5) H 10/30/18 06:43 ESR 21 mm/hr (0-15) H 10/18/18 09:47 PT 12.6 Seconds (9.4-12.1) H 10/17/18 12:26 Carbon Dioxide 21 mEq/L (23-29) L 10/28/18 04:24 BUN 69 mg/dL (8-23) H 10/30/18 06:43 Creatinine 2.18 mg/dL (0.60-1.20) H 10/30/18 06:43 Est GFR ( Amer) 27 (> 60) L 10/30/18 06:43 Est GFR (Non-Af Amer) 22 (> 60) L 10/30/18 06:43 BUN/Creatinine Ratio 32 (6-26) H 10/30/18 06:43 Glucose 117 mg/dL (70-105) H 10/30/18 06:43 POC Glucose 218 mg/dL (70-99) H 10/29/18 16:42 Calculated Osmolality 311 (280-300) H 10/30/18 06:43 Phosphorus 4.8 mg/dL (2.7-4.5) H 10/30/18 06:43 C-Reactive Protein 14 mg/L (Less than 10) H 10/18/18 09:47 Consult Discharge Plan - Plan Additional Instructions: Follow up in wound care center with Dr. Tomas in [address] wound vac tomorrow. Prep skin with skin prep (alkare), place adaptic to wound bed, do not remove graft, place tegaderm in window pane fashion, place black granulafoam sponge to wound bed. Secure with tegaderm. Place at -125 mmHG of suction. Secure with drain sponge, kerlix, and medipore tape. Referrals: Deepak Fagan MD [Partnered Physician] - 11/06/18 9:40 am Prescriptions: levoFLOXacin [Levaquin] 750 mg PO Q48H 8 Days #4 tablet Atorvastatin [Lipitor] 40 mg PO HS #60 tablet
--- NOTE | 2018-10-30 14:32 | Internal Med Progress Note ---
Hospitalist Progress Note - Encounter Date of Encounter: 10/30/18 Time of Encounter: 14:28 - Subjective Interval History: No interval issues or needs. - Exam Vitals: Temp Pulse Resp BP Pulse Ox 97.4 F L 65 16 136/74 95 10/30/18 10:54 10/30/18 10:54 10/30/18 10:54 10/30/18 10:54 10/30/18 10:54 Exam: General: NAD, good eye contact, well appearing Thoracic: Normal breath sounds b/l, no wheezing or crackles Cardio: Normal S1 and S2, regular rate and rhythm Abdomen: Soft, nontender Extremities: Warm, well perfused. DP pulses 1+ b/l. Mild edema bilaterally Skin: No rashes or bruises. Several-cm wound R anterolateral distal leg covered w wound vac Neuro: Awake, oriented to person and place. Speech fluent - Summary of Assessment and Plan Summary of Assessment and Plan: Samantha Luis is a 67 F w hx dementia, HFrEF 25%, CAD s/p stents, CKD3b, IDDM2, who presented from wound care clinic for a nonhealing right distal leg ulcer who was unable to tolerate outpatient debridement and thus admitted 10/18 for inpatient surgical management. Underwent angiogram/angioplasty followed by OR debridement now requiring wound vac. R leg wound: - wound vac per podiatry, changes qMWF - levaquin 750 q48h po, 3 doses remaining PAD: diminished CARLTON RLE for which VascSurg took 10/21 for angiogram and balloon angioplasty of three stenotic areas of RLE vasculature. VascSurg follow up. HFrEF 25%: home lasix 20 po daily DM2: insulin dependent, controlled, continue basal + SSI CKD3b: noted, dose adjust meds as needed CAD: continue home statin, DAPT, metoprolol PPx: sqh FEN: ADA, no MIVF Lines: none Consults: Podiatry, VascSurg Code: Full Dispo: to SNF today Internal Medicine: Result - Labs CBC & Chem 7: 10/30/18 06:43 10/30/18 06:43 Labs: Short CBC 10/30/18 Range/Units 06:43 WBC 3.1 L (4.3-11.1) K/mcL Hgb 9.2 L (11.5-15.4) g/dL Hct 29.2 L (35.3-44.9) % Plt Count 182 (140-400) K/mcL Neutrophils # 1.7 (1.6-8.9) K/mcL BMP 10/30/18 06:43 Sodium 140 Potassium 4.2 Chloride 107 Carbon Dioxide 24 BUN 69 H Creatinine 2.18 H Glucose 117 H Calcium 9.7 - ABG Interpretation ABG results: PT/INR, D-dimer PT 11.8 Seconds (9.4-12.1) 10/21/18 20:38 Consult Discharge Plan - Plan Referrals: Deepak Fagan MD [Partnered Physician] - 11/06/18 9:40 am Prescriptions: levoFLOXacin [Levaquin] 750 mg PO Q48H 8 Days #4 tablet Atorvastatin [Lipitor] 40 mg PO HS #60 tablet
== END 2018-10-30 15:42 | DRG 622 ==
LOC: 3NENU 11:39 → EMEROOARM 11:39 → SUATTDRO 15:50 → 3NENU 16:46 → 2NNU 10-21 14:02 → 3ANU 10-22 16:12
PROVIDERS: ADMIT Internal Medicine Nephrology; ATTEND Internal Medicine

== ENCOUNTER 2019-02-21 19:03 | Inpatient (IN) ==
[2019-02-21 20:12] LABS: Bilirubin,Urine Small (Negative); Blood,Urine Moderate (Negative); Clarity,Urine Clear (Clear); Color,Urine Dark Yellow (Yellow); Glucose,Urine (UA) 100 mg/dL (Normal); Ketones,Urine Negative (Negative); Leukocyte Esterase,Urine Negative (Negative); Nitrite,Urine Negative (Negative); Protein,Urine >=300 mg/dL (Neg-Trace); Specific Gravity,Urine 1.026 (1.010-1.025); Urobilinogen,Urine Normal (Normal)
[2019-02-21 20:14] LABS: Bacteria,Urine None Seen per hpf (None-Few); Hyaline Casts,Urine Few per lpf (None-Few); Squamous Epithelial Cell,Urine Many per lpf (None-Few)
[2019-02-21 20:20] LABS: Basophils % 0.6 %; Eosinophils % 0.9 %; Hematocrit 41.7 % (35.3-44.9); Hemoglobin 13.6 g/dL (11.5-15.4); Immature Granulocytes % 0.3 % (0-4); Lymphocytes # 0.5 K/mcL (0.6-4.6); Lymphocytes % 15.3 %; Mean Corpuscular HGB Conc 32.6 g/dL (31.6-35.5); Mean Corpuscular Hemoglobin 30.3 pg (28.0-33.3); Mean Corpuscular Volume 92.9 fL (83.0-100.0); Mean Platelet Volume 11.7 fL (9.4-12.4); Monocytes # 0.2 K/mcL (0.0-1.3); Monocytes % 4.6 %; Neutrophils # 2.7 K/mcL (1.6-8.9); Platelet Count 180 K/mcL (140-400); Red Blood Count 4.49 M/mcL (3.82-4.97); Red Cell Distribution Width 16.4 % (11.5-14.5); Segmented Neutrophils % 78.3 %; White Blood Count 3.5 K/mcL (4.3-11.1)
[2019-02-21 20:27] LABS: INR 1.3; Prothrombin Time 14.5 Seconds (9.4-12.1)
[2019-02-21 20:30] LABS: Activated Partial Thrombo Time 37.2 Seconds (26.0-36.0)
[2019-02-21 20:41] LABS: Albumin 3.7 g/dL (3.5-5.7); Albumin/Globulin Ratio 1.4 (1.1-2.2); Bilirubin,Direct 0.6 mg/dL (0.0-0.2); Bilirubin,Indirect 0.9 mg/dL (0.0-1.0); Bilirubin,Total 1.5 mg/dL (0.3-1.0); Globulin 2.7 g/dL (2.4-3.5); Magnesium 1.9 mg/dL (1.6-2.6); Phosphorous 3.2 mg/dL (2.7-4.5); Total Protein 6.4 g/dL (6.4-8.9)
[2019-02-21 20:44] LABS: BUN/Creatinine Ratio 18 (6-26); Blood Urea Nitrogen 27 mg/dL (8-23); Calcium 9.7 mg/dL (8.6-10.3); Carbon Dioxide 27 mEq/L (23-29); Chloride 108 mEq/L (98-107); Glucose 139 mg/dL (70-105); Osmolality,Calculated 305 (280-300); Sodium 144 mEq/L (136-145); eGFR For African Americans 41 (> 60); eGFR For Non-African Americans 34 (> 60)
[2019-02-21 20:45] LABS: Troponin I < 0.03 ng/mL (< 0.04)
[2019-02-21] MEDS ORDERED: Furosemide 40 MG/4 ML VIAL IVP ONE (20:48)
[2019-02-22] MEDS ORDERED: Naloxone 0.4 MG/ML INJ IVP PRN (00:30)
[2019-02-22] MEDS ORDERED: *HR* Dextrose 50 % in Water (Syg) 50 ML SYRINGE IVP PRN (00:38)
[2019-02-22] MEDS ORDERED: Dextrose Gel 15 GM/37.5 ML TUBE PO PRN ×2 (00:38)
[2019-02-22] MEDS ORDERED: D5% in Water 1,000 ML IVC PRN (00:38)
[2019-02-22 05:54] LABS: Albumin 3.5 g/dL (3.5-5.7); Albumin/Globulin Ratio 1.4 (1.1-2.2); Bilirubin,Direct 0.4 mg/dL (0.0-0.2); Bilirubin,Indirect 0.8 mg/dL (0.0-1.0); Bilirubin,Total 1.2 mg/dL (0.3-1.0); Calcium 9.3 mg/dL (8.6-10.3); Globulin 2.5 g/dL (2.4-3.5); Potassium 3.4 mEq/L (3.5-5.1)
[2019-02-22] MEDS: *HR* Heparin 5,000 UNIT/ML VIAL SQ SCH ×2 (06:54→18:19)
[2019-02-22] MEDS: Insulin LISPRO 300 UNITS/3 ML VIAL SQ SCH ×3 (08:00→18:18)
[2019-02-22] MEDS: Dorzolamide OPTH 10 ML BOTTLE LEFT EYE SCH ×3 (09:30→23:00)
[2019-02-22] MEDS: Metoprolol XL (24 HR) Succ 25 MG TAB.ER.24H PO SCH (11:16)
[2019-02-22] MEDS: Furosemide 40 MG/4 ML VIAL IVP SCH (11:16)
[2019-02-22] MEDS: Aspirin Enteric Coated 81 MG Tablet PO SCH (11:16)
[2019-02-22] MEDS: hydrALAZINE 10 MG TABLET PO SCH ×2 (15:26→23:59)
[2019-02-22] MEDS ORDERED: Insulin LISPRO 300 UNITS/3 ML VIAL SQ SCH (21:00)
[2019-02-22] MEDS: Gabapentin 300 MG CAPSULE PO PRN (23:58)
[2019-02-23] MEDS: cefTRIAXone 1,000 MG in 0.9 % Sodium Chloride Mini Bag 100 ML IVPB SCH (04:30)
[2019-02-23] MEDS: *HR* Heparin 5,000 UNIT/ML VIAL SQ SCH ×2 (04:47→16:42)
[2019-02-23 05:52] LABS: Basophils % 0.3 %; Eosinophils # 0.1 K/mcL (0.0-0.6); Eosinophils % 1.7 %; Hematocrit 35.8 % (35.3-44.9); Hemoglobin 11.5 g/dL (11.5-15.4); Immature Granulocytes % 0.3 % (0-4); Lymphocytes # 0.7 K/mcL (0.6-4.6); Lymphocytes % 21.2 %; Mean Corpuscular HGB Conc 32.1 g/dL (31.6-35.5); Mean Corpuscular Hemoglobin 29.6 pg (28.0-33.3); Mean Platelet Volume 11.6 fL (9.4-12.4); Monocytes # 0.4 K/mcL (0.0-1.3); Monocytes % 12.5 %; Neutrophils # 2.2 K/mcL (1.6-8.9); Platelet Count 177 K/mcL (140-400); Red Blood Count 3.89 M/mcL (3.82-4.97); Red Cell Distribution Width 16.6 % (11.5-14.5); White Blood Count 3.5 K/mcL (4.3-11.1)
[2019-02-23 06:23] LABS: Calcium 8.8 mg/dL (8.6-10.3); Potassium 3.8 mEq/L (3.5-5.1)
[2019-02-23] MEDS: Insulin LISPRO 300 UNITS/3 ML VIAL SQ SCH ×3 (07:49→16:37)
[2019-02-23] MEDS: Furosemide 40 MG/4 ML VIAL IVP SCH (08:26)
[2019-02-23] MEDS: Aspirin Enteric Coated 81 MG Tablet PO SCH (08:27)
[2019-02-23] MEDS: Metoprolol XL (24 HR) Succ 25 MG TAB.ER.24H PO SCH (08:27)
[2019-02-23] MEDS: hydrALAZINE 10 MG TABLET PO SCH ×3 (08:27→22:26)
[2019-02-23] MEDS: Dorzolamide OPTH 10 ML BOTTLE LEFT EYE SCH ×3 (08:28→22:42)
[2019-02-23] MEDS ORDERED: D5% in Water 1,000 ML IVC PRN (12:53)
[2019-02-23] MEDS ORDERED: *HR* Dextrose 50 % in Water (Syg) 50 ML SYRINGE IVP PRN (12:53)
[2019-02-23] MEDS ORDERED: Dextrose Gel 15 GM/37.5 ML TUBE PO PRN ×2 (12:53)
[2019-02-23] MEDS ORDERED: Ondansetron 4 MG/2 ML VIAL IVP PRN (13:30)
[2019-02-23] MEDS ORDERED: *HR* LORazepam 2 MG/ML VIAL IVP ONE (22:13)
[2019-02-23] MEDS: Insulin DETEMIR 100 UNIT/ML X5UNITS SQ SCH (22:25)
[2019-02-23] MEDS: Gabapentin 300 MG CAPSULE PO PRN (22:26)
[2019-02-24] MEDS ORDERED: Haloperidol Lactate 5 MG/ML VIAL IVP ONE ×2 (00:23→00:28)
[2019-02-24] MEDS ORDERED: *HR* Promethazine 25 MG/ML VIAL IVP ONE (00:24)
[2019-02-24] MEDS: cefTRIAXone 1,000 MG in 0.9 % Sodium Chloride Mini Bag 100 ML IVPB SCH (05:51)
[2019-02-24] MEDS: *HR* Heparin 5,000 UNIT/ML VIAL SQ SCH ×2 (05:51→18:00)
[2019-02-24] MEDS: Metoprolol XL (24 HR) Succ 25 MG TAB.ER.24H PO SCH (08:35)
[2019-02-24] MEDS: amLODIPine 5 MG TABLET PO SCH (08:36)
[2019-02-24] MEDS: Dorzolamide OPTH 10 ML BOTTLE LEFT EYE SCH ×3 (08:37→20:11)
[2019-02-24 08:39] LABS: Basophils % 0.3 %; Eosinophils % 1.3 %; Hematocrit 38.1 % (35.3-44.9); Hemoglobin 12.5 g/dL (11.5-15.4); Immature Granulocytes % 0.3 % (0-4); Lymphocytes # 0.6 K/mcL (0.6-4.6); Mean Corpuscular HGB Conc 32.8 g/dL (31.6-35.5); Mean Corpuscular Hemoglobin 30.3 pg (28.0-33.3); Mean Corpuscular Volume 92.5 fL (83.0-100.0); Mean Platelet Volume 11.5 fL (9.4-12.4); Monocytes # 0.4 K/mcL (0.0-1.3); Monocytes % 12.1 %; Neutrophils # 2.1 K/mcL (1.6-8.9); Platelet Count 176 K/mcL (140-400); Red Blood Count 4.12 M/mcL (3.82-4.97); Red Cell Distribution Width 16.5 % (11.5-14.5); White Blood Count 3.2 K/mcL (4.3-11.1)
[2019-02-24] MEDS: Insulin LISPRO 300 UNITS/3 ML VIAL SQ SCH ×3 (08:50→17:57)
[2019-02-24 08:54] LABS: Estimated Average Glucose 200 mg/dl
[2019-02-24] MEDS: hydrALAZINE 10 MG TABLET PO SCH ×2 (08:57→16:44)
[2019-02-24 09:22] LABS: Potassium 4.9 mEq/L (3.5-5.1)
[2019-02-24] MEDS: Aspirin Enteric Coated 81 MG Tablet PO SCH (10:50)
[2019-02-24] MEDS: Furosemide 40 MG/4 ML VIAL IVP SCH (10:52)
[2019-02-24] MEDS: *HR* Metoprolol 5 MG/5 ML VIAL IVP SCH (18:00)
[2019-02-24] MEDS: Insulin DETEMIR 100 UNIT/ML X5UNITS SQ SCH (18:17)
[2019-02-25] MEDS: Insulin LISPRO 300 UNITS/3 ML VIAL SQ SCH ×6 (01:22→21:33)
[2019-02-25] MEDS: *HR* Metoprolol 5 MG/5 ML VIAL IVP SCH ×2 (01:23→05:40)
[2019-02-25] MEDS: hydrALAZINE 10 MG TABLET PO SCH ×5 (01:23→21:25)
[2019-02-25] MEDS: *HR* Heparin 5,000 UNIT/ML VIAL SQ SCH ×2 (05:40→16:54)
[2019-02-25 05:53] LABS: Basophils % 0.3 %; Eosinophils # 0.1 K/mcL (0.0-0.6); Eosinophils % 2.1 %; Hematocrit 36.6 % (35.3-44.9); Hemoglobin 11.9 g/dL (11.5-15.4); Immature Granulocytes % 0.7 % (0-4); Lymphocytes # 0.9 K/mcL (0.6-4.6); Lymphocytes % 32.4 %; Mean Corpuscular HGB Conc 32.5 g/dL (31.6-35.5); Mean Corpuscular Hemoglobin 30.1 pg (28.0-33.3); Mean Corpuscular Volume 92.4 fL (83.0-100.0); Mean Platelet Volume 11.7 fL (9.4-12.4); Monocytes # 0.4 K/mcL (0.0-1.3); Monocytes % 14.5 %; Neutrophils # 1.5 K/mcL (1.6-8.9); Platelet Count 185 K/mcL (140-400); Red Blood Count 3.96 M/mcL (3.82-4.97); Red Cell Distribution Width 16.5 % (11.5-14.5); White Blood Count 2.9 K/mcL (4.3-11.1)
[2019-02-25 06:22] LABS: Calcium 9.1 mg/dL (8.6-10.3); Potassium 3.8 mEq/L (3.5-5.1)
[2019-02-25] MEDS: Furosemide 40 MG/4 ML VIAL IVP SCH (09:58)
[2019-02-25] MEDS: amLODIPine 5 MG TABLET PO SCH (09:58)
[2019-02-25] MEDS: Aspirin Enteric Coated 81 MG Tablet PO SCH (09:58)
[2019-02-25] MEDS: Dorzolamide OPTH 10 ML BOTTLE LEFT EYE SCH ×3 (10:00→21:27)
[2019-02-25] MEDS: Metoprolol XL (24 HR) Succ 25 MG TAB.ER.24H PO SCH (13:06)
[2019-02-25] MEDS ORDERED: *HR* LORazepam 2 MG/ML VIAL IVP ONE (20:58)
[2019-02-25] MEDS: Gabapentin 300 MG CAPSULE PO SCH (21:25)
[2019-02-25] MEDS: Insulin DETEMIR 100 UNIT/ML X5UNITS SQ SCH (21:37)
[2019-02-26 05:17] LABS: Basophils % 0.6 %; Eosinophils # 0.1 K/mcL (0.0-0.6); Eosinophils % 1.5 %; Hematocrit 38.3 % (35.3-44.9); Hemoglobin 12.3 g/dL (11.5-15.4); Immature Granulocytes % 0.3 % (0-4); Lymphocytes # 0.6 K/mcL (0.6-4.6); Mean Corpuscular HGB Conc 32.1 g/dL (31.6-35.5); Mean Corpuscular Hemoglobin 30.1 pg (28.0-33.3); Mean Corpuscular Volume 93.9 fL (83.0-100.0); Mean Platelet Volume 11.2 fL (9.4-12.4); Monocytes # 0.3 K/mcL (0.0-1.3); Neutrophils # 2.3 K/mcL (1.6-8.9); Platelet Count 150 K/mcL (140-400); Red Blood Count 4.08 M/mcL (3.82-4.97); Red Cell Distribution Width 16.7 % (11.5-14.5); Segmented Neutrophils % 68.6 %; White Blood Count 3.3 K/mcL (4.3-11.1)
[2019-02-26] MEDS: *HR* Heparin 5,000 UNIT/ML VIAL SQ SCH ×2 (05:19→18:41)
[2019-02-26 05:58] LABS: Calcium 9.1 mg/dL (8.6-10.3); Magnesium 1.9 mg/dL (1.6-2.6); Potassium 4.6 mEq/L (3.5-5.1)
[2019-02-26] MEDS: Metoprolol XL (24 HR) Succ 25 MG TAB.ER.24H PO SCH (07:47)
[2019-02-26] MEDS: amLODIPine 5 MG TABLET PO SCH (07:47)
[2019-02-26] MEDS: Furosemide 40 MG TABLET PO SCH (07:48)
[2019-02-26] MEDS: Dorzolamide OPTH 10 ML BOTTLE LEFT EYE SCH ×3 (07:48→21:05)
[2019-02-26] MEDS: Spironolactone 25 MG TABLET PO SCH (07:48)
[2019-02-26] MEDS: Aspirin Enteric Coated 81 MG Tablet PO SCH (07:48)
[2019-02-26] MEDS: hydrALAZINE 10 MG TABLET PO SCH ×3 (07:48→20:59)
[2019-02-26] MEDS: Insulin LISPRO 300 UNITS/3 ML VIAL SQ SCH ×4 (08:05→21:03)
[2019-02-26] MEDS: Gabapentin 300 MG CAPSULE PO SCH (20:59)
[2019-02-26] MEDS: Insulin DETEMIR 100 UNIT/ML X5UNITS SQ SCH (21:03)
[2019-02-26 23:03] LABS: Bilirubin,Urine Negative (Negative); Blood,Urine Negative (Negative); Clarity,Urine Clear (Clear); Color,Urine Yellow (Yellow); Glucose,Urine (UA) Normal (Normal); Ketones,Urine Negative (Negative); Leukocyte Esterase,Urine Negative (Negative); Nitrite,Urine Negative (Negative); Protein,Urine 30 mg/dL (Neg-Trace); Specific Gravity,Urine 1.015 (1.010-1.025); Urobilinogen,Urine Normal (Normal)
[2019-02-26 23:05] LABS: Bacteria,Urine None Seen per hpf (None-Few); Hyaline Casts,Urine None Seen per lpf (None-Few); RBC,Urine 0-3 per hpf (0-3); Squamous Epithelial Cell,Urine Many per lpf (None-Few); WBC,Urine 0-3 per hpf (0-3)
[2019-02-27 00:48] LABS: Basophils % 0.3 %; Eosinophils % 1.2 %; Hematocrit 35.5 % (35.3-44.9); Hemoglobin 11.2 g/dL (11.5-15.4); Immature Granulocytes % 0.6 % (0-4); Lymphocytes # 0.6 K/mcL (0.6-4.6); Lymphocytes % 16.8 %; Mean Corpuscular HGB Conc 31.5 g/dL (31.6-35.5); Mean Corpuscular Hemoglobin 30.5 pg (28.0-33.3); Mean Corpuscular Volume 96.7 fL (83.0-100.0); Mean Platelet Volume 11.4 fL (9.4-12.4); Monocytes # 0.4 K/mcL (0.0-1.3); Monocytes % 12.2 %; Neutrophils # 2.4 K/mcL (1.6-8.9); Platelet Count 161 K/mcL (140-400); Red Blood Count 3.67 M/mcL (3.82-4.97); Red Cell Distribution Width 16.6 % (11.5-14.5); Segmented Neutrophils % 68.9 %; White Blood Count 3.5 K/mcL (4.3-11.1)
[2019-02-27 00:59] LABS: Calcium 9.4 mg/dL (8.6-10.3); Magnesium 1.8 mg/dL (1.6-2.6); Potassium 4.9 mEq/L (3.5-5.1)
[2019-02-27] MEDS ORDERED: Piperacillin/Tazobactam 3.375 GM in 0.9 % Sodium Chloride Mini Bag 100 ML IVPB SCH ×2 (03:49→11:00)
[2019-02-27] MEDS: *HR* Heparin 5,000 UNIT/ML VIAL SQ SCH (05:17)
[2019-02-27] MEDS: Insulin LISPRO 300 UNITS/3 ML VIAL SQ SCH ×2 (09:04→11:54)
[2019-02-27] MEDS: hydrALAZINE 10 MG TABLET PO SCH (09:09)
[2019-02-27] MEDS: Furosemide 40 MG TABLET PO SCH (09:09)
[2019-02-27] MEDS: amLODIPine 5 MG TABLET PO SCH (09:09)
[2019-02-27] MEDS: Spironolactone 25 MG TABLET PO SCH (09:09)
[2019-02-27] MEDS: Aspirin Enteric Coated 81 MG Tablet PO SCH (09:09)
[2019-02-27] MEDS: Metoprolol XL (24 HR) Succ 25 MG TAB.ER.24H PO SCH (09:09)
[2019-02-27] MEDS: Dorzolamide OPTH 10 ML BOTTLE LEFT EYE SCH (09:09)
[2019-02-27 11:36] VITALS: BP 157/70
[2019-02-28] MEDS ORDERED: Insulin DETEMIR 100 UNIT/ML X5UNITS SQ SCH (09:00)
== END 2019-02-27 15:44 | DRG 291 ==
LOC: 2ANU 19:03 → EMEROOARM 19:03 → SUATTDRO 21:54 → 2ANU 22:30
PROVIDERS: ADMIT Family Medicine; ATTEND Pharmacist

== ENCOUNTER 2019-04-12 17:02 | Inpatient (IN) ==
[2019-04-12 17:40] LABS: Basophils % 0.4 %; Eosinophils % 0.4 %; Hematocrit 48.2 % (35.3-44.9); Hemoglobin 15.7 g/dL (11.5-15.4); Immature Granulocytes % 0.4 % (0-4); Lymphocytes # 0.6 K/mcL (0.6-4.6); Lymphocytes % 13.3 %; Mean Corpuscular HGB Conc 32.6 g/dL (31.6-35.5); Mean Corpuscular Hemoglobin 30.5 pg (28.0-33.3); Mean Corpuscular Volume 93.8 fL (83.0-100.0); Mean Platelet Volume 11.2 fL (9.4-12.4); Monocytes # 0.3 K/mcL (0.0-1.3); Neutrophils # 3.7 K/mcL (1.6-8.9); Platelet Count 224 K/mcL (140-400); Red Blood Count 5.14 M/mcL (3.82-4.97); Red Cell Distribution Width 18.7 % (11.5-14.5); Segmented Neutrophils % 78.5 %; White Blood Count 4.7 K/mcL (4.3-11.1)
[2019-04-12 18:04] LABS: Albumin 3.9 g/dL (3.5-5.7); Albumin/Globulin Ratio 1.3 (1.1-2.2); Bilirubin,Direct 0.9 mg/dL (0.0-0.2); Bilirubin,Indirect 0.9 mg/dL (0.0-1.0); Bilirubin,Total 1.8 mg/dL (0.3-1.0); Calcium 9.7 mg/dL (8.6-10.3); Globulin 2.9 g/dL (2.4-3.5); Magnesium 1.9 mg/dL (1.6-2.6); Potassium 4.1 mEq/L (3.5-5.1); Total Protein 6.8 g/dL (6.4-8.9); Troponin I 0.03 ng/mL (< 0.04)
[2019-04-12 18:27] LABS: Bilirubin,Urine Moderate (Negative); Blood,Urine Small (Negative); Color,Urine Dark Yellow (Yellow); Glucose,Urine (UA) Normal (Normal); Ketones,Urine Trace mg/dL (Negative); Leukocyte Esterase,Urine Negative (Negative); Nitrite,Urine Negative (Negative); Protein,Urine >=300 mg/dL (Neg-Trace); Specific Gravity,Urine 1.028 (1.010-1.025); Urobilinogen,Urine Normal (Normal)
[2019-04-12 18:29] LABS: Bacteria,Urine Many per hpf (None-Few); Hyaline Casts,Urine Few per lpf (None-Few); RBC,Urine 0-3 per hpf (0-3); Squamous Epithelial Cell,Urine Many per lpf (None-Few)
[2019-04-12 18:32] LABS: Clarity,Urine Slightly Cloudy (Clear)
[2019-04-12 18:40] LABS: Transitional Epi Cells,Urine Few per hpf (None-Few)
[2019-04-12] MEDS ORDERED: Ondansetron 4 MG/2 ML VIAL IVP PRN (19:42)
[2019-04-12] MEDS ORDERED: Naloxone 0.4 MG/ML INJ IVP PRN (19:42)
[2019-04-12] MEDS ORDERED: *HR* Dextrose 50 % in Water (Syg) 50 ML SYRINGE IVP PRN (19:45)
[2019-04-12] MEDS ORDERED: Dextrose Gel 15 GM/37.5 ML TUBE PO PRN ×2 (19:45)
[2019-04-12] MEDS ORDERED: D5% in Water 1,000 ML IVC PRN (19:45)
[2019-04-12] MEDS ORDERED: Gabapentin 300 MG CAPSULE PO PRN (20:15)
[2019-04-12] MEDS ORDERED: traZODone 50 MG TABLET PO SCH (21:00)
[2019-04-12] MEDS: Dorzolamide OPTH 10 ML BOTTLE LEFT EYE SCH (22:09)
[2019-04-12] MEDS: Melatonin 3 MG TABLET PO SCH (22:09)
[2019-04-12] MEDS: hydrALAZINE 10 MG TABLET PO SCH (22:09)
[2019-04-12] MEDS: Insulin DETEMIR 100 UNIT/ML X5UNITS SQ SCH (22:10)
[2019-04-13] MEDS: Piperacillin/Tazobactam 3.375 GM in 0.9 % Sodium Chloride Mini Bag 100 ML IVPB SCH ×4 (01:39→23:39)
[2019-04-13] MEDS ORDERED: *HR* Heparin 5,000 UNIT/ML VIAL SQ SCH (06:00)
[2019-04-13 07:11] LABS: Basophils % 0.4 %; Eosinophils % 0.7 %; Hematocrit 42.4 % (35.3-44.9); Immature Granulocytes % 0.5 % (0-4); Lymphocytes # 0.8 K/mcL (0.6-4.6); Lymphocytes % 15.3 %; Mean Corpuscular HGB Conc 32.3 g/dL (31.6-35.5); Mean Corpuscular Hemoglobin 30.8 pg (28.0-33.3); Mean Corpuscular Volume 95.3 fL (83.0-100.0); Mean Platelet Volume 10.9 fL (9.4-12.4); Monocytes # 0.6 K/mcL (0.0-1.3); Monocytes % 10.7 %; Platelet Count 190 K/mcL (140-400); Red Blood Count 4.45 M/mcL (3.82-4.97); Red Cell Distribution Width 18.8 % (11.5-14.5); Segmented Neutrophils % 72.4 %; White Blood Count 5.5 K/mcL (4.3-11.1)
[2019-04-13 07:12] LABS: Hemoglobin 13.7 g/dL (11.5-15.4)
[2019-04-13 09:21] LABS: Albumin 3.1 g/dL (3.5-5.7); Albumin/Globulin Ratio 1.3 (1.1-2.2); Bilirubin,Direct 0.8 mg/dL (0.0-0.2); Bilirubin,Indirect 0.7 mg/dL (0.0-1.0); Bilirubin,Total 1.5 mg/dL (0.3-1.0); Calcium 8.9 mg/dL (8.6-10.3); Globulin 2.4 g/dL (2.4-3.5); Potassium 4.1 mEq/L (3.5-5.1); Thyroid Stimulating Hormone 2.042 mcIU/mL (0.340-5.600); Total Protein 5.5 g/dL (6.4-8.9)
[2019-04-13] MEDS: Insulin LISPRO 300 UNITS/3 ML VIAL SQ SCH ×3 (09:54→17:50)
[2019-04-13] MEDS: Furosemide 40 MG TABLET PO SCH (10:12)
[2019-04-13] MEDS: Aspirin Enteric Coated 81 MG Tablet PO SCH (10:12)
[2019-04-13] MEDS: Metoprolol XL (24 HR) Succ 25 MG TAB.ER.24H PO SCH (10:12)
[2019-04-13] MEDS: Spironolactone 25 MG TABLET PO SCH (10:12)
[2019-04-13] MEDS: hydrALAZINE 10 MG TABLET PO SCH ×3 (10:12→20:44)
[2019-04-13] MEDS: Dorzolamide OPTH 10 ML BOTTLE LEFT EYE SCH ×3 (10:13→20:45)
[2019-04-13] MEDS ORDERED: Perflutren Lipid Microsphere 1.3 ML in 0.9 % Sodium Chloride 8.7 ML IVP ONE (13:40)
[2019-04-13] MEDS: Melatonin 3 MG TABLET PO SCH (20:44)
[2019-04-13] MEDS: Insulin DETEMIR 100 UNIT/ML X5UNITS SQ SCH (20:45)
[2019-04-14] MEDS: Piperacillin/Tazobactam 3.375 GM in 0.9 % Sodium Chloride Mini Bag 100 ML IVPB SCH (07:18)
[2019-04-14] MEDS: Insulin LISPRO 300 UNITS/3 ML VIAL SQ SCH ×3 (07:21→16:51)
[2019-04-14] MEDS: Spironolactone 25 MG TABLET PO SCH (07:22)
[2019-04-14] MEDS: Aspirin Enteric Coated 81 MG Tablet PO SCH (07:23)
[2019-04-14] MEDS: Furosemide 40 MG TABLET PO SCH (07:23)
[2019-04-14] MEDS: hydrALAZINE 10 MG TABLET PO SCH ×3 (07:23→21:32)
[2019-04-14] MEDS: Metoprolol XL (24 HR) Succ 25 MG TAB.ER.24H PO SCH (07:24)
[2019-04-14] MEDS: Dorzolamide OPTH 10 ML BOTTLE LEFT EYE SCH ×3 (07:24→21:33)
[2019-04-14 08:32] LABS: Hematocrit 39.3 % (35.3-44.9); Hemoglobin 12.6 g/dL (11.5-15.4); Mean Corpuscular HGB Conc 32.1 g/dL (31.6-35.5); Mean Corpuscular Hemoglobin 30.5 pg (28.0-33.3); Mean Corpuscular Volume 95.2 fL (83.0-100.0); Mean Platelet Volume 10.8 fL (9.4-12.4); Platelet Count 176 K/mcL (140-400); Red Blood Count 4.13 M/mcL (3.82-4.97); Red Cell Distribution Width 18.5 % (11.5-14.5); White Blood Count 3.3 K/mcL (4.3-11.1)
[2019-04-14 08:49] LABS: Albumin/Globulin Ratio 1.3 (1.1-2.2); Bilirubin,Total 1.2 mg/dL (0.3-1.0); Calcium 8.4 mg/dL (8.6-10.3); Globulin 2.3 g/dL (2.4-3.5); Potassium 3.8 mEq/L (3.5-5.1); Total Protein 5.3 g/dL (6.4-8.9)
[2019-04-14] MEDS: Melatonin 3 MG TABLET PO SCH (21:31)
[2019-04-14] MEDS: Insulin DETEMIR 100 UNIT/ML X5UNITS SQ SCH (21:32)
[2019-04-15] MEDS: Insulin LISPRO 300 UNITS/3 ML VIAL SQ SCH ×3 (07:21→16:33)
[2019-04-15] MEDS: Spironolactone 25 MG TABLET PO SCH (07:22)
[2019-04-15] MEDS: hydrALAZINE 10 MG TABLET PO SCH ×3 (07:23→20:52)
[2019-04-15] MEDS: Aspirin Enteric Coated 81 MG Tablet PO SCH (07:23)
[2019-04-15] MEDS: Furosemide 40 MG TABLET PO SCH (07:24)
[2019-04-15] MEDS: Metoprolol XL (24 HR) Succ 25 MG TAB.ER.24H PO SCH (07:24)
[2019-04-15] MEDS: Dorzolamide OPTH 10 ML BOTTLE LEFT EYE SCH ×3 (07:25→20:52)
[2019-04-15] MEDS ORDERED: Bismuth Subsalicylate 120 ML ORAL SUSPENSION PO PRN (09:28)
[2019-04-15 11:38] LABS: Adenovirus Not Detected (Not Detect); Bordetella Pertussis Not Detected (Not Detect); Chlamydophila pneumoniae Not Detected (Not Detect); Coronavirus 229E Not Detected (Not Detect); Coronavirus HKU1 Not Detected (Not Detect); Coronavirus NL63 Not Detected (Not Detect); Coronavirus OC43 Not Detected (Not Detect); Human Metapneumovirus Not Detected (Not Detect); Human Rhinovirus/Enterovirus Not Detected (Not Detect); Influenza A Subtype 2009 H1 Not Detected (Not Detect); Influenza B Not Detected (Not Detect); Mycoplasma pneumoniae Not Detected (Not Detect); Parainfluenza Virus 1 Not Detected (Not Detect); Parainfluenza Virus 2 Not Detected (Not Detect); Parainfluenza Virus 3 Not Detected (Not Detect); Parainfluenza Virus 4 Not Detected (Not Detect); Respiratory Syncytial Virus Not Detected (Not Detect)
[2019-04-15] MEDS: Melatonin 3 MG TABLET PO SCH (20:52)
[2019-04-15] MEDS: Insulin DETEMIR 100 UNIT/ML X5UNITS SQ SCH (20:55)
[2019-04-16] MEDS: Spironolactone 25 MG TABLET PO SCH (08:01)
[2019-04-16] MEDS: Insulin LISPRO 300 UNITS/3 ML VIAL SQ SCH ×3 (08:01→17:31)
[2019-04-16] MEDS: Aspirin Enteric Coated 81 MG Tablet PO SCH (08:02)
[2019-04-16] MEDS: Furosemide 40 MG TABLET PO SCH (08:02)
[2019-04-16] MEDS: Metoprolol XL (24 HR) Succ 25 MG TAB.ER.24H PO SCH (08:02)
[2019-04-16] MEDS: hydrALAZINE 10 MG TABLET PO SCH ×3 (08:02→21:35)
[2019-04-16] MEDS: Dorzolamide OPTH 10 ML BOTTLE LEFT EYE SCH ×3 (08:03→21:35)
[2019-04-16] MEDS ORDERED: levoFLOXacin 750 MG TABLET PO SCH (15:00)
[2019-04-16] MEDS: *HR* Heparin 5,000 UNIT/ML VIAL SQ SCH (17:30)
[2019-04-16] MEDS: Doxycycline 100 MG CAPSULE PO SCH (21:35)
[2019-04-16] MEDS: Melatonin 3 MG TABLET PO SCH (21:35)
[2019-04-16] MEDS: Insulin DETEMIR 100 UNIT/ML X5UNITS SQ SCH (21:36)
[2019-04-17] MEDS: *HR* Heparin 5,000 UNIT/ML VIAL SQ SCH (05:07)
[2019-04-17 05:18] LABS: Hemoglobin 12.8 g/dL (11.5-15.4); Mean Corpuscular HGB Conc 32.8 g/dL (31.6-35.5); Mean Corpuscular Hemoglobin 30.2 pg (28.0-33.3); Mean Platelet Volume 10.5 fL (9.4-12.4); Platelet Count 188 K/mcL (140-400); Red Blood Count 4.24 M/mcL (3.82-4.97); Red Cell Distribution Width 18.5 % (11.5-14.5); White Blood Count 3.5 K/mcL (4.3-11.1)
[2019-04-17 05:37] LABS: Calcium 8.8 mg/dL (8.6-10.3); Potassium 4.3 mEq/L (3.5-5.1)
[2019-04-17] MEDS ORDERED: 0.9 % Sodium Chloride 1,000 ML IVC SCH (08:00)
[2019-04-17] MEDS ORDERED: levoFLOXacin 750 MG TABLET PO SCH (09:00)
[2019-04-17] MEDS: Insulin LISPRO 300 UNITS/3 ML VIAL SQ SCH ×2 (09:08→12:24)
[2019-04-17] MEDS: Doxycycline 100 MG CAPSULE PO SCH (09:09)
[2019-04-17] MEDS: Metoprolol XL (24 HR) Succ 25 MG TAB.ER.24H PO SCH (09:09)
[2019-04-17] MEDS: Aspirin Enteric Coated 81 MG Tablet PO SCH (09:09)
[2019-04-17] MEDS: Dorzolamide OPTH 10 ML BOTTLE LEFT EYE SCH ×2 (09:10→14:20)
[2019-04-17] MEDS: hydrALAZINE 10 MG TABLET PO SCH ×2 (09:10→14:20)
[2019-04-17 14:01] VITALS: BP 147/82
== END 2019-04-17 16:10 | DRG 392 ==
LOC: EMEROOARM 17:02 → 3ANU 17:02 → SUATTDRO 18:40 → 3ANU 20:08
PROVIDERS: ADMIT Student in an Organized Health Care Education/Training Program; ATTEND Internal Medicine

== ENCOUNTER 2019-05-02 20:53 | Inpatient (IN) ==
[2019-05-02 22:15] LABS: Basophils % 0.2 %; Eosinophils % 0.2 %; Hemoglobin 12.9 g/dL (11.5-15.4); Immature Granulocytes % 0.6 % (0-4); Lymphocytes # 0.4 K/mcL (0.6-4.6); Lymphocytes % 5.8 %; Mean Corpuscular HGB Conc 33.1 g/dL (31.6-35.5); Mean Corpuscular Hemoglobin 30.6 pg (28.0-33.3); Mean Corpuscular Volume 92.6 fL (83.0-100.0); Mean Platelet Volume 13.1 fL (9.4-12.4); Monocytes # 0.6 K/mcL (0.0-1.3); Monocytes % 9.2 %; Neutrophils # 5.5 K/mcL (1.6-8.9); Platelet Count 129 K/mcL (140-400); Red Blood Count 4.21 M/mcL (3.82-4.97); White Blood Count 6.5 K/mcL (4.3-11.1)
[2019-05-02 22:17] LABS: INR 1.2; Prothrombin Time 13.8 Seconds (9.4-12.1)
[2019-05-02 22:20] LABS: Activated Partial Thrombo Time 33.3 Seconds (26.0-36.0)
[2019-05-02 22:42] LABS: Albumin 3.8 g/dL (3.5-5.7); Albumin/Globulin Ratio 1.2 (1.1-2.2); Bilirubin,Total 1.8 mg/dL (0.3-1.0); Globulin 3.1 g/dL (2.4-3.5); Potassium 4.2 mEq/L (3.5-5.1); Total Protein 6.9 g/dL (6.4-8.9); Troponin I 0.03 ng/mL (< 0.04)
[2019-05-02] MEDS ORDERED: Furosemide 80 MG in 0.9 % Sodium Chloride 50 ML IV ONE (23:45)
[2019-05-03] MEDS ORDERED: Naloxone 0.4 MG/ML INJ IVP PRN (01:54)
[2019-05-03] MEDS ORDERED: Acetaminophen 325 MG TABLET PO PRN (01:54)
[2019-05-03] MEDS ORDERED: Ondansetron ODT 4 MG TAB.RAPDIS SL PRN (01:54)
[2019-05-03] MEDS ORDERED: Gabapentin 300 MG CAPSULE PO PRN (01:59)
[2019-05-03 02:52] LABS: Basophils % 0.1 %; Hematocrit 38.8 % (35.3-44.9); Hemoglobin 12.3 g/dL (11.5-15.4); Immature Granulocytes % 0.5 % (0-4); Lymphocytes # 0.4 K/mcL (0.6-4.6); Lymphocytes % 5.8 %; Mean Corpuscular HGB Conc 31.7 g/dL (31.6-35.5); Mean Corpuscular Hemoglobin 30.2 pg (28.0-33.3); Mean Corpuscular Volume 95.3 fL (83.0-100.0); Mean Platelet Volume 12.5 fL (9.4-12.4); Monocytes # 0.7 K/mcL (0.0-1.3); Monocytes % 9.9 %; Neutrophils # 6.1 K/mcL (1.6-8.9); Platelet Count 121 K/mcL (140-400); Red Blood Count 4.07 M/mcL (3.82-4.97); Red Cell Distribution Width 18.1 % (11.5-14.5); Segmented Neutrophils % 83.7 %; White Blood Count 7.3 K/mcL (4.3-11.1)
[2019-05-03 03:11] LABS: Calcium 9.9 mg/dL (8.6-10.3); Potassium 4.1 mEq/L (3.5-5.1)
[2019-05-03 03:39] LABS: Folate 8.2 ng/mL (3.0-16.0)
[2019-05-03 03:41] LABS: Vitamin B12 > 1500 pg/mL (250-1100)
[2019-05-03 04:35] LABS: Bilirubin,Urine Negative (Negative); Blood,Urine Moderate (Negative); Clarity,Urine Cloudy (Clear); Color,Urine Yellow (Yellow); Glucose,Urine (UA) Normal (Normal); Ketones,Urine Negative (Negative); Leukocyte Esterase,Urine Small (Negative); Nitrite,Urine Negative (Negative); PH,Urine 5.5 pH Units (5.0-8.0); Protein,Urine 100 mg/dL (Neg-Trace); Specific Gravity,Urine 1.018 (1.010-1.025); Urobilinogen,Urine Normal (Normal)
[2019-05-03 04:37] LABS: Hyaline Casts,Urine None Seen per lpf (None-Few); Squamous Epithelial Cell,Urine Many per lpf (None-Few); WBC,Urine 0-3 per hpf (0-3)
[2019-05-03 04:47] LABS: Bacteria,Urine Few per hpf (None-Few); Other Crystals,Urine Present; RBC,Urine 0-3 per hpf (0-3)
[2019-05-03] MEDS: *HR* Heparin 5,000 UNIT/ML VIAL SQ SCH ×2 (05:26→16:49)
[2019-05-03] MEDS: Insulin LISPRO 300 UNITS/3 ML VIAL SQ SCH ×3 (07:54→16:47)
[2019-05-03] MEDS: Spironolactone 25 MG TABLET PO SCH (07:55)
[2019-05-03] MEDS: Furosemide 40 MG TABLET PO SCH ×2 (07:56→16:48)
[2019-05-03] MEDS: Metoprolol XL (24 HR) Succ 25 MG TAB.ER.24H PO SCH (07:56)
[2019-05-03] MEDS: hydrALAZINE 10 MG TABLET PO SCH ×3 (07:57→20:40)
[2019-05-03] MEDS: Aspirin Enteric Coated 81 MG Tablet PO SCH (07:57)
[2019-05-03] MEDS: Dorzolamide OPTH 10 ML BOTTLE LEFT EYE SCH ×3 (08:03→20:42)
[2019-05-03] MEDS: Insulin DETEMIR 100 UNIT/ML X5UNITS SQ SCH (08:11)
[2019-05-03] MEDS ORDERED: Doxycycline 100 MG CAPSULE PO SCH (09:00)
[2019-05-04 05:50] LABS: Calcium 9.4 mg/dL (8.6-10.3); Potassium 3.9 mEq/L (3.5-5.1)
[2019-05-04 05:52] LABS: Albumin 3.3 g/dL (3.5-5.7); Albumin/Globulin Ratio 1.2 (1.1-2.2); Bilirubin,Direct 0.5 mg/dL (0.0-0.2); Bilirubin,Indirect 0.6 mg/dL (0.0-1.0); Bilirubin,Total 1.1 mg/dL (0.3-1.0); Globulin 2.8 g/dL (2.4-3.5); Total Protein 6.1 g/dL (6.4-8.9)
[2019-05-04] MEDS: *HR* Heparin 5,000 UNIT/ML VIAL SQ SCH ×2 (05:56→16:35)
[2019-05-04] MEDS: Insulin LISPRO 300 UNITS/3 ML VIAL SQ SCH ×3 (08:02→16:34)
[2019-05-04] MEDS: Aspirin Enteric Coated 81 MG Tablet PO SCH (08:09)
[2019-05-04] MEDS: hydrALAZINE 10 MG TABLET PO SCH ×3 (08:09→19:53)
[2019-05-04] MEDS: Spironolactone 25 MG TABLET PO SCH (08:10)
[2019-05-04] MEDS: Metoprolol XL (24 HR) Succ 25 MG TAB.ER.24H PO SCH (08:10)
[2019-05-04] MEDS: Furosemide 40 MG TABLET PO SCH (08:10)
[2019-05-04] MEDS: Furosemide 40 MG/4 ML VIAL IVP SCH ×3 (08:16→15:30)
[2019-05-04] MEDS: Insulin DETEMIR 100 UNIT/ML X5UNITS SQ SCH (08:25)
[2019-05-04] MEDS: Dorzolamide OPTH 10 ML BOTTLE LEFT EYE SCH ×3 (08:27→19:55)
[2019-05-05 02:22] LABS: Calcium 9.2 mg/dL (8.6-10.3)
[2019-05-05] MEDS: *HR* Heparin 5,000 UNIT/ML VIAL SQ SCH ×2 (05:47→17:05)
[2019-05-05] MEDS: Insulin LISPRO 300 UNITS/3 ML VIAL SQ SCH ×3 (07:58→17:07)
[2019-05-05] MEDS: Spironolactone 25 MG TABLET PO SCH (10:20)
[2019-05-05] MEDS: Aspirin Enteric Coated 81 MG Tablet PO SCH (10:20)
[2019-05-05] MEDS: hydrALAZINE 10 MG TABLET PO SCH ×3 (10:20→21:54)
[2019-05-05] MEDS: Furosemide 40 MG/4 ML VIAL IVP SCH ×2 (10:20→17:07)
[2019-05-05] MEDS: Metoprolol XL (24 HR) Succ 25 MG TAB.ER.24H PO SCH (10:20)
[2019-05-05] MEDS: Insulin DETEMIR 100 UNIT/ML X5UNITS SQ SCH (10:23)
[2019-05-05] MEDS: Dorzolamide OPTH 10 ML BOTTLE LEFT EYE SCH ×3 (10:24→21:54)
[2019-05-05] MEDS ORDERED: Ondansetron 4 MG/2 ML VIAL IVP PRN (15:38)
[2019-05-06 02:22] LABS: Calcium 8.9 mg/dL (8.6-10.3); Potassium 3.5 mEq/L (3.5-5.1)
[2019-05-06] MEDS: *HR* Heparin 5,000 UNIT/ML VIAL SQ SCH ×2 (06:30→18:27)
[2019-05-06] MEDS: Metoprolol XL (24 HR) Succ 25 MG TAB.ER.24H PO SCH (09:09)
[2019-05-06] MEDS: hydrALAZINE 10 MG TABLET PO SCH ×3 (09:09→18:30)
[2019-05-06] MEDS: Spironolactone 25 MG TABLET PO SCH (09:09)
[2019-05-06] MEDS: Aspirin Enteric Coated 81 MG Tablet PO SCH (09:09)
[2019-05-06] MEDS: Insulin LISPRO 300 UNITS/3 ML VIAL SQ SCH ×3 (09:10→18:28)
[2019-05-06] MEDS: Furosemide 40 MG/4 ML VIAL IVP SCH ×2 (09:10→18:28)
[2019-05-06] MEDS: Insulin DETEMIR 100 UNIT/ML X5UNITS SQ SCH (09:21)
[2019-05-06] MEDS: Dorzolamide OPTH 10 ML BOTTLE LEFT EYE SCH ×3 (09:23→22:37)
[2019-05-07 04:17] LABS: Calcium 8.7 mg/dL (8.6-10.3); Potassium 3.6 mEq/L (3.5-5.1)
[2019-05-07] MEDS: *HR* Heparin 5,000 UNIT/ML VIAL SQ SCH ×2 (05:34→17:19)
[2019-05-07] MEDS: Furosemide 40 MG/4 ML VIAL IVP SCH ×2 (08:20→17:18)
[2019-05-07] MEDS: hydrALAZINE 10 MG TABLET PO SCH ×3 (08:21→21:59)
[2019-05-07] MEDS: Aspirin Enteric Coated 81 MG Tablet PO SCH (08:21)
[2019-05-07] MEDS: Spironolactone 25 MG TABLET PO SCH (08:21)
[2019-05-07] MEDS: Insulin LISPRO 300 UNITS/3 ML VIAL SQ SCH ×3 (08:21→16:56)
[2019-05-07] MEDS: Metoprolol XL (24 HR) Succ 25 MG TAB.ER.24H PO SCH (08:21)
[2019-05-07] MEDS: Dorzolamide OPTH 10 ML BOTTLE LEFT EYE SCH ×3 (08:23→22:01)
[2019-05-07] MEDS: Insulin DETEMIR 100 UNIT/ML X5UNITS SQ SCH (08:36)
[2019-05-08 01:55] LABS: Calcium 8.5 mg/dL (8.6-10.3); Magnesium 1.9 mg/dL (1.6-2.6); Potassium 3.5 mEq/L (3.5-5.1)
[2019-05-08] MEDS: *HR* Heparin 5,000 UNIT/ML VIAL SQ SCH (05:01)
[2019-05-08] MEDS ORDERED: Furosemide 40 MG TABLET PO SCH (09:00)
[2019-05-08] MEDS: Dorzolamide OPTH 10 ML BOTTLE LEFT EYE SCH (09:17)
[2019-05-08] MEDS: Metoprolol XL (24 HR) Succ 25 MG TAB.ER.24H PO SCH (09:20)
[2019-05-08] MEDS: Aspirin Enteric Coated 81 MG Tablet PO SCH (09:20)
[2019-05-08] MEDS: hydrALAZINE 10 MG TABLET PO SCH (09:20)
[2019-05-08] MEDS: Spironolactone 25 MG TABLET PO SCH (09:33)
[2019-05-08] MEDS: Insulin DETEMIR 100 UNIT/ML X5UNITS SQ SCH (09:33)
[2019-05-08] MEDS: Insulin LISPRO 300 UNITS/3 ML VIAL SQ SCH ×2 (09:33→12:04)
[2019-05-08 11:48] VITALS: BP 159/74
== END 2019-05-08 16:10 | DRG 291 ==
LOC: 3BNU 20:53 → EMEROOARM 20:53 → SUATTDRO 05-03 00:05 → 3BNU 05-03 00:46 → SUATTDRO 05-03 14:18
PROVIDERS: ADMIT Family Medicine; ATTEND Internal Medicine